=== PATIENT | male | born 1990 | race Caucasian/White ===

== ENCOUNTER 2017-09-17 14:01 | Emergency (ER) | payer MEDICAID, SELFPAY ==
--- NOTE | 2017-09-17 13:32 | RAD_ITS ---
STUDY: X-RAY CHEST REASON FOR EXAM: Male, 27 years old. Chest pain. Shortness of breath. TECHNIQUE: AP upright portable view. COMPARISON: 05/04/2017. FINDINGS: No confluent infiltrates. Subsegmental atelectases in the right lower lobe. There is no demonstrated pleural abnormality. Cardiac size cannot be accurately evaluated. Normal mediastinum and deny. Normal visualized pulmonary arteries. Normal visualized aortic arch and descending thoracic aorta. Normal visualized thoracic spine. Normal visualized ribs, clavicles, and shoulders. There is no demonstrated abnormality of the visualized soft tissue structures of the upper abdomen. RAD/Chest 1 View (Portable) IMPRESSION: 1. Minimal subsegmental atelectasis in the right lung base. 2. No obvious pneumonia or acute cardiopulmonary pathology. Electronically Signed: Brendan Mix MD at 15:17 EDT , Service support ,
[2017-09-17 14:02] VITALS: BP 202/117; PULSE 92; RESP 18; TEMP 36.4; O2SAT 97; BMI 52.0
--- NOTE | 2017-09-17 14:24 | EKG12_ITS ---
Test Reason : CP/SOB Blood Pressure : / mmHG Vent. Rate : 090 BPM Atrial Rate : 090 BPM P-R Int : 186 ms QRS Dur : 086 ms QT Int : 384 ms P-R-T Axes : 052 062 220 degrees QTc Int : 469 ms Normal sinus rhythm ST & T wave abnormality, consider inferolateral ischemia Prolonged QT Abnormal ECG Confirmed by HILTON RAGLAND ([id number]), online editor NICK CALERO ([id number]) on 09/21/2017 1:46:43 PM Referred By: DAISY/ÁNGEL Confirmed By:HILTON RAGLAND
[2017-09-17 14:28] VITALS: O2SAT 97
[2017-09-17 14:33] LABS: Absolute Lymphocyte Count 1.96 X10^3/ul (0.83-4.51); Absolute Neutrophil Count 4.1 X10^3/uL (2.0-7.7); Basophil# 0.01 X10^3/uL; Basophil% 0.2 % (0-1); Eosinophils% 1.5 % (0-5); Hematocrit 44.3 % (40-54); Hemoglobin 14.4 g/dl (13.0-16.5); Lymphocyte # 1.96 X10^3/ul (4.0); Lymphocyte % 30.2 % (19-41); Mean Corp Hgb Conc 32.5 g/gl (32-36); Mean Corpuscular Hgb 28.9 pg (27.0-32.0); Mean Corpuscular Volume 88.8 fL (80-94); Mean Platelet Vol. 10.4 fl (6.2-12.0); Monocyte# 0.29 X10^3/uL; Monocyte% 4.5 % (0-10); Neutrophil # 4.11 X10^3/uL (2.7-7.7); Neutrophil % 63.4 % (47-70); Platelet Count 222 K/mm3 (150-450); RBC Distribution Width CV 13.8 % (11.6-14.6); RBC Distribution Width SD 44.4 fl (35.1-43.9); Red Blood Count 4.99 M/mm3 (4.6-6.2); White Blood Count 6.5 K/mm3 (4.4-11.0)
[2017-09-17 14:37] LABS: POSITIVE COUNT NO; POSITIVE DIFFERENTIAL NO; POSITIVE MORPHOLOGY NO
[2017-09-17 14:46] LABS: Anion Gap 6 (5-15); BUN 9 mg/dL (7-18); BUN/Creat Ratio 9.2 RATIO (10-20); Calcium,Total 8.5 mg/dL (8.5-10.1); Chloride 106 mmol/L (98-107); Creatinine, Serum 0.98 mg/dL (0.70-1.30); EST Glomerular Filtration Rate 98 mL/min (>60); Est Glom Filt Rate - Afr Amer 118 mL/min (>60); Estimated Creatinine Clearance 124.27 ml/min; Glucose 188 mg/dL (74-106); Potassium 3.4 mmol/L (3.5-5.1); Sodium Level 143 mmol/L (136-145)
[2017-09-17 16:08] VITALS: BP 195/120; PULSE 76; RESP 13; O2SAT 94
--- NOTE | 2017-09-17 16:08 | ED.VISSUMM ---
- ER Visit Summary Date of Service: 09/17/17 Chief Complaint: [Chest pain] History of Present Illness: The patient is a 27 M [presents to the emergency department chest discomfort that started yesterday evening. Patient describes a tightness in the left side of his chest off and on. Patient states that his pain is currently resolved. Patient did feel systems shortness of breath associated with it. Patient had some discomfort in his right arm and he noticed some swelling initially in the right hand is now mostly resolved. Patient tells me he had a heart catheterization in 2014 that did not show any blockages. Patient denies recent travel or surgery. Patient states there is a family history of heart disease his father had an [place] in his early 50s. Patient is diabetic and has a history of hypertension. Patient is a smoker.] Physical Examination: [HEENT-PERRLA, EOMI. Cranial nerves II through XII grossly intact. TMs clear. Mucous membranes moist. No adenopathy. Cardiovascular-regular rate and rhythm without murmur or ectopy Lungs-clear to auscultation, chest wall stable without crepitus or subcu emphysema Abdomen-normoactive bowel sounds, soft, nontender, no rebound or rigidity, no peritoneal signs. Extremities-intact ?4, normal range of motion, normal pulses, atraumatic] Test Results: [EKG obtained showed a sinus rhythm with ventricular rate of [address] changes and a prolonged QT. When compared with prior EKG from May 04, 2017 there are no new changes noted. CBC with differential was normal. Chemistries unremarkable. Troponin was 0.03. Chest x-ray showed no evidence of pneumonia had some cardiomegaly and subsequent segmental atelectasis but otherwise nothing acute. Mediastinum appeared normal.] Emergency Department Course and Treatment: [Patient had taken aspirin at home therefore none was given here. Patient remained pain-free in the emergency department.] Treatment Plan: [Given the pain has been ongoing for close to 24 hours now patient has an unchanged EKG and normal troponin I do not feel his chest pain is cardiac. Patient had a CTA of the chest in April 2017 that was negative for PE and really does not have PE risk factors.] Disposition: [Discharged to home in stable condition] Impression: [Chest snbv-[id number]-jopfgdph uncertain] This note was generated with [employer] software. It may contain incorrect words, spelling, and punctuation that were not noted in review of the chart prior to signing ED Disposition - Plan for ED Patient: Chief Complaint: Chest Pain Referrals: [facility],Out of [Primary Care Provider] -
--- NOTE | 2017-09-17 16:12 | ED.DCSUM_ITS ---
- ER Visit Summary Date of Service: 09/17/17 Chief Complaint: [Chest pain] History of Present Illness: The patient is a 27 M [presents to the emergency department chest discomfort that started yesterday evening. Patient describes a tightness in the left side of his chest off and on. Patient states that his pain is currently resolved. Patient did feel systems shortness of breath associated with it. Patient had some discomfort in his right arm and he noticed some swelling initially in the right hand is now mostly resolved. Patient tells me he had a heart catheterization in 2014 that did not show any blockages. Patient denies recent travel or surgery. Patient states there is a family history of heart disease his father had an PR in his early 50s. Patient is diabetic and has a history of hypertension. Patient is a smoker.] Physical Examination: [HEENT-PERRLA, EOMI. Cranial nerves II through XII grossly intact. TMs clear. Mucous membranes moist. No adenopathy. Cardiovascular-regular rate and rhythm without murmur or ectopy Lungs-clear to auscultation, chest wall stable without crepitus or subcu emphysema Abdomen-normoactive bowel sounds, soft, nontender, no rebound or rigidity, no peritoneal signs. Extremities-intact ?4, normal range of motion, normal pulses, atraumatic] Test Results: [EKG obtained showed a sinus rhythm with ventricular rate of [address] changes and a prolonged QT. When compared with prior EKG from May 04, 2017 there are no new changes noted. CBC with differential was normal. Chemistries unremarkable. Troponin was 0.03. Chest x -ray showed no evidence of pneumonia had some cardiomegaly and subsequent segmental atelectasis but otherwise nothing acute. Mediastinum appeared normal. ] Emergency Department Course and Treatment: [Patient had taken aspirin at home therefore none was given here. Patient remained pain-free in the emergency department.] Treatment Plan: [Given the pain has been ongoing for close to 24 hours now patient has an unchanged EKG and normal troponin I do not feel his chest pain is cardiac. Patient had a CTA of the chest in April 2017 that was negative for PE and really does not have PE risk factors.] Disposition: [Discharged to home in stable condition] Impression: [Chest eksz-Onptbrbb-dqaxbvkv uncertain] This note was generated with [employer] software. It may contain incorrect words, spelling, and punctuation that were not noted in review of the chart prior to signing ED Disposition - Plan for ED Patient: Chief Complaint: Chest Pain Referrals: [facility],Out of [Primary Care Provider] -
--- NOTE | 2017-09-17 16:12 | ED.DEP ---
ED Disposition - Plan for ED Patient: Chief Complaint: Chest Pain Instructions: ED Chest Pain Atypical Unkn Cause, ED HTN Established Referrals: [facility],Out of [Primary Care Provider] - 3-5 Days
[2017-09-17 16:18] VITALS: BP 196/115; PULSE 71; RESP 16; O2SAT 98
== END 2017-09-17 16:19 | disposition home or self-care (01) ==
PROVIDERS: Emergency Provider Emergency Medicine
DX: R07.89 Other chest pain (principal); E11.9 Type 2 diabetes mellitus without complications; I10 Essential (primary) hypertension; F17.200 Nicotine dependence, unspecified, uncomplicated; Z79.84 Long term (current) use of oral hypoglycemic drugs; Z79.899 Other long term (current) drug therapy
CPT/HCPCS: 71045; 80048; 84484; 85025; 93005; 99284; A4216

== ENCOUNTER 2017-11-13 15:57 | Emergency (ER) | payer MEDICAID, SELFPAY ==
[2017-11-13 15:59] VITALS: PULSE 103; RESP 16; TEMP 36.8; O2SAT 95; BMI 50.6
[2017-11-13 16:08] VITALS: BP 219/121
--- NOTE | 2017-11-13 16:14 | CT_ITS ---
STUDY: CT ABDOMEN AND PELVIS WITHOUT CONTRAST REASON FOR EXAM: Male, 27 years old. Left lower quadrant pain, nausea/vomiting/diarrhea. History of colitis, Crohn's, GERD RADIATION DOSAGE (If Supplied By Facility): CTDIvol = ( 34.45 ) mGy, DLP = ( 1954.03 ) mGycm TECHNIQUE: Transaxial images were obtained from the dome of the diaphragm to the symphysis pubis without oral contrast, and without intravenous contrast. Sagittal and coronal images were reconstructed. Individualized dose optimization techniques were used for this CT. COMPARISON: None. FINDINGS: Mild elevation of right diaphragm. There is a well-defined 6 mm noncalcified nodule posteromedial periphery of the right lung base on the first image of series 2. The visualized portions of the heart are within normal limits. There is decreased attenuation of the liver consistent with steatosis. There is hepatomegaly, the right lobe measuring over 23 cm in height. The portal vein diameter is 2 cm. Normal gallbladder and extrahepatic biliary system. There is mild splenomegaly. Normal pancreas. Normal bilateral adrenal glands. Normal right kidney. Normal left kidney. No hydronephrosis. Normal visualized stomach. Normal small intestine. Normal colon. There is a 2-3 mm calcification at the stump of the appendix. There are occasional benign-appearing lymph nodes in the mesentery. Normal abdominal aorta. Normal inferior vena cava. There are a few benign-appearing lymph nodes in the periaortic retroperitoneum. Normal urinary bladder. Normal visualized prostate gland. Normal abdominal wall. There are multilevel degenerative changes of the visualized spine, and a slight S-shaped thoracolumbar scoliosis. There is slight left lateral wedging of the T11 and T12 vertebrae, as well as slight right lateral wedging of the L2 and L3 vertebrae. CT/Abdomen/Pelvis without Cont IMPRESSION: 1. The bowel is unremarkable without sign of obstruction or suspicious mural thickening. Focal calcification at the stump of the appendix suggests prior appendectomy. 2. Hepatic steatosis. There is also hepatosplenomegaly. 3. 6 mm noncalcified nodule at the posterior medial periphery of the right lower lobe is unchanged from CTA chest/thorax May 04, 2017, and was also mentioned in report of CT chest/thorax September 07, 2011. No specific radiographic follow-up is needed. 4. Degenerative changes of the spine. There is slight left lateral wedging of the T11-T12 vertebra and slight right lateral wedging of the L2-L3 vertebra, with a resulting slight S-shaped thoracolumbar scoliosis. 5. No hydronephrosis. Electronically Signed: Chino Moreira MD at 17:23 EDT , Service support ,
--- NOTE | 2017-11-13 16:15 | ED.VISSUMM ---
- ER Visit Summary Date of Service: 11/13/17 Chief Complaint: [] Abdominal pain History of Present Illness: The patient is a 27 M [] complaining of left lower quadrant abdominal pain beginning yesterday. Patient reports nausea vomiting and diarrhea. Reports he has been unable to keep his oral blood pressure medication down and he presents today with a blood pressure in the 200s systolic. He reports a history of colitis however he has not been diagnosed with Crohn's or ulcerative colitis. Reports he has no GI doctor and has never had EGD or colonoscopy. Denies hematemesis or blood in stool. Physical Examination: [] Systolic blood pressure 219/112. Remainder of vitals are unremarkable. Very morbidly obese 27-year-old male in no acute distress. Cardiovascular exam is regular rate and rhythm. Lungs were auscultation. Abdomen is obese, soft, tender in the left lower quadrant with mild voluntary guarding. No rebound tenderness. Test Results: [] Labs: CT, BMP, LFTs, lipase, lactic acid all within normal limits. CT abdomen/pelvis without contrast: Negative. Emergency Department Course and Treatment: [] Patient given intravenous fluid bolus, Phenergan, Dilaudid for symptom relief. On serial exam patient had improvement of symptoms. Patient had a negative workup including labs and CT scan I do not feel any further evaluation was warranted. Patient was amenable to discharge and follow-up with PCP. Treatment Plan: [] Follow-up with PCP. Disposition: [] Discharge, stable. Impression: [] Abdominal pain, unknown etiology This note was generated with [employer] dictation software. It may contain incorrect words, spelling, and punctuation that were not noted in review of the chart prior to signing ED Disposition - Plan for ED Patient: Chief Complaint: Abd Pain Referrals: [facility] ,Out of [Primary Care Provider] -
--- NOTE | 2017-11-13 16:20 | ED.RN ---
PT STATED TO NURSING STAFF TO NOTIFY PHYSICIAN THAT HIS PRESSURE RUNS SYSTOLIC 180-190 AND IS NORMAL FOR HIM. PT STATED THAT HIS DOCTOR TOLD HIM THAT IS WHAT IT SHOULD RUN AND WILL BE SLOWLY DECREASING HIM UNTIL THEN.
[2017-11-13] MEDS: 0.9% Normal Saline 1,000 ML 1000 ML IV (16:39)
[2017-11-13] MEDS: proMETHazine 25 MG/ML Syringe 6.25 MG IV (16:39)
[2017-11-13] MEDS: HYDROmorphone 1 MG/ML Syringe IV (16:39)
[2017-11-13 16:55] LABS: ALB/GLOB Ratio 0.8 RATIO (0.9-2.4); AST(SGOT) 21 U/L (15-37); Alanine Aminotransfer ALT/SGPT 49 U/L (16-61); Albumin, Serum 3.3 g/dL (3.2-5.0); Alkaline Phosphatase 51 U/L (45-117); Anion Gap 5 (5-15); BUN 9 mg/dL (7-18); BUN/Creat Ratio 9.3 RATIO (10-20); Calcium,Total 8.4 mg/dL (8.5-10.1); Chloride 104 mmol/L (98-107); Creatinine, Serum 0.96 mg/dL (0.70-1.30); EST Glomerular Filtration Rate 99 mL/min (>60); Est Glom Filt Rate - Afr Amer 120 mL/min (>60); Estimated Creatinine Clearance 126.86 ml/min; Glucose 151 mg/dL (74-106); Lipase 88 U/L (73-393); Potassium 3.4 mmol/L (3.5-5.1); Protein, Total 7.3 g/dL (6.4-8.2); Sodium Level 141 mmol/L (136-145)
[2017-11-13 17:05] LABS: Absolute Lymphocyte Count 2.69 X10^3/ul (0.83-4.51); Absolute Neutrophil Count 5.9 X10^3/uL (2.0-7.7); Basophil# 0.01 X10^3/uL; Basophil% 0.1 % (0-1); Eosinophil# 0.09 X10^3/uL; Hematocrit 46.4 % (40-54); Hemoglobin 15.7 g/dl (13.0-16.5); Lymphocyte # 2.69 X10^3/ul (4.0); Lymphocyte % 29.1 % (19-41); Mean Corp Hgb Conc 33.8 g/gl (32-36); Mean Corpuscular Hgb 28.7 pg (27.0-32.0); Mean Corpuscular Volume 84.8 fL (80-94); Mean Platelet Vol. 10.5 fl (6.2-12.0); Monocyte# 0.52 X10^3/uL; Monocyte% 5.6 % (0-10); Neutrophil # 5.91 X10^3/uL (2.7-7.7); Platelet Count 199 K/mm3 (150-450); RBC Distribution Width CV 13.3 % (11.6-14.6); RBC Distribution Width SD 40.7 fl (35.1-43.9); Red Blood Count 5.47 M/mm3 (4.6-6.2); White Blood Count 9.2 K/mm3 (4.4-11.0)
[2017-11-13 17:08] LABS: POSITIVE COUNT NO; POSITIVE DIFFERENTIAL NO; POSITIVE MORPHOLOGY NO
[2017-11-13 17:37] LABS: Lactic Acid 1.7 mmol/L (0.4-2.0)
--- NOTE | 2017-11-13 18:27 | ED.DEP ---
ED Disposition - Plan for ED Patient: Disposition: Home or Assisted Living Chief Complaint: Abd Pain Instructions: ED Abdominal Pain Unkn Cause Referrals: [facility],Out of [Primary Care Provider] -
--- NOTE | 2017-11-13 18:58 | ED.RN ---
PT DECLINED BLOOD PRESSURE MEDICATION. PT STATED HE WILL TAKE BLOOD PRESSURE MEDICATION AT HOME. PT EDUCATED ON IMPORTANCE OF LOWERING BLOOD PRESSURE, STILL DECLINED MEDS.
[2017-11-13 19:00] VITALS: BP 190/98; PULSE 71; RESP 18; O2SAT 98
== END 2017-11-13 19:00 | disposition home or self-care (01) ==
PROVIDERS: Emergency Provider Emergency Medicine
DX: R10.32 Left lower quadrant pain (principal); I10 Essential (primary) hypertension; E66.01 Morbid (severe) obesity due to excess calories; F32.9 Major depressive disorder, single episode, unspecified; Z72.0 Tobacco use; Z79.899 Other long term (current) drug therapy
CPT/HCPCS: 74176; 80053; 83605; 83690; 85025; 96361; 96374; 96375; 99283; J7030; A4216

== ENCOUNTER 2017-11-18 20:46 | Emergency (ER) | payer OTHER, SELFPAY ==
[2017-11-18 20:47] VITALS: BP 207/143; PULSE 100; RESP 20; TEMP 36.9; O2SAT 95; BMI 50.2
--- NOTE | 2017-11-18 21:05 | ED.DCSUM_ITS ---
- ER Visit Summary Date of Service: 11/18/17 Chief Complaint: Left ankle pain History of Present Illness: The patient is a 27 M twisted his left ankle at work tonight. No other injuries. Physical Examination: Mild tenderness left ankle lateral malleolus. Skin intact. No foot tenderness. Test Results: Left ankle x-ray negative for acute fracture based on my independent interpretation. No foot tenderness. Emergency Department Course and Treatment: placed in aircast stirrup and followup if not better. Treatment Plan: Followup if not improving. Disposition: Home stable condition Impression: Initial encounter left ankle sprain This note was generated with [employer] dictation software. It may contain incorrect words, spelling, and punctuation that were not noted in review of the chart prior to signing ED Disposition - Plan for ED Patient: Chief Complaint: Lower Extremity Injury Instructions: ED Sprain Ankle W X Ray Referrals: [facility] [GROUP OF PHYSICIANS] - 3-5 Days if not improving
--- NOTE | 2017-11-18 21:05 | RAD_ITS ---
STUDY: X-RAY - LEFT ANKLE REASON FOR EXAM: Male, 27 years old. Clipping and injured left ankle TECHNIQUE: 3 view(s) of the ankle. COMPARISON: April 30, 2017 FINDINGS: Normal visualized distal tibia and fibula. Normal medial and lateral malleoli. Normal tibiotalar articulation and ankle mortise. Normal visualized talus and calcaneus. The visualized subtalar, talonavicular, calcaneocuboid and tarsal articulations are normal. The soft tissue structures are unremarkable. RAD/Ankle min 3 Views IMPRESSION: Normal x-ray examination of the ankle. Electronically Signed: Refugio Harrington MD at 21:40 EDT , Service support ,
== END 2017-11-18 22:01 | disposition home or self-care (01) ==
PROVIDERS: Emergency Provider Emergency Medicine
DX: S93.402A Sprain of unspecified ligament of left ankle, initial encounter (principal); I10 Essential (primary) hypertension; F32.9 Major depressive disorder, single episode, unspecified; Z72.0 Tobacco use; Z79.899 Other long term (current) drug therapy; X50.1XXA Overexertion from prolonged static or awkward postures, initial encounter; Y93.89 Activity, other specified; Y92.89 Other specified places as the place of occurrence of the external cause; Y99.0 Civilian activity done for income or pay
CPT/HCPCS: 73610; 99283

== ENCOUNTER 2017-12-28 23:45 | Emergency (ER) | payer MEDICAID, SELFPAY ==
[2017-12-28 23:46] VITALS: BP 217/130; PULSE 110; RESP 20; TEMP 36.4; O2SAT 96; BMI 50.5
--- NOTE | 2017-12-29 00:21 | CT_ITS ---
STUDY: CT ABDOMEN AND PELVIS WITH CONTRAST REASON FOR EXAM: Male, 27 years old. Lower abdominal pain for 2 weeks, radiating to the back. History of appendectomy. RADIATION DOSAGE (If Supplied By Facility): CTDIvol = ( 31.44 ) mGy, DLP = ( 2037.15 ) mGycm TECHNIQUE: Transaxial images were obtained from the dome of the diaphragm to the symphysis pubis without oral contrast. 100ML ml of Isovue 300 contrast was administered. Sagittal and coronal images were reconstructed. Individualized dose optimization techniques were used for this CT. COMPARISON: 11/13/2017. 03/28/2017. FINDINGS: The visualized lung bases are unremarkable. The visualized portions of the heart are within normal limits. There is decreased attenuation of the liver consistent with steatosis. Normal gallbladder and extrahepatic biliary system. There is moderate splenomegaly, similar to previous exam. Normal pancreas. Normal bilateral adrenal glands. Normal right kidney. Normal left kidney. Normal visualized stomach. Normal small intestine. Normal colon. There are surgical clips in the region of the appendix consistent with a prior appendectomy. Normal abdominal aorta. Normal inferior vena cava. Normal retroperitoneum. Normal urinary bladder. Normal abdominal wall. There are multilevel degenerative changes of the visualized spine. CT/Abdomen/Pelvis W IV Cont ONLY IMPRESSION: Fatty infiltration of the liver. Splenomegaly, stable in appearance. Previous appendectomy. No evidence for acute pathology. No evidence for diverticulitis. No demonstrated urinary calculi or hydronephrosis. Electronically Signed: Nixon Cobb MD at 2:49 EDT , Service support ,
--- NOTE | 2017-12-29 00:26 | ED.VISSUMM ---
- ER Visit Summary Date of Service: 12/29/17 Chief Complaint: [Back pain] History of Present Illness: The patient is a 27 M [who presents the emergency department with 2 weeks of back pain. It started like he would wake up in the morning with the pain at the gluteal crest it has slowly progressed and is painful all day especially for the last 4 days it is worse when he walks when he bends forward when he stands. It radiates down both buttocks but worse on the left and he has some paresthesias intermittently in his left toes. He has chronic high blood pressure. He was admitted to [facility] for it in July. He states he has been compliant with all his medications but ran out of his lisinopril on Thursday. He denies any bowel or bladder dysfunction no fevers. No direct injury but 2 days prior to this starting he was moving a dresser with a relative.] Physical Examination: [] Blood pressure 217/130 heart rate 110 respirations 20 pulse ox 96% Obese male in no acute distress WN WD NAD PERRL EOMI MMM NECK supple and nontender, no masses RRR no murmur rub or gallop, no peripheral edema, symmetric radial pulses CTAB no respiratory distress ABDOMEN is soft and nontender, normal bowel sounds, no distension, no rebound or guarding Patient has no midline tenderness to palpation but does have pain with bending forward or lying back. He has a straight leg raise on the left at 45?. Strength at EHL dorsiflexion plantar flexion knee extension and hip flexion are intact bilaterally and symmetric. Reflexes are intact. SKIN is warm and dry no rashes Alert and Oriented x3, CN II-XII in tact, no motor or sensory deficits, gait normal No lymphadenopathy Test Results: [] Emergency Department Course and Treatment: [Patient was given lisinopril for his blood pressure. Previous blood pressures were reviewed and it was quite high. He has been running in the 170s over 110s at home. Because of the patient's blood pressure and back pain with radiculopathy and neurologic symptoms I did order a CT of the abdomen pelvis to rule out dissection. It shows no dissection. Creatinine is 1.65 but does not have a baseline for comparison. Patient is diabetic his sugar was 200. I will start him on a Medrol Dosepak he will be given a take-home dose of [place] and will be given muscle relaxant for home. He was encouraged to follow-up with his doctors in [place]. His blood pressure remained quite high give him 20 of labetalol and improved to 177/110. At this time I think he is safe for discharge home. We talked extensively about controlling and monitoring blood pressure. He has a prescription at the pharmacy to refill his lisinopril. He will take all his home medications this morning.] Treatment Plan: [] Disposition: [Discharge] Impression: [1. Lumbar back pain with left radiculopathy 2. Uncontrolled hypertension] This note was generated with [employer] dictation software. It may contain incorrect words, spelling, and punctuation that were not noted in review of the chart prior to signing ED Disposition - Plan for ED Patient: Chief Complaint: Back Referrals: [facility] Doctor,Out of [Primary Care Provider] -
--- NOTE | 2017-12-29 00:29 | ED.DCSUM_ITS ---
- ER Visit Summary Date of Service: 12/29/17 Chief Complaint: [Back pain] History of Present Illness: The patient is a 27 M [who presents the emergency department with 2 weeks of back pain. It started like he would wake up in the morning with the pain at the gluteal crest it has slowly progressed and is painful all day especially for the last 4 days it is worse when he walks when he bends forward when he stands. It radiates down both buttocks but worse on the left and he has some paresthesias intermittently in his left toes. He has chronic high blood pressure. He was admitted to [facility] for it in July. He states he has been compliant with all his medications but ran out of his lisinopril on Thursday. He denies any bowel or bladder dysfunction no fevers. No direct injury but 2 days prior to this starting he was moving a dresser with a relative.] Physical Examination: [] Blood pressure 217/130 heart rate 110 respirations 20 pulse ox 96% Obese male in no acute distress WN WD NAD PERRL EOMI MMM NECK supple and nontender, no masses RRR no murmur rub or gallop, no peripheral edema, symmetric radial pulses CTAB no respiratory distress ABDOMEN is soft and nontender, normal bowel sounds, no distension, no rebound or guarding Patient has no midline tenderness to palpation but does have pain with bending forward or lying back. He has a straight leg raise on the left at 45?. Strength at EHL dorsiflexion plantar flexion knee extension and hip flexion are intact bilaterally and symmetric. Reflexes are intact. SKIN is warm and dry no rashes Alert and Oriented x3, CN II-XII in tact, no motor or sensory deficits, gait normal No lymphadenopathy Test Results: [] Emergency Department Course and Treatment: [Patient was given lisinopril for his blood pressure. Previous blood pressures were reviewed and it was quite high. He has been running in the 170s over 110s at home. Because of the patient's blood pressure and back pain with radiculopathy and neurologic symptoms I did order a CT of the abdomen pelvis to rule out dissection. It shows no dissection. Creatinine is 1.65 but does not have a baseline for comparison. Patient is diabetic his sugar was 200. I will start him on a Medrol Dosepak he will be given a take-home dose of [place] and will be given muscle relaxant for home. He was encouraged to follow-up with his doctors in [place]. His blood pressure remained quite high give him 20 of labetalol and improved to 177/110. At this time I think he is safe for discharge home. We talked extensively about controlling and monitoring blood pressure. He has a prescription at the pharmacy to refill his lisinopril. He will take all his home medications this morning.] Treatment Plan: [] Disposition: [Discharge] Impression: [1. Lumbar back pain with left radiculopathy 2. Uncontrolled hypertension] This note was generated with [employer] dictation software. It may contain incorrect words, spelling, and punctuation that were not noted in review of the chart prior to signing ED Disposition - Plan for ED Patient: Chief Complaint: Back Referrals: [facility] Doctor,Out of [Primary Care Provider] -
[2017-12-29] MEDS: HYDROmorphone 1 MG/ML Syringe IV (00:42)
[2017-12-29] MEDS: Ondansetron 4 MG/2 ML Vial IV (00:42)
[2017-12-29] MEDS: Lisinopril 40 MG Tablet PO (01:18)
[2017-12-29 01:26] LABS: Anion Gap 9 (5-15); BUN 10 mg/dL (7-18); BUN/Creat Ratio 7.4 RATIO (10-20); Chloride 102 mmol/L (98-107); Creatinine, Serum 1.36 mg/dL (0.70-1.30); EST Glomerular Filtration Rate 67 mL/min (>60); Est Glom Filt Rate - Afr Amer 81 mL/min (>60); Estimated Creatinine Clearance 89.55 ml/min; Glucose 200 mg/dL (74-106); Potassium 3.4 mmol/L (3.5-5.1); Sodium Level 140 mmol/L (136-145)
[2017-12-29] MEDS: HYDROmorphone 0.5 MG/0.5 ML SYRINGE IV (03:14)
[2017-12-29 04:25] VITALS: BP 175/110; RESP 18
[2017-12-29 04:26] VITALS: BP 158/104; PULSE 84; RESP 18; O2SAT 99
--- NOTE | 2017-12-29 04:28 | ED.DEP ---
ED Disposition - Plan for ED Patient: Chief Complaint: Back Instructions: ED Sciatica, Controlling High Blood Pressure Prescriptions: Tizanidine HCl 4 mg PO Q8H PRN PRN #10 tablet PRN Reason: Muscle Spasm MethylPREDNISolone DosePak [Medrol DosePak] 4 mg PO UD #1 box Referrals: [facility], internal Medicine [Other] - 2 Days
--- NOTE | 2017-12-29 04:31 | ED.DEP ---
ED Disposition - Plan for ED Patient: Chief Complaint: Back Instructions: Controlling High Blood Pressure, ED Sciatica Prescriptions: Tizanidine HCl 4 mg PO Q8H PRN PRN #10 tablet PRN Reason: Muscle Spasm MethylPREDNISolone DosePak [Medrol DosePak] 4 mg PO UD #1 box Referrals: [facility], internal Medicine [Other] - 2 Days
[2017-12-29] MEDS: HYDROcodone Bitartrate/Apap 5/325 Tablet PO (04:34)
== END 2017-12-29 04:37 | disposition home or self-care (01) ==
PROVIDERS: Emergency Provider Emergency Medicine
DX: M54.16 Radiculopathy, lumbar region (principal); I10 Essential (primary) hypertension; E66.9 Obesity, unspecified; Z68.43 Body mass index [BMI] 50.0-59.9, adult; Z79.899 Other long term (current) drug therapy; Z72.0 Tobacco use
CPT/HCPCS: 74177; 80048; 96374; 96375; 96376; 99283; J7030; Q9967; A4216; J2405

== ENCOUNTER 2018-01-25 23:26 | Emergency (ER) | payer MEDICAID, SELFPAY ==
[2018-01-25 23:27] VITALS: BP 215/135; PULSE 104; RESP 18; TEMP 36.8; O2SAT 97; BMI 50.8
--- NOTE | 2018-01-26 00:37 | ED.VISSUMM ---
- ER Visit Summary Date of Service: 01/26/18 Chief Complaint: [] Patient stated he is having back pain in the left buttock for last 2 days gradual onset. It radiates down the left leg. Worse with movement. Seen in the emergency department approximately a month ago and had a CT abdomen pelvis that showed nothing acute. The pain went away the next day. He thinks he has sciatica. He has chronic hypertension and has not been taking his meds over the last few days. Because he forgets. His blood pressure runs quite high per patient. History of Present Illness: The patient is a 27 M [] Physical Examination: [] Vital signs reviewed General: Well-nourished well-developed Head: Normocephalic atraumatic Eyes: Pupils equal round and reactive to light extraocular movements intact ENT: TMs clear no hemotympanum no trauma Neck: Nontender full range of motion Cardiovascular: Regular rate rhythm no murmurs normal S1-S2 Respiratory: No distress clear to auscultation bilaterally chest nontender Abdomen: Soft nontender nondistended normal bowel sounds no masses Back: Nontender no CVA tenderness or tenderness left sciatic notch. Positive straight leg raise on the left. Extremities: Nontender active range of motion ?4 extremities no trauma Skin: Normal color no trauma Neuro alert oriented cranial nerves II through XII intact normal strength sensation reflexes Test Results: [] Emergency Department Course and Treatment: [] And a dose of morphine. Will be given a short course of [place] for home. I think he has sciatica. Will get his blood pressure checked and take his blood pressure medicine. Will follow-up as an outpatient. Treatment Plan: [] Disposition: [] Impression: [] Left-sided sciatica Chronic hypertension This note was generated with [employer] dictation software. It may contain incorrect words, spelling, and punctuation that were not noted in review of the chart prior to signing ED Disposition - Plan for ED Patient: Chief Complaint: Back Referrals: [facility] Doctor,Out of [Primary Care Provider] -
--- NOTE | 2018-01-26 00:39 | DCINST.ED_ITS ---
ED Disposition - Plan for ED Patient: Disposition: Home or Assisted Living Chief Complaint: Back Instructions: ED Sciatica Prescriptions: Hydrocodone Bitart/Apap 5-325 [[place] 5MG-325MG] 1 tab PO Q6H PRN PRN 3 Days #10 tab PRN Reason: Pain Referrals: [facility],Out of [Primary Care Provider] -
[2018-01-26 00:42] VITALS: BP 217/124
[2018-01-26] MEDS: Morphine 4 MG/ML Syringe IM (00:44)
[2018-01-26 01:03] VITALS: BP 205/128
== END 2018-01-26 01:04 | disposition home or self-care (01) ==
PROVIDERS: Emergency Provider Emergency Medicine
DX: M54.32 Sciatica, left side (principal); I10 Essential (primary) hypertension; E66.9 Obesity, unspecified; Z91.14 Patient's other noncompliance with medication regimen
CPT/HCPCS: 96372; 99282

== ENCOUNTER 2018-03-07 21:52 | Emergency (ER) | payer MEDICAID, SELFPAY ==
[2018-03-07 21:53] VITALS: BP 216/132; PULSE 110; RESP 15; TEMP 37.2; BMI 49.0
--- NOTE | 2018-03-07 22:50 | ED.VISSUMM ---
- ER Visit Summary Date of Service: 03/07/18 Chief Complaint: Back pain History of Present Illness: The patient is a 27 M increasing left lower back pain 2 days ago after moving furniture. Pain down the back of his leg to his knee. No loss of bowel or bladder control. No saddle anesthesia. Tylenol with no relief. Similar symptoms a couple months ago. Last prescription [place] was 2 months ago. Denies any falls or direct injuries. No history of IV drug abuse. History of hypertension, has not taken his medications for a week, he is on lisinopril with hydrochlorothiazide along with Coreg. States he forgets to take them. Saw the urgent care week ago for upper respiratory symptoms which is resolved. Symptoms worsen with bending or prolonged sitting. Improved with standing with weight off the left leg. Physical Examination: General: Alert and oriented ?3, no acute distress HEENT: Normocephalic, atraumatic. Moist mucosa membranes Neck: supple, nontender. Cardiovascular: Regular rate 108 and rhythm, no murmurs Respiratory: Normal breath sounds, symmetric, no distress Abdomen: Soft, nontender, nondistended Back: No midline tenderness, reproducible left lower lumbar tenderness. Straight leg test was negative. 1+ patellar reflex bilaterally. Extremities: Nontender, no edema, pulses intact ?4 Neuro: no focal neurological deficits. Test Results: [] Emergency Department Course and Treatment: Patient presented with sciatica symptoms. Treated with morphine and Valium in the ED. OARRS report shows no overlap, last prescription was his last visit 10 tabs of [place]. He has elevated blood pressure in the ED, asymptomatic, has been noncompliant over the past week. Discussed the patient needs to take his medications as prescribed. Patient nontoxic. Standing bedside able to ambulate. Patient discharged outpatient follow-up. All questions were answered. NSAIDs held due to elevated blood pressure. Treatment Plan: [] Disposition: Discharge Impression: 1. Sciatica left side 2. Elevated blood pressure 3. Medication noncompliance This note was generated with [employer] dictation software. It may contain incorrect words, spelling, and punctuation that were not noted in review of the chart prior to signing ED Disposition - Plan for ED Patient: Disposition: Home or Assisted Living Chief Complaint: Back Diagnosis: Sciatica, Elevated blood pressure reading Instructions: ED Sciatica Prescriptions: Hydrocodone Bitart/Apap 5-325 [[place] 5MG-325MG] 1 tablet PO Q6H PRN PRN 3 Days #10 tablet PRN Reason: Pain Diazepam [Valium] 5 mg PO Q8 PRN #10 tablet PRN Reason: Muscle Spasm Referrals: [facility] Doctor,Out of [Primary Care Provider] - 3-5 Days Additional Instructions: Need to take your blood pressure medications. Check your blood pressures, follow-up with your doctor.
--- NOTE | 2018-03-07 22:54 | ED.DCSUM_ITS ---
- ER Visit Summary Date of Service: 03/07/18 Chief Complaint: Back pain History of Present Illness: The patient is a 27 M increasing left lower back pain 2 days ago after moving furniture. Pain down the back of his leg to his knee. No loss of bowel or bladder control. No saddle anesthesia. Tylenol with no relief. Similar symptoms a couple months ago. Last prescription [place] was 2 months ago. Denies any falls or direct injuries. No history of IV drug abuse. History of hypertension, has not taken his medications for a week, he is on lisinopril with hydrochlorothiazide along with Coreg. States he forgets to take them. Saw the urgent care week ago for upper respiratory symptoms which is resolved. Symptoms worsen with bending or prolonged sitting. Improved with standing with weight off the left leg. Physical Examination: General: Alert and oriented ?3, no acute distress HEENT: Normocephalic, atraumatic. Moist mucosa membranes Neck: supple, nontender. Cardiovascular: Regular rate 108 and rhythm, no murmurs Respiratory: Normal breath sounds, symmetric, no distress Abdomen: Soft, nontender, nondistended Back: No midline tenderness, reproducible left lower lumbar tenderness. Straight leg test was negative. 1+ patellar reflex bilaterally. Extremities: Nontender, no edema, pulses intact ?4 Neuro: no focal neurological deficits. Test Results: [] Emergency Department Course and Treatment: Patient presented with sciatica symptoms. Treated with morphine and Valium in the ED. OARRS report shows no overlap, last prescription was his last visit 10 tabs of [place]. He has elevated blood pressure in the ED, asymptomatic, has been noncompliant over the past week. Discussed the patient needs to take his medications as prescribed. Patient nontoxic. Standing bedside able to ambulate. Patient discharged outpatient follow-up. All questions were answered. NSAIDs held due to elevated blood pressure. Treatment Plan: [] Disposition: Discharge Impression: 1. Sciatica left side 2. Elevated blood pressure 3. Medication noncompliance This note was generated with [employer] dictation software. It may contain incorrect words, spelling, and punctuation that were not noted in review of the chart prior to signing ED Disposition - Plan for ED Patient: Disposition: Home or Assisted Living Chief Complaint: Back Diagnosis: Sciatica, Elevated blood pressure reading Instructions: ED Sciatica Prescriptions: Hydrocodone Bitart/Apap 5-325 [[place] 5MG-325MG] 1 tablet PO Q6H PRN PRN 3 Days # 10 tablet PRN Reason: Pain Diazepam [Valium] 5 mg PO Q8 PRN #10 tablet PRN Reason: Muscle Spasm Referrals: [facility],Out of [Primary Care Provider] - 3-5 Days Additional Instructions: Need to take your blood pressure medications. Check your blood pressures, follow-up with your doctor.
[2018-03-07] MEDS: Morphine 4 MG/ML Syringe SC (23:14)
== END 2018-03-07 23:30 | disposition home or self-care (01) ==
PROVIDERS: Emergency Provider Emergency Medicine
DX: M54.42 Lumbago with sciatica, left side (principal); I10 Essential (primary) hypertension; Z91.14 Patient's other noncompliance with medication regimen; G47.33 Obstructive sleep apnea (adult) (pediatric); F90.9 Attention-deficit hyperactivity disorder, unspecified type; Z72.0 Tobacco use; Z79.899 Other long term (current) drug therapy
CPT/HCPCS: 96372; 99282

== ENCOUNTER 2018-03-22 17:54 | Emergency (ER) | payer MEDICAID, SELFPAY ==
[2018-03-22 17:55] VITALS: PULSE 109; RESP 18; TEMP 37; O2SAT 99; BMI 54.2
[2018-03-22 17:56] VITALS: BP 237/149
--- NOTE | 2018-03-22 18:31 | ED.VISSUMM ---
- ER Visit Summary Date of Service: 03/22/18 Chief Complaint: Broken tooth History of Present Illness: The patient is a 27 M with a broken tooth. The patient was eating a sandwich yesterday when he felt something hard in his mouth. He noticed that he had broken 1 of his right upper teeth. He has noted some swelling to the area. Worse with moving and breathing. Cannot chew with that side of his mouth. Physical Examination: Blood pressure 237/149. Heart rate 109. Otherwise vitals unremarkable. Head and neck atraumatic. HEENT exam remarkable for focal decay involving tooth #10. No abscess or swelling noted. No trismus or tongue elevation. No lymphadenopathy. Heart regular rate and rhythm on my exam. Respirations clear bilaterally. Test Results: None indicated Emergency Department Course and Treatment: Patient will be treated with clindamycin and naproxen. He also received an ice pack. He will follow-up with dental. His blood pressure is very high. He has a history of hypertension. He has no current symptoms. He was advised to take his medication and follow-up with his doctor. He should return right away for any new or worsening symptoms. Treatment Plan: As above Disposition: Discharged Impression: 1. Dental pain 2. Hypertension This note was generated with [employer] dictation software. It may contain incorrect words, spelling, and punctuation that were not noted in review of the chart prior to signing ED Disposition - Plan for ED Patient: Chief Complaint: Dental Referrals: [facility] Doctor,Out of [Primary Care Provider] -
--- NOTE | 2018-03-22 18:34 | ED.DEP ---
ED Disposition - Plan for ED Patient: Chief Complaint: Dental Instructions: ED Tooth Pain Prescriptions: Naproxen [Naprosyn] 500 mg PO BID #14 tab Clindamycin HCl [Cleocin] 300 mg PO Q6H #28 cap Additional Instructions: follow up with your dentist and your primary care doctor for blood pressure checks and treatment
[2018-03-22] MEDS: Clindamycin HCl 150 MG Capsule 300 MG PO (18:38)
[2018-03-22] MEDS: Naproxen 500 MG Tablet PO (18:38)
[2018-03-22 18:40] VITALS: BP 198/124; RESP 16
--- NOTE | 2018-03-22 18:40 | ED.RN ---
REVIEWED D/C INSTRUCTIONS, FOLLOW UP CARE, PRESCRIPTIONS, AND S/S THAT WOULD WARRANT A RETURN TO THE ED WITH PT. PT VERBALIZED AN UNDERSTANDING AND DENIES FURTHER QUESTIONS FOR THIS RN. PT SKIN P/W/D, RESP EVEN AND UNLABORED, PT A&O X 3, NO DISTRESS NOTED.
== END 2018-03-22 18:52 | disposition home or self-care (01) ==
PROVIDERS: Emergency Provider Emergency Medicine
DX: K08.89 Other specified disorders of teeth and supporting structures (principal); I10 Essential (primary) hypertension; K02.9 Dental caries, unspecified; F17.200 Nicotine dependence, unspecified, uncomplicated; Z79.899 Other long term (current) drug therapy
CPT/HCPCS: 99283

== ENCOUNTER 2018-05-03 11:40 | Emergency (ER) | payer MEDICAID, SELFPAY ==
[2018-05-03 11:41] VITALS: BP 216/132; PULSE 88; RESP 28; TEMP 36.4; O2SAT 95; BMI 51.5
--- NOTE | 2018-05-03 11:49 | CT_ITS ---
STUDY: CT ABDOMEN AND PELVIS WITHOUT CONTRAST REASON FOR EXAM: Male, 27 years old. Periumbilical pain. Vomiting. RADIATION DOSAGE (If Supplied By Facility): CTDIvol = ( 24.17 ) mGy, DLP = ( 1310.39 ) mGycm TECHNIQUE: Transaxial images were obtained from the dome of the diaphragm to the symphysis pubis without oral contrast, and without intravenous contrast. Sagittal and coronal images were reconstructed. Individualized dose optimization techniques were used for this CT. COMPARISON: Comparison is made with prior study dated December 29, 2017. FINDINGS: Minimal increased linear markings in the medial aspect of the right middle lobe and lingular segment of the left upper lobe suggestive of mild atelectasis. This is unchanged. The visualized portions of the heart are within normal limits. Normal liver. Normal gallbladder and extrahepatic biliary system. Normal spleen. Normal pancreas. Normal bilateral adrenal glands. Normal right kidney. Normal left kidney. Normal visualized stomach. Normal small intestine. Normal colon. There are surgical clips in the region of the appendix consistent with a prior appendectomy. Small rounded soft tissue densities are seen within the mesentery in the right lower quadrant is suggestive of a mesenteric adenitis. Normal abdominal aorta. Normal inferior vena cava. There is borderline retroperitoneal lymphadenopathy with enlarged nodes no greater than 10mm in the short axis diameter. Normal urinary bladder. Normal abdominal wall. There are mild degenerative changes of the visualized lumbar spine. CT/Abdomen/Pelvis without Cont IMPRESSION: Status post appendectomy. Findings suggestive of mesenteric adenitis. Electronically Signed: Berry Cruz MD at 12:48 EDT Tel [phone], Service support ,
[2018-05-03 12:10] LABS: Absolute Lymphocyte Count 1.62 X10^3/ul (0.83-4.51); Absolute Neutrophil Count 4.7 X10^3/uL (2.0-7.7); Basophil# 0.01 X10^3/uL; Basophil% 0.1 % (0-1); Eosinophil# 0.03 X10^3/uL; Eosinophils% 0.4 % (0-5); Hematocrit 47.4 % (40-54); Hemoglobin 15.6 g/dl (13.0-16.5); Lymphocyte # 1.62 X10^3/ul (4.0); Lymphocyte % 24.1 % (19-41); Mean Corp Hgb Conc 32.9 g/gl (32-36); Mean Corpuscular Volume 88.1 fL (80-94); Mean Platelet Vol. 10.4 fl (6.2-12.0); Monocyte% 4.5 % (0-10); Neutrophil # 4.73 X10^3/uL (2.7-7.7); Neutrophil % 70.6 % (47-70); Platelet Count 225 K/mm3 (150-450); RBC Distribution Width CV 13.3 % (11.6-14.6); Red Blood Count 5.38 M/mm3 (4.6-6.2); White Blood Count 6.7 K/mm3 (4.4-11.0)
[2018-05-03 12:13] LABS: POSITIVE COUNT NO; POSITIVE DIFFERENTIAL NO; POSITIVE MORPHOLOGY NO
[2018-05-03] MEDS: 0.9% Normal Saline 1,000 ML 1000 ML IV (12:15)
[2018-05-03] MEDS: Ondansetron 4 MG/2 ML Vial IV (12:16)
[2018-05-03 12:28] LABS: AST(SGOT) 29 U/L (15-37); Alanine Aminotransfer ALT/SGPT 39 U/L (16-61); Albumin, Serum 3.4 g/dL (3.2-5.0); Alkaline Phosphatase 41 U/L (45-117); Anion Gap 2 (5-15); BUN 14 mg/dL (7-18); BUN/Creat Ratio 10.8 RATIO (10-20); Bilirubin, Direct 0.12 mg/dL (0.00-0.30); Calcium,Total 8.8 mg/dL (8.5-10.1); Chloride 99 mmol/L (98-107); EST Glomerular Filtration Rate 70 mL/min (>60); Est Glom Filt Rate - Afr Amer 85 mL/min (>60); Estimated Creatinine Clearance 93.68 ml/min; Glucose 114 mg/dL (74-106); Lipase 83 U/L (73-393); Potassium 3.4 mmol/L (3.5-5.1); Protein, Total 7.4 g/dL (6.4-8.2); Sodium Level 140 mmol/L (136-145)
--- NOTE | 2018-05-03 13:08 | CT_ITS ---
STUDY: CT BRAIN WITHOUT CONTRAST REASON FOR EXAM: Male, 27 years old. Headaches. RADIATION DOSAGE (If Supplied By Facility): CTDIvol = ( 44.99 ) mGy, DLP = ( 796.11 ) mGycm TECHNIQUE: Transaxial CT imaging of the brain was performed without administration of intravenous contrast material. Individualized dose optimization techniques were used for this CT. COMPARISON: Comparison is made with prior study dated November 25, 2016. FINDINGS: Normal soft tissue structures. Normal calvarium. Normal size ventricles and extra-axial spaces for the patient's age. Normal white matter tracts of the cerebral hemispheres. Since prior study, there is a 1.2 cm hypodensity in the posterior limb of the right internal capsule. Normal brainstem. Normal cerebellum. There is no intracranial hemorrhage. There are no findings of an acute ischemic infarction. Normal visualized paranasal sinuses. CT/Brain/Head without Contrast IMPRESSION: New hypodensity in the posterior limb of the right internal capsule. Electronically Signed: Berry Cruz MD at 13:51 EDT Tel [phone], Service support ,
[2018-05-03] MEDS: Morphine 4 MG/ML Syringe IV (13:25)
[2018-05-03] MEDS: hydroCHLOROthiazide 12.5mg 12.5 MG PO (13:26)
[2018-05-03] MEDS: Lisinopril 20 MG Tablet PO (13:26)
[2018-05-03 13:32] VITALS: BP 181/118; PULSE 88; RESP 20; O2SAT 92
--- NOTE | 2018-05-03 15:25 | ED.DCSUM_ITS ---
- ER Visit Summary Date of Service: 05/03/18 Chief Complaint: Abdominal pain, nausea, vomiting. History of Present Illness: The patient is a 27 M presenting with 2 days of nausea, vomiting, and abdominal cramps. Bowel movements have been normal. No diarrhea. He was feeling somewhat better yesterday but then after going to work he felt more nauseated and started vomiting again. He denies previous similar symptoms. Denies recent sick contacts or recent travel. He also has a history of hypertension and states that his blood pressure has been somewhat more elevated for the past several months. He has been having intermittent headaches. His tells me that he is only occasionally compliant with his medication. He is not out of it but just only takes it every now and again when he thinks of it. He has not been confused nor has he had chest pain. Physical Examination: His blood pressure is quite elevated here at 216/132. Other vitals are within normal limits. Mucous members are dry. Neck is supple. Heart tones are regular and without murmur. Lungs are clear bilaterally. Abdomen is soft and nontender. He has a normal neurologic exam and mental status exam. Test Results: CBC and chemistries are basically normal. He has no chest pain or shortness of breath. A CT abdomen/pelvis was performed and reveals evidence of mesenteric adenitis but no other acute or life-threatening process. Because his blood pressure was quite elevated and he did not take his medication, I did perform a CT brain. It was negative for acute bleed or swelling. There was however a subtle hypodensity in the posterior limb of the right internal capsule approximately 1.2 cm in size. He was given his home blood pressure medication here and his repeat pressure has improved but is still certainly not normal. He has not been taking his medication at least for several weeks according to his . I talked at length with him regarding the importance of compliance with his medication for his long-term health and stroke risk reduction. He promises me that he will start taking it again and assures me that he has plenty of it at home. Emergency Department Course and Treatment: His of his abdominal pain, CT scan is negative for acute or life-threatening process. There is evidence of mesenteric adenitis for which she will take anti-inflammatories and follow-up closely with his primary care physician. I discussed the CT brain findings with the on-call neurologist, Dr. Pranav Dugan who recommended follow-up in his office this week. He also recommend that I start him on a daily aspirin for stroke risk reduction and stressed the importance of compliance with his blood pressure medication. He may need an additional agent added if it does not improve on his usual dose. He will return if he has any recurrence of symptoms but at this time he feels much better and is comfortable with discharge home. Treatment Plan: Take blood pressure medication as prescribed, daily aspirin Disposition: Stable home Impression: Initial encounter mesenteric adenitis, initial encounter abdominal pain, initial encounter poorly controlled hypertension with medication noncompliance, possible subacute stroke on CT scan to be further evaluated on outpatient MRI This note was generated with [employer] dictation software. It may contain incorrect words, spelling, and punctuation that were not noted in review of the chart prior to signing ED Disposition - Plan for ED Patient: Chief Complaint: Nausea/Vomiting Instructions: ED Nausea Vomiting, ED Adenitis Mesenteric, Taking Your Blood Pressure, Your High Blood Pressure Risk Factors, ED Stroke Completed Prescriptions: Aspirin [Aspirin, Baby] 81 mg PO DAILY@0800 30 Days #30 tab.chew Referrals: Pranav Dugan MD [STAFF PHYSICIAN] - (raj)
[2018-05-03 15:34] VITALS: BP 178/103; PULSE 80; RESP 20; O2SAT 93
== END 2018-05-03 15:38 | disposition home or self-care (01) ==
PROVIDERS: Emergency Provider Emergency Medicine
DX: I88.0 Nonspecific mesenteric lymphadenitis (principal); I10 Essential (primary) hypertension; R10.9 Unspecified abdominal pain; Z91.14 Patient's other noncompliance with medication regimen; Z72.0 Tobacco use; Z79.899 Other long term (current) drug therapy
CPT/HCPCS: 70450; 74176; 80048; 80076; 83690; 85025; 96361; 96374; 96375; 99284; J7030; A4216; J2405

== ENCOUNTER 2018-05-25 17:11 | Emergency (ER) | payer MEDICAID, SELFPAY ==
[2018-05-25 17:13] VITALS: BP 214/132; PULSE 88; RESP 18; TEMP 36.6; O2SAT 98; BMI 47.2
--- NOTE | 2018-05-25 17:46 | CT_ITS ---
STUDY: CT BRAIN WITHOUT CONTRAST REASON FOR EXAM: Male, 27 years old. Headache. Hypertension. Previous abnormal CT scan. RADIATION DOSAGE (If Supplied By Facility): CTDIvol = ( 44.99 ) mGy, DLP = ( 829.85 ) mGycm TECHNIQUE: Transaxial CT imaging of the brain was performed without administration of intravenous contrast material. Individualized dose optimization techniques were used for this CT. COMPARISON: 05/03/2018. FINDINGS: Normal soft tissue structures. Normal calvarium. Again seen focal lacunar infarct in the right internal capsule and basal ganglia. This is unusual for patient's age and may be related to hypertension. No other changes. Normal size ventricles and extra-axial spaces for the patient's age. Normal white matter tracts of the cerebral hemispheres. Normal basal ganglia and thalami. Normal brainstem. Normal cerebellum. There is no intracranial hemorrhage. There are no findings of an acute ischemic infarction. Normal visualized paranasal sinuses. CT/Brain/Head without Contrast IMPRESSION: No change. Stable lacunar infarct of the right internal capsule. Electronically Signed: Derrick Michel MD at 18:55 EST , Service support ,
[2018-05-25] MEDS: 0.9% Normal Saline 1,000 ML 150 ML IV (18:25)
[2018-05-25] MEDS: MethylPREDNISolone 125 MG/2 ML Vial IV (18:25)
[2018-05-25] MEDS: Ketorolac 30 MG/ML Syringe IV (18:25)
[2018-05-25] MEDS: proMETHazine 25 MG/ML Syringe 12.5 MG IV (18:25)
[2018-05-25] MEDS: Morphine 4 MG/ML Syringe IV (18:25)
[2018-05-25 18:28] LABS: Absolute Lymphocyte Count 2.29 X10^3/ul (0.83-4.51); Basophil# 0.03 X10^3/uL; Basophil% 0.4 % (0-1); Eosinophil# 0.18 X10^3/uL; Eosinophils% 2.3 % (0-5); Hematocrit 48.4 % (40-54); Hemoglobin 16.3 g/dl (13.0-16.5); Lymphocyte # 2.29 X10^3/ul (4.0); Lymphocyte % 28.6 % (19-41); Mean Corp Hgb Conc 33.7 g/gl (32-36); Mean Corpuscular Hgb 29.2 pg (27.0-32.0); Mean Corpuscular Volume 86.6 fL (80-94); Mean Platelet Vol. 10.6 fl (6.2-12.0); Monocyte# 0.45 X10^3/uL; Monocyte% 5.6 % (0-10); Neutrophil # 5.04 X10^3/uL (2.7-7.7); Platelet Count 240 K/mm3 (150-450); RBC Distribution Width CV 13.4 % (11.6-14.6); RBC Distribution Width SD 41.9 fl (35.1-43.9); Red Blood Count 5.59 M/mm3 (4.6-6.2)
[2018-05-25 18:30] VITALS: BP 157/95; PULSE 73
[2018-05-25 18:30] LABS: POSITIVE COUNT NO; POSITIVE DIFFERENTIAL NO; POSITIVE MORPHOLOGY NO
[2018-05-25 18:52] LABS: Anion Gap 4 (5-15); BUN 14 mg/dL (7-18); BUN/Creat Ratio 15.9 RATIO (10-20); Calcium,Total 8.9 mg/dL (8.5-10.1); Chloride 107 mmol/L (98-107); Creatinine, Serum 0.88 mg/dL (0.70-1.30); EST Glomerular Filtration Rate 109 mL/min (>60); Est Glom Filt Rate - Afr Amer 132 mL/min (>60); Glucose 84 mg/dL (74-106); Potassium 3.5 mmol/L (3.5-5.1); Sodium Level 142 mmol/L (136-145)
[2018-05-25 19:00] VITALS: BP 178/110
[2018-05-25 19:33] VITALS: BP 182/108; PULSE 72; O2SAT 94
[2018-05-25 20:27] VITALS: BP 145/59; PULSE 64; RESP 17
--- NOTE | 2018-05-25 20:47 | ED.VISSUMM ---
- ER Visit Summary Date of Service: 05/25/18 Chief Complaint: Headache, back pain History of Present Illness: The patient is a 27 M who developed left low back pain yesterday with radiation down across the buttock into the leg. He states he moved furniture 1 week ago but had not had any pain until yesterday. Pain is worse with movement. He has no problems with bowel or bladder control. He also complains of a generalized headache. He had an abnormal finding on his head CT on June 14. Physical Examination: Blood pressure is 214/132, temperature 97.9, heart rate 88, respiratory rate 18, pulse ox 98% on room air. Patient standing at bedside. He is in no acute distress. Head neck examination is unremarkable. Heart is regular rate and rhythm. Lung sounds are clear. Abdomen is soft and nontender. Back examination reveals reproducible tenderness in the left low lumbar paraspinals and over the sciatic notch. No overlying skin changes noted. Neuro exam reveals good strength and sensation throughout. Test Results: With the patient's current headache, recent abnormal head CT, and significantly elevated blood pressure a repeat head CT was performed. There is no significant change noted. There is stable lacunar infarct noted to the right internal capsule. CBC and chemistry studies are unremarkable. Emergency Department Course and Treatment: Patient was given morphine, Phenergan, Solu-Medrol, and Toradol. Labetalol was initially ordered for blood pressure control but blood pressure had dropped prior to this being given in the med was held. On repeat examination blood pressure is 145/59 with a heart rate of 64. Patient is sleeping comfortably and easily awakens. He is discharged with a prescription for prednisone, Flexeril, and Naprosyn. Treatment Plan: [] Disposition: Discharge Impression: 1. Sciatica 2. Cephalgia, improved 3. Hypertension, improved This note was generated with [employer] dictation software. It may contain incorrect words, spelling, and punctuation that were not noted in review of the chart prior to signing ED Disposition - Plan for ED Patient: Disposition: Home or Assisted Living Chief Complaint: Back Instructions: ED Sciatica Prescriptions: Naproxen [Naprosyn] 500 mg PO BID PRN PRN #20 tablet PRN Reason: Pain Prednisone 10 mg PO DAILY #63 tablet Cyclobenzaprine [Flexeril] 10 mg PO TID PRN #20 tablet PRN Reason: Muscle Spasm Referrals: Gareth Harrington MD [STAFF PHYSICIAN] - As Needed
== END 2018-05-25 20:55 | disposition home or self-care (01) ==
PROVIDERS: Emergency Provider Emergency Medicine
DX: R51 Headache (principal); M54.42 Lumbago with sciatica, left side; I10 Essential (primary) hypertension; G47.33 Obstructive sleep apnea (adult) (pediatric); Z72.0 Tobacco use
CPT/HCPCS: 70450; 80048; 85025; 96361; 96374; 96375; 99283; J7030; A4216

== ENCOUNTER 2018-06-15 15:52 | Emergency (ER) | payer MEDICAID, SELFPAY ==
[2018-06-15 15:53] VITALS: BP 202/123; BP 211/105; PULSE 91; PULSE 93; RESP 17; RESP 18; TEMP 36.9; O2SAT 94; O2SAT 96; BMI 46.9
--- NOTE | 2018-06-15 16:24 | ED.DCSUM_ITS ---
- ER Visit Summary Date of Service: 06/15/18 Chief Complaint: Back pain History of Present Illness: The patient is a [address] Ye. He reports that he has had low back pain for approximately 3 weeks. States that he was seen in the emergency department was placed on a prednisone taper and was doing better. He completed this 1 week ago. Reports that his pain is been much worse over the past 4 days. Says sharp, burning pain left low back with radiation down the back of his left leg to the level of his calf. States it is 10 at worst 410 currently. Is worsened by movement, walking, or laying flat. Is relieved by remaining still and Aleve. He denies any numbness or weakness in his legs. No problems with his bowels or his bladder. No groin numbness. He denies any recent trauma. No fall, MVA, or change in activity. Physical Examination: Vitals: Stable. Afebrile. General: A&O x 3. NAD. Cardiovascular exam: Regular rate and rhythm, no murmur, rub or gallop. Respiratory exam: Clear to auscultation bilaterally. No wheezes or stridor. Abdominal exam: Soft, nontender, nondistended, normal bowel sounds. No peritoneal signs. Back: Diffuse moderate tenderness to palpation over the lumbar spine and the paraspinous musculature in the lumbar region. No point tenderness. Negative straight leg bilaterally. 5/5 DF, PF, EHL bilaterally. Normal sensation to light touch throughout. Extremity: No clubbing, cyanosis, or edema. Emergency Department Course and Treatment: Patient was treated with naproxen and Norflex p.o. Treatment Plan: Had a prolonged discussion the patient at this time with this being 3 weeks worth of pain that he should follow-up with his primary care physician and get a referral for physical therapy. He will be placed on naproxen and Norflex. Instructed to stretch gently. The signs and symptoms of cauda equina were discussed and he is instructed to return for these. Disposition: To home in improved and stable condition. Impression: 1. Low back pain. This note was generated with [employer] dictation software. It may contain incorrect words, spelling, and punctuation that were not noted in review of the chart prior to signing ED Disposition - Plan for ED Patient: Disposition: Home or Assisted Living Chief Complaint: Back Instructions: ED Sciatica Prescriptions: Naproxen [Naprosyn] 500 mg PO BID #20 tablet Orphenadrine [Norflex ER] 100 mg PO BID #20 tablet Referrals: Doctor,Your [STAFF PHYSICIAN] - As soon as possible Additional Instructions: speak with your Doctor about referral for physical therapy and changing your blood pressure medications.
[2018-06-15 16:44] VITALS: BP 178/69; PULSE 62; RESP 15; O2SAT 97
[2018-06-15] MEDS: Naproxen 500 MG Tablet PO (16:46)
[2018-06-15] MEDS: Orphenadrine 100 MG Tablet PO (16:46)
--- OUTSIDE RECORDS SUMMARY | 2018-08-01 23:37 | XMS RPT_ITS ---
:1990 Author Organization OHIP Support Name Relationship Address Phone ANETTE GILLESPIE Unavailable [address] + [place] [address] WOOBR Unavailable [address] + [address] [place] [address] ANETTE GILLESPIE Unavailable [address] + [place] [address] WOOBR Unavailable [address] + [address] [place] [address] ANETTE GILLESPIE Unavailable [address] + [place] [address] WOOBR Unavailable [address] + [address] [place] [address] ANETTE GILLESPIE Unavailable [address] + [place] [address] WOOBR Unavailable [address] + [address] [place] [address] ANETTE GILLESPIE Unavailable [address] + [place] [address] SCOIN Unavailable [address] + [address] [place] [address] ANETTE GILLESPIE Unavailable [address] + [place] [address] SCOIN Unavailable [address] + [address] [place] [address] ANETTE GILLESPIE Unavailable [address] + [place] [address] SCOIN Unavailable [address] + [address] [place] [address] ANETTE GILLESPIE Unavailable [address] + [place] [address] SCOIN Unavailable [address] + [address] [place] [address] ANETTE GILLESPIE Unavailable [address] + [place] [address] SCOIN Unavailable [address] + [address] [place] [address] DOYLE GILLESPIERA Unavailable [address] + [place] [address] SCOIN Unavailable [address] + [address] [place] [address] DOYLE GILLESPIERA Unavailable [address] [place] [address] FADUMO WARNER Unavailable Unavailable + NONE Unavailable Unavailable Unavailable ANETTE GILLESPIE Unavailable [address] + [place] [address] SCOIN Unavailable [address] + [address] [place] [address] [employer] Unavailable . + [place] [address] ANETTE GILLESPIE Unavailable [address] + [place] [address] [employer] Unavailable . + [place] [address] ANETTE GILLESPIE Unavailable [address] + [place] [address] [employer] Unavailable . + [place] [address] ANETTE GILLESPIE Unavailable [address] + [place] [address] Anette Gillespie Unavailable Unavailable + ANETTE GILLESPIE Unavailable [address] + [place] [phone] [employer] Unavailable . + [place] [address] ANETTE GILLESPIE Unavailable [address] + [place] [address] Care Team Providers Name Role Phone Primay Care Physicia, No Primary Care Unavailable Klaus Rodriguez Attending Unavailable Susan Humphreys Attending Unavailable DOCTOR, OUT OF TOWN Referring Unavailable MARCELL PUENTES Primary Care Unavailable MARCELL UPENTES Primary Care Unavailable Astrid Gong Attending Unavailable Primay Care Physicia, No Primary Care Unavailable Vijay Graves Attending Unavailable MARCELL PUENTES Primary Care Unavailable Jeff Solorzano Attending Unavailable MARCELL PUENTES Primary Care Unavailable Ryder King Attending Unavailable MARCELL PUENTES Primary Care Unavailable Galileo Hearn Attending Unavailable Primay Care Physicia, No Primary Care Unavailable Ivone Monique Attending Unavailable Daniel Rodriguez Attending Unavailable Primay Care Physicia, No Primary Care Unavailable MARCELL PUENTES Primary Care Unavailable Zoie Tiwari Attending Unavailable Primay Care Physicia, No Primary Care Unavailable Ivone Monique Attending Unavailable Primay Care Physicia, No Primary Care Unavailable Hansel Muñoz Attending Unavailable MARCELL PUENTES Primary Care Unavailable Daniel Rodriguez Attending Unavailable Malick Celestin Attending Unavailable DOCTOR, OUT OF TOWN Referring Unavailable MARCELL PUENTES Primary Care Unavailable MARCELL PUENTES Primary Care Unavailable Ungfaith Remus Attending Unavailable No Doctor Assigned, Nodr Primary Care Unavailable Ivanauskas, Saulius Admitting Unavailable Ivanauskas, Saulius Attending Unavailable No Doctor Assigned, Nodr Primary Care Unavailable Asbridge, Maribeth Admitting Unavailable Asbridge, Maribeth Attending Unavailable No Doctor Assigned, Nodr Primary Care Unavailable Asbridge, Maribeth Admitting Unavailable Asbridge, Amribeth Attending Unavailable No Doctor Assigned, Nodr Primary Care Unavailable Sokari, Telemate Admitting Unavailable Sokari, Telemate Attending Unavailable No Doctor Assigned, Nodr Primary Care Unavailable Hansel Hollis A Admitting Unavailable TelmaHansel stallworth A Attending Unavailable No Doctor Assigned, Nodr Primary Care Unavailable Khanh Guerra W Admitting Unavailable Khanh Guerra W Attending Unavailable Daniel Salazar Attending Unavailable BoberMildred Referring Unavailable Bober Mildred Primary Care Unavailable Dr. Jeff Ahn Admitting Unavailable Dr. Jeff Ahn Attending Unavailable HARINI HOLLINGSWORTH Attending Unavailable LEOBARDO, PHYSICIAN Primary Care Unavailable SIMON LUIS MD Attending Unavailable GALILEA ROSADO, DR. TANI Ayon Primary Care Unavailable PROBLEMS PROBLEMS DATE TYPE CONDITION / CODE ATTENDING STATUS SOURCE 07/09/2018 Unknown R07.9 - Chest Muñoz Hansel Active [facility] unspecified [facility] / R07.9(ICD-10) Hospital Repository 07/09/2018 Unknown M54.5 - Low back Jennifer, Klaus Active [facility] / Community M54.5(ICD-10) Hospital Repository 03/07/2018 Unknown M54.30 - Le, Ryder Active [facility] Sci[facility]a, Community unspecified side Hospital / M54.30(ICD-10) Repository 01/26/2018 Unknown M54.32 - Shundry, Active [place] Sciatica, left [facility] side / Hospital M54.32(ICD-10) Repository PROCEDURES PROCEDURES No Procedure Records FoundRESULTS RESULTS EMERGENCY DEPARTMENT Observed: 07/13/2018 Status: F Source: [place] SUMMARY 1:46 PM [facility] REPOSITORY [facility] Medical Records Department [address] [place] [address] Emergency Department Summary 07/13/18 1344 MR#: [id number] Acct: [id number] Name: ABHI GILLESPIE Rep #: [id number] : 1990 28 From: Vijay Graves MD PCP: Care Physician, No Primary Status: PRE ER - ER Visit Summary Date of Service: 07/13/18 Chief Complaint: Anxiety History of Present Illness: The patient is a 28 M who presents with anxiety after taking a new medication 2 hours ago, Vivitrol. He felt like his nerves were shot. He is slowly improving. No chest pain or shortness of breath. He has no other systemic complaints. Physical Examination: Patient appears somewhat anxious, he is obese he has clear lungs and a regular rate and a normal exam otherwise. Emergency Department Course and Treatment: IM Ativan was given. Patient will be discharged in stable condition he will call his doctor for Suboxone Disposition: Discharge stable condition Impression: Panic attack Medication side effect This note was generated with iMotor.comation software. It may contain incorrect words, spelling, and punctuation that were not noted in review of the chart prior to signing ED Disposition - Plan for ED Patient: Disposition: Home or Assisted Living Chief Complaint: Anxiety Instructions: ED Panic Attack Referrals: Care Physician,No Primary [Primary Care Provider] - 3-5 Days What to do if you have Problems For any increased pain, shortness of breath, bleeding, nausea or vomiting, chest pain, or any unexpected problems, contact your Primary Care Provider. Call [facility] ([phone]) or report to the closest Emergency Room. Call 911 if necessary. 07/13/18 1346 <Electronically signed by Vijay Graves MD> Date Vijay Graves MD Cosigner Signature (If Indicated): Date CC: No Primary Care Physician 12 LEAD ELECTROCARDIOGRAM Observed: 07/09/2018 Status: F Source: [place] 2:28 PM [facility] REPOSITORY [facility] Cardiovascular Services [address] [place] [address] 12 Lead EKG 07/07/18 1708 MR#: [id number] Acct: [id number] Name: ABHI GILLESPIE Rep #: [id number] : 1990 28 From: Vijay Manriquez MD Attending Dr: Status: DEP ER Ordering Dr: Ivone Monique MD Date: 07/07/18 Location: ED Sex: M C Admitted: Test Reason : CP Blood Pressure : / mmHG Vent. Rate : 071 BPM Atrial Rate : 071 BPM P-R Int : 198 ms QRS Dur : 096 ms QT Int : 426 ms P-R-T Axes : 059 074 252 degrees QTc Int : 462 ms Normal sinus rhythm ST AND T wave abnormality, consider inferolateral ischemia Prolonged QT Abnormal ECG Confirmed by KECIA ARCHULETA, VIJAY ([id number]), state editor NICK CALERO ([id number]) on 07/09/2018 2:28:08 PM Referred By: JANESSA Confirmed By:VIJAY MANRIQUEZ MD 07/09/18 1428 Date Vijay Manriquez MD CC: No Primary Care Physician; Ivone Monique MD Signed EMERGENCY DEPARTMENT Observed: 07/08/2018 Status: F Source: [place] SUMMARY 2:11 AM [facility] REPOSITORY [facility] Medical Records Department [address] [place] [address] Emergency Department Summary 07/07/18 2109 MR#: [id number] Acct: [id number] Name: ABHI GILLESPIE Rep #: [id number] : 1990 28 From: Ivone Monique MD PCP: Care Physician, No Primary Status: DEP ER - ER Visit Summary Date of Service: 07/07/18 Chief Complaint: Chest pain, dizzy, nausea History of Present Illness: The patient is a 28 M with chest pain, abdominal pain, nausea, vomiting, dizziness since 5 AM this morning. Patient has had recurrent similar episodes in the past with unremarkable workups. Patient's last heart cath was in 2016. Past history significant with diabetes, hypertension, colitis, ADHD, sleep apnea. Physical Examination: Vital signs on arrival include a blood pressure of 200/118. Other vitals are normal. Head neck examination is unremarkable. Heart is regular rate and rhythm. Lung sounds are clear. Abdomen is soft with tenderness in the epigastrium. No guarding or rebound. Active bowel sounds are noted. Test Results: EKG is sinus at 71 with lateral and inferior T inversions. This is unchanged when compared to prior EKG. Portable chest x-ray is unremarkable. CBC is normal. Chemistry studies significant for potassium 3.3 and a glucose of 140. LFTs and lipase are normal. Troponin is 0.021. Emergency Department Course and Treatment: Patient was given morphine and Zofran. Labetalol was ordered but held because his pressure had come down to 155/89. Upon completion of labs he was given potassium replacement orally. On repeat exam patient is sleeping comfortably. His oxygen saturations do drop when he is sleeping. He states that he does not currently have a CPAP machine. He will be referred to pulmonology for sleep study. Treatment Plan: [] Disposition: Discharge Impression: 1. Chronic chest pain 2. Hypertension 3. Hypokalemia 4. Obstructive sleep apnea This note was generated with Nearlyweds dictation software. It may contain incorrect words, spelling, and punctuation that were not noted in review of the chart prior to signing ED Disposition - Plan for ED Patient: Disposition: Home or Assisted Living Chief Complaint: Chest Pain Instructions: ED Chest Pain Atypical Unkn Cause, ED Potassium Deficiency, ED Apnea Sleep Obstructive Prescriptions: Potassium Chloride [K-Dur] 20 meq PO BID #10 tablet Referrals: Mehdi Curran DO [STAFF PHYSICIAN] - As soon as possible Long Crawford DO [STAFF PHYSICIAN] - As soon as possible What to do if you have Problems For any increased pain, shortness of breath, bleeding, nausea or vomiting, chest pain, or any unexpected problems, contact your Primary Care Provider. Call [facility] ([phone]) or report to the closest Emergency Room. Call 911 if necessary. 07/08/18 0211 <Electronically signed by Ivone Monique MD> Date Ivone Monique MD Cosigner Signature (If Indicated): Date CC: No Primary Care Physician DISCHARGE INSTRUCTION Observed: 07/07/2018 Status: F Source: [place] 9:12 PM [facility] REPOSITORY [facility] Medical Records Department [address] [place] [address] Discharge Instruction 07/07/182108 MR#: [id number] Acct: [id number] Name: ABHI GILLESPIE Rep #: [id number] : 1990 28 From: Ivone Monique MD PCP: Care Physician, No Primary Status: REG ER ED Disposition - Plan for ED Patient: Disposition: Home or Assisted Living Chief Complaint: Chest Pain Instructions: ED Chest Pain Atypical Unkn Cause, ED Potassium Deficiency, ED Apnea Sleep Obstructive Prescriptions: Potassium Chloride [K-Dur] 20 meq PO BID #10 tablet Referrals: Long Crawford DO [STAFF PHYSICIAN] - As soon as possible Mehdi Curran DO [STAFF PHYSICIAN] - As soon as possible What to do if you have Problems For any increased pain, shortness of breath, bleeding, nausea or vomiting, chest pain, or any unexpected problems, contact your Primary Care Provider. Call [facility] ([phone]) or report to the closest Emergency Room. Call 911 if necessary. 07/07/182111 <Electronically signed by Ivone Monique MD> Date Ivone Monique MD Cosigner Signature (If Indicated): Date CC: No Primary Care Physician BASIC METABOLIC Collected: 07/07/2018 Status: F Source: [place] PROFILE (BMP) 5:40 PM [facility] REPOSITORY TYPE CODE TESTS RESULT OUT OF RANGE REFERENCE UNITS LAB L501.0100 74-106 mg/dL High GLU 140 Result Comment: Fasting Glucose result greater than or equal to 126 mg/dL suggests DIABETES MELLITUS per A.D.A. criteria. Please note revised GLUCOSE reference range effective 2017. LAB L501.1000 7-18 mg/dL Normal BUN 7 LAB L501.1100 0.70-1.30 mg/dL Normal CREAT,SERUM 1.03 Result Comment: The validity of the calculated GFR AND GFRAA in patients over 70 years has not been determined. Clinical correlation is essential. LAB L501.1110 >60 mL/min Normal EST GFR 91 Result Comment: Non- GFR Calc LAB L501.1115 >60 mL/min Normal EST GFR - AA 111 Result Comment: GFR Calc LAB L501.1255 ml/min Normal Estimated CRCL 117.20 LAB L501.1300 10-20 RATIO Low BUN/CRE 6.8 LAB L501.2200 8.5-10 mg/dL .1 CA Normal 9.0 LAB L501.5300 136-14 mmol/L 5 NA Normal 141 LAB L501.5600 3.5-5. mmol/L Low 1 K 3.3 Result Comment: Slight Hemolysis, Result may be falsely increased. LAB L501.5900 98-107 mmol/L Normal CL 103 LAB L501.6100 21.0-32.0 mmol/L High CO2 33.0 LAB L501.6200 5-15 Normal 5 GAP Performed By: #### L500.2500, L501.4010 #### [facility] [address] [place], [address] TROPONIN-I Collected: 07/07/2018 Status: F Source: [place] 5:40 PM [facility] REPOSITORY TYPE CODE TESTS RESULT OUT OF RANGE REFERENCE UNITS LAB L501.4010 <0.045 ng/mL Normal 0.021 TROPONIN-I Result Comment: TROPONIN-I EXPECTED VALUES <0.045 Negative 0.045 - 0.590 Consistent with Cardiac Damage > OR = 0.600 Critical Value Not every elevated troponin is indicative of CA. These values should be used with clinical judgement in examining the patient's clinical picture for diagnosis. To establish a diagnosis of CA versus myocardial injury, there must be a demonstrated rise and/or fall in the troponin values, in addition to ischemic symptoms, EKG changes, new regional wall motion abnormality, and/or angiographical evidence. PLEASE NOTE: REFERENCE RANGES EDITED 17 Performed By: #### L500.2500, L501.4010 #### [facility] [address] [place], [address] CBC W/DIFF, AUTOMATED Collected: 07/07/2018 Status: F Source: [place] 5:40 PM [facility] REPOSITORY TYPE CODE TESTS RESULT OUT OF RANGE REFERENCE UNITS LAB L100.1000 4.4-11.0 K/mm3 Normal WBC 7.5 LAB L100.1200 4.6-6.2 M/mm3 Normal RBC 5.53 LAB L100.1300 13.0-16.5 g/dl Normal HGB 15.9 LAB L100.1400 40-54 % Normal HCT 46.9 LAB L100.1500 80-94 fL Normal MCV 84.8 LAB L100.1600 27.0-32.0 pg Normal MCH 28.8 LAB L100.1700 32-36 g/gl Normal MCHC 33.9 LAB L100.1810 11.6-14.6 % Normal RDW CV 13.1 LAB L100.1820 35.1-43.9 fl Normal RDW SD 40.3 LAB L100.1900 150-450 K/mm3 Normal PLT 232 LAB L100.2000 6.2-12.0 fl Normal MPV 10.7 LAB L100.2100 47-70 % High NEUT% 73.9 LAB L100.2200 19-41 % Normal LY% 19.7 LAB L100.2300 0-10 % Normal MONO% 5.2 LAB L100.2400 0-5 % Normal EO% 0.8 LAB L100.2500 0-1 % Normal BASO% 0.3 LAB L100.2550 0.0-0.9 % Normal IM GRAN % 0.100 Result Comment: IG% - Immature Granulocytes (promyelocytes, myelocytes and metamyelocytes) > 1% indicates that a LEFT SHIFT is Present. LAB L100.2620 2.0-7.7 X10 3/uL Normal Absolute Neut 5.6 LAB L100.2720 0.83-4.51 X10 3/ul Normal Absolute Lymph 1.48 Performed By: #### L100.0100 #### [facility] [address] [place], [address] LIVER PROFILE Collected: 07/07/2018 Status: F Source: [place] 5:40 PM [facility] REPOSITORY TYPE CODE TESTS RESULT OUT OF RANGE REFERENCE UNITS LAB L501.1500 6.4-8.2 g/dL Normal T PROT 7.4 LAB L501.1800 3.2-5.0 g/dL Normal ALB 3.5 LAB L501.1950 2.2-4.2 g/dL Normal GLOB 3.9 LAB L501.4100 15-37 U/L Normal AST 29 Result Comment: Slight Hemolysis, Result may be falsely increased. LAB L501.4305 45-117 U/L Low ALK P 44 LAB L501.4405 16-61 U/L Normal ALT 37 LAB L501.4600 0.20-1.00 mg/dL Normal T BILI 0.40 LAB L501.4700 0.00-0.30 mg/dL Normal D BILI 0.14 Performed By: #### L500.3400, L501.2450 #### [facility] [address] [place], [address] LIPASE Collected: 07/07/2018 Status: F Source: [place] 5:40 PM [facility] REPOSITORY TYPE CODE TESTS RESULT OUT OF RANGE REFERENCE UNITS LAB L501.2450 73-393 U/L Normal LIPASE 76 Performed By: #### L500.3400, L501.2450 #### [facility] [address] [place], [address] CHEST 1 VIEW Observed: 07/07/2018 Status: F Source: [place] (PORTABLE) 5:04 PM [facility] REPOSITORY [facility] Imaging Services [address] [place] [address] Chest 1 View (Portable) MR#: [id number] Acct: [id number] Name: ABHI GILLESPIE Rep #: [id number] : 1990 M 28 From: Timmy Goodson MD PCP: Care Physician, No Primary Status: PRE ER Study: Chest 1 View (Portable) Date of Exam: 07/07/18 Exam# [id number] Ordering Dr: Provider,Bran Mccartney STUDY: X-RAY CHEST REASON FOR EXAM: Male, 28 years old. Chest pain TECHNIQUE: Single AP portable view of the chest. COMPARISON: 06/30/2018 FINDINGS: The lungs are clear and expanded. There is no demonstrated pleural abnormality. Normal size heart. Normal mediastinum and deny. Normal visualized pulmonary arteries. Normal visualized aortic arch and descending thoracic aorta. Normal visualized thoracic spine. Normal visualized ribs, clavicles, and shoulders. There is no demonstrated abnormality of the visualized soft tissue structures of the upper abdomen. RAD/Chest 1 View (Portable) IMPRESSION: Normal x-ray examination of the chest. Electronically Signed: Chino Goodson MD at 17:44 EST , Service support , CC: No Primary Care Physician; ED PHYSICIAN PROVIDER Data Power Consultant: Signed 12 LEAD ELECTROCARDIOGRAM Observed: 07/05/2018 Status: F Source: [place] 1:05 PM [facility] Cardiovascular Services [address] [place] [address] 12 Lead EKG 06/30/18 1538 MR#: [id number] Acct: [id number] Name: ABHI GILLESPIE Rep #: [id number] : 1990 27 From: Vijay Manriquez MD Attending Dr: Status: DEP ER Ordering Dr: Hansel Muñoz MD Date: 06/30/18 Location: ED Sex: M C Admitted: Test Reason : CP Blood Pressure : / mmHG Vent. Rate : 093 BPM Atrial Rate : 093 BPM P-R Int : 156 ms QRS Dur : 084 ms QT Int : 392 ms P-R-T Axes : 048 063 187 degrees QTc Int : 487 ms Normal sinus rhythm Right atrial enlargement Poor R wave progression ST AND T wave abnormality, consider inferolateral ischemia Abnormal ECG Confirmed by KECIA ARCHULETA, VIJAY ([id number]), state editor NICK CALERO ([id number]) on 07/05/2018 1:05:19 PM Referred By: JW Confirmed By:VIJAY MANRIQUEZ MD 07/05/18 1305 Date Vijay Manriquez MD CC: No Primary Care Physician; Hansel Muñoz MD Signed DISCHARGE INSTRUCTION Observed: 06/30/2018 Status: F Source: [place] 11:25 PM [facility] Medical Records Department [address] [place] [address] Discharge Instruction 06/30/182027 MR#: [id number] Acct: [id number] Name: ABHI GILLESPIE Rep #: [id number] : 1990 27 From: Hansel Muñoz MD PCP: Care Physician, No Primary Status: DEP ER ED Disposition - Plan for ED Patient: Disposition: Home or Assisted Living Chief Complaint: Chest Pain Instructions: ED Chest Pain Atypical Unkn Cause Referrals: Care Physician,No Primary [Primary Care Provider] - 3-5 Days if not improving Additional Instructions: Follow-up with your primary care doctor. Continue your blood pressure medications. Off work today. What to do if you have Problems For any increased pain, shortness of breath, bleeding, nausea or vomiting, chest pain, or any unexpected problems, contact your Primary Care Provider. Call [facility] ([phone]) or report to the closest Emergency Room. Call 911 if necessary. 06/30/182324 <Electronically signed by Hansel Muñoz MD> Date Hansel Muñoz MD Cosigner Signature (If Indicated): Date CC: No Primary Care Physician EMERGENCY DEPARTMENT Observed: 06/30/2018 Status: F Source: [place] SUMMARY 11:25 PM [facility] REPOSITORY [facility] Medical Records Department [address] [place] [address] Emergency Department Summary 06/30/182024 MR#: [id number] Acct: [id number] Name: ABHI GILLESPIE Rep #: [id number] : 1990 27 From: Hansel Muñoz MD PCP: Gera Physician, No Primary Status: DEP ER - ER Visit Summary Date of Service: 06/30/18 Chief Complaint: Chest pain History of Present Illness: The patient is a 27 M history of noncemented diabetes, hypertension and depression. Patient reportedly had a negative nuclear stress test done here at [facility] 2 years ago and a negative cardiac cath done at [facility] in 2016. Patient states that yesterday around 930 morning he started having lower sternal epigastric chest pain. Mild shortness of breath and lightheadedness. Also has a headache. Had nausea and vomiting yesterday x2 that has since resolved. No hematemesis. No melena. No fever. Currently is abdomen he denies having any pain. He is never had a DVT or PE. No recent travel, surgery or recent immobilization. No hemoptysis. No calf pain. No calf swelling. Physical Examination: Vital signs initial blood pressure 08/26/1929. Pulse exam percent room air no signs of hypoxia. HEENT exam unremarkable. Neck nontender no JVD no lymphadenopathy. Lungs clear to auscultation bilaterally. Heart regular rate and rhythm no murmur rate about 8 abdomen soft. Nondistended normal bowel sounds no peritoneal signs. He is obese. Extremities moves all 4. Calves nontender without edema or cords. Neurologically is awake alert with no focal motor deficits. Test Results: CBC normal. White count 7. Hemoglobin 16. Electrolytes unremarkable normal creatinine and gap. Liver enzymes normal. Lipase normal. Troponin normal. Chest x-ray normal cardiac silhouette mediastinum 1 view portable read by myself and the radiologist. EKG sinus rhythm rate of 93 he does have inverted T waves in V5 and V6 this is similar to her prior EKG from September of this year. Emergency Department Course and Treatment: Repeat exam patient is doing well at 2023. He is feeling better. He was given Tylenol for his headache. I will be given 1 Whiteclay for his pain. Treatment Plan: Discharge home follow-up with his primary care physician. Continue his current medications. They will recheck his blood pressure prior to discharge. Disposition: Discharge Impression: Acute chest pain uncertain etiology Acute on chronic hypertension History of diabetes. This note was generated with Nearly[employer] dictation software. It may contain incorrect words, spelling, and punctuation that were not noted in review of the chart prior to signing ED Disposition - Plan for ED Patient: Chief Complaint: Chest Pain Referrals: Care Physician,No Primary [Primary Care Provider] - What to do if you have Problems For any increased pain, shortness of breath, bleeding, nausea or vomiting, chest pain, or any unexpected problems, contact your Primary Care Provider. Call [facility] ([phone]) or report to the closest Emergency Room. Call 911 if necessary. 06/30/18 5573 <Electronically signed by Hansel Muñoz MD> Date Hansel Morfin Signature (If Indicated): Date CC: No Primary Care Physician LIVER PROFILE Collected: 06/30/2018 Status: F Source: [place] 3:45 PM [facility] REPOSITORY TYPE CODE TESTS RESULT OUT OF RANGE REFERENCE UNITS LAB L501.1500 6.4-8.2 g/dL Normal T PROT 7.5 LAB L501.1800 3.2-5.0 g/dL Normal ALB 3.6 LAB L501.1950 2.2-4.2 g/dL Normal GLOB 3.9 LAB L501.4100 15-37 U/L Normal AST 20 LAB L501.4305 45-117 U/L Low ALK P 43 LAB L501.4405 16-61 U/L Normal ALT 36 LAB L501.4600 0.20-1.00 mg/dL Normal T BILI 0.50 LAB L501.4700 0.00-0.30 mg/dL Normal D BILI 0.13 Performed By: #### L500.3400 #### [facility] [address] [place], [address] CBC W/DIFF, AUTOMATED Collected: 06/30/2018 Status: F Source: [place] 3:45 PM [facility] REPOSITORY TYPE CODE TESTS RESULT OUT OF RANGE REFERENCE UNITS LAB L100.1000 4.4-11.0 K/mm3 Normal WBC 7.8 LAB L100.1200 4.6-6.2 M/mm3 Normal RBC 5.86 LAB L100.1300 13.0-16.5 g/dl High HGB 16.6 LAB L100.1400 40-54 % Normal HCT 49.0 LAB L100.1500 80-94 fL Normal MCV 83.6 LAB L100.1600 27.0-32.0 pg Normal MCH 28.3 LAB L100.1700 32-36 g/gl Normal MCHC 33.9 LAB L100.1810 11.6-14.6 % Normal RDW CV 13.0 LAB L100.1820 35.1-43.9 fl Normal RDW SD 38.6 LAB L100.1900 150-450 K/mm3 Normal PLT 225 LAB L100.2000 6.2-12.0 fl Normal MPV 10.5 LAB L100.2100 47-70 % High NEUT% 74.8 LAB L100.2200 19-41 % Normal LY% 19.7 LAB L100.2300 0-10 % Normal MONO% 4.3 LAB L100.2400 0-5 % Normal EO% 1.0 LAB L100.2500 0-1 % Normal BASO% 0.1 LAB L100.2550 0.0-0.9 % Normal IM GRAN % 0.100 Result Comment: IG% - Immature Granulocytes (promyelocytes, myelocytes and metamyelocytes) > 1% indicates that a LEFT SHIFT is Present. LAB L100.2620 2.0-7.7 X10 3/uL Normal Absolute Neut 5.8 LAB L100.2720 0.83-4.51 X10 3/ul Normal Absolute Lymph 1.53 Performed By: #### L100.0100 #### [facility] [address] [place], [place], [address] BASIC METABOLIC Collected: 06/30/2018 Status: F Source: [place] PROFILE (BMP) 3:45 PM [facility] REPOSITORY TYPE CODE TESTS RESULT OUT OF RANGE REFERENCE UNITS LAB L501.0100 74-106 mg/dL High GLU 115 Result Comment: Fasting Glucose result from 100 to 125 mg/dL suggests IMPAIRED HOMEOSTASIS per A.D.A. criteria. Please note revised GLUCOSE reference range effective 2017. LAB L501.1000 7-18 mg/dL Normal BUN 7 LAB L501.1100 0.70-1.30 mg/dL Normal CREAT,SERUM 0.82 Result Comment: The validity of the calculated GFR AND GFRAA in patients over 70 years has not been determined. Clinical correlation is essential. LAB L501.1110 >60 mL/min Normal EST GFR 118 Result Comment: Non- GFR Calc LAB L501.1115 >60 mL/min Normal EST GFR - AA 143 Result Comment: GFR Calc LAB L501.1255 ml/min Normal Estimated CRCL 148.52 LAB L501.1300 10-20 RATIO Low BUN/CRE 8.5 LAB L501.2200 8.5-10 mg/dL .1 CA Normal 8.7 LAB L501.5300 136-14 mmol/L 5 NA Normal 141 LAB L501.5600 3.5-5. mmol/L Low 1 K 3.4 LAB L501.5900 98-107 mmol/L CL Normal 106 LAB L501.6100 21.0-3 mmol/L 2.0 CO2 Normal 28.0 LAB L501.6200 5-15 GAP Normal 7 Performed By: #### L500.2500, L501.2450, L501.4010 #### [facility] [address] [facility] [place], [place], [address] LIPASE Collected: 06/30/2018 Status: F Source: [place] 3:45 PM [facility] REPOSITORY TYPE CODE TESTS RESULT OUT OF RANGE REFERENCE UNITS LAB L501.2450 73-393 U/L Normal LIPASE 88 Performed By: #### L500.2500, L501.2450, L501.4010 #### [facility] [address] [place], [place], [address] TROPONIN-I Collected: 06/30/2018 Status: F Source: [place] 3:45 PM [facility] REPOSITORY TYPE CODE TESTS RESULT OUT OF RANGE REFERENCE UNITS LAB L501.4010 <0.045 ng/mL Normal 0.015 TROPONIN-I Result Comment: TROPONIN-I EXPECTED VALUES <0.045 Negative 0.045 - 0.590 Consistent with Cardiac Damage > OR = 0.600 Critical Value Not every elevated troponin is indicative of CA. These values should be used with clinical judgement in examining the patient's clinical picture for diagnosis. To establish a diagnosis of CA versus myocardial injury, there must be a demonstrated rise and/or fall in the troponin values, in addition to ischemic symptoms, EKG changes, new regional wall motion abnormality, and/or angiographical evidence. PLEASE NOTE: REFERENCE RANGES EDITED 17 Performed By: #### L500.2500, L501.2450, L501.4010 #### [facility] [address] [place], [address] CHEST 1 VIEW Observed: 06/30/2018 Status: F Source: [place] (PORTABLE) 3:40 PM [facility] REPOSITORY [facility] [place] [address] Chest 1 View (Portable) MR#: [id number] Acct: [id number] Name: EDSONABHI CEJA Rep #: [id number] : 1990 M 27 From: Kari Canales MD PCP: Care Physician, No Primary Status: REG ER Study: Chest 1 View (Portable) Date of Exam: 06/30/18 Exam# [id number] Ordering Dr: Hansel Muñoz MD STUDY: X-RAY CHEST REASON FOR EXAM: Male, 27 years old. TECHNIQUE: 2 Views COMPARISON: September 17, 2017 FINDINGS: The lungs are clear and expanded. There is no demonstrated pleural abnormality. Normal size heart. Normal mediastinum and deny. Normal visualized pulmonary arteries. Normal visualized aortic arch and descending thoracic aorta. Normal visualized thoracic spine. Normal visualized ribs, clavicles, and shoulders. There is no demonstrated abnormality of the visualized soft tissue structures of the upper abdomen. RAD/Chest 1 View (Portable) IMPRESSION: Normal x-ray examination of the chest unchanged since September 17, 2017. Electronically Signed: Kari Canales, at 16:08 EST Tel , Service support , CC: No Primary Care Physician; Hansel Muñoz MD Data Power Consultant: Signed PROGRESS Observed: 06/22/2018 Status: COMPLETED Source: [place] 6:25 PM [facility] REPOSITORY HNO ID: [id number] Author: Lexie Baker Service: (none) Author Type: Nurse Practitioner Type: Progress Notes Filed: 06/22/2018 8:10 PM Note Text: Subjective HPI Abhi Gillespie is a 27 year old male who presents today for CC of nausea. This started 3 days. Has tried otc medication. Symptoms are worsened by nothing. Risk factors sick exposures at home with GI complaints. Right index finger pain for months. No injury Intermittent headaches for months, no hx of evaluation/treatment for h/a or migraines. coincided with decrease ni smoking. .Patient presents with: Headache: nausea x 3 days No past medical history on file. PAST SURGICAL HISTORY Procedure Laterality Date - APPENDECTOMY 2003 - HEART CATHETERIZATION 2014 ALLERGIES Bupropion; Diphenhydramine; Penicillins; Sulfa (Sulfonamide Antibiotics) MEDICATIONS carvedilol (COREG) 25 mg tablet Take 2 tablets by mouth twice daily. FLUoxetine HCl (PROZAC) 40 mg capsule Take 1 capsule by mouth once daily. fluticasone (FLONASE) 50 mcg/actuation nasal spray Use 2 Sprays in each nostril once daily. Rinse mouth after use. lisinopril-hydrochlorothiazide (PRINZIDE,ZESTORETIC) 20-12.5 mg per tablet DAILY dicyclomine (BENTYL) 20 mg tablet Take 1 tablet by mouth every 6 hours. ondansetron (ZOFRAN) 4 mg tablet Take 1 tablet by mouth every 8 hours as needed. FAMILY HISTORY Problem Relation Age of Onset - Diabetes Mother - Hypertension Mother - Diabetes Father - Hypertension Father - Heart Maternal Grandmother - Heart Maternal Grandfather - Heart Paternal Grandmother - Heart Paternal Grandfather - Diabetes Brother - Hypertension Brother - Diabetes Brother - Hypertension Brother Social History Substance Use Topics - Smoking status: Current Every Day Smoker Packs/day: 1.00 - Smokeless tobacco: Never Used Comment: 1 pack per day - Alcohol use No Review of Systems Constitutional: Negative for chills, fever and weight loss. HENT: Positive for congestion. Negative for ear pain, nosebleeds and sore throat. Respiratory: Negative for cough, shortness of breath and wheezing. Cardiovascular: Negative for chest pain and palpitations. Gastrointestinal: Positive for nausea. Negative for abdominal pain, constipation, diarrhea, heartburn and vomiting. Genitourinary: Negative for dysuria, frequency and urgency. Musculoskeletal: Negative for neck pain. Neurological: Positive for headaches. Negative for dizziness, tingling and focal weakness. Objective Blood pressure 122/74, pulse 74, temperature 36.3 ?C (97.4 ?F), temperature source Tympanic, resp. rate 16, weight (!) 153.8 kg (339 lb). Physical Exam Constitutional: He is oriented to person, place, and time and well-developed, well-nourished, and in no distress. Non-toxic appearance. He does not have a sickly appearance. No distress. HENT: Head: Normocephalic and atraumatic. Right Ear: Hearing, tympanic membrane, external ear and ear canal normal. Left Ear: Hearing, tympanic membrane, external ear and ear canal normal. Nose: Nose normal. Mouth/Throat: Uvula is midline, oropharynx is clear and moist and mucous membranes are normal. Eyes: Pupils are equal, round, and reactive to light. Conjunctivae and lids are normal. Right eye exhibits no discharge. Left eye exhibits no discharge. No scleral icterus. Neck: Trachea normal and normal range of motion. Neck supple. Cardiovascular: Normal rate, regular rhythm and normal heart sounds. Pulmonary/Chest: Effort normal and breath sounds normal. Abdominal: Soft. Normal appearance and bowel sounds are normal. There is no hepatosplenomegaly, splenomegaly or hepatomegaly. There is no tenderness. Musculoskeletal: Hands: Lymphadenopathy: He has no cervical adenopathy. Neurological: He is alert and oriented to person, place, and time. Gait normal. Skin: No rash noted. He is not diaphoretic. ASSESSMENT/PLAN: 1. Nausea - ICD9: 787.02, ICD10: R11.0 (primary diagnosis) Suspect viral illness that is passing through the house currently Discussed dietary modification - ONDANSETRON 4 MG DISINTEGRATING TABLET 2. Pain of finger of right hand - ICD9: 729.5, ICD10: M79.644 Discussed trial of ibuprofen Given stretches/exercisese F/u with pcp if s/s persist 3. Frequent headaches - ICD9: 784.0, ICD10: R51 Discussed ibuprofen and lifestyle modification Will schedule f/u with pcp Prescription instructions reviewed with patient as applicable. Patient advised if symptoms do not improve or if symptoms worsen sooner, to contact the office for further evaluation by their primary care physician. Potential red flag symptoms discussed with the patient. Reviewed appropriate action plan to take if red flag symptoms occur. Patient agreeable to treatment plan. Lexie Baker APRN.PUBLIC POLICY MEDIATOR CNOV Observed: 06/22/2018 Status: COMPLETED Source: [place] 6:00 PM [facility] REPOSITORY Office Visit (WSTR) ABHI GILLESPIE ([id number]) 1990 M Date Time Provider Department 06/22/18 6:00 PM LEXIE BAKER (STEVE) [facility] During your visit today, we recorded the following information about you: Temperature Pulse Respiration Blood pressure 97.4 degrees 74/minute 16/minute 122/74 Weight 153.8 kg Lexie Baker APRN.CNP 06/22/2018 8:10 PM Signed Subjective HPI Abhi Gillespie is a 27 year old male who presents today for CC of nausea. This started 3 days. Has tried otc medication. Symptoms are worsened by nothing. Risk factors sick exposures at home with GI complaints. Right index finger pain for months. No injury Intermittent headaches for months, no hx of evaluation/treatment for h/a or migraines. coincided with decrease ni smoking. .Patient presents with: Headache: nausea x 3 days No past medical history on file. PAST SURGICAL HISTORY Procedure Laterality Date - APPENDECTOMY 2003 - HEART CATHETERIZATION 2014 ALLERGIES Bupropion; Diphenhydramine; Penicillins; Sulfa (Sulfonamide Antibiotics) MEDICATIONS carvedilol (COREG) 25 mg tablet Take 2 tablets by mouth twice daily. FLUoxetine HCl (PROZAC) 40 mg capsule Take 1 capsule by mouth once daily. fluticasone (FLONASE) 50 mcg/actuation nasal spray Use 2 Sprays in each nostril once daily. Rinse mouth after use. lisinopril-hydrochlorothiazide (PRINZIDE,ZESTORETIC) 20-12.5 mg per tablet DAILY dicyclomine (BENTYL) 20 mg tablet Take 1 tablet by mouth every 6 hours. ondansetron (ZOFRAN) 4 mg tablet Take 1 tablet by mouth every 8 hours as needed. FAMILY HISTORY Problem Relation Age of Onset - Diabetes Mother - Hypertension Mother - Diabetes Father - Hypertension Father - Heart Maternal Grandmother - Heart Maternal Grandfather - Heart Paternal Grandmother - Heart Paternal Grandfather - Diabetes Brother - Hypertension Brother - Diabetes Brother - Hypertension Brother Social History Substance Use Topics - Smoking status: Current Every Day Smoker Packs/day: 1.00 - Smokeless tobacco: Never Used Comment: 1 pack per day - Alcohol use No Review of Systems Constitutional: Negative for chills, fever and weight loss. HENT: Positive for congestion. Negative for ear pain, nosebleeds and sore throat. Respiratory: Negative for cough, shortness of breath and wheezing. Cardiovascular: Negative for chest pain and palpitations. Gastrointestinal: Positive for nausea. Negative for abdominal pain, constipation, diarrhea, heartburn and vomiting. Genitourinary: Negative for dysuria, frequency and urgency. Musculoskeletal: Negative for neck pain. Neurological: Positive for headaches. Negative for dizziness, tingling and focal weakness. Objective Blood pressure 122/74, pulse 74, temperature 36.3 ?C (97.4 ?F), temperature source Tympanic, resp. rate 16, weight (!) 153.8 kg (339 lb). Physical Exam Constitutional: He is oriented to person, place, and time and well-developed, well-nourished, and in no distress. Non-toxic appearance. He does not have a sickly appearance. No distress. HENT: Head: Normocephalic and atraumatic. Right Ear: Hearing, tympanic membrane, external ear and ear canal normal. Left Ear: Hearing, tympanic membrane, external ear and ear canal normal. Nose: Nose normal. Mouth/Throat: Uvula is midline, oropharynx is clear and moist and mucous membranes are normal. Eyes: Pupils are equal, round, and reactive to light. Conjunctivae and lids are normal. Right eye exhibits no discharge. Left eye exhibits no discharge. No scleral icterus. Neck: Trachea normal and normal range of motion. Neck supple. Cardiovascular: Normal rate, regular rhythm and normal heart sounds. Pulmonary/Chest: Effort normal and breath sounds normal. Abdominal: Soft. Normal appearance and bowel sounds are normal. There is no hepatosplenomegaly, splenomegaly or hepatomegaly. There is no tenderness. Musculoskeletal: Hands: Lymphadenopathy: He has no cervical adenopathy. Neurological: He is alert and oriented to person, place, and time. Gait normal. Skin: No rash noted. He is not diaphoretic. ASSESSMENT/PLAN: 1. Nausea - ICD9: 787.02, ICD10: R11.0 (primary diagnosis) Suspect viral illness that is passing through the house currently Discussed dietary modification - ONDANSETRON 4 MG DISINTEGRATING TABLET 2. Pain of finger of right hand - ICD9: 729.5, ICD10: M79.644 Discussed trial of ibuprofen Given stretches/exercisese F/u with pcp if s/s persist 3. Frequent headaches - ICD9: 784.0, ICD10: R51 Discussed ibuprofen and lifestyle modification Will schedule f/u with pcp Prescription instructions reviewed with patient as applicable. Patient advised if symptoms do not improve or if symptoms worsen sooner, to contact the office for further evaluation by their primary care physician. Potential red flag symptoms discussed with the patient. Reviewed appropriate action plan to take if red flag symptoms occur. Patient agreeable to treatment plan. JEANNE Benjamin APRN.CNP 06/22/2018 6:38 PM Signed ASSESSMENT/PLAN: 1. Nausea - ICD9: 787.02, ICD10: R11.0 (primary diagnosis) Push fluids Will provide zofran Follow up with primary care if s/s persist Go to ER if severe pain - ONDANSETRON 4 MG DISINTEGRATING TABLET 2. Pain of finger of right hand - ICD9: 729.5, ICD10: M79.644 Exercises provided Ibuprofen for pain Follow up if no improvement 3. Frequent headaches - ICD9: 784.0, ICD10: R51 Discussed lifestyle changes/ibuprofen use Will schedule with primary care Referring Provider: SELF [200] Allergies As of Date: 06/22/2018 Noted Allergy Reaction BUPROPION 05/02/2017 14 - Other: See Comments Comments: Seizure DIPHENHYDRAMINE 12/28/2017 14 - Other: See Comments PENICILLINS 06/22/2015 16 - Unknown SULFA (SULFONAMIDE ANTIBIOTICS) 06/22/2015 16 - Unknown Date Reviewed: 06/22/2018 Reviewed by: Lexie Baker - Fully Assessed Reason for Visit: Headache [52] Cmt: nausea x 3 days Primary Visit Diagnosis:Nausea [R11.0] Other Visit Diagnoses:Pain of finger of right hand [M79.644] Frequent headaches [R51] Order(s):ondansetron orally disintegrating (ZOFRAN ODT) 4 mg disintegrating tabletTake 1 tablet by mouth every 6 hours as needed for Nausea/Vomiting.Disp: 10 tabletRfl: 0 Prescriptions as of 06/22/2018 Sig: CARVEDILOL 25 MG TABLET Take 2 tablets by mouth twice* FLUOXETINE 40 MG CAPSULE Take 1 capsule by mouth once * FLUTICASONE 50 MCG/ACTUATION * Use 2 Sprays in each nostril * LISINOPRIL 20 MG-HYDROCHLOROT* DAILY DICYCLOMINE 20 MG TABLET Take 1 tablet by mouth every * Patient not taking: Reported on 11/11/2017 ONDANSETRON 4 MG DISINTEGRATI* Take 1 tablet by mouth every * Problem List As Of Date 06/22/2018 Noted Resolved Essential hypertension [I10] INVALID FOR* ST elevation myocardial infarction involving le*INVALID FOR* Morbid obesity due to excess calories (HCC) [E6*INVALID FOR* Tobacco dependency [F17.200] INVALID FOR* KAREN (obstructive sleep apnea) AHI 127 [G47.33] INVALID FOR* Other instructions from your clinician: ASSESSMENT/PLAN: 1. Nausea - ICD9: 787.02, ICD10: R11.0 (primary diagnosis) Push fluids Will provide zofran Follow up with primary care if s/s persist Go to ER if severe pain - ONDANSETRON 4 MG DISINTEGRATING TABLET 2. Pain of finger of right hand - ICD9: 729.5, ICD10: M79.644 Exercises provided Ibuprofen for pain Follow up if no improvement 3. Frequent headaches - ICD9: 784.0, ICD10: R51 Discussed lifestyle changes/ibuprofen use Will schedule with primary care Prescriptions ordered this encounter Disp Refills Start End ONDANSETRON 4 MG DISINTEGRATING TABL* 10 t* 0 06/22/2018 Route: ORAL Sig: Take 1 tablet by mouth every 6 hours as needed for Nausea/Vomiting. Medications Discontinued During This Encounter ondansetron (ZOFRAN) 4 mg tablet 30 t* 1 04/09/2017 06/22/2018 Route: ORAL Sig: Take 1 tablet by mouth every 8 hours as needed. Patient not taking: Reported on 12/02/2017 Disc: Reason for discontinue is not on file. Letter Text [facility] Lexie Baker, STEVE [address] [place], [place] [address] 06/22/2018 Abhi Gillespie CCF# [id number] [address] [facility] [address] TO WHOM IT MAY CONCERN: This is to confirm that Abhi Gillespie had an appointment and was seen at the [facility] in the Department of Urgent Care by Lexie Baker CNP on 06/22/2018. Sincerely yours, Lexie Baker CNP Encounter Status:Closed by LEXIE BAKER CNP on 06/22/18 EMERGENCY DEPARTMENT Observed: 06/17/2018 Status: F Source: [place] SUMMARY 1:05 AM [facility] REPOSITORY [facility] Medical Records Department [address] [facility] [address] Emergency Department Summary 06/15/18 1621 MR#: [id number] Acct: [id number] Name: ABHI GILLESPIE Rep #: [id number] : 1990 27 From: Klaus Rodriguez MD PCP: Care Physician, No Primary Status: DEP ER - ER Visit Summary Date of Service: 06/15/18 Chief Complaint: Back pain History of Present Illness: The patient is a [address] Ye. He reports that he has had low back pain for approximately 3 weeks. States that he was seen in the emergency department was placed on a prednisone taper and was doing better. He completed this 1 week ago. Reports that his pain is been much worse over the past 4 days. Says sharp, burning pain left low back with radiation down the back of his left leg to the level of his calf. States it is 10 at worst 410 currently. Is worsened by movement, walking, or laying flat. Is relieved by remaining still and Aleve. He denies any numbness or weakness in his legs. No problems with his bowels or his bladder. No groin numbness. He denies any recent trauma. No fall, MVA, or change in activity. Physical Examination: Vitals: Stable. Afebrile. General: A AND O x 3. NAD. Cardiovascular exam: Regular rate and rhythm, no murmur, rub or gallop. Respiratory exam: Clear to auscultation bilaterally. No wheezes or stridor. Abdominal exam: Soft, nontender, nondistended, normal bowel sounds. No peritoneal signs. Back: Diffuse moderate tenderness to palpation over the lumbar spine and the paraspinous musculature in the lumbar region. No point tenderness. Negative straight leg bilaterally. 5/5 DF, PF, EHL bilaterally. Normal sensation to light touch throughout. Extremity: No clubbing, cyanosis, or edema. Emergency Department Course and Treatment: Patient was treated with naproxen and Norflex p.o. Treatment Plan: Had a prolonged discussion the patient at this time with this being 3 weeks worth of pain that he should follow-up with his primary care physician and get a referral for physical therapy. He will be placed on naproxen and Norflex. Instructed to stretch gently. The signs and symptoms of cauda equina were discussed and he is instructed to return for these. Disposition: To home in improved and stable condition. Impression: 1. Low back pain. This note was generated with [employer] dictation software. It may contain incorrect words, spelling, and punctuation that were not noted in review of the chart prior to signing ED Disposition - Plan for ED Patient: Disposition: Home or Assisted Living Chief Complaint: Back Instructions: ED Sciatica Prescriptions: Naproxen [Naprosyn] 500 mg PO BID #20 tablet Orphenadrine [Norflex ER] 100 mg PO BID #20 tablet Referrals: Doctor,Your [STAFF PHYSICIAN] - As soon as possible Additional Instructions: speak with your Doctor about referral for physical therapy and changing your blood pressure medications. What to do if you have Problems For any increased pain, shortness of breath, bleeding, nausea or vomiting, chest pain, or any unexpected problems, contact your Primary Care Provider. Call [facility] ([phone]) or report to the closest Emergency Room. Call 911 if necessary. 06/17/18 0105 <Electronically signed by Klaus Rodriguez MD> Date Klaus Rodriguez MD Cosigner Signature (If Indicated): Date CC: No Primary Care Physician EMERGENCY DEPARTMENT Observed: 05/26/2018 Status: F Source: [place] SUMMARY 1:43 AM [facility] REPOSITORY [facility] Medical Records Department [address] [place] [address] Emergency Department Summary 05/25/182046 MR#: [id number] Acct: [id number] Name: ABHI GILLESPIE Rep #: [id number] : 1990 From: Ivone Monique MD PCP: Care Physician, No Primary Status: DEP ER - ER Visit Summary Date of Service: 05/25/18 Chief Complaint: Headache, back pain History of Present Illness: The patient is a 27 M who developed left low back pain yesterday with radiation down across the buttock into the leg. He states he moved furniture 1 week ago but had not had any pain until yesterday. Pain is worse with movement. He has no problems with bowel or bladder control. He also complains of a generalized headache. He had an abnormal finding on his head CT on June 14. Physical Examination: Blood pressure is 214/132, temperature 97.9, heart rate 88, respiratory rate 18, pulse ox 98% on room air. Patient standing at bedside. He is in no acute distress. Head neck examination is unremarkable. Heart is regular rate and rhythm. Lung sounds are clear. Abdomen is soft and nontender. Back examination reveals reproducible tenderness in the left low lumbar paraspinals and over the sciatic notch. No overlying skin changes noted. Neuro exam reveals good strength and sensation throughout. Test Results: With the patient's current headache, recent abnormal head CT, and significantly elevated blood pressure a repeat head CT was performed. There is no significant change noted. There is stable lacunar infarct noted to the right internal capsule. CBC and chemistry studies are unremarkable. Emergency Department Course and Treatment: Patient was given morphine, Phenergan, Solu-Medrol, and Toradol. Labetalol was initially ordered for blood pressure control but blood pressure had dropped prior to this being given in the med was held. On repeat examination blood pressure is 145/59 with a heart rate of 64. Patient is sleeping comfortably and easily awakens. He is discharged with a prescription for prednisone, Flexeril, and Naprosyn. Treatment Plan: [] Disposition: Discharge Impression: 1. Sciatica 2. Cephalgia, improved 3. Hypertension, improved This note was generated with Nearlyw[employer] dictation software. It may contain incorrect words, spelling, and punctuation that were not noted in review of the chart prior to signing ED Disposition - Plan for ED Patient: Disposition: Home or Assisted Living Chief Complaint: Back Instructions: ED Sciatica Prescriptions: Naproxen [Naprosyn] 500 mg PO BID PRN PRN #20 tablet PRN Reason: Pain Prednisone 10 mg PO DAILY #63 tablet Cyclobenzaprine [Flexeril] 10 mg PO TID PRN #20 tablet PRN Reason: Muscle Spasm Referrals: Gareth Harrington MD [STAFF PHYSICIAN] - As Needed What to do if you have Problems For any increased pain, shortness of breath, bleeding, nausea or vomiting, chest pain, or any unexpected problems, contact your Primary Care Provider. Call [facility] ([phone]) or report to the closest Emergency Room. Call 911 if necessary. 05/26/18 0143 <Electronically signed by Ivone Monique MD> Date Ivone Monique MD Cosigner Signature (If Indicated): Date CC: No Primary Care Physician DISCHARGE INSTRUCTION Observed: 05/25/2018 Status: F Source: NATE 8:49 PM [facility] REPOSITORY [facility] Medical Records Department [address] [place] [address] Discharge Instruction 05/25/182046 MR#: [id number] Acct: [id number] Name: ABHI GILLESPIE Rep #: [id number] : 1990 27 From: Ivone Monique MD PCP: Care Physician, No Primary Status: REG ER ED Disposition - Plan for ED Patient: Disposition: Home or Assisted Living Chief Complaint: Back Instructions: ED Sciatica Prescriptions: Naproxen [Naprosyn] 500 mg PO BID PRN PRN #20 tablet PRN Reason: Pain Prednisone 10 mg PO DAILY #63 tablet Cyclobenzaprine [Flexeril] 10 mg PO TID PRN #20 tablet PRN Reason: Muscle Spasm Referrals: Gareth Harrington MD [STAFF PHYSICIAN] - As Needed What to do if you have Problems For any increased pain, shortness of breath, bleeding, nausea or vomiting, chest pain, or any unexpected problems, contact your Primary Care Provider. Call [facility] ([phone]) or report to the closest Emergency Room. Call 911 if necessary. 05/25/182048 <Electronically signed by Ivone Monique MD> Date Ivone Monique MD Cosigner Signature (If Indicated): Date CC: No Primary Care Physician CBC W/DIFF, AUTOMATED Collected: 05/25/2018 Status: F Source: [place] 6:20 PM [facility] REPOSITORY TYPE CODE TESTS RESULT OUT OF RANGE REFERENCE UNITS LAB L100.1000 4.4-11.0 K/mm3 Normal WBC 8.0 LAB L100.1200 4.6-6.2 M/mm3 Normal RBC 5.59 LAB L100.1300 13.0-16.5 g/dl Normal HGB 16.3 LAB L100.1400 40-54 % Normal HCT 48.4 LAB L100.1500 80-94 fL Normal MCV 86.6 LAB L100.1600 27.0-32.0 pg Normal MCH 29.2 LAB L100.1700 32-36 g/gl Normal MCHC 33.7 LAB L100.1810 11.6-14.6 % Normal RDW CV 13.4 LAB L100.1820 35.1-43.9 fl Normal RDW SD 41.9 LAB L100.1900 150-450 K/mm3 Normal PLT 240 LAB L100.2000 6.2-12.0 fl Normal MPV 10.6 LAB L100.2100 47-70 % Normal NEUT% 63.0 LAB L100.2200 19-41 % Normal LY% 28.6 LAB L100.2300 0-10 % Normal MONO% 5.6 LAB L100.2400 0-5 % Normal EO% 2.3 LAB L100.2500 0-1 % Normal BASO% 0.4 LAB L100.2550 0.0-0.9 % Normal IM GRAN % 0.100 Result Comment: IG% - Immature Granulocytes (promyelocytes, myelocytes and metamyelocytes) > 1% indicates that a LEFT SHIFT is Present. LAB L100.2620 2.0-7.7 X10 3/uL Normal Absolute Neut 5.0 LAB L100.2720 0.83-4.51 X10 3/ul Normal Absolute Lymph 2.29 Performed By: #### L100.0100 #### [facility] [address] [place], [address] BASIC METABOLIC Collected: 05/25/2018 Status: F Source: [place] PROFILE ([facility]) 6:20 PM [facility] REPOSITORY TYPE CODE TESTS RESULT OUT OF RANGE REFERENCE UNITS LAB L501.0100 74-106 mg/dL Normal GLU 84 Result Comment: Please note revised GLUCOSE reference range effective 2017. LAB L501.1000 7-18 mg/dL Normal BUN 14 LAB L501.1100 0.70-1.30 mg/dL Normal CREAT,SERUM 0.88 Result Comment: The validity of the calculated GFR AND GFRAA in patients over 70 years has not been determined. Clinical correlation is essential. LAB L501.1110 >60 mL/min Normal EST GFR 109 Result Comment: Non- GFR Calc LAB L501.1115 >60 mL/min Normal EST GFR - AA 132 Result Comment: GFR Calc LAB L501.1255 ml/min Normal Estimated CRCL 138.40 LAB L501.1300 10-20 RATIO BUN/CRE Normal 15.9 LAB L501.2200 8.5-10 mg/dL .1 CA Normal 8.9 LAB L501.5300 136-14 mmol/L 5 NA Normal 142 LAB L501.5600 3.5-5. mmol/L 1 K Normal 3.5 LAB L501.5900 98-107 mmol/L CL Normal 107 LAB L501.6100 21.0-3 mmol/L 2.0 CO2 Normal 31.0 LAB L501.6200 5-15 Low GAP 4 Performed By: #### L500.2500 #### [facility] [address] [place], [address] BRAIN/HEAD WITHOUT Observed: 05/25/2018 Status: F Source: [place] CONTRAST 5:48 PM [facility] REPOSITORY [facility] Imaging Services [address] [place] [address] Brain/Head without Contrast MR#: [id number] Acct: [id number] Name: ABHI GILLESPIE Rep #: [id number] : 1990 M 27 From: Derrick Michel MD PCP: Care Physician, No Primary Status: REG ER Study: Brain/Head without Contrast Date of Exam: 05/25/18 Exam# [id number] Ordering Dr: Ivone Monique MD STUDY: CT BRAIN WITHOUT CONTRAST REASON FOR EXAM: Male, 27 years old. Headache. Hypertension. Previous abnormal CT scan. RADIATION DOSAGE (If Supplied By Facility): CTDIvol = ( 44.99 ) mGy, DLP = ( 829.85 ) mGycm TECHNIQUE: Transaxial CT imaging of the brain was performed without administration of intravenous contrast material. Individualized dose optimization techniques were used for this CT. COMPARISON: 05/03/2018. FINDINGS: Normal soft tissue structures. Normal calvarium. Again seen focal lacunar infarct in the right internal capsule and basal ganglia. This is unusual for patient's age and may be related to hypertension. No other changes. Normal size ventricles and extra-axial spaces for the patient's age. Normal white matter tracts of the cerebral hemispheres. Normal basal ganglia and thalami. Normal brainstem. Normal cerebellum. There is no intracranial hemorrhage. There are no findings of an acute ischemic infarction. Normal visualized paranasal sinuses. CT/Brain/Head without Contrast IMPRESSION: No change. Stable lacunar infarct of the right internal capsule. Electronically Signed: Derrick Michel MD at 18:55 EST , Service support , CC: No Primary Care Physician; Ivone Monique MD Data Power Consultant: Signed EMERGENCY DEPARTMENT Observed: 05/03/2018 Status: F Source: [place] SUMMARY 3:26 PM [facility] REPOSITORY [facility] Medical Records Department [address] [place] [address] Emergency Department Summary 05/03/18 1520 MR#: [id number] Acct: [id number] Name: ABHI GILLESPIE Rep #: [id number] : 1990 27 From: Alfredito Rodriguez MD PCP: Care Physician, No Primary Status: REG ER - ER Visit Summary Date of Service: 05/03/18 Chief Complaint: Abdominal pain, nausea, vomiting. History of Present Illness: The patient is a 27 M presenting with 2 days of nausea, vomiting, and abdominal cramps. Bowel movements have been normal. No diarrhea. He was feeling somewhat better yesterday but then after going to work he felt more nauseated and started vomiting again. He denies previous similar symptoms. Denies recent sick contacts or recent travel. He also has a history of hypertension and states that his blood pressure has been somewhat more elevated for the past several months. He has been having intermittent headaches. His tells me that he is only occasionally compliant with his medication. He is not out of it but just only takes it every now and again when he thinks of it. He has not been confused nor has he had chest pain. Physical Examination: His blood pressure is quite elevated here at 216/132. Other vitals are within normal limits. Mucous members are dry. Neck is supple. Heart tones are regular and without murmur. Lungs are clear bilaterally. Abdomen is soft and nontender. He has a normal neurologic exam and mental status exam. Test Results: CBC and chemistries are basically normal. He has no chest pain or shortness of breath. A CT abdomen/pelvis was performed and reveals evidence of mesenteric adenitis but no other acute or life-threatening process. Because his blood pressure was quite elevated and he did not take his medication, I did perform a CT brain. It was negative for acute bleed or swelling. There was however a subtle hypodensity in the posterior limb of the right internal capsule approximately 1.2 cm in size. He was given his home blood pressure medication here and his repeat pressure has improved but is still certainly not normal. He has not been taking his medication at least for several weeks according to his . I talked at length with him regarding the importance of compliance with his medication for his long-term health and stroke risk reduction. He promises me that he will start taking it again and assures me that he has plenty of it at home. Emergency Department Course and Treatment: His of his abdominal pain, CT scan is negative for acute or life-threatening process. There is evidence of mesenteric adenitis for which she will take anti-inflammatories and follow-up closely with his primary care physician. I discussed the CT brain findings with the on-call neurologist, Dr. Pranav Dugan who recommended follow-up in his office this week. He also recommend that I start him on a daily aspirin for stroke risk reduction and stressed the importance of compliance with his blood pressure medication. He may need an additional agent added if it does not improve on his usual dose. He will return if he has any recurrence of symptoms but at this time he feels much better and is comfortable with discharge home. Treatment Plan: Take blood pressure medication as prescribed, daily aspirin Disposition: Stable home Impression: Initial encounter mesenteric adenitis, initial encounter abdominal pain, initial encounter poorly controlled hypertension with medication noncompliance, possible subacute stroke on CT scan to be further evaluated on outpatient MRI This note was generated with Nearly[employer] dictation software. It may contain incorrect words, spelling, and punctuation that were not noted in review of the chart prior to signing ED Disposition - Plan for ED Patient: Chief Complaint: Nausea/Vomiting Instructions: ED Nausea Vomiting, ED Adenitis Mesenteric, Taking Your Blood Pressure, Your High Blood Pressure Risk Factors, ED Stroke Completed Prescriptions: Aspirin [Aspirin, Baby] 81 mg PO DAILY@0800 30 Days #30 tab.chew Referrals: Pranav Dugan MD [STAFF PHYSICIAN] - (raj) What to do if you have Problems For any increased pain, shortness of breath, bleeding, nausea or vomiting, chest pain, or any unexpected problems, contact your Primary Care Provider. Call [facility] ([phone]) or report to the closest Emergency Room. Call 911 if necessary. 05/03/18 1526 <Electronically signed by Alfredito Rodriguez MD> Date Alfredito Rodriguez MD Cosigner Signature (If Indicated): Date CC: No Primary Care Physician BRAIN/HEAD WITHOUT Observed: 05/03/2018 Status: F Source: [place] CONTRAST 1:09 PM [facility] REPOSITORY [facility] Imaging Services [address] [place] [address] Brain/Head without Contrast MR#: [id number] Acct: [id number] Name: ABHI GILLESPIE Rep #: [id number] : 1990 M 27 From: Berry Cruz MD PCP: Care Physician, No Primary Status: REG ER Study: Brain/Head without Contrast Date of Exam: 05/03/18 Exam# [id number] Ordering Dr: Alfredito Rodriguez MD STUDY: CT BRAIN WITHOUT CONTRAST REASON FOR EXAM: Male, 27 years old. Headaches. RADIATION DOSAGE (If Supplied By Facility): CTDIvol = ( 44.99 ) mGy, DLP = ( 796.11 ) mGycm TECHNIQUE: Transaxial CT imaging of the brain was performed without administration of intravenous contrast material. Individualized dose optimization techniques were used for this CT. COMPARISON: Comparison is made with prior study dated November 25, 2016. FINDINGS: Normal soft tissue structures. Normal calvarium. Normal size ventricles and extra-axial spaces for the patient's age. Normal white matter tracts of the cerebral hemispheres. Since prior study, there is a 1.2 cm hypodensity in the posterior limb of the right internal capsule. Normal brainstem. Normal cerebellum. There is no intracranial hemorrhage. There are no findings of an acute ischemic infarction. Normal visualized paranasal sinuses. CT/Brain/Head without Contrast IMPRESSION: New hypodensity in the posterior limb of the right internal capsule. Electronically Signed: Berry Cruz MD at 13:51 EDT Tel [phone], Service support , CC: No Primary Care Physician; Daniel Rodriguez MD Data Power Consultant: Signed CBC W/DIFF, AUTOMATED Collected: 05/03/2018 Status: F Source: [place] 11:58 AM [facility] REPOSITORY TYPE CODE TESTS RESULT OUT OF RANGE REFERENCE UNITS LAB L100.1000 4.4-11.0 K/mm3 Normal WBC 6.7 LAB L100.1200 4.6-6.2 M/mm3 Normal RBC 5.38 LAB L100.1300 13.0-16.5 g/dl Normal HGB 15.6 LAB L100.1400 40-54 % Normal HCT 47.4 LAB L100.1500 80-94 fL Normal MCV 88.1 LAB L100.1600 27.0-32.0 pg Normal MCH 29.0 LAB L100.1700 32-36 g/gl Normal MCHC 32.9 LAB L100.1810 11.6-14.6 % Normal RDW CV 13.3 LAB L100.1820 35.1-43.9 fl Normal RDW SD 42.0 LAB L100.1900 150-450 K/mm3 Normal PLT 225 LAB L100.2000 6.2-12.0 fl Normal MPV 10.4 LAB L100.2100 47-70 % High NEUT% 70.6 LAB L100.2200 19-41 % Normal LY% 24.1 LAB L100.2300 0-10 % Normal MONO% 4.5 LAB L100.2400 0-5 % Normal EO% 0.4 LAB L100.2500 0-1 % Normal BASO% 0.1 LAB L100.2550 0.0-0.9 % Normal IM GRAN % 0.300 Result Comment: IG% - Immature Granulocytes (promyelocytes, myelocytes and metamyelocytes) > 1% indicates that a LEFT SHIFT is Present. LAB L100.2620 2.0-7.7 X10 3/uL Normal Absolute Neut 4.7 LAB L100.2720 0.83-4.51 X10 3/ul Normal Absolute Lymph 1.62 Performed By: #### L100.0100 #### [facility] [address] [place], [place], [id number] BASIC METABOLIC Collected: 05/03/2018 Status: F Source: [place] PROFILE ([facility]) 11:58 AM [facility] REPOSITORY TYPE CODE TESTS RESULT OUT OF RANGE REFERENCE UNITS LAB L501.0100 74-106 mg/dL High GLU 114 Result Comment: Fasting Glucose result from 100 to 125 mg/dL suggests IMPAIRED HOMEOSTASIS per A.D.A. criteria. Please note revised GLUCOSE reference range effective 2017. LAB L501.1000 7-18 mg/dL Normal BUN 14 LAB L501.1100 0.70-1.30 mg/dL Normal CREAT,SERUM 1.30 Result Comment: The validity of the calculated GFR AND GFRAA in patients over 70 years has not been determined. Clinical correlation is essential. LAB L501.1110 >60 mL/min Normal EST GFR 70 Result Comment: Non- GFR Calc LAB L501.1115 >60 mL/min Normal EST GFR - AA 85 Result Comment: GFR Calc LAB L501.1255 ml/min Normal Estimated CRCL 93.68 LAB L501.1300 10-20 RATIO Normal BUN/CRE 10.8 LAB L501.2200 8.5-10 mg/dL Normal .1 CA 8.8 LAB L501.5300 136-14 mmol/L Normal 5 NA 140 LAB L501.5600 3.5-5. mmol/L Low 1 K 3.4 LAB L501.5900 98-107 mmol/L Normal CL 99 LAB L501.6100 21.0-3 mmol/L High 2.0 CO2 39.0 LAB L501.6200 5-15 Low GAP 2 Performed By: #### L500.2500, L500.3400, L501.2450 #### [facility] [address] [place], [place], [id number] LIVER PROFILE Collected: 05/03/2018 Status: F Source: [place] 11:58 AM [facility] REPOSITORY TYPE CODE TESTS RESULT OUT OF RANGE REFERENCE UNITS LAB L501.1500 6.4-8.2 g/dL Normal T PROT 7.4 LAB L501.1800 3.2-5.0 g/dL Normal ALB 3.4 LAB L501.1950 2.2-4.2 g/dL Normal GLOB 4.0 LAB L501.4100 15-37 U/L Normal AST 29 LAB L501.4305 45-117 U/L Low ALK P 41 LAB L501.4405 16-61 U/L Normal ALT 39 LAB L501.4600 0.20-1.00 mg/dL Normal T BILI 0.40 LAB L501.4700 0.00-0.30 mg/dL Normal D BILI 0.12 Performed By: #### L500.2500, L500.3400, L501.2450 #### [facility] [address] [place], [place], [id number] LIPASE Collected: 05/03/2018 Status: F Source: [place] 11:58 AM [facility] REPOSITORY TYPE CODE TESTS RESULT OUT OF RANGE REFERENCE UNITS LAB L501.2450 73-393 U/L Normal LIPASE 83 Performed By: #### L500.2500, L500.3400, L501.2450 #### [facility] [address] [place], [address] ABDOMEN/PELVIS WITHOUT Observed: 05/03/2018 Status: F Source: [place] CONT 11:50 AM [facility] REPOSITORY [facility] Imaging Services [address] [place] [address] Abdomen/Pelvis without Cont MR#: [id number] Acct: [id number] Name: ABHI GILLESPIE Rep #: [id number] : 1990 M 27 From: Berry Cruz MD PCP: Care Physician, No Primary Status: REG ER Study: Abdomen/Pelvis without Cont Date of Exam: 05/03/18 Exam# [id number] Ordering Dr: Alfredito Rodriguez MD STUDY: CT ABDOMEN AND PELVIS WITHOUT CONTRAST REASON FOR EXAM: Male, 27 years old. Periumbilical pain. Vomiting. RADIATION DOSAGE (If Supplied By Facility): CTDIvol = ( 24.17 ) mGy, DLP = ( 1310.39 ) mGycm TECHNIQUE: Transaxial images were obtained from the dome of the diaphragm to the symphysis pubis without oral contrast, and without intravenous contrast. Sagittal and coronal images were reconstructed. Individualized dose optimization techniques were used for this CT. COMPARISON: Comparison is made with prior study dated December 29, 2017. FINDINGS: Minimal increased linear markings in the medial aspect of the right middle lobe and lingular segment of the left upper lobe suggestive of mild atelectasis. This is unchanged. The visualized portions of the heart are within normal limits. Normal liver. Normal gallbladder and extrahepatic biliary system. Normal spleen. Normal pancreas. Normal bilateral adrenal glands. Normal right kidney. Normal left kidney. Normal visualized stomach. Normal small intestine. Normal colon. There are surgical clips in the region of the appendix consistent with a prior appendectomy. Small rounded soft tissue densities are seen within the mesentery in the right lower quadrant is suggestive of a mesenteric adenitis. Normal abdominal aorta. Normal inferior vena cava. There is borderline retroperitoneal lymphadenopathy with enlarged nodes no greater than 10mm in the short axis diameter. Normal urinary bladder. Normal abdominal wall. There are mild degenerative changes of the visualized lumbar spine. CT/Abdomen/Pelvis without Cont IMPRESSION: Status post appendectomy. Findings suggestive of mesenteric adenitis. Electronically Signed: Berry Cruz MD at 12:48 EDT Tel [phone], Service support , CC: No Primary Care Physician; Daniel Rodriguez MD Data Power Consultant: Signed EMERGENCY DEPARTMENT Observed: 03/23/2018 Status: F Source: [place] SUMMARY 12:11 AM [facility] REPOSITORY [facility] Medical Records Department [address] [place] [address] Emergency Department Summary 03/22/18 1831 MR#: [id number] Acct: [id number] Name: ABHI GILLESPIE Rep #: [id number] : 1990 27 From: Galileo Hearn MD PCP: OUT OF [facility] DOCTOR Status: DEP ER - ER Visit Summary Date of Service: 03/22/18 Chief Complaint: Broken tooth History of Present Illness: The patient is a 27 M with a broken tooth. The patient was eating a sandwich yesterday when he felt something hard in his mouth. He noticed that he had broken 1 of his right upper teeth. He has noted some swelling to the area. Worse with moving and breathing. Cannot chew with that side of his mouth. Physical Examination: Blood pressure 237/149. Heart rate 109. Otherwise vitals unremarkable. Head and neck atraumatic. HEENT exam remarkable for focal decay involving tooth #10. No abscess or swelling noted. No trismus or tongue elevation. No lymphadenopathy. Heart regular rate and rhythm on my exam. Respirations clear bilaterally. Test Results: None indicated Emergency Department Course and Treatment: Patient will be treated with clindamycin and naproxen. He also received an ice pack. He will follow-up with dental. His blood pressure is very high. He has a history of hypertension. He has no current symptoms. He was advised to take his medication and follow-up with his doctor. He should return right away for any new or worsening symptoms. Treatment Plan: As above Disposition: Discharged Impression: 1. Dental pain 2. Hypertension This note was generated with [employer] dictation software. It may contain incorrect words, spelling, and punctuation that were not noted in review of the chart prior to signing ED Disposition - Plan for ED Patient: Chief Complaint: Dental Referrals: [facility] Doctor,Out of [Primary Care Provider] - What to do if you have Problems For any increased pain, shortness of breath, bleeding, nausea or vomiting, chest pain, or any unexpected problems, contact your Primary Care Provider. Call [facility] ([phone]) or report to the closest Emergency Room. Call 911 if necessary. 03/23/18 0011 <Electronically signed by Galileo Hearn MD> Date Galileo Hearn MD Cosigner Signature (If Indicated): Date CC: OUT OF TOWN DOCTOR DISCHARGE INSTRUCTION Observed: 03/23/2018 Status: F Source: [place] 12:11 AM [facility] REPOSITORY [facility] Medical Records Department [address] [place] [address] Discharge Instruction 03/22/18 1834 MR#: [id number] Acct: [id number] Name: ABHI GILLESPIE Rep #: [id number] : 1990 27 From: Galileo Hearn MD PCP: OUT OF TOWN DOCTOR Status: DEP ER ED Disposition - Plan for ED Patient: Chief Complaint: Dental Instructions: ED Tooth Pain Prescriptions: Naproxen [Naprosyn] 500 mg PO BID #14 tab Clindamycin HCl [Cleocin] 300 mg PO Q6H #28 cap Additional Instructions: follow up with your dentist and your primary care doctor for blood pressure checks and treatment What to do if you have Problems For any increased pain, shortness of breath, bleeding, nausea or vomiting, chest pain, or any unexpected problems, contact your Primary Care Provider. Call [facility] ([phone]) or report to the closest Emergency Room. Call 911 if necessary. 03/23/18 0011 <Electronically signed by Galileo Hearn MD> Date Galileo Morfin Signature (If Indicated): Date CC: OUT OF TOWN DOCTOR PROGRESS Observed: 03/17/2018 Status: COMPLETED Source: [facility] 5:09 PM [facility] REPOSIT[facility] O ID: [id number] Author: Refugio J Garcia Service: (none) Author Type: Physician Type: Progress Notes Filed: 03/17/2018 5:57 PM Note Text: Patient presents with: Mass: R arm HPI: Skin Lesion: Location: mid right dorsal forearm Duration: Noticed in the shower today, worried it might be a blood clot. No known injury, but he was wrestling with his son yesterday and does repetitive motions at work. Pruritis/Pain: Sore to touch Change: NO Drainage/blister/pustule/ulceration: No bruising. He is otherwise feeling well. Treatment: Ice MEDICATIONS: lisinopril-hydrochlorothiazide (PRINZIDE,ZESTORETIC) 20-12.5 mg per tablet DAILY fluticasone (FLONASE) 50 mcg/actuation nasal spray Use 2 Sprays in each nostril once daily. Rinse mouth after use. FLUoxetine HCl (PROZAC) 40 mg capsule Take 1 capsule by mouth once daily. carvedilol (COREG) 25 mg tablet Take 2 tablets by mouth twice daily. dicyclomine (BENTYL) 20 mg tablet Take 1 tablet by mouth every 6 hours. ondansetron (ZOFRAN) 4 mg tablet Take 1 tablet by mouth every 8 hours as needed. ALLERGIES: ALLERGIES Allergen Reactions - Bupropion Other: See Comments Seizure - Diphenhydramine Other: See Comments - Penicillins Unknown - Sulfa (Sulfonamide * Unknown VITALS: BP (!) 260/110 Pulse 80 Temp 37.6 ?C (99.6 ?F) (Left Tympanic) Resp 20 Wt (!) 166 kg (366 lb) BMI 49.64 kg/m? Last 4 Encounter BP Readings: Date: BP: 03/17/2018 260/110 12/02/2017 172/112 11/11/2017 210/126 09/03/2017 162/98 PE: Pleasant, in no acute distress. Arm: Right. No subcutaneous mass, erythema, or swelling. The tender mass is an extensor muscle at the proximal 1/3 of the forearm. ASSESSMENT/PLAN: 1. Arm pain, right - ICD9: 729.5, ICD10: M79.601 Extensor tendonitis, contusion, or strain. Treat with ice. No NSAID because of CAD history. F/u with ortho if not improving. F/u in the ER with swelling, erythema, or increasing size. He should check with his insurance to see if he needs a referral for skin tag removal around his eyes. He has not taken his BP medicine in 4 days. He is looking for a new PCP but does not want to establish with [facility]. Refugio Garcia MD CNOV Observed: 03/17/2018 Status: COMPLETED Source: [place] 5:00 PM [facility] REPOSITORY Office Visit (WSTR) ABHI GILLESPIE ([id number]) 1990 M Date Time Provider Department 03/17/18 5:00 PM REFUGIO GARCIA [facility] During your visit today, we recorded the following information about you: Temperature Pulse Respiration Blood pressure 99.6 degrees 80/minute 20/minute 260/110 Weight 166 kg Refugio Garcia MD 03/17/2018 5:57 PM Addendum Patient presents with: Mass: R arm HPI: Skin Lesion: Location: mid right dorsal forearm Duration: Noticed in the shower today, worried it might be a blood clot. No known injury, but he was wrestling with his son yesterday and does repetitive motions at work. Pruritis/Pain: Sore to touch Change: NO Drainage/blister/pustule/ulceration: No bruising. He is otherwise feeling well. Treatment: Ice MEDICATIONS: lisinopril-hydrochlorothiazide (PRINZIDE,ZESTORETIC) 20-12.5 mg per tablet DAILY fluticasone (FLONASE) 50 mcg/actuation nasal spray Use 2 Sprays in each nostril once daily. Rinse mouth after use. FLUoxetine HCl (PROZAC) 40 mg capsule Take 1 capsule by mouth once daily. carvedilol (COREG) 25 mg tablet Take 2 tablets by mouth twice daily. dicyclomine (BENTYL) 20 mg tablet Take 1 tablet by mouth every 6 hours. ondansetron (ZOFRAN) 4 mg tablet Take 1 tablet by mouth every 8 hours as needed. ALLERGIES: ALLERGIES Allergen Reactions - Bupropion Other: See Comments Seizure - Diphenhydramine Other: See Comments - Penicillins Unknown - Sulfa (Sulfonamide * Unknown VITALS: BP (!) 260/110 Pulse 80 Temp 37.6 ?C (99.6 ?F) (Left Tympanic) Resp 20 Wt (!) 166 kg (366 lb) BMI 49.64 kg/m? Last 4 Encounter BP Readings: Date: BP: 03/17/2018 260/110 12/02/2017 172/112 11/11/2017 210/126 09/03/2017 162/98 PE: Pleasant, in no acute distress. Arm: Right. No subcutaneous mass, erythema, or swelling. The tender mass is an extensor muscle at the proximal 1/3 of the forearm. ASSESSMENT/PLAN: 1. Arm pain, right - ICD9: 729.5, ICD10: M79.601 Extensor tendonitis, contusion, or strain. Treat with ice. No NSAID because of CAD history. F/u with ortho if not improving. F/u in the ER with swelling, erythema, or increasing size. He should check with his insurance to see if he needs a referral for skin tag removal around his eyes. He has not taken his BP medicine in 4 days. He is looking for a new PCP but does not want to establish with [facility]. Refugio Garcia MD Referring Provider: SELF [200] Allergies As of Date: 03/17/2018 Noted Allergy Reaction BUPROPION 05/02/2017 14 - Other: See Comments Comments: Seizure DIPHENHYDRAMINE 12/28/2017 14 - Other: See Comments PENICILLINS 06/22/2015 16 - Unknown SULFA (SULFONAMIDE ANTIBIOTICS) 06/22/2015 16 - Unknown Date Reviewed: 03/17/2018 Reviewed by: Celia Frankel Ma - Fully Assessed Reason for Visit: Mass [64] Cmt: R arm Primary Visit Diagnosis:Arm pain, right [M79.601] Prescriptions as of 03/17/2018 Sig: LISINOPRIL 20 MG-HYDROCHLOROT* DAILY FLUTICASONE 50 MCG/ACTUATION * Use 2 Sprays in each nostril * FLUOXETINE 40 MG CAPSULE Take 1 capsule by mouth once * CARVEDILOL 25 MG TABLET Take 2 tablets by mouth twice* DICYCLOMINE 20 MG TABLET Take 1 tablet by mouth every * Patient not taking: Reported on 11/11/2017 ONDANSETRON HCL 4 MG TABLET Take 1 tablet by mouth every * Patient not taking: Reported on 12/02/2017 Problem List As Of Date 03/17/2018 Noted Resolved Essential hypertension [I10] INVALID FOR* ST elevation myocardial infarction involving le*INVALID FOR* Morbid obesity due to excess calories (HCC) [E6*INVALID FOR* Tobacco dependency [F17.200] INVALID FOR* KAREN (obstructive sleep apnea) AHI 127 [G47.33] INVALID FOR* Medications Discontinued During This Encounter lisinopril (ZESTRIL, PRINIVIL) 40 mg* 90 t* 3 12/11/2016 03/17/2018 Route: ORAL Sig: Take 1 tablet by mouth once daily. Disc: Course of therapy completed Encounter Status:Closed by REFUGIO GARCIA MD on 03/17/18 U DRUG SCREEN Collected: 03/15/2018 Status: F Source: [place] 11:29 AM [facility] REPOSITORY TYPE CODE TESTS RESULT OUT OF RANGE REFERENCE UNITS LAB 49679538(LO ng/mL INC) Normal U Negative Amph Scr Result Comment: Results for medical use only. Confirmation of positive results will be done when requested. Specimens are kept for one week. LAB 71094802(LOINC) ng/mL U Normal Gisele Scr Negative LAB 22078443(LOINC) ng/mL U Normal Benzodia Scr Negative LAB 07225133(LOINC) ng/mL U Normal Cannab Scr Negative LAB 68263204(LOINC) ng/mL U Normal Cocaine Scr Negative LAB 88169316(LOINC) ng/mL U Normal Opiate Scr Negative LAB 24862880(LOINC) ng/mL U Normal PCP Scr Negative Performed By: #### [id number] #### ROGELIO [facility] [place] [address] CBC W/ AUTO DIFF Collected: 03/15/2018 Status: F Source: [place] 10:56 AM [facility] REPOSITORY TYPE CODE TESTS RESULT OUT OF RANGE REFERENCE UNITS LAB 39120090(L 3.6-11.0 E3/mcL OINC) Normal WBC 7.2 LAB 80465293(L 3.90-6.10 E6/mcL OINC) Normal RBC 5.38 LAB 72445849(L 13.5-18.0 G/DL OINC) Normal Hgb 16.1 LAB 78426584(L 42.0-52.0 % OINC) Normal Hct 47.0 LAB 46664660(L 11.5-14.5 % OINC) Normal RDW 13.9 LAB 23334113(L 27.0-31.0 pg OINC) Normal MCH 29.9 LAB 50097848(L 33.0-37.0 G/DL OINC) Normal MCHC 34.2 LAB 03409135(L 78.0-100.0 fL OINC) Normal MCV 87.4 LAB 40306786(L 7.4-11.0 fL OINC) Normal MPV 8.6 LAB 00159158(L 130-400 E3/mcL OINC) Normal Platelet 225 Performed By: #### [id number] #### ROGELIO [facility] [address] [place] [address] AUTO DIFF Collected: 03/15/2018 Status: F Source: [place] 10:56 AM [facility] REPOSITORY Order Comment: Order Added by Discern Expert. TYPE CODE TESTS RESULT OUT OF RANGE REFERENCE UNITS LAB 58226745(L 37.0-75.0 % OINC) Normal Neutro Auto 68.8 LAB 97730659(L 20.0-55.0 % OINC) Normal Lymph Auto 23.6 LAB 49818305(L 0.0-10.0 % OINC) Normal Loíza Auto 5.5 LAB 27894604(L 0.0-11.0 % OINC) Normal Eos Auto 1.5 LAB 47826655(L 0.0-2.0 % OINC) Normal Basophil Auto 0.6 LAB 67932110(L 1.4-6.5 E3/mcL OINC) Normal Neutro 5.0 Absolute LAB 05817351(L 1.2-3.4 E3/mcL OINC) Normal Lymph Absolute 1.7 LAB 81092754(L 0.0-0.7 E3/mcL OINC) Normal Loíza Absolute 0.4 LAB 88914956(L 0.0-0.7 E3/mcL OINC) Normal Eos Absolute 0.1 LAB 52009428(L 0.0-0.2 E3/mcL OINC) Normal Basophil 0.0 Absolute Performed By: #### [id number] #### ROGELIO [facility] [address] [place] [address] BMP Collected: 03/15/2018 Status: F Source: [place] 10:56 AM [facility] REPOSITORY TYPE CODE TESTS RESULT OUT OF RANGE REFERENCE UNITS LAB 87734848(L 70-99 mg/dL OINC) High Glucose Lvl 233 LAB 29645847(L 7-18 mg/dL OINC) BUN Normal 10 LAB 7998591(LO 0.6-1.3 mg/dL INC) Normal Creatinine 0.9 LAB 33285149(L 5.4-30.0 ratio OINC) Normal BUN/Creat Ratio 11.1 LAB 44351865(L 8.4-10.2 mg/dL OINC) Calcium Normal Lvl 9.2 LAB 43400478(L 136-145 mEq/L OINC) Sodium Normal Lvl 139 LAB 30639410(L 3.5-5.1 mEq/L OINC) Low Potassium Lvl 3.4 LAB 25314208(L 98-107 mEq/L OINC) Chloride Normal 99 LAB 08838426(L 24.0-30.0 mEq/L OINC) CO2 Normal 29.0 Performed By: #### [id number] #### ROGELIO [facility] [place] [address] EGFR Collected: 03/15/2018 Status: F Source: [place] 10:56 AM [facility] REPOSITORY Order Comment: Order added by Discern Expert. TYPE CODE TESTS RESULT OUT OF RANGE REFERENCE UNITS LAB 85245204(LO mL/min/1.73 INC) m2 Normal eGFR >60 LAB 73565202(LO mL/min/1.73 INC) m2 Normal eGFR AA >60 Performed By: #### [id number] #### ROGELIO [facility] [address] [place] [id number] UA COMPLETE Collected: 03/15/2018 Status: F Source: [place] 10:47 AM [facility] REPOSITORY TYPE CODE TESTS RESULT OUT OF RANGE REFERENCE UNITS LAB 72023659( Yellow LOINC) Normal UA Color Yellow LAB 45098416( Clear LOINC) Normal UA Clarity Clear LAB 99063290( Negative LOINC) UA Glucose Abnormal 2+ LAB 65174989( Negative LOINC) Normal UA Bili Negative LAB 50741874( Negative LOINC) Normal UA Ketones Negative LAB 15019574( 1.003-1.030 LOINC) Normal UA Spec Grav 1.014 LAB 86119364( 4.6-8.0 LOINC) Normal UA pH 7.0 LAB 94390802( Negative LOINC) UA Protein Abnormal 3+ LAB 37054292( mg/dL LOINC) Normal UA Urobilinogen Negative LAB 91723739( Negative LOINC) Normal UA Nitrite Negative LAB 76567956( Negative LOINC) Normal UA Blood Negative LAB 11171788( Negative LOINC) Normal UA Leuk Est Negative LAB 93007945( 0-3 /HPF LOINC) Normal UA RBC 0-3 LAB 11903084( 0-5 /HPF LOINC) Normal UA WBC 0-5 LAB 07641493( None /HPF LOINC) UA Bacteria Abnormal Trace LAB 97632694( Trace /LPF LOINC) UA Mucous Abnormal Trace Performed By: #### [id number] #### R[place]ELIO [place] [address] CT ABDOMEN/PELVIS W/ Observed: 03/10/2018 Status: F Source: [place] CONTRAST 10:50 AM [facility] REPOSITORY Exam Date/Time: 03/10/2018 11:01 EDT Reason for Exam: Pain Report STUDY: CT Abdomen/Pelvis w/ Contrast; 03/10/2018 11:01 am INDICATION: Pain. COMPARISON: None. ACCESSION NUMBER(S): [id number] ORDERING CLINICIAN: Hansel Hollis TECHNIQUE: CT of the abdomen was performed. Contiguous axial images were obtained at 3 mm slice thickness through the abdomen. Coronal and sagittal reconstructions at 3 mm slice thickness were performed. 150 mL ml of contrast material Omnipaque 350 were administered intravenously without immediate complication. No oral contrast FINDINGS: LOWER CHEST: The visualized lung base is unremarkable. The heart is normal in size without evidence of pericardial effusion. No pleural effusion is evident. ABDOMEN: LIVER, GALLBLADDER, PANCREAS and BILE DUCTS: The liver is normal in size and attenuation. No intrahepatic biliary dilatation is seen. No hepatic mass lesion is present. The gallbladder is not distended. No pericholecystic edema is seen. The resolution of the gallbladder images is poor, because motion related artifacts and the body habitus. No dilatation of common bile duct is present. The pancreas is normal in size and attenuation. No pancreatic calcification is present. SPLEEN: Within normal limits. ADRENAL GLANDS: Bilateral adrenal glands appear normal. KIDNEYS URETERS AND URINARY BLADDER The kidneys are normal in size, shape and nephrograms. No calculus is seen in the ureters or the kidneys. The bladder is slightly contracted. The perivesical fat planes are intact. Exam Date/Time: 03/10/2018 11:01 EDT Report BOWEL: The small bowel loops are normal in size. The appendix is absent. The colon is not distended. No abnormal thickening of the wall of the colon is seen. No stranding of the fat is seen around the colon. There are no diverticula present in the sigmoid colon. VESSELS: The aorta and IVC are within normal limits. PERITONEUM/RETROPERITONEUM/LYMPH NODES: No free fluid is seen in the abdomen. There is no para-aortic, mesenteric or pelvic lymphadenopathy. ABDOMINAL WALL: Within normal limits. BONES: No suspicious osseous lesions are present. Mild degenerative changes are present, in the sacroiliac joints. IMPRESSION: 1. No acute disease. Gallbladder not adequately evaluated. 2. FINAL REPORT Dictated: 03/10/2018 11:37 am Gianfranco Estevez MD Signed (Electronic Signature): 03/10/2018 11:37 am Signed by: Gianfranco Estevez MD Technologist: MICHELLE ARELLANO COMPLETE Collected: 03/10/2018 Status: F Source: [place] 10:36 AM [facility] REPOSITORY TYPE CODE TESTS RESULT OUT OF RANGE REFERENCE UNITS LAB 40172414( Yellow LOINC) Normal UA Color Yellow LAB 30289212( Clear LOINC) Normal UA Clarity Clear LAB 12889471( Negative LOINC) Normal UA Glucose Negative LAB 63595933( Negative LOINC) Normal UA Bili Negative LAB 69933709( Negative LOINC) Normal UA Ketones Negative LAB 47926753( 1.003-1.030 LOINC) Normal UA Spec Grav 1.017 LAB 66757626( 4.6-8.0 LOINC) Normal UA pH 7.0 LAB 43436824( Negative LOINC) UA Protein Abnormal 3+ LAB 13816928( mg/dL LOINC) Normal UA Urobilinogen Negative LAB 47560704( Negative LOINC) Normal UA Nitrite Negative LAB 49979012( Negative LOINC) Normal UA Blood Negative LAB 21016662( Negative LOINC) Normal UA Leuk Est Negative LAB 63844517( 0-3 /HPF LOINC) Normal UA RBC 0-3 LAB 54198892( 0-5 /HPF LOINC) Normal UA WBC 0-5 LAB 06267437( None /HPF LOINC) UA Bacteria Abnormal Trace Performed By: #### [id number] #### ROGELIO [facility] [address] [place] [id number] CBC W/ AUTO DIFF Collected: 03/10/2018 Status: F Source: [place] 9:48 AM [facility] REPOSITORY TYPE CODE TESTS RESULT OUT OF RANGE REFERENCE UNITS LAB 95610264(L 3.6-11.0 E3/mcL OINC) Normal WBC 10.1 LAB 20248565(L 3.90-6.10 E6/mcL OINC) Normal RBC 5.74 LAB 30323307(L 13.5-18.0 G/DL OINC) Normal Hgb 16.8 LAB 78969386(L 42.0-52.0 % OINC) Normal Hct 49.4 LAB 17768612(L 11.5-14.5 % OINC) Normal RDW 14.2 LAB 07736572(L 27.0-31.0 pg OINC) Normal MCH 29.2 LAB 28965936(L 33.0-37.0 G/DL OINC) Normal MCHC 33.9 LAB 44038063(L 78.0-100.0 fL OINC) Normal MCV 86.1 LAB 44147993(L 7.4-11.0 fL OINC) Normal MPV 9.1 LAB 65858098(L 130-400 E3/mcL OINC) Normal Platelet 243 Performed By: #### [id number] #### ROGELIO [facility] [address] [place] [id number] AUTO DIFF Collected: 03/10/2018 Status: F Source: [place] 9:48 AM [facility] REPOSITORY Order Comment: Order Added by Discern Expert. TYPE CODE TESTS RESULT OUT OF RANGE REFERENCE UNITS LAB 12708117(L 37.0-75.0 % OINC) Normal Neutro Auto 73.2 LAB 37539981(L 20.0-55.0 % OINC) Low Lymph Auto 19.5 LAB 97792585(L 0.0-10.0 % OINC) Normal Loíza Auto 6.1 LAB 19473311(L 0.0-11.0 % OINC) Normal Eos Auto 0.9 LAB 94837295(L 0.0-2.0 % OINC) Normal Basophil Auto 0.3 LAB 79058802(L 1.4-6.5 E3/mcL OINC) High Neutro 7.4 Absolute LAB 01875395(L 1.2-3.4 E3/mcL OINC) Normal Lymph Absolute 2.0 LAB 00661154(L 0.0-0.7 E3/mcL OINC) Normal Loíza Absolute 0.6 LAB 80977913(L 0.0-0.7 E3/mcL OINC) Normal Eos Absolute 0.1 LAB 39152783(L 0.0-0.2 E3/mcL OINC) Normal Basophil 0.0 Absolute Performed By: #### [id number] #### ROGELIO [facility] [place] [address] BMP Collected: 03/10/2018 Status: F Source: [place] 9:48 AM [facility] REPOSITORY TYPE CODE TESTS RESULT OUT OF RANGE REFERENCE UNITS LAB 94242389(L 70-99 mg/dL OINC) High Glucose Lvl 132 LAB 21991806(L 8.4-10.2 mg/dL OINC) Calcium Normal Lvl 9.2 LAB 12920983(L 136-145 mEq/L OINC) Sodium Normal Lvl 141 LAB 67196914(L 3.5-5.1 mEq/L OINC) Low Potassium Lvl 3.3 LAB 50313492(L 98-107 mEq/L OINC) Chloride Normal 101 LAB 81985786(L 24.0-30.0 mEq/L OINC) CO2 Normal 28.9 LAB 71260871(L 7-18 mg/dL OINC) BUN Normal 17 LAB 0847418(LO 0.6-1.3 mg/dL INC) Normal Creatinine 1.0 LAB 46060483(L 5.4-30.0 ratio OINC) Normal BUN/Creat Ratio 17.0 Performed By: #### [id number] #### ROGELIO [facility] [address] [place] [address] EGFR Collected: 03/10/2018 Status: F Source: [place] 9:48 AM [facility] REPOSITORY Order Comment: Order added by Discern Expert. TYPE CODE TESTS RESULT OUT OF RANGE REFERENCE UNITS LAB 44721256(LO mL/min/1.73 INC) m2 Normal eGFR >60 LAB 71613668(LO mL/min/1.73 INC) m2 Normal eGFR AA >60 Performed By: #### [id number] #### ROGELIO [facility] [address] [place] [id number] HEP FUNC PANEL Collected: 03/10/2018 Status: F Source: [place] 9:48 AM [facility] REPOSITORY TYPE CODE TESTS RESULT OUT OF RANGE REFERENCE UNITS LAB 51710421(L 10-40 Int._Unit/L OINC) Normal ALT 32 LAB 35978263(L 10-42 Int._Unit/L OINC) Normal AST 23 LAB 07869408(L 3.2-5.0 G/DL OINC) Normal Albumin Lvl 4.0 LAB 03814656(L 2.0-4.0 G/DL OINC) Normal Globulin 3.7 LAB 24425505(L 1.1-1.9 ratio OINC) Normal A/G Ratio 1.1 LAB 13595172(L 42-121 Int._Unit/L OINC) Low Alk Phos 34 LAB 85844903(L .00-.20 mg/dL OINC) Normal Bili Direct <.10 LAB 26656252(L OINC) Normal Bili Indirect >0.6 Result Comment: No established ranges available for the Indirect Biliruben. LAB 05514614(LOINC) 0.2-1.0 mg/dL Normal Bili Total 0.7 LAB 36064970(LOINC) 6.4-8.3 G/DL Normal Total Protein 7.7 Performed By: #### [id number] #### ROGELIO [facility] [address] [place] [id number] LIPASE LEVEL Collected: 03/10/2018 Status: F Source: [place] 9:48 AM [facility] REPOSITORY TYPE CODE TESTS RESULT OUT OF RANGE REFERENCE UNITS LAB 83015385(LO 8-57 U/L INC) Normal Lipase Lvl 22 Performed By: #### [id number] #### ROGELIO [facility] [address] [place] [address] EMERGENCY DEPARTMENT Observed: 03/07/2018 Status: F Source: [place] SUMMARY 11:20 PM [facility] REPOSITORY [facility] Medical Records Department [address] [place] [address] Emergency Department Summary 03/07/18 2250 MR#: [id number] Acct: [id number] Name: ABHI GILLESPIE Rep #: [id number] : 1990 27 From: Ryder Little PCP: OUT OF TOWN DOCTOR Status: REG ER ADDENDUM by Ryder King on 03/07/18 at 2320 Apparently a prior discharge and prior to administrating of volume, RN states patient reported that spouse told him that he had severe reaction to volume in the past. This was not given, prescription was shredded by nursing. Date Ryder King DO cc: OUT OF TOWN DOCTOR * Signed - ER Visit Summary Date of Service: 03/07/18 Chief Complaint: Back pain History of Present Illness: The patient is a 27 M increasing left lower back pain 2 days ago after moving furniture. Pain down the back of his leg to his knee. No loss of bowel or bladder control. No saddle anesthesia. Tylenol with no relief. Similar symptoms a couple months ago. Last prescription Whiteclay was 2 months ago. Denies any falls or direct injuries. No history of IV drug abuse. History of hypertension, has not taken his medications for a week, he is on lisinopril with hydrochlorothiazide along with Coreg. States he forgets to take them. Saw the urgent care week ago for upper respiratory symptoms which is resolved. Symptoms worsen with bending or prolonged sitting. Improved with standing with weight off the left leg. Physical Examination: General: Alert and oriented 3, no acute distress HEENT: Normocephalic, atraumatic. Moist mucosa membranes Neck: supple, nontender. Cardiovascular: Regular rate 108 and rhythm, no murmurs Respiratory: Normal breath sounds, symmetric, no distress Abdomen: Soft, nontender, nondistended Back: No midline tenderness, reproducible left lower lumbar tenderness. Straight leg test was negative. 1+ patellar reflex bilaterally. Extremities: Nontender, no edema, pulses intact 4 Neuro: no focal neurological deficits. Test Results: [] Emergency Department Course and Treatment: Patient presented with sciatica symptoms. Treated with morphine and Valium in the ED. OARRS report shows no overlap, last prescription was his last visit 10 tabs of Whiteclay. He has elevated blood pressure in the ED, asymptomatic, has been noncompliant over the past week. Discussed the patient needs to take his medications as prescribed. Patient nontoxic. Standing bedside able to ambulate. Patient discharged outpatient follow-up. All questions were answered. NSAIDs held due to elevated blood pressure. Treatment Plan: [] Disposition: Discharge Impression: 1. Sciatica left side 2. Elevated blood pressure 3. Medication noncompliance This note was generated with [email or web address] software. It may contain incorrect words, spelling, and punctuation that were not noted in review of the chart prior to signing ED Disposition - Plan for ED Patient: Disposition: Home or Assisted Living Chief Complaint: Back Diagnosis: Sciatica, Elevated blood pressure reading Instructions: ED Sciatica Prescriptions: Hydrocodone Bitart/Apap 5-325 [Whiteclay 5MG-325MG] 1 tablet PO Q6H PRN PRN 3 Days #10 tablet PRN Reason: Pain Diazepam [Valium] 5 mg PO Q8 PRN #10 tablet PRN Reason: Muscle Spasm Referrals: [facility] Doctor,Out of [Primary Care Provider] - 3-5 Days Additional Instructions: Need to take your blood pressure medications. Check your blood pressures, follow-up with your doctor. What to do if you have Problems For any increased pain, shortness of breath, bleeding, nausea or vomiting, chest pain, or any unexpected problems, contact your Primary Care Provider. Call [facility] ([phone]) or report to the closest Emergency Room. Call 911 if necessary. 03/07/18 2933 <Electronically signed by Ryder Little> Date Ryder Little Cosigner Signature (If Indicated): Date CC: OUT OF TOWN DOCTOR CT ABDOMEN/PELVIS W/ Observed: 02/03/2018 Status: F Source: [place] CONTRAST 2:10 AM [facility] REPOSITORY Exam Date/Time: 02/03/2018 02:26 EDT Reason for Exam: Pain Report STUDY: CT Abdomen/Pelvis w/ Contrast; 02/03/2018 2:26 am INDICATION: Pain. COMPARISON: None. ACCESSION NUMBER(S): [id number] ORDERING CLINICIAN: Alexei Reynoso TECHNIQUE: Axial CT images of the abdomen and pelvis with coronal and sagittal reconstructed images obtained after intravenous administration of 100 mL of Omnipaque 350 FINDINGS: LOWER CHEST: A 6 mm nodule is noted in the right lung base medially, stable from chest CT of 05/01/2017. Atelectasis and/or scarring in the lingula and right middle lobe. ABDOMEN: LIVER: Normal morphology. Liver is hypodense relative to the spleen which can be seen in setting of steatosis. BILE DUCTS: Normal caliber. GALLBLADDER: No calcified gallstones. No wall thickening. PANCREAS: Within normal limits. SPLEEN: Within normal limits. ADRENALS: Within normal limits. KIDNEYS and URETERS: Symmetric renal enhancement. No hydronephrosis or perinephric fluid collection. VESSELS: No aortic aneurysm. RETROPERITONEUM: No pathologically enlarged retroperitoneal lymph nodes. PELVIS: REPRODUCTIVE ORGANS: Prostate gland is not enlarged BLADDER: Within normal limits. BOWEL: No dilated bowel. Status post appendectomy. Colon is under distended with apparent wall thickening. No pneumatosis or portal venous gas. PERITONEUM: No ascites or free air, no fluid collection. Exam Date/Time: 02/03/2018 02:26 EDT Report ABDOMINAL WALL: Within normal limits. BONES: Mild degenerative changes of the spine. IMPRESSION: No acute abdominal or pelvic process. 6 mm nodule in the right lung base is stable from chest CT of 05/01/2017. Correlate patient's risk factors and follow-up Fleischner guidelines. 2017 Fleischner Society Guidelines for Incidental Nodules SOLID NODULES: SINGLE NODULE: Low risk: <6 mm No routine followup 6-[address] at 6-12 months, then consider CT at 18-24 months >[address] at 3 months, PET/CT, or tissue sampling Nodules <6 mm do not require routine followup, but certain patients at high risk with suspicious nodule morphology, upper lobe location, or both may warrant 12-month followup. High risk: <[address] at 12 months 6-[address] at 6-12 months, then CT at 18-24 months >[address] at 3 months, PET/CT, or tissue sampling Additional findings as described. FINAL REPORT Dictated: 02/03/2018 3:28 am Tej Dennis MD Signed (Electronic Signature): 02/03/2018 3:28 am Signed by: Tej Dennis MD Technologist: HECTOR CBC W/ AUTO DIFF Collected: 02/03/2018 Status: F Source: [place] 1:46 AM [facility] REPOSITORY TYPE CODE TESTS RESULT OUT OF RANGE REFERENCE UNITS LAB 14460843(L 3.6-11.0 E3/mcL OINC) Normal WBC 9.8 LAB 26516147(L 3.90-6.10 E6/mcL OINC) Normal RBC 5.28 LAB 37624816(L 13.5-18.0 G/DL OINC) Normal Hgb 15.5 LAB 72196655(L 42.0-52.0 % OINC) Normal Hct 44.5 LAB 39713021(L 11.5-14.5 % OINC) Normal RDW 14.5 LAB 23002763(L 27.0-31.0 pg OINC) Normal MCH 29.4 LAB 71285314(L 33.0-37.0 G/DL OINC) Normal MCHC 34.9 LAB 26300066(L 78.0-100.0 fL OINC) Normal MCV 84.3 LAB 94708544(L 7.4-11.0 fL OINC) Normal MPV 8.9 LAB 42149331(L 130-400 E3/mcL OINC) Normal Platelet 222 Performed By: #### [id number] #### ROGELIO RemHemo [address] [place] [address] AUTO DIFF Collected: 02/03/2018 Status: F Source: ANGLICAN 1:46 AM [facility] REPOSITORY Order Comment: Order Added by Discern Expert. TYPE CODE TESTS RESULT OUT OF RANGE REFERENCE UNITS LAB [id number](L 37.0-75.0 % OINC) Normal Neutro Auto 59.5 LAB 88407533(L 20.0-55.0 % OINC) Normal Lymph Auto 32.6 LAB 50868894(L 0.0-10.0 % OINC) Normal Loíza Auto 6.0 LAB 73388079(L 0.0-11.0 % OINC) Normal Eos Auto 1.4 LAB 99643986(L 0.0-2.0 % OINC) Normal Basophil Auto 0.5 LAB 18797291(L 1.4-6.5 E3/mcL OINC) Normal Neutro 5.8 Absolute LAB 05189573(L 1.2-3.4 E3/mcL OINC) Normal Lymph Absolute 3.2 LAB 65990497(L 0.0-0.7 E3/mcL OINC) Normal Loíza Absolute 0.6 LAB 92547201(L 0.0-0.7 E3/mcL OINC) Normal Eos Absolute 0.1 LAB 88195825(L 0.0-0.2 E3/mcL OINC) Normal Basophil 0.0 Absolute Performed By: #### [id number] #### [facility] [address] [place] [address] Collected: 02/03/2018 Status: F Source: ANGLICAN 1:46 AM [facility] REPOSITORY TYPE CODE TESTS RESULT OUT OF RANGE REFERENCE UNITS LAB 00040154(L 70-99 mg/dL OINC) High Glucose Lvl 130 LAB 29096296(L 7-18 mg/dL OINC) BUN Normal 11 LAB 9424760(LO 0.6-1.3 mg/dL INC) Normal Creatinine 0.9 LAB 29270638(L 5.4-30.0 ratio OINC) Normal BUN/Creat Ratio 12.2 LAB 27632786(L 8.4-10.2 mg/dL OINC) Calcium Normal Lvl 9.4 LAB 63385614(L 136-145 mEq/L OINC) Sodium Normal Lvl 141 LAB 75949550(L 3.5-5.1 mEq/L OINC) Low Potassium Lvl 3.0 LAB 52525800(L 98-107 mEq/L OINC) Chloride Normal 100 LAB 08772014(L 24.0-30.0 mEq/L OINC) CO2 Normal 29.3 Performed By: #### [id number] #### ROGELIO [facility] [address] [place] [address] EGFR Collected: 02/03/2018 Status: F Source: ANGLICAN 1:46 AM [facility] REPOSITORY Order Comment: Order added by Discern Expert. TYPE CODE TESTS RESULT OUT OF RANGE REFERENCE UNITS LAB 08770529(LO mL/min/1.73 INC) m2 Normal eGFR >60 LAB 93809441(LO mL/min/1.73 INC) m2 Normal eGFR AA >60 Performed By: #### [id number] #### ROGELIO Rem[facility] [place] [id number] HEP FUNC PANEL Collected: 02/03/2018 Status: F Source: ANGLICAN 1:46 AM [facility] REPOSITORY TYPE CODE TESTS RESULT OUT OF RANGE REFERENCE UNITS LAB 74604244(L 10-40 Int._Unit/L OINC) High ALT 44 LAB 81371727(L 10-42 Int._Unit/L OINC) Normal AST 29 LAB 63795148(L 3.2-5.0 G/DL OINC) Normal Albumin Lvl 3.8 LAB 27858685(L 2.0-4.0 G/DL OINC) Normal Globulin 3.2 LAB 97269166(L 1.1-1.9 ratio OINC) Normal A/G Ratio 1.2 LAB 13841897(L 42-121 Int._Unit/L OINC) Low Alk Phos 36 LAB 27885030(L .00-.20 mg/dL OINC) Normal Bili Direct .13 LAB 88714703(L OINC) Normal Bili Indirect 0.5 Result Comment: No established ranges available for the Indirect Biliruben. LAB 11166185(LOINC) 0.2-1.0 mg/dL Normal Bili Total 0.6 LAB 67490574(LOINC) 6.4-8.3 G/DL Normal Total Protein 7.0 Performed By: #### [id number] #### ROGELIO [facility] [place] [id number] LIPASE LEVEL Collected: 02/03/2018 Status: F Source: ANGLICAN 1:46 AM [facility] REPOSITORY TYPE CODE TESTS RESULT OUT OF RANGE REFERENCE UNITS LAB 61030364(LO 8-57 U/L INC) Normal Lipase Lvl 23 Performed By: #### [id number] #### ROGELIO [facility] [address] [place] [id number] EMERGENCY DEPARTMENT Observed: 01/26/2018 Status: F Source: NATE SUMMARY 4:20 AM [facility] REPOSITORY [facility] Medical Records Department [address] [place] [address] Emergency Department Summary 01/26/18 0037 MR#: [id number] Acct: [id number] Name: ABHI GILLESPIE Rep #: [id number] : 1990 27 From: Jeff Solorzano MD PCP: OUT OF TOWN DOCTOR Status: DEP ER - ER Visit Summary Date of Service: 01/26/18 Chief Complaint: [] Patient stated he is having back pain in the left buttock for last 2 days gradual onset. It radiates down the left leg. Worse with movement. Seen in the emergency department approximately a month ago and had a CT abdomen pelvis that showed nothing acute. The pain went away the next day. He thinks he has sciatica. He has chronic hypertension and has not been taking his meds over the last few days. Because he forgets. His blood pressure runs quite high per patient. History of Present Illness: The patient is a 27 M [] Physical Examination: [] Vital signs reviewed General: Well-nourished well-developed Head: Normocephalic atraumatic Eyes: Pupils equal round and reactive to light extraocular movements intact ENT: TMs clear no hemotympanum no trauma Neck: Nontender full range of motion Cardiovascular: Regular rate rhythm no murmurs normal S1-S2 Respiratory: No distress clear to auscultation bilaterally chest nontender Abdomen: Soft nontender nondistended normal bowel sounds no masses Back: Nontender no CVA tenderness or tenderness left sciatic notch. Positive straight leg raise on the left. Extremities: Nontender active range of motion 4 extremities no trauma Skin: Normal color no trauma Neuro alert oriented cranial nerves II through XII intact normal strength sensation reflexes Test Results: [] Emergency Department Course and Treatment: [] And a dose of morphine. Will be given a short course of Whiteclay for home. I think he has sciatica. Will get his blood pressure checked and take his blood pressure medicine. Will follow-up as an outpatient. Treatment Plan: [] Disposition: [] Impression: [] Left-sided sciatica Chronic hypertension This note was generated with Nearlyweds dictation software. It may contain incorrect words, spelling, and punctuation that were not noted in review of the chart prior to signing ED Disposition - Plan for ED Patient: Chief Complaint: Back Referrals: [facility] Doctor,Out of [Primary Care Provider] - What to do if you have Problems For any increased pain, shortness of breath, bleeding, nausea or vomiting, chest pain, or any unexpected problems, contact your Primary Care Provider. Call [facility] ([phone]) or report to the closest Emergency Room. Call 911 if necessary. 01/26/18 0420 <Electronically signed by Jeff Solorzano MD> Date Jeff Solorzano MD Cosigner Signature (If Indicated): Date CC: OUT OF TOWN DOCTOR DISCHARGE INSTRUCTION Observed: 01/26/2018 Status: F Source: NATE 4:20 AM [facility] REPOSITORY [facility] Medical Records Department [address] [place] [address] [place] [address] Discharge Instruction 01/26/18 0038 MR#: [id number] Acct: [id number] Name: ABHI GILLESPIE Rep #: [id number] : 1990 27 From: Jeff Solorzano MD PCP: OUT OF [facility] DOCTOR Status: DEP ER ED Disposition - Plan for ED Patient: Disposition: Home or Assisted Living Chief Complaint: Back Instructions: ED Sciatica Prescriptions: Hydrocodone Bitart/Apap 5-325 [Whiteclay 5MG-325MG] 1 tab PO Q6H PRN PRN 3 Days #10 tab PRN Reason: Pain Referrals: [facility] Doctor,Out of [Primary Care Provider] - What to do if you have Problems For any increased pain, shortness of breath, bleeding, nausea or vomiting, chest pain, or any unexpected problems, contact your Primary Care Provider. Call [facility] ([phone]) or report to the closest Emergency Room. Call 911 if necessary. 01/26/18419 <Electronically signed by Jeff Solorzano MD> Date Jeff Solorzano MD Cosigner Signature (If Indicated): Date CC: OUT OF TOWN DOCTOR DISCHARGE INSTRUCTION Observed: 12/29/2017 Status: F Source: NATE 4:31 AM [facility] REPOSITORY [facility] Medical Records Department [address] [place] [address] Discharge Instruction 12/29/17427 MR#: [id number] Acct: [id number] Name: ABHI GILLESPIE Rep #: [id number] : 1990 27 From: Zoie Tiwari PCP: OUT OF TOWN DOCTOR Status: REG ER ED Disposition - Plan for ED Patient: Chief Complaint: Back Instructions: ED Sciatica, Controlling High Blood Pressure Prescriptions: Tizanidine HCl 4 mg PO Q8H PRN PRN #10 tablet PRN Reason: Muscle Spasm MethylPREDNISolone DosePak [Medrol DosePak] 4 mg PO UD #1 box Referrals: [facility], internal Medicine [Other] - 2 Days What to do if you have Problems For any increased pain, shortness of breath, bleeding, nausea or vomiting, chest pain, or any unexpected problems, contact your Primary Care Provider. Call [facility] ([phone]) or report to the closest Emergency Room. Call 911 if necessary. 12/29/17430 <Electronically signed by Zoie Tiwari > Date Zoie Tiwari Cosigner Signature (If Indicated): Date CC: OUT OF TOWN DOCTOR DISCHARGE INSTRUCTION Observed: 12/29/2017 Status: F Source: NATE 4:31 AM [facility] REPOSITORY [facility] Medical Records Department [address] [place] [address] Discharge Instruction 12/29/17430 MR#: [id number] Acct: [id number] Name: ABHI GILLESPIE Rep #: [id number] : 1990 27 From: Zoie Tiwari PCP: OUT OF TOWN DOCTOR Status: REG ER ED Disposition - Plan for ED Patient: Chief Complaint: Back Instructions: Controlling High Blood Pressure, ED Sciatica Prescriptions: Tizanidine HCl 4 mg PO Q8H PRN PRN #10 tablet PRN Reason: Muscle Spasm MethylPREDNISolone DosePak [Medrol DosePak] 4 mg PO UD #1 box Referrals: [facility], internal Medicine [Other] - 2 Days What to do if you have Problems For any increased pain, shortness of breath, bleeding, nausea or vomiting, chest pain, or any unexpected problems, contact your Primary Care Provider. Call [facility] ([phone]) or report to the closest Emergency Room. Call 911 if necessary. 12/29/17430 <Electronically signed by Zoie Tiwari > Date Zoie Tiwari Cosigner Signature (If Indicated): Date CC: OUT OF TOWN DOCTOR EMERGENCY DEPARTMENT Observed: 12/29/2017 Status: F Source: NATE SUMMARY 4:28 AM [facility] REPOSITORY [facility] Medical Records Department [address] [place] [address] Emergency Department Summary 12/29/176 MR#: [id number] Acct: [id number] Name: ABHI GILLESPIE Rep #: [id number] : 1990 27 From: Zoie Tiwari PCP: OUT OF TOWN DOCTOR Status: REG ER - ER Visit Summary Date of Service: 12/29/17 Chief Complaint: [Back pain] History of Present Illness: The patient is a 27 M [who presents the emergency department with 2 weeks of back pain. It started like he would wake up in the morning with the pain at the gluteal crest it has slowly progressed and is painful all day especially for the last 4 days it is worse when he walks when he bends forward when he stands. It radiates down both buttocks but worse on the left and he has some paresthesias intermittently in his left toes. He has chronic high blood pressure. He was admitted to [facility] for it in July. He states he has been compliant with all his medications but ran out of his lisinopril on Thursday. He denies any bowel or bladder dysfunction no fevers. No direct injury but 2 days prior to this starting he was moving a dresser with a relative.] Physical Examination: [] Blood pressure 217/130 heart rate 110 respirations 20 pulse ox 96% Obese male in no acute distress WN WD NAD PERRL EOMI MMM NECK supple and nontender, no masses RRR no murmur rub or gallop, no peripheral edema, symmetric radial pulses CTAB no respiratory distress ABDOMEN is soft and nontender, normal bowel sounds, no distension, no rebound or guarding Patient has no midline tenderness to palpation but does have pain with bending forward or lying back. He has a straight leg raise on the left at 45 . Strength at EHL dorsiflexion plantar flexion knee extension and hip flexion are intact bilaterally and symmetric. Reflexes are intact. SKIN is warm and dry no rashes Alert and Oriented x3, CN II-XII in tact, no motor or sensory deficits, gait normal No lymphadenopathy Test Results: [] Emergency Department Course and Treatment: [Patient was given lisinopril for his blood pressure. Previous blood pressures were reviewed and it was quite high. He has been running in the 170s over 110s at home. Because of the patient's blood pressure and back pain with radiculopathy and neurologic symptoms I did order a CT of the abdomen pelvis to rule out dissection. It shows no dissection. Creatinine is 1.65 but does not have a baseline for comparison. Patient is diabetic his sugar was 200. I will start him on a Medrol Dosepak he will be given a take-home dose of Whiteclay and will be given muscle relaxant for home. He was encouraged to follow-up with his doctors in [place]. His blood pressure remained quite high give him 20 of labetalol and improved to 177/110. At this time I think he is safe for discharge home. We talked extensively about controlling and monitoring blood pressure. He has a prescription at the pharmacy to refill his lisinopril. He will take all his home medications this morning.] Treatment Plan: [] Disposition: [Discharge] Impression: [1. Lumbar back pain with left radiculopathy 2. Uncontrolled hypertension] This note was generated with Nearlyweds dictation software. It may contain incorrect words, spelling, and punctuation that were not noted in review of the chart prior to signing ED Disposition - Plan for ED Patient: Chief Complaint: Back Referrals: [facility] Doctor,Out of [Primary Care Provider] - What to do if you have Problems For any increased pain, shortness of breath, bleeding, nausea or vomiting, chest pain, or any unexpected problems, contact your Primary Care Provider. Call [facility] ([phone]) or report to the closest Emergency Room. Call 911 if necessary. 12/29/17 0428 <Electronically signed by Zoie Tiwari > Date Zoie Tiwari Cosigner Signature (If Indicated): Date CC: OUT OF TOWN DOCTOR BASIC METABOLIC Collected: 12/29/2017 Status: F Source: NATE PROFILE ([facility]) 12:37 AM [facility] REPOSITORY TYPE CODE TESTS RESULT OUT OF RANGE REFERENCE UNITS LAB L501.0100 74-106 mg/dL High GLU 200 Result Comment: Glucose result greater than or equal to 200 mg/dL suggests DIABETES MELLITUS per A.D.A. criteria. Please note revised GLUCOSE reference range effective 2017. LAB L501.1000 7-18 mg/dL Normal BUN 10 LAB L501.1100 0.70-1.30 mg/dL High CREAT,SERUM 1.36 Result Comment: The validity of the calculated GFR AND GFRAA in patients over 70 years has not been determined. Clinical correlation is essential. LAB L501.1110 >60 mL/min Normal EST GFR 67 Result Comment: Non- GFR Calc LAB L501.1115 >60 mL/min Normal EST GFR - AA 81 Result Comment: GFR Calc LAB L501.1255 ml/min Normal Estimated CRCL 89.55 LAB L501.1300 10-20 RATIO Low BUN/CRE 7.4 LAB L501.2200 8.5-10 mg/dL Normal .1 CA 9.0 LAB L501.5300 136-14 mmol/L Normal 5 NA 140 LAB L501.5600 3.5-5. mmol/L Low 1 K 3.4 LAB L501.5900 98-107 mmol/L Normal CL 102 LAB L501.6100 21.0-3 mmol/L Normal 2.0 CO2 29.0 LAB L501.6200 5-15 Normal GAP 9 Performed By: #### L500.2500 #### [facility] Laboratory [address] [facility] [place], [address] ABDOMEN/PELVIS W IV CONT Observed: 12/29/2017 Status: F Source: NATE ONLY 12:23 AM [facility] REPOSITORY [facility] Imaging Services [address] [place] [address] Abdomen/Pelvis W IV Cont ONLY MR#: [id number] Acct: [id number] Name: ABHI GILLESPIE Rep #: [id number] : 1990 M 27 From: Nixon Cobb MD PCP: OUT OF TOWN DOCTOR Status: REG ER Study: Abdomen/Pelvis W IV Cont ONLY Date of Exam: 12/29/17 Exam# [id number] Ordering Dr: Zoie Tiwari STUDY: CT ABDOMEN AND PELVIS WITH CONTRAST REASON FOR EXAM: Male, 27 years old. Lower abdominal pain for 2 weeks, radiating to the back. History of appendectomy. RADIATION DOSAGE (If Supplied By Facility): CTDIvol = ( 31.44 ) mGy, DLP = ( 2037.15 ) mGycm TECHNIQUE: Transaxial images were obtained from the dome of the diaphragm to the symphysis pubis without oral contrast. 100ML ml of Isovue 300 contrast was administered. Sagittal and coronal images were reconstructed. Individualized dose optimization techniques were used for this CT. COMPARISON: 11/13/2017. 03/28/2017. FINDINGS: The visualized lung bases are unremarkable. The visualized portions of the heart are within normal limits. There is decreased attenuation of the liver consistent with steatosis. Normal gallbladder and extrahepatic biliary system. There is moderate splenomegaly, similar to previous exam. Normal pancreas. Normal bilateral adrenal glands. Normal right kidney. Normal left kidney. Normal visualized stomach. Normal small intestine. Normal colon. There are surgical clips in the region of the appendix consistent with a prior appendectomy. Normal abdominal aorta. Normal inferior vena cava. Normal retroperitoneum. Normal urinary bladder. Normal abdominal wall. There are multilevel degenerative changes of the visualized spine. CT/Abdomen/Pelvis W IV Cont ONLY IMPRESSION: Fatty infiltration of the liver. Splenomegaly, stable in appearance. Previous appendectomy. No evidence for acute pathology. No evidence for diverticulitis. No demonstrated urinary calculi or hydronephrosis. Electronically Signed: Nixon Cobb MD at 2:49 EDT , Service support , CC: Zoie Tiwari; OUT OF TOWN DOCTOR Data Power Consultant: Signed GLUCOSE, POC Collected: 12/14/2017 Status: F Source: [facility] 8:45 AM [facility] REPOSITORY TYPE CODE TESTS RESULT OUT OF RANGE REFERENCE UNITS LAB GLUX 70-105 mg/dL High Glucose, 137 POC Performed By: #### GLUX #### Unless otherwise noted, all testing performed by [place] [address] [address] [place] [address] CLIA: [id number] Harvest Manager: Lexie Glez M.D. URINALYSIS, ROUTINE Collected: 12/14/2017 Status: F Source: [facility] 3:15 AM [facility] REPOSITORY TYPE CODE TESTS RESULT OUT OF REFERENCE UNITS RANGE LAB COLOR Normal Color, Urine Yellow LAB CHAUR Normal Character Clear LAB SPGRUR 1.003-1.029 Normal Specific 1.010 [place],Urine LAB PHUR 4.5-8.0 Normal pH,Urine 7.0 LAB GLUCUR NEG;NEGATIVE mg/dL Normal Glucose,Urine Negative LAB KETUR NEG;NEGATIVE mg/dL Normal Ketone,Urine Negative LAB PROTUR < 30 mg/dL High Protein,Urine 100 LAB BLDUR NEG;NEGATIVE Normal Blood,Urine Negative LAB NITUR NEG;NEGATIVE Normal Nitrite,Urine Negative LAB BILIUR NEG;NEGATIVE Normal Bilirubin,Urine Negative LAB UROUR <2 mg/dL Normal Urobilinogen,Ur < 2.0 ine LAB LEUESTUR Negative Normal Leuk.Esterase,U Negative rine LAB RBCUR 0-5 /HPF Normal RBC,Urine < 1 LAB SQEPI 0-40 /HPF Normal Squamous < 1 Epithelial Performed By: #### UA #### Unless otherwise noted, all testing performed by [place] [address] CLIA: [id number] Harvest Manager: Lexie Glez M.D. Observed: 12/14/2017 Status: F Source: [facility] MRSA SCREEN 2:01 AM [facility] REPOSITORY Test Name: MRSA Screen Culture Status: Final MRSA Screen: Negative Performed By: #### MRSASCR #### Unless otherwise noted, all testing performed by [place] [address] CLIA: [id number] Harvest Manager: Lexie Glez M.D. CBC W/ AUTO DIFF Collected: 12/13/2017 Status: F Source: ANGLICAN 9:37 PM [facility] REPOSITORY TYPE CODE TESTS RESULT OUT OF RANGE REFERENCE UNITS LAB 98554679(L 3.6-11.0 E3/mcL OINC) Normal WBC 10.7 LAB 10586342(L 3.90-6.10 E6/mcL OINC) Normal RBC 5.67 LAB 22447908(L 13.5-18.0 G/DL OINC) Normal Hgb 16.4 LAB 87733384(L 42.0-52.0 % OINC) Normal Hct 48.0 LAB 59788350(L 11.5-14.5 % OINC) High RDW 14.9 LAB 53662682(L 27.0-31.0 pg OINC) Normal MCH 28.9 LAB 76310002(L 33.0-37.0 G/DL OINC) Normal MCHC 34.2 LAB 96647922(L 78.0-100.0 fL OINC) Normal MCV 84.5 LAB 79871639(L 7.4-11.0 fL OINC) Normal MPV 8.8 LAB 93394283(L 130-400 E3/mcL OINC) Normal Platelet 224 Performed By: #### [id number] #### ROGELIO RemHempaul [address] [place] [address] AUTO DIFF Collected: 12/13/2017 Status: F Source: ANGLICAN 9:37 PM [facility] REPOSITORY Order Comment: Order Added by Discern Expert. TYPE CODE TESTS RESULT OUT OF RANGE REFERENCE UNITS LAB 92570344(L 37.0-75.0 % OINC) Normal Neutro Auto 67.3 LAB 64928060(L 20.0-55.0 % OINC) Normal Lymph Auto 25.3 LAB 92581691(L 0.0-10.0 % OINC) Normal Loíza Auto 5.9 LAB 02400907(L 0.0-11.0 % OINC) Normal Eos Auto 1.1 LAB 69244322(L 0.0-2.0 % OINC) Normal Basophil Auto 0.4 LAB 79713671(L 1.4-6.5 E3/mcL OINC) High Neutro 7.2 Absolute LAB 07473154(L 1.2-3.4 E3/mcL OINC) Normal Lymph Absolute 2.7 LAB 65239960(L 0.0-0.7 E3/mcL OINC) Normal Loíza Absolute 0.6 LAB 89722540(L 0.0-0.7 E3/mcL OINC) Normal Eos Absolute 0.1 LAB 15419612(L 0.0-0.2 E3/mcL OINC) Normal Basophil 0.0 Absolute Performed By: #### [id number] #### RGOELIO Rem[facility]emo [address] [place] [id number] BMP Collected: 12/13/2017 Status: F Source: ANGLICAN 9:37 PM [facility] REPOSITORY TYPE CODE TESTS RESULT OUT OF RANGE REFERENCE UNITS LAB 20494263(L 70-99 mg/dL OINC) High Glucose Lvl 158 LAB 22792296(L 7-18 mg/dL OINC) BUN Normal 9 LAB 7259884(LO 0.6-1.3 mg/dL INC) Normal Creatinine 0.8 LAB 18907982(L 5.4-30.0 ratio OINC) Normal BUN/Creat Ratio 11.2 LAB 05256935(L 8.4-10.2 mg/dL OINC) Calcium Normal Lvl 8.9 LAB 70955371(L 136-145 mEq/L OINC) Sodium Normal Lvl 139 LAB 72801976(L 3.5-5.1 mEq/L OINC) Low Potassium Lvl 3.2 LAB 14420117(L 98-107 mEq/L OINC) Chloride Normal 101 LAB 39216092(L 24.0-30.0 mEq/L OINC) CO2 Normal 29.7 Performed By: #### [id number] #### ROGELIO [facility] [address] [place] [address] EGFR Collected: 12/13/2017 Status: F Source: ANGLICAN 9:37 [facility] REPOSITORY Order Comment: Order added by Discern Expert. TYPE CODE TESTS RESULT OUT OF RANGE REFERENCE UNITS LAB 31790429(LO mL/min/1.73 INC) m2 Normal eGFR >60 LAB 32607026(LO mL/min/1.73 INC) m2 Normal eGFR AA >60 Performed By: #### [id number] #### ROGELIO [facility] [address] [place] [address] TROPONIN-I Collected: 12/13/2017 Status: F Source: ANGLICAN 9:37 PM [facility] REPOSITORY TYPE CODE TESTS RESULT OUT OF RANGE REFERENCE UNITS LAB 66755833(LO .00-.03 ng/mL INC) Abnormal Alert .06 Troponin-I Result Comment: Critical Result Topponin I: Called to: ARTHUR SHETTY at: 22:22:08 by:THERESE Read back by:ARTHUR SHETTY Performed By: #### [id number] #### ROGELIO [place] [address] [place] [id number] CT HEAD OR BRAIN W/O Observed: 12/12/2017 Status: F Source: ANGLICAN CONTRAST 11:00 PM [facility] REPOSITORY Exam Date/Time: 12/12/2017 23:12 EDT Reason for Exam: htn EMERGENCY;Headache Report STUDY: CT Head or Brain w/o Contrast; 12/12/2017 11:12 pm INDICATION: Headache. COMPARISON: 05/06/2017 ACCESSION NUMBER(S): [id number] ORDERING CLINICIAN: Maribeth Long TECHNIQUE: Contiguous axial images of the head were obtained without intravenous contrast. FINDINGS: BRAIN PARENCHYMA: The magallon white matter differentiation is preserved. No mass effect or midline shift. HEMORRHAGE: No evidence of acute intracranial hemorrhage. VENTRICLES AND EXTRA-AXIAL SPACES:The ventricles are within normal limits in size for brain volume. No evidence of abnormal extraaxial fluid collection. EXTRACRANIAL SOFT TISSUES:Within normal limits. PARANASAL SINUSES/MASTOIDS:The visualized paranasal sinuses and mastoid air cells are clear and well pneumatized. CALVARIUM:No evidence of depressed calvarial fracture. OTHER FINDINGS:None IMPRESSION: No evidence of acute intracranial hemorrhage or mass effect. FINAL REPORT Dictated: 12/12/2017 11:15 pm Zack Hogan MD Signed (Electronic Signature): 12/12/2017 11:15 pm Signed by: Zack Hogan MD Technologist: AM, CBC W/ AUTO DIFF Collected: 12/12/2017 Status: F Source: ANGLICAN 10:31 PM [facility] REPOSITORY TYPE CODE TESTS RESULT OUT OF RANGE REFERENCE UNITS LAB 20326982(L 3.6-11.0 E3/mcL OINC) Normal WBC 9.5 LAB 03507919(L 3.90-6.10 E6/mcL OINC) Normal RBC 5.25 LAB 99898089(L 13.5-18.0 G/DL OINC) Normal Hgb 15.4 LAB 86804417(L 42.0-52.0 % OINC) Normal Hct 44.6 LAB 86988028(L 11.5-14.5 % OINC) High RDW 14.6 LAB 17786793(L 27.0-31.0 pg OINC) Normal MCH 29.4 LAB [id number](L 33.0-37.0 G/DL OINC) Normal MCHC 34.6 LAB [id number](L 78.0-100.0 fL OINC) Normal MCV 85.0 LAB [id number](L 7.4-11.0 fL OINC) Normal MPV 8.8 LAB [id number](L 130-400 E3/mcL OINC) Normal Platelet 212 Performed By: #### [id number] #### ROGELIO RemH[facility] [address] [id number] AUTO DIFF Collected: 12/12/2017 Status: F Source: [place] 10:31 PM [facility] REPOSITORY Order Comment: Order Added by Discern Expert. TYPE CODE TESTS RESULT OUT OF RANGE REFERENCE UNITS LAB [id number](L 37.0-75.0 % OINC) Normal Neutro Auto 65.1 LAB [id number](L 20.0-55.0 % OINC) Normal Lymph Auto 26.7 LAB [id number](L 0.0-10.0 % OINC) Normal Loíza Auto 6.4 LAB 90132103(L 0.0-11.0 % OINC) Normal Eos Auto 1.3 LAB 95034402(L 0.0-2.0 % OINC) Normal Basophil Auto 0.5 LAB [id number](L 1.4-6.5 E3/mcL OINC) Normal Neutro 6.2 Absolute LAB [id number](L 1.2-3.4 E3/mcL OINC) Normal Lymph Absolute 2.5 LAB [id number](L 0.0-0.7 E3/mcL OINC) Normal Loíza Absolute 0.6 LAB [id number](L 0.0-0.7 E3/mcL OINC) Normal Eos Absolute 0.1 LAB [id number](L 0.0-0.2 E3/mcL OINC) Normal Basophil 0.0 Absolute Performed By: #### [id number] #### ROGELIO Rem[employer]emo [address] [place] [address] PT Collected: 12/12/2017 Status: F Source: [place] 10:31 [facility] REPOSITORY TYPE CODE TESTS RESULT OUT OF RANGE REFERENCE UNITS LAB [id number](LO 1.0-1.2 INC) Normal INR 1.0 Result Comment: INR Recommended Therapeuptic Ranges: Prophylaxis/treatment of DVT and PE?2.0-3.0 Prevention of systemic embolism?.2.0-3.0 Mechanical prosthetic values?2.5-3.5 CRITICAL VALUES?.>4.0 LAB [id number](LOINC) 11.6-14.6 second(s) Normal 12.9 PT Performed By: #### [id number] #### ROGELIO Hematology Automated Subsection [address] [place] [address] PTT Collected: 12/12/2017 Status: F Source: [place] 10:31 [facility] TYPE CODE TESTS RESULT OUT OF RANGE REFERENCE UNITS LAB [id number](LO 23.2-36.4 second(s) INC) Normal PTT 26.6 Performed By: #### [id number] #### ROGELIO [facility] [employer] [address] [place] [address] PTT CONTROL RATIO Collected: 12/12/2017 Status: F Source: [place] 10:31 [facility] Order Comment: Order added by Discern Expert. TYPE CODE TESTS RESULT OUT OF RANGE REFERENCE UNITS LAB [id number](LO 0.8-1.2 ratio INC) Normal PTT Ratio 0.9 Performed By: #### [id number] #### ROGELIO [facility] [employer] [address] [place] [address] BMP Collected: 12/12/2017 Status: F Source: [place] 10:31 [facility] REPOSITORY TYPE CODE TESTS RESULT OUT OF RANGE REFERENCE UNITS LAB [id number](L 70-99 mg/dL OINC) High Glucose Lvl 231 LAB [id number](L 8.4-10.2 mg/dL OINC) Calcium Normal Lvl 9.1 LAB 31076954(L 136-145 mEq/L OINC) Sodium Normal Lvl 138 LAB [id number](L 3.5-5.1 mEq/L OINC) Normal Potassium Lvl 3.6 LAB 57233422(L 98-107 mEq/L OINC) Chloride Normal 99 LAB [id number](L 24.0-30.0 mEq/L OINC) High CO2 31.3 LAB [id number](L 7-18 mg/dL OINC) BUN Normal 12 LAB [id number](LO 0.6-1.3 mg/dL INC) Normal Creatinine 0.9 LAB [id number](L 5.4-30.0 ratio OINC) Normal BUN/Creat Ratio 13.3 Performed By: #### [id number] #### ROGELIO [facility] [address] [id number] MAGNESIUM Collected: 12/12/2017 Status: F Source: [place] 10:31 [facility] REPOSITORY TYPE CODE TESTS RESULT OUT OF REFERENCE UNITS RANGE LAB [id number](L 1.7-2.8 mg/dL OINC) Low Magnesium 1.6 Performed By: #### [id number] #### ROGELIO [facility] [address] [id number] EGFR Collected: 12/12/2017 Status: F Source: [place] 10:31 [facility] REPOSITORY Order Comment: Order added by Discern Expert. TYPE CODE TESTS RESULT OUT OF RANGE REFERENCE UNITS LAB [id number](LO mL/min/1.73 INC) m2 Normal eGFR >60 LAB [id number](LO mL/min/1.73 INC) m2 Normal eGFR AA >60 Performed By: #### [id number] #### [facility] [id number] D-DIMER Collected: 12/12/2017 Status: F Source: [place] 10:31 [facility] REPOSITORY TYPE CODE TESTS RESULT OUT OF RANGE REFERENCE UNITS LAB [id number](LO <=0.50 mg/L FEU INC) Normal D-Dimer 0.50 Result Comment: Critical Result DIMER:0.50 Called to TRESA FIRAS at: 22:39:47 by:HENRY CURRAN Read back by:TRESA FRIAS Normal D Dimer level indicates no Deep Vein Thrombosis (DVT) or Pulmonary Embolism (PE). Elevated D Dimer level indicates additional studies and clinical assessments are indicated to conclude diagnosis of Deep Vein Thromobsis (DVT) or Pulmonary Embolism (PE). Performed By: #### [id number] #### ROGELIO Hematology Automated Subsection [address] [place] [address] BNP. Collected: 12/12/2017 Status: F Source: [place] 10:31 PM [facility] REPOSITORY TYPE CODE TESTS RESULT OUT OF RANGE REFERENCE UNITS LAB CD:[id number] <=100 pg/mL 67(LOINC) Normal BNP. 81 Result Comment: Notice: Effective 12/17/2016 the methodology for BNP testing has changed. BNP values less than or equal to 100 pg/mL is considered normal for patients without CHF.The decision threshold was determined by the 95% confidence limit of BNP concentration in the non-CHF population age 55 and older.It is recommended that a new baseline value be established using the new method if monitoring patient's BNP level. Performed By: #### [id number] #### ROGELIO [facility] [place] [address] TROPONIN-I Collected: 12/12/2017 Status: F Source: [place] 10:31 PM [facility] REPOSITORY TYPE CODE TESTS RESULT OUT OF RANGE REFERENCE UNITS LAB [id number](LO .00-.03 ng/mL INC) Abnormal Alert .06 Troponin-I Result Comment: Critical Result Topponin I: Called to: TRESA FRIAS at: 23:02:37 by:THERESE Read back by:TRESA FRIAS Performed By: #### [id number] #### ROGELIO [facility] [place] [address] XR CHEST AP PORTABLE Observed: 12/12/2017 Status: F Source: [place] 10:23 PM [facility] REPOSITORY Exam Date/Time: 12/12/2017 22:29 EDT Reason for Exam: Chest pain Report STUDY: XR Chest AP Portable; 12/12/2017 10:29 pm INDICATION: Chest pain. COMPARISON: 07/29/2017 ACCESSION NUMBER(S): [id number] ORDERING CLINICIAN: Maribeth Long FINDINGS: There is magnification of the cardiac silhouette secondary to AP technique. No focal airspace consolidation or pleural effusion. No pneumothorax. IMPRESSION: No airspace consolidation or pleural effusion. FINAL REPORT Dictated: 12/12/2017 11:27 pm Zack Hogan MD Signed (Electronic Signature): 12/12/2017 11:27 pm Signed by: Zack Hogan MD Technologist: HLL XR CHEST 1 VIEW Observed: 12/09/2017 Status: F Source: [facility] 5:50 PM [facility] [place] REPOSITORY ORIGINAL XR CHEST 1 VIEW PORTABLE AP TIME: 5:47 PM CLINICAL STATEMENT: chest pain. COMPARISON: None FINDINGS: The cardiomediastinal contours are within normal limits for portable technique. There is no consolidation, vascular congestion, pleural effusion, or pneumothorax. No displaced fractures are identified. IMPRESSION: No acute radiographic findings. I have personally reviewed the images of this examination and agree with the resident's findings and interpretation. Interpreted By: Lul Worley MD Preliminary Report By: Jackie Pompa MD Electronically Signed By: Lul Worley MD Dictated Date: 12/09/2017 5:59:22 PM Prelim Date: 12/09/2017 6:00:26 PM Sign Date: 12/09/2017 6:06:[address] HEAD OR BRAIN W/O Observed: 12/09/2017 Status: F Source: [facility] CONTRAST 5:49 PM [facility] [place] REPOSITORY ORIGINAL CT HEAD OR BRAIN W/O CONTRAST Clinical Statement: Headache, nausea/vomiting; elevated BP TECHNIQUE: Axial CT images from skull base to vertex without IV contrast. This exam was performed according to our departmental dose optimization program, and includes the following measures where appli cable: automated exposure control, adjustment of the mAs and/or kVp according to patient size and/or exam, and an iterative reconstruction algorithm. COMPARISON: None. FINDINGS: There is no intracranial hemorrhage, mass, mass effect or abnormal extra-axial fluid collection. No CT evidence for acute infarction. The density in the larger dural venous sinuses is grossly normal. The ventricles are normal. The skull base and calvarium demonstrate no abnormality. The included paranasal sinuses and mastoid air cells are clear. IMPRESSION: No acute intracranial abnormalities. I have personally reviewed the images of this examination and agree with the resident's findings and interpretation. Interpreted By: Lul Worley MD Preliminary Report By: Jackie Pompa MD Electronically Signed By: Lul Worley MD Dictated Date: 12/09/2017 5:54:57 PM Prelim Date: 12/09/2017 5:56:32 PM Sign Date: 12/09/2017 6:01:01 PM TROP Collected: 12/09/2017 Status: F Source: [facility] 4:59 PM [facility] [place] REPOSITORY TYPE CODE TESTS RESULT OUT OF REFERENCE UNITS RANGE LAB TROP(LOINC) 0.00-0.30 ng/mL Troponin <0.30 Result Comment: Below measuring range >=0.30 Consistent with cardiac damage, increased clinical risk and possibility of myocardial infarction. Serial measurements, clinical history, appropriate symptoms and/or ECG changes may help assess possibility of CA. *Other non-acute coronary syndrome conditions such as CHF, myocarditis, pulmonary emboli, sepsis and cardiac surgery could result in myocardial damage and increased troponin levels. Performed By: #### TROP, CBC, ADIFF, ANEU, GFR, BMP #### Natalie [address] [address] CBC Collected: 12/09/2017 Status: F Source: [facility] 4:59 [facility] REPOSITORY TYPE CODE TESTS RESULT OUT OF REFERENCE UNITS RANGE LAB WBC(LOINC) 4.60-10.80 10 3/mcL WBC 10.80 LAB RBCCT(LOINC 4.04-6.13 10 6/mcL ) RBC 6.07 LAB HGB(LOINC) 14.0-18.0 G/dL Hgb 17.4 LAB HCT(LOINC) 42.0-52.0 % Hct 50.4 LAB MCV(LOINC) 80.0-94.0 fL MCV 83.1 LAB MCH(LOINC) 27.0-31.2 pg MCH 28.7 LAB MCHC(LOINC) 31.8-35.4 G/dL MCHC 34.5 LAB RDW(LOINC) 11.5-14.5 % High RDW 14.8 LAB PLT(LOINC) 130-400 10 3/mcL Platelet 258 LAB MPV(LOINC) 7.4-10.4 fL MPV 8.6 Performed By: #### TROP, CBC, ADIFF, ANEU, GFR, BMP #### [address] [address] .AUTO DIFF Collected: 12/09/2017 Status: F Source: [facility] 4:59 PM [facility] [place] REPOSITORY TYPE CODE TESTS RESULT OUT OF REFERENCE UNITS RANGE LAB HANNA(LOINC) 37.0-80.0 % Neutrophil % 69.2 LAB LYM(LOINC) 10.0-50.0 % Lymphocyte % 23.1 LAB MON(LOINC) 1.7-13.0 % Monocyte % 6.1 LAB EO(LOINC) 0.0-7.0 % Eosinophil % 1.2 LAB BAS(LOINC) 0.0-2.5 % Basophil % 0.4 LAB ABLYM(LOIN 0.77-3.85 10 3/mcL C) Lymphocyte, 2.50 Absolute LAB LAUREN(LOINC 0.15-1.00 10 3/mcL ) Monocyte, 0.70 Absolute LAB AEOS(LOINC 0.00-0.40 10 3/mcL ) Eosinophil, 0.10 Absolute LAB ABAS(LOINC 0.00-0.19 10 3/mcL ) Basophil, 0.00 Absolute Performed By: #### TROP, CBC, ADIFF, ANEU, GFR, BMP #### [address] [address] .NEUABS Collected: 12/09/2017 Status: F Source: [facility] 4:59 [facility] REPOSITORY TYPE CODE TESTS RESULT OUT OF REFERENCE UNITS RANGE LAB ANEU(LOINC) 2.85-6.16 10 3/mcL High Neutrophil, 7.50 Absolute Performed By: #### TROP, CBC, ADIFF, ANEU, GFR, BMP #### [address] [address] .GFR Collected: 12/09/2017 Status: F Source: [facility] 4:59 [facility] REPOSITORY TYPE CODE TESTS RESULT OUT OF REFERENCE UNITS RANGE LAB GFRAA(LOINC ml/min/1.73 ) sqm GFR 112 [place] Result Comment: GFR Population mean for , Non- Americans Ages 20-29 = 116 mL/min/1.73 sq.m. Ages 30-39 = 107 mL/min/1.73 sq.m. Ages 40-49 = 99 mL/min/1.73 sq.m. Ages 50-59 = 93 mL/min/1.73 sq.m. Ages 60-69 = 85 mL/min/1.73 sq.m. Ages 70+ = 75 mL/min/1.73 sq.m. Chronic Kidney Disease: Less than 60 mL/min/1.73 square meters End Stage Renal Disease: Less than 15 mL/min/1.73 square meters LAB GFRNO(LOINC) ml/min/1.73sqm GFR Non- >60 Result Comment: GFR Population mean for , Non- Americans Ages 20-29 = 116 mL/min/1.73 sq.m. Ages 30-39 = 107 mL/min/1.73 sq.m. Ages 40-49 = 99 mL/min/1.73 sq.m. Ages 50-59 = 93 mL/min/1.73 sq.m. Ages 60-69 = 85 mL/min/1.73 sq.m. Ages 70+ = 75 mL/min/1.73 sq.m. Chronic Kidney Disease: Less than 60 mL/min/1.73 square meters End Stage Renal Disease: Less than 15 mL/min/1.73 square meters Performed By: #### TROP, CBC, ADIFF, ANEU, GFR, BMP #### [address] [address] BMP Collected: 12/09/2017 Status: F Source: [facility] 4:59 [facility] TYPE CODE TESTS RESULT OUT OF REFERENCE UNITS RANGE LAB GLU(LOINC) 70-105 mg/dL Glucose High Level 222 LAB NA(LOINC) 136-146 mEq/L Sodium Level 141 LAB K(LOINC) 3.5-5.1 mEq/L Potassium Level 3.8 LAB CL(LOINC) 98-107 mEq/L Chloride 102 LAB CO2(LOINC) 22-29 mEq/L CO2 High 30 LAB EBAL(LOINC mEq/L ) Electrolyte Balance 9.0 LAB BUN(LOINC) 7.0-18.0 mg/dL BUN 12.7 LAB CRE(LOINC) 0.6-1.2 mg/dL Creatinine Lvl (s) 1.0 LAB BC(LOINC) 7-27 ratio BUN/Creatinine 13 Ratio LAB CA(LOINC) 8.4-10.2 mg/dL Calcium Lvl 10.0 Performed By: #### TROP, CBC, ADIFF, ANEU, GFR, BMP #### [address] [place], [place] [address] PROGRESS Observed: 12/02/2017 Status: COMPLETED Source: [place] 2:40 PM [facility] REPOSITORY HNO ID: [id number] Author: Raya Busch) Juan Pablo Service: (none) Author Type: Physician Dry Talc Racker Type: Progress Notes Filed: 12/02/2017 4:22 PM Note Text: Subjective HPI Pt presents with congestion x 3 weeks. He was seen 11/11/17 and written for doxycycline, prednisone and flonase. He states the pharmacy only gave him flonase and wasn't given the other two medications. Flonase did help for a few days but it never cleared completely. No sore throat or cough. He doesn't generally have problems with sinus infections. He states his blood pressure today is actually good for him. He has been working with his doctor to bring that down, generally he is in the 200s systolic he states. Review of Systems HENT: Positive for congestion and sinus pain. Eyes: Negative. All other systems reviewed and are negative. No past medical history on file. Current Outpatient Prescriptions: fluticasone (FLONASE) 50 mcg/actuation nasal spray Use 2 Sprays in each nostril once daily. Rinse mouth after use. Disp: 1 Bottle Rfl: 1 FLUoxetine HCl (PROZAC) 40 mg capsule Take 1 capsule by mouth once daily. Disp: 30 capsule Rfl: 2 carvedilol (COREG) 25 mg tablet Take 2 tablets by mouth twice daily. Disp: 360 tablet Rfl: 3 lisinopril (ZESTRIL, PRINIVIL) 40 mg tablet Take 1 tablet by mouth once daily. Disp: 90 tablet Rfl: 3 doxycycline (VIBRA-TABS) 100 mg tablet Take 1 tablet by mouth twice daily for 10 days. Disp: 20 tablet Rfl: 0 cetirizine (ZYRTEC) 10 mg tablet Take 1 tablet by mouth once daily for 14 days. Disp: 14 tablet Rfl: 0 dicyclomine (BENTYL) 20 mg tablet Take 1 tablet by mouth every 6 hours. (Patient not taking: Reported on 11/11/2017 ) Disp: 120 tablet Rfl: 2 ondansetron (ZOFRAN) 4 mg tablet Take 1 tablet by mouth every 8 hours as needed. (Patient not taking: Reported on 12/02/2017 ) Disp: 30 tablet Rfl: 1 No current facility-administered medications for this visit. PAST SURGICAL HISTORY Procedure Laterality Date - APPENDECTOMY 2003 - HEART CATHETERIZATION 2014 FAMILY HISTORY Problem Relation Age of Onset - Diabetes Mother - Hypertension Mother - Diabetes Father - Hypertension Father - Heart Maternal Grandmother - Heart Maternal Grandfather - Heart Paternal Grandmother - Heart Paternal Grandfather - Diabetes Brother - Hypertension Brother - Diabetes Brother - Hypertension Brother Social History Substance Use Topics - Smoking status: Current Every Day Smoker Packs/day: 1.00 - Smokeless tobacco: Never Used Comment: 1 pack per day - Alcohol use No BP 172/112 Pulse 78 Temp 37.1 ?C (98.8 ?F) (Tympanic) Resp 16 Wt (!) 166.5 kg (367 lb) BMI 49.77 kg/m? Objective Physical Exam Constitutional: He is oriented to person, place, and time and well-developed, well-nourished, and in no distress. HENT: Head: Normocephalic and atraumatic. Right Ear: External ear and ear canal normal. A middle ear effusion is present. Left Ear: Tympanic membrane, external ear and ear canal normal. Nose: Mucosal edema and rhinorrhea present. Right sinus exhibits maxillary sinus tenderness and frontal sinus tenderness. Mouth/Throat: Uvula is midline, oropharynx is clear and moist and mucous membranes are normal. Neck: Normal range of motion. Neck supple. Cardiovascular: Normal rate, regular rhythm and normal heart sounds. Pulmonary/Chest: Effort normal and breath sounds normal. Neurological: He is alert and oriented to person, place, and time. Skin: Skin is warm and dry. No rash noted. Psychiatric: Affect and judgment normal. Nursing note and vitals reviewed. ASSESSMENT/PLAN: 1. Acute non-recurrent sinusitis, unspecified location - ICD9: 461.9, ICD10: J01.90 - Will begin treatment with Doxycycline ( pt states he never filled other script) and zyrtec. Discussed with patient concerning symptoms to go to the emergency department or follow up here. Pt agreeable with this plan. - Supportive care with plenty of fluids, rest, and analgesia prn. MANSOOR Huntley Observed: 12/02/2017 Status: COMPLETED Source: [place] 2:15 PM [facility] REPOSITORY Office Visit (WSTR) ABHI GILLESPIE ([id number]) 1990 M Date Time Provider Department 12/02/17 2:15 PM RAYA MORILLO) [facility] During your visit today, we recorded the following information about you: Temperature Pulse Respiration Blood pressure 98.8 degrees 78/minute 16/minute 172/112 Weight 166.5 kg Raya Morillo PA-C 12/02/2017 4:22 PM Signed Subjective HPI Pt presents with congestion x 3 weeks. He was seen 11/11/17 and written for doxycycline, prednisone and flonase. He states the pharmacy only gave him flonase and wasn't given the other two medications. Flonase did help for a few days but it never cleared completely. No sore throat or cough. He doesn't generally have problems with sinus infections. He states his blood pressure today is actually good for him. He has been working with his doctor to bring that down, generally he is in the 200s systolic he states. Review of Systems HENT: Positive for congestion and sinus pain. Eyes: Negative. All other systems reviewed and are negative. No past medical history on file. Current Outpatient Prescriptions: fluticasone (FLONASE) 50 mcg/actuation nasal spray Use 2 Sprays in each nostril once daily. Rinse mouth after use. Disp: 1 Bottle Rfl: 1 FLUoxetine HCl (PROZAC) 40 mg capsule Take 1 capsule by mouth once daily. Disp: 30 capsule Rfl: 2 carvedilol (COREG) 25 mg tablet Take 2 tablets by mouth twice daily. Disp: 360 tablet Rfl: 3 lisinopril (ZESTRIL, PRINIVIL) 40 mg tablet Take 1 tablet by mouth once daily. Disp: 90 tablet Rfl: 3 doxycycline (VIBRA-TABS) 100 mg tablet Take 1 tablet by mouth twice daily for 10 days. Disp: 20 tablet Rfl: 0 cetirizine (ZYRTEC) 10 mg tablet Take 1 tablet by mouth once daily for 14 days. Disp: 14 tablet Rfl: 0 dicyclomine (BENTYL) 20 mg tablet Take 1 tablet by mouth every 6 hours. (Patient not taking: Reported on 11/11/2017 ) Disp: 120 tablet Rfl: 2 ondansetron (ZOFRAN) 4 mg tablet Take 1 tablet by mouth every 8 hours as needed. (Patient not taking: Reported on 12/02/2017 ) Disp: 30 tablet Rfl: 1 No current facility-administered medications for this visit. PAST SURGICAL HISTORY Procedure Laterality Date - APPENDECTOMY 2003 - HEART CATHETERIZATION 2014 FAMILY HISTORY Problem Relation Age of Onset - Diabetes Mother - Hypertension Mother - Diabetes Father - Hypertension Father - Heart Maternal Grandmother - Heart Maternal Grandfather - Heart Paternal Grandmother - Heart Paternal Grandfather - Diabetes Brother - Hypertension Brother - Diabetes Brother - Hypertension Brother Social History Substance Use Topics - Smoking status: Current Every Day Smoker Packs/day: 1.00 - Smokeless tobacco: Never Used Comment: 1 pack per day - Alcohol use No BP 172/112 Pulse 78 Temp 37.1 ?C (98.8 ?F) (Tympanic) Resp 16 Wt (!) 166.5 kg (367 lb) BMI 49.77 kg/m? Objective Physical Exam Constitutional: He is oriented to person, place, and time and well-developed, well-nourished, and in no distress. HENT: Head: Normocephalic and atraumatic. Right Ear: External ear and ear canal normal. A middle ear effusion is present. Left Ear: Tympanic membrane, external ear and ear canal normal. Nose: Mucosal edema and rhinorrhea present. Right sinus exhibits maxillary sinus tenderness and frontal sinus tenderness. Mouth/Throat: Uvula is midline, oropharynx is clear and moist and mucous membranes are normal. Neck: Normal range of motion. Neck supple. Cardiovascular: Normal rate, regular rhythm and normal heart sounds. Pulmonary/Chest: Effort normal and breath sounds normal. Neurological: He is alert and oriented to person, place, and time. Skin: Skin is warm and dry. No rash noted. Psychiatric: Affect and judgment normal. Nursing note and vitals reviewed. ASSESSMENT/PLAN: 1. Acute non-recurrent sinusitis, unspecified location - ICD9: 461.9, ICD10: J01.90 - Will begin treatment with Doxycycline ( pt states he never filled other script) and zyrtec. Discussed with patient concerning symptoms to go to the emergency department or follow up here. Pt agreeable with this plan. - Supportive care with plenty of fluids, rest, and analgesia prn. Raya Morillo PA-C Referring Provider: SELF [200] Allergies As of Date: 12/02/2017 Noted Allergy Reaction PENICILLINS 06/22/2015 16 - Unknown SULFA (SULFONAMIDE ANTIBIOTICS) 06/22/2015 16 - Unknown Date Reviewed: 12/02/2017 Reviewed by: Siria Jordan Ma - Fully Assessed Reason for Visit: Sinus Problem [99] Cmt: sinus drainage, headache, right side pain behind eye x 3 days, flonase helped for a few days Primary Visit Diagnosis:Acute non-recurrent sinusitis, unspecified location [J01.90] Order(s):doxycycline (VIBRA-TABS) 100 mg tabletTake 1 tablet by mouth twice daily for 10 days.Disp: 20 tabletRfl: 0 cetirizine (ZYRTEC) 10 mg tabletTake 1 tablet by mouth once daily for 14 days.Disp: 14 tabletRfl: 0 Prescriptions as of 12/02/2017 Sig: FLUTICASONE 50 MCG/ACTUATION * Use 2 Sprays in each nostril * FLUOXETINE 40 MG CAPSULE Take 1 capsule by mouth once * CARVEDILOL 25 MG TABLET Take 2 tablets by mouth twice* LISINOPRIL 40 MG TABLET Take 1 tablet by mouth once d* DOXYCYCLINE HYCLATE 100 MG TA* Take 1 tablet by mouth twice * CETIRIZINE 10 MG TABLET Take 1 tablet by mouth once d* DICYCLOMINE 20 MG TABLET Take 1 tablet by mouth every * Patient not taking: Reported on 11/11/2017 ONDANSETRON HCL 4 MG TABLET Take 1 tablet by mouth every * Patient not taking: Reported on 12/02/2017 Problem List As Of Date 12/02/2017 Noted Resolved Essential hypertension [I10] INVALID FOR* ST elevation myocardial infarction involving le*INVALID FOR* Morbid obesity due to excess calories (HCC) [E6*INVALID FOR* Tobacco dependency [F17.200] INVALID FOR* KAREN (obstructive sleep apnea) AHI 127 [G47.33] INVALID FOR* Prescriptions ordered this encounter Disp Refills Start End DOXYCYCLINE HYCLATE 100 MG TABLET 20 t* 0 12/02/2017 12/12/2017 Route: ORAL Sig: Take 1 tablet by mouth twice daily for 10 days. CETIRIZINE 10 MG TABLET 14 t* 0 12/02/2017 12/16/2017 Route: ORAL Sig: Take 1 tablet by mouth once daily for 14 days. Letter Text [facility] CLOVIS Hsu [address] [place], [place] [address] 12/02/2017 TO WHOM IT MAY CONCERN: This is to confirm that Abhi Gillespie had an appointment and was seen at the [facility] in the Department of Urgent Care by CLOVIS Hsu on 12/02/2017. Sincerely yours, CLOVIS Hsu Encounter Status:Closed by RAYA MORILLO PA-C on 12/02/17 EMERGENCY DEPARTMENT Observed: 11/18/2017 Status: F Source: [place] SUMMARY 9:30 PM [facility] REPOSITORY [facility] Medical Records Department [address] [place] [address] Emergency Department Summary 11/18/17 2105 MR#: [id number] Acct: [id number] Name: ABHI GILLESPIE Rep #: [id number] : 1990 27 From: Alfredito Rodriguez MD PCP: OUT OF TOWN DOCTOR Status: REG ER - ER Visit Summary Date of Service: 11/18/17 Chief Complaint: Left ankle pain History of Present Illness: The patient is a 27 M twisted his left ankle at work tonight. No other injuries. Physical Examination: Mild tenderness left ankle lateral malleolus. Skin intact. No foot tenderness. Test Results: Left ankle x-ray negative for acute fracture based on my independent interpretation. No foot tenderness. Emergency Department Course and Treatment: placed in aircast stirrup and followup if not better. Treatment Plan: Followup if not improving. Disposition: Home stable condition Impression: Initial encounter left ankle sprain This note was generated with Nearlyweds dictation software. It may contain incorrect words, spelling, and punctuation that were not noted in review of the chart prior to signing ED Disposition - Plan for ED Patient: Chief Complaint: Lower Extremity Injury Instructions: ED Sprain Ankle W X Ray Referrals: [facility] [GROUP OF PHYSICIANS] - 3-5 Days if not improving What to do if you have Problems For any increased pain, shortness of breath, bleeding, nausea or vomiting, chest pain, or any unexpected problems, contact your Primary Care Provider. Call [facility] ([phone]) or report to the closest Emergency Room. Call 911 if necessary. 11/18/17 2130 <Electronically signed by Alfredito Rodriguez MD> Date Alfredito Rodriguez MD Cosigner Signature (If Indicated): Date CC: OUT OF TOWN DOCTOR ANKLE MIN 3 VIEWS Observed: 11/18/2017 Status: F Source: [place] 9:05 PM [facility] REPOSITORY [facility] Imaging Services [address] [facility] [address] [place] [address] Ankle min 3 Views MR#: [id number] Acct: [id number] Name: ABHI GILLESPIE Rep #: [id number] : 1990 [facility] From: Refugio Harrington MD PCP: OUT OF TOWN DOCTOR Status: REG ER Study: Ankle min 3 Views Date of Exam: 11/18/17 Exam# [id number] Ordering Dr: Alfredito Rodriguez MD STUDY: X-RAY - LEFT ANKLE REASON FOR EXAM: Male, 27 years old. Clipping and injured left ankle TECHNIQUE: 3 view(s) of the ankle. COMPARISON: April 30, 2017 FINDINGS: Normal visualized distal tibia and fibula. Normal medial and lateral malleoli. Normal tibiotalar articulation and ankle mortise. Normal visualized talus and calcaneus. The visualized subtalar, talonavicular, calcaneocuboid and tarsal articulations are normal. The soft tissue structures are unremarkable. RAD/Ankle min 3 Views IMPRESSION: Normal x-ray examination of the ankle. Electronically Signed: Refugio Harrington MD at 21:40 EDT , Service support , CC: Daniel Rodriguez MD; OUT OF TOWN DOCTOR Data Power Consultant: Signed EMERGENCY DEPARTMENT Observed: 11/13/2017 Status: F Source: [place] SUMMARY 11:50 PM [facility] REPOSITORY [facility] Medical Records Department [address] [place] [address] Emergency Department Summary 11/13/17 1615 MR#: [id number] Acct: [id number] Name: ABHI GILLESPIE Rep #: [id number] : 1990 27 From: Astrid Gong DO PCP: OUT OF TOWN DOCTOR Status: DEP ER - ER Visit Summary Date of Service: 11/13/17 Chief Complaint: [] Abdominal pain History of Present Illness: The patient is a 27 M [] complaining of left lower quadrant abdominal pain beginning yesterday. Patient reports nausea vomiting and diarrhea. Reports he has been unable to keep his oral blood pressure medication down and he presents today with a blood pressure in the 200s systolic. He reports a history of colitis however he has not been diagnosed with Crohn's or ulcerative colitis. Reports he has no GI doctor and has never had EGD or colonoscopy. Denies hematemesis or blood in stool. Physical Examination: [] Systolic blood pressure 219/112. Remainder of vitals are unremarkable. Very morbidly obese 27-year-old male in no acute distress. Cardiovascular exam is regular rate and rhythm. Lungs were auscultation. Abdomen is obese, soft, tender in the left lower quadrant with mild voluntary guarding. No rebound tenderness. Test Results: [] Labs: CT, BMP, LFTs, lipase, lactic acid all within normal limits. CT abdomen/pelvis without contrast: Negative. Emergency Department Course and Treatment: [] Patient given intravenous fluid bolus, Phenergan, Dilaudid for symptom relief. On serial exam patient had improvement of symptoms. Patient had a negative workup including labs and CT scan I do not feel any further evaluation was warranted. Patient was amenable to discharge and follow-up with PCP. Treatment Plan: [] Follow-up with PCP. Disposition: [] Discharge, stable. Impression: [] Abdominal pain, unknown etiology This note was generated with iMotor.comation software. It may contain incorrect words, spelling, and punctuation that were not noted in review of the chart prior to signing ED Disposition - Plan for ED Patient: Chief Complaint: Abd Pain Referrals: Yefri Doctor,Out of [Primary Care Provider] - What to do if you have Problems For any increased pain, shortness of breath, bleeding, nausea or vomiting, chest pain, or any unexpected problems, contact your Primary Care Provider. Call [facility] ([phone]) or report to the closest Emergency Room. Call 911 if necessary. 11/13/17 2350 <Electronically signed by Astrid Gong DO> Date Astrid Gong DO Cosigner Signature (If Indicated): Date CC: OUT OF TOWN DOCTOR DISCHARGE INSTRUCTION Observed: 11/13/2017 Status: F Source: [place] 6:27 PM [facility] REPOSITORY [facility] Medical Records Department [address] [place] [address] Discharge Instruction 11/13/171826 MR#: [id number] Acct: [id number] Name: ABHI GILLESPIE Eduardo Rep #: [id number] : 1990 27 From: Astrid Gong DO PCP: OUT OF [facility] DOCTOR Status: REG ER ED Disposition - Plan for ED Patient: Disposition: Home or Assisted Living Chief Complaint: Abd Pain Instructions: ED Abdominal Pain Unkn Cause Referrals: Yefri Retana,Out of [Primary Care Provider] - What to do if you have Problems For any increased pain, shortness of breath, bleeding, nausea or vomiting, chest pain, or any unexpected problems, contact your Primary Care Provider. Call [facility] ([phone]) or report to the closest Emergency Room. Call 911 if necessary. 11/13/171826 <Electronically signed by Astrid Gong DO> Date Astrid Guy Signature (If Indicated): Date CC: OUT OF TOWN DOCTOR COMPREHENSIVE METABOLIC Collected: 11/13/2017 Status: F Source: [place] 4:30 PM [facility] REPOSITORY TYPE CODE TESTS RESULT OUT OF RANGE REFERENCE UNITS LAB L501.0100 74-106 mg/dL High GLU 151 Result Comment: Fasting Glucose result greater than or equal to 126 mg/dL suggests DIABETES MELLITUS per A.D.A. criteria. Please note revised GLUCOSE reference range effective 2017. LAB L501.1000 7-18 mg/dL Normal BUN 9 LAB L501.1100 0.70-1.30 mg/dL Normal CREAT,SERUM 0.96 Result Comment: The validity of the calculated GFR AND GFRAA in patients over 70 years has not been determined. Clinical correlation is essential. LAB L501.1110 >60 mL/min Normal EST GFR 99 Result Comment: Non- GFR Calc LAB L501.1115 >60 mL/min Normal EST GFR - AA 120 Result Comment: GFR Calc LAB L501.1255 ml/min Normal Estimated CRCL 126.86 LAB L501.1300 10-20 RATIO Low BUN/CRE 9.3 LAB L501.1500 6.4-8. g/dL 2 T PROT Normal 7.3 LAB L501.1800 3.2-5. g/dL 0 ALB Normal 3.3 LAB L501.1950 2.2-4. g/dL 2 GLOB Normal 4.0 LAB L501.2000 0.9-2. RATIO Low 4 A/G 0.8 LAB L501.2200 8.5-10 mg/dL Low .1 CA 8.4 LAB L501.4100 15-37 U/L AST Normal 21 LAB L501.4305 45-117 U/L ALK P Normal 51 LAB L501.4405 16-61 U/L ALT Normal 49 LAB L501.4600 0.20-1 mg/dL .00 T BILI Normal 0.30 LAB L501.5300 136-14 mmol/L 5 NA Normal 141 LAB L501.5600 3.5-5. mmol/L Low 1 K 3.4 LAB L501.5900 98-107 mmol/L CL Normal 104 LAB L501.6100 21.0-3 mmol/L 2.0 CO2 Normal 32.0 LAB L501.6200 5-15 GAP Normal 5 Performed By: #### L500.4050, L501.2450 #### [facility] [address] [place], [address] LIPASE Collected: 11/13/2017 Status: F Source: [place] 4:30 PM [facility] REPOSITORY TYPE CODE TESTS RESULT OUT OF RANGE REFERENCE UNITS LAB L501.2450 73-393 U/L Normal LIPASE 88 Performed By: #### L500.4050, L501.2450 #### [facility] [address] [place], [address] CBC W/DIFF, AUTOMATED Collected: 11/13/2017 Status: F Source: [place] 4:30 PM [facility] REPOSITORY TYPE CODE TESTS RESULT OUT OF RANGE REFERENCE UNITS LAB L100.1000 4.4-11.0 K/mm3 Normal WBC 9.2 LAB L100.1200 4.6-6.2 M/mm3 Normal RBC 5.47 LAB L100.1300 13.0-16.5 g/dl Normal HGB 15.7 LAB L100.1400 40-54 % Normal HCT 46.4 LAB L100.1500 80-94 fL Normal MCV 84.8 LAB L100.1600 27.0-32.0 pg Normal MCH 28.7 LAB L100.1700 32-36 g/gl Normal MCHC 33.8 LAB L100.1810 11.6-14.6 % Normal RDW CV 13.3 LAB L100.1820 35.1-43.9 fl Normal RDW SD 40.7 LAB L100.1900 150-450 K/mm3 Normal PLT 199 LAB L100.2000 6.2-12.0 fl Normal MPV 10.5 LAB L100.2100 47-70 % Normal NEUT% 64.0 LAB L100.2200 19-41 % Normal LY% 29.1 LAB L100.2300 0-10 % Normal MONO% 5.6 LAB L100.2400 0-5 % Normal EO% 1.0 LAB L100.2500 0-1 % Normal BASO% 0.1 LAB L100.2550 0.0-0.9 % Normal IM GRAN % 0.200 Result Comment: IG% - Immature Granulocytes (promyelocytes, myelocytes and metamyelocytes) > 1% indicates that a LEFT SHIFT is Present. LAB L100.2620 2.0-7.7 X10 3/uL Normal Absolute Neut 5.9 LAB L100.2720 0.83-4.51 X10 3/ul Normal Absolute Lymph 2.69 Performed By: #### L100.0100 #### [facility] [address] [place], [address] LACTIC ACID Collected: 11/13/2017 Status: F Source: [place] 4:30 PM [facility] REPOSITORY Order Comment: Yes/No query for Sepsis Lactate Rule Y TYPE CODE TESTS RESULT OUT OF RANGE REFERENCE UNITS LAB L503.6005 0.4-2.0 mmol/L Normal LACTIC ACID 1.7 Performed By: #### L503.6005 #### [facility] [address] [place], [address] ABDOMEN/PELVIS WITHOUT Observed: 11/13/2017 Status: F Source: [place] CONT 4:14 PM [facility] REPOSITORY [facility] Imaging Services [address] [place] [address] Abdomen/Pelvis without Cont MR#: [id number] Acct: [id number] Name: ABHI GILLESPIE Eduardo Rep #: [id number] : 1990 M 27 From: Timmy Moreira MD PCP: OUT OF TOWN DOCTOR Status: REG ER Study: Abdomen/Pelvis without Cont Date of Exam: 11/13/17 Exam# [id number] Ordering Dr: Astrid Gong DO STUDY: CT ABDOMEN AND PELVIS WITHOUT CONTRAST REASON FOR EXAM: Male, 27 years old. Left lower quadrant pain, nausea/vomiting/diarrhea. History of colitis, Crohn's, GERD RADIATION DOSAGE (If Supplied By Facility): CTDIvol = ( 34.45 ) mGy, DLP = ( 1954.03 ) mGycm TECHNIQUE: Transaxial images were obtained from the dome of the diaphragm to the symphysis pubis without oral contrast, and without intravenous contrast. Sagittal and coronal images were reconstructed. Individualized dose optimization techniques were used for this CT. COMPARISON: None. FINDINGS: Mild elevation of right diaphragm. There is a well-defined 6 mm noncalcified nodule posteromedial periphery of the right lung base on the first image of series 2. The visualized portions of the heart are within normal limits. There is decreased attenuation of the liver consistent with steatosis. There is hepatomegaly, the right lobe measuring over 23 cm in height. The portal vein diameter is 2 cm. Normal gallbladder and extrahepatic biliary system. There is mild splenomegaly. Normal pancreas. Normal bilateral adrenal glands. Normal right kidney. Normal left kidney. No hydronephrosis. Normal visualized stomach. Normal small intestine. Normal colon. There is a 2-3 mm calcification at the stump of the appendix. There are occasional benign-appearing lymph nodes in the mesentery. Normal abdominal aorta. Normal inferior vena cava. There are a few benign-appearing lymph nodes in the periaortic retroperitoneum. Normal urinary bladder. Normal visualized prostate gland. Normal abdominal wall. There are multilevel degenerative changes of the visualized spine, and a slight S-shaped thoracolumbar scoliosis. There is slight left lateral wedging of the T11 and T12 vertebrae, as well as slight right lateral wedging of the L2 and L3 vertebrae. CT/Abdomen/Pelvis without Cont IMPRESSION: 1. The bowel is unremarkable without sign of obstruction or suspicious mural thickening. Focal calcification at the stump of the appendix suggests prior appendectomy. 2. Hepatic steatosis. There is also hepatosplenomegaly. 3. 6 mm noncalcified nodule at the posterior medial periphery of the right lower lobe is unchanged from CTA chest/thorax May 04, 2017, and was also mentioned in report of CT chest/thorax September 07, 2011. No specific radiographic follow-up is needed. 4. Degenerative changes of the spine. There is slight left lateral wedging of the T11-T12 vertebra and slight right lateral wedging of the L2-L3 vertebra, with a resulting slight S-shaped thoracolumbar scoliosis. 5. No hydronephrosis. Electronically Signed: Chino Moreira MD at 17:23 EDT , Service support , CC: OUT OF TOWN DOCTOR; Astrid Gong DO Data Power Consultant: Signed PROGRESS Observed: 11/11/2017 Status: COMPLETED Source: [place] 2:29 PM [facility] REPOSITORY HNO ID: [id number] Author: Lexie Baker (Reports Analyst) Service: (none) Author Type: Nurse Practitioner Type: Progress Notes Filed: 11/11/2017 3:04 PM Note Text: Subjective HPI HPI Abhi Gillespie is a 27 year old male who presents today for CC of cough, nasal congestion. This started 3 weeks. Has tried nothing. Symptoms are worsened by nothing. Risk factors everyday smoker. .Patient presents with: Cough: clear phlegm x 1 week, worse with lying down No past medical history on file. PAST SURGICAL HISTORY Procedure Laterality Date - APPENDECTOMY 2003 - HEART CATHETERIZATION 2014 ALLERGIES Penicillins; Sulfa (Sulfonamide Antibiotics) MEDICATIONS FLUoxetine HCl (PROZAC) 40 mg capsule Take 1 capsule by mouth once daily. carvedilol (COREG) 25 mg tablet Take 2 tablets by mouth twice daily. lisinopril (ZESTRIL, PRINIVIL) 40 mg tablet Take 1 tablet by mouth once daily. dicyclomine (BENTYL) 20 mg tablet Take 1 tablet by mouth every 6 hours. ondansetron (ZOFRAN) 4 mg tablet Take 1 tablet by mouth every 8 hours as needed. FAMILY HISTORY Problem Relation Age of Onset - Diabetes Mother - Hypertension Mother - Diabetes Father - Hypertension Father - Heart Maternal Grandmother - Heart Maternal Grandfather - Heart Paternal Grandmother - Heart Paternal Grandfather - Diabetes Brother - Hypertension Brother - Diabetes Brother - Hypertension Brother Social History Substance Use Topics - Smoking status: Current Every Day Smoker Packs/day: 1.00 - Smokeless tobacco: Never Used Comment: 1 pack per day - Alcohol use No Review of Systems Constitutional: Negative for chills, fever and weight loss. HENT: Positive for congestion and sinus pain. Negative for ear pain, nosebleeds and sore throat. Respiratory: Positive for cough. Negative for shortness of breath and wheezing. Cardiovascular: Negative for chest pain. Musculoskeletal: Negative for neck pain. Skin: Negative for rash. Objective Blood pressure (!) 210/126, pulse 94, temperature 37.2 ?C (99 ?F), temperature source Tympanic, resp. rate 18, weight (!) 169.6 kg (374 lb), SpO2 96 %. Physical Exam Constitutional: He is oriented to person, place, and time and well-developed, well-nourished, and in no distress. Non-toxic appearance. He does not have a sickly appearance. No distress. HENT: Head: Normocephalic and atraumatic. Right Ear: Hearing, tympanic membrane, external ear and ear canal normal. Left Ear: Hearing, tympanic membrane, external ear and ear canal normal. Nose: Nose normal. Mouth/Throat: Uvula is midline, oropharynx is clear and moist and mucous membranes are normal. Eyes: Conjunctivae and lids are normal. Pupils are equal, round, and reactive to light. Right eye exhibits no discharge. Left eye exhibits no discharge. No scleral icterus. Neck: Trachea normal and normal range of motion. Neck supple. Cardiovascular: Normal rate, regular rhythm and normal heart sounds. Pulmonary/Chest: Effort normal and breath sounds normal. Loose cough during exam Lymphadenopathy: He has no cervical adenopathy. Neurological: He is alert and oriented to person, place, and time. Skin: No rash noted. He is not diaphoretic. ASSESSMENT/PLAN: 1. Sinobronchitis - ICD9: 473.9, 490, ICD10: J32.9, J40 - Will begin treatment with Doxycline - Supportive care with plenty of fluids, rest, and analgesia prn. - Follow up in 3-5 days if symptoms persist or worsen. -If you experience chest pain/shortness of breath go to ER - DOXYCYCLINE MONOHYDRATE 100 MG TABLET - PREDNISONE 20 MG TABLET - FLUTICASONE 50 MCG/ACTUATION NASAL SPRAY,SUSPENSION Discussed smoking cessation bp significantly elevated today, patient states this blood pressure is good for him, is working with pcp. Check bp at home and report to pcp. Prescription instructions reviewed with patient as applicable. Patient advised if symptoms do not improve or if symptoms worsen sooner, to contact the office for further evaluation by their primary care physician. Potential red flag symptoms discussed with the patient. Reviewed appropriate action plan to take if red flag symptoms occur. Patient agreeable to treatment plan. Lexie Baker APRN.PUBLIC POLICY MEDIATOR CNOV Observed: 11/11/2017 Status: COMPLETED Source: [place] 2:15 PM [facility] REPOSITORY Office Visit ([facility]) JOSE MIGUELABHI ([id number]) 1990 M Date Time Provider Department 11/11/17 2:15 PM LEXIE BAKER (STEVE) [facility] During your visit today, we recorded the following information about you: Temperature Pulse Respiration Blood pressure 99 degrees 94/minute 18/minute 210/126 Weight 169.6 kg Lexie Baker (Steve) 11/11/2017 3:04 PM Signed Subjective HPI HPI Abhi Gillespie is a 27 year old male who presents today for CC of cough, nasal congestion. This started 3 weeks. Has tried nothing. Symptoms are worsened by nothing. Risk factors everyday smoker. .Patient presents with: Cough: clear phlegm x 1 week, worse with lying down No past medical history on file. PAST SURGICAL HISTORY Procedure Laterality Date - APPENDECTOMY 2003 - HEART CATHETERIZATION 2014 ALLERGIES Penicillins; Sulfa (Sulfonamide Antibiotics) MEDICATIONS FLUoxetine HCl (PROZAC) 40 mg capsule Take 1 capsule by mouth once daily. carvedilol (COREG) 25 mg tablet Take 2 tablets by mouth twice daily. lisinopril (ZESTRIL, PRINIVIL) 40 mg tablet Take 1 tablet by mouth once daily. dicyclomine (BENTYL) 20 mg tablet Take 1 tablet by mouth every 6 hours. ondansetron (ZOFRAN) 4 mg tablet Take 1 tablet by mouth every 8 hours as needed. FAMILY HISTORY Problem Relation Age of Onset - Diabetes Mother - Hypertension Mother - Diabetes Father - Hypertension Father - Heart Maternal Grandmother - Heart Maternal Grandfather - Heart Paternal Grandmother - Heart Paternal Grandfather - Diabetes Brother - Hypertension Brother - Diabetes Brother - Hypertension Brother Social History Substance Use Topics - Smoking status: Current Every Day Smoker Packs/day: 1.00 - Smokeless tobacco: Never Used Comment: 1 pack per day - Alcohol use No Review of Systems Constitutional: Negative for chills, fever and weight loss. HENT: Positive for congestion and sinus pain. Negative for ear pain, nosebleeds and sore throat. Respiratory: Positive for cough. Negative for shortness of breath and wheezing. Cardiovascular: Negative for chest pain. Musculoskeletal: Negative for neck pain. Skin: Negative for rash. Objective Blood pressure (!) 210/126, pulse 94, temperature 37.2 ?C (99 ?F), temperature source Tympanic, resp. rate 18, weight (!) 169.6 kg (374 lb), SpO2 96 %. Physical Exam Constitutional: He is oriented to person, place, and time and well-developed, well-nourished, and in no distress. Non-toxic appearance. He does not have a sickly appearance. No distress. HENT: Head: Normocephalic and atraumatic. Right Ear: Hearing, tympanic membrane, external ear and ear canal normal. Left Ear: Hearing, tympanic membrane, external ear and ear canal normal. Nose: Nose normal. Mouth/Throat: Uvula is midline, oropharynx is clear and moist and mucous membranes are normal. Eyes: Conjunctivae and lids are normal. Pupils are equal, round, and reactive to light. Right eye exhibits no discharge. Left eye exhibits no discharge. No scleral icterus. Neck: Trachea normal and normal range of motion. Neck supple. Cardiovascular: Normal rate, regular rhythm and normal heart sounds. Pulmonary/Chest: Effort normal and breath sounds normal. Loose cough during exam Lymphadenopathy: He has no cervical adenopathy. Neurological: He is alert and oriented to person, place, and time. Skin: No rash noted. He is not diaphoretic. ASSESSMENT/PLAN: 1. Sinobronchitis - ICD9: 473.9, 490, ICD10: J32.9, J40 - Will begin treatment with Doxycline - Supportive care with plenty of fluids, rest, and analgesia prn. - Follow up in 3-5 days if symptoms persist or worsen. -If you experience chest pain/shortness of breath go to ER - DOXYCYCLINE MONOHYDRATE 100 MG TABLET - PREDNISONE 20 MG TABLET - FLUTICASONE 50 MCG/ACTUATION NASAL SPRAY,SUSPENSION Discussed smoking cessation bp significantly elevated today, patient states this blood pressure is good for him, is working with pcp. Check bp at home and report to pcp. Prescription instructions reviewed with patient as applicable. Patient advised if symptoms do not improve or if symptoms worsen sooner, to contact the office for further evaluation by their primary care physician. Potential red flag symptoms discussed with the patient. Reviewed appropriate action plan to take if red flag symptoms occur. Patient agreeable to treatment plan. Lexie Baker APRN.Lexie Dixon ([facility]) 11/11/2017 2:39 PM Signed ASSESSMENT/PLAN: 1. Sinobronchitis - ICD9: 473.9, 490, ICD10: J32.9, J40 - Will begin treatment with Doxycline - Supportive care with plenty of fluids, rest, and analgesia prn. - Follow up in 3-5 days if symptoms persist or worsen. - DOXYCYCLINE MONOHYDRATE 100 MG TABLET - PREDNISONE 20 MG TABLET - FLUTICASONE 50 MCG/ACTUATION NASAL SPRAY,SUSPENSION Referring Provider: SELF [200] Allergies As of Date: 11/11/2017 Noted Allergy Reaction PENICILLINS 06/22/2015 16 - Unknown SULFA (SULFONAMIDE ANTIBIOTICS) 06/22/2015 16 - Unknown Date Reviewed: 11/11/2017 Reviewed by: Lexie Baker ([facility]) - Fully Assessed Reason for Visit: Cough [28] Cmt: clear phlegm x 1 week, worse with lying down Primary Visit Diagnosis:Sinobronchitis [J32.9, J40] Order(s):doxycycline monohydrate 100 mg tabletTake 1 tablet by mouth twice daily for 10 days.Disp: 20 tabletRfl: 0 predniSONE (DELTASONE) 20 mg tabletTake 2 tablets by mouth once daily for 5 days.Disp: 10 tabletRfl: 0 fluticasone (FLONASE) 50 mcg/actuation nasal sprayUse 2 Sprays in each nostril once daily. Rinse mouth after use.Disp: 1 BottleRfl: 1 Prescriptions as of 11/11/2017 Sig: FLUOXETINE 40 MG CAPSULE Take 1 capsule by mouth once * CARVEDILOL 25 MG TABLET Take 2 tablets by mouth twice* LISINOPRIL 40 MG TABLET Take 1 tablet by mouth once d* DOXYCYCLINE MONOHYDRATE 100 M* Take 1 tablet by mouth twice * PREDNISONE 20 MG TABLET Take 2 tablets by mouth once * FLUTICASONE 50 MCG/ACTUATION * Use 2 Sprays in each nostril * DICYCLOMINE 20 MG TABLET Take 1 tablet by mouth every * Patient not taking: Reported on 11/11/2017 ONDANSETRON HCL 4 MG TABLET Take 1 tablet by mouth every * Problem List As Of Date 11/11/2017 Noted Resolved Essential hypertension [I10] INVALID FOR* ST elevation myocardial infarction involving le*INVALID FOR* Morbid obesity due to excess calories (HCC) [E6*INVALID FOR* Tobacco dependency [F17.200] INVALID FOR* KAREN (obstructive sleep apnea) AHI 127 [G47.33] INVALID FOR* Other instructions from your clinician: ASSESSMENT/PLAN: 1. Sinobronchitis - ICD9: 473.9, 490, ICD10: J32.9, J40 - Will begin treatment with Doxycline - Supportive care with plenty of fluids, rest, and analgesia prn. - Follow up in 3-5 days if symptoms persist or worsen. - DOXYCYCLINE MONOHYDRATE 100 MG TABLET - PREDNISONE 20 MG TABLET - FLUTICASONE 50 MCG/ACTUATION NASAL SPRAY,SUSPENSION Prescriptions ordered this encounter Disp Refills Start End DOXYCYCLINE MONOHYDRATE 100 MG TABLET 20 t* 0 11/11/2017 11/21/2017 Cmt: May transfer to [facility] if less expensive. Route: ORAL Sig: Take 1 tablet by mouth twice daily for 10 days. PREDNISONE 20 MG TABLET 10 t* 0 11/11/2017 11/16/2017 Route: ORAL Sig: Take 2 tablets by mouth once daily for 5 days. FLUTICASONE 50 MCG/ACTUATION NASAL S* 1 Zheng* 1 11/11/2017 Route: EACH NOSTRIL Sig: Use 2 Sprays in each nostril once daily. Rinse mouth after use. Letter Text [facility] Lexie Baker CNP [address], [place] [address] 11/11/2017 Abhi Gillespie [facility]# [id number] [address] [facility] [address] TO WHOM IT MAY CONCERN: This is to confirm that Abhi Gillespie had an appointment and was seen at the [facility] in the Department of Urgent Care by Lexie Baker CNP on 11/11/2017. Sincerely yours, Lexie Baker CNP Encounter Status:Closed by LEXIE BAKER CNP on 11/11/17 URGENT CARE VISIT Observed: 11/09/2017 Status: F Source: NATE REPORT 4:34 PM [facility] REPOSITORY [facility] [address] [place] [address] [address] [place] [address] OFFICE VISIT Date of Service: 11/09/17 MR#: [id number] Acct: [id number] Name: ABHI GILLESPIE Rep #: [id number] : 1990 Provider: Malikc BRANNON Age/Sex: 27/M Location: [facility] Status: Signed Intake Vital Signs11/09/17 Height 6 ft Intake Visit Reasons: HEADACHES, ONGOING COUGH Is patient in pain?: Yes (headache) Allergies amoxicillin [Amoxicillin] Allergy (Verified 11/09/17 15:43) Swelling Penicillins Allergy (Verified 11/09/17 15:43) Swelling Sulfa (Sulfonamide Antibiotics) Allergy (Verified 11/09/17 15:43) Unknown Medications Carvedilol [Coreg] 25 mg PO DAILY 03/10/15 [History Confirmed 11/09/17] Fluoxetine HCl [Prozac] 40 mg PO DAILY 10/31/16 [History Confirmed 11/09/17] Lisinopril [Zestril] 40 mg PO DAILY #30 tab 03/13/17 [Rx Confirmed 11/09/17] hydrochlorothiazide 25 mg tablet PO 30 Days #30 11/09/17 [History Confirmed 11/09/17] PFSH Medical History Diabetes (Acute) Knee pain (Acute) Severe headache (Acute) HTN (hypertension) (Chronic) Surgical History History of appendectomy (Acute) Social History Smoking Status: Current every day smoker alcohol intake: never HPI HPI Details: ABHI GILLESPIE, is a 27 M who presents to the office today for intermittent headaches for the past 3 days. Patient states that the headaches seem to behind his eyes. He also reports that he has not been taking his blood pressure medication for the past 2 days. He denies photophobia, aura or change in mental status. No vision change or loss. He has had no syncopal or near syncopal episodes. No other associated symptoms or alleviating/aggravating factors. ROS Const Constitutional: Positive for headache(s); no chills, fever(s), fatigue or abnormal sleep pattern ENT ENT: Positive for headache(s) Resp Respiratory: No shortness of breath or chest congestion Cardio Cardiology: No chest pain at rest, chest pain with exertion or shortness of breath Skin Skin: No wounds or lesions Neuro Neurology: Positive for headache(s); no behavioral changes or confusion Psych Psychiatric: No behavioral changes, No confusion, No abnormal sleep pattern Endo Endocrine: No fatigue Exam Const General: cooperative, healthy appearing Nutritional Appearance: obese morbidly obese [facility] Head: normocephalic, atraumatic, normal to inspection Ears: hearing grossly normal bilaterally Nose: external nose normal Face and sinus: face symmetric, normal facial exam Eyes General: appearance normal, both eyes and all related structures Alignment and Position: alignment normal Pupils: PERRL Resp Effort AND Inspection: normal respiratory effort Auscultation: Bilateral: Clear to Auscultation Cardio Palpation: normal PMI Rate: regular rate Rhythm: regular rhythm Skin General: no rashes or lesions noted Neuro General: alert, CN's II-XI intact bilaterally Psych Appearance: grossly normal Mental Status: mental status grossly normal Assessment AND Plan Problems 1. Hypertension, unspecified type I10 2. Acute nonintractable headache, unspecified headache type R51 Status Acute Plan Due to elevated blood pressure of 172/112 as well as previous 3 readings being extremely elevated in patients poor compliance with his medications he has been advised to report to the ED for further evaluation and treatment. Patient agrees to this plan states that he will report to the ED immediately. Patient advised of potential consequences to poor adherence to his medications and verbalized understanding of all the above. Coding Level of Care Code Off vis,est,level 4 Diagnoses Hypertension, unspecified type I10 Hypertension type: unspecified Acute nonintractable headache, unspecified headache type R51 Headache type: unspecified Headache chronicity pattern: acute headache Intractability: not intractable 11/09/17 0004 <Electronically signed by Malick BRANNON> Date Malick Morfin Signature: Date (if applicable) CC: 12 LEAD ELECTROCARDIOGRAM Observed: 09/21/2017 Status: F Source: NATE 1:47 PM [facility] REPOSITORY [facility] Cardiovascular Services [address] [place] [address] 12 Lead EKG 09/17/17 1401 MR#: [id number] Acct: [id number] Name: ABHI GILLESPIE Rep #: [id number] : 1990 27 From: Galileo Ragland MD Attending Dr: Status: DEP ER Ordering Dr: Brain Nino DO Date: 09/17/17 Location: ED Sex: M C Admitted: Test Reason : CP/SOB Blood Pressure : / mmHG Vent. Rate : 090 BPM Atrial Rate : 090 BPM P-R Int : 186 ms QRS Dur : 086 ms QT Int : 384 ms P-R-T Axes : 052 062 220 degrees QTc Int : 469 ms Normal sinus rhythm ST AND T wave abnormality, consider inferolateral ischemia Prolonged QT Abnormal ECG Confirmed by GALILEO RAGLAND ([id number]), state editor NICK CALERO ([id number]) on 09/21/2017 1:46:43 PM Referred By: KHADRA Confirmed By:GALILEO RAGLAND 09/21/17 1346 Date Galileo Ragland MD CC: OUT OF TOWN DOCTOR; Brain Nino DO Signed DISCHARGE INSTRUCTION Observed: 09/17/2017 Status: F Source: NATE 4:14 PM [facility] REPOSITORY [facility] Medical Records Department [address] [place] [address] Discharge Instruction 09/17/17 1612 MR#: [id number] Acct: [id number] Name: ABHI GILLESPIE Rep #: [id number] : 1990 27 From: Brain Nino DO PCP: OUT OF TOWN DOCTOR Status: REG ER ED Disposition - Plan for ED Patient: Chief Complaint: Chest Pain Instructions: ED Chest Pain Atypical Unkn Cause, ED HTN Established Referrals: [facility] Doctor,Out of [Primary Care Provider] - 3-5 Days What to do if you have Problems For any increased pain, shortness of breath, bleeding, nausea or vomiting, chest pain, or any unexpected problems, contact your Primary Care Provider. Call [facility] ([phone]) or report to the closest Emergency Room. Call 911 if necessary. 09/17/17 1614 <Electronically signed by Brain Nino DO> Date Brain Nino DO Cosigner Signature (If Indicated): Date CC: OUT OF TOWN DOCTOR EMERGENCY DEPARTMENT Observed: 09/17/2017 Status: F Source: [place] SUMMARY 4:12 PM [facility] REPOSITORY [facility] Medical Records Department [address] [place] [address] Emergency Department Summary 09/17/17 1608 MR#: [id number] Acct: [id number] Name: ABHI GILLESPIE Rep #: [id number] : 1990 27 From: Brain Nino DO PCP: OUT OF TOWN DOCTOR Status: REG ER - ER Visit Summary Date of Service: 09/17/17 Chief Complaint: [Chest pain] History of Present Illness: The patient is a 27 M [presents to the emergency department chest discomfort that started yesterday evening. Patient describes a tightness in the left side of his chest off and on. Patient states that his pain is currently resolved. Patient did feel systems shortness of breath associated with it. Patient had some discomfort in his right arm and he noticed some swelling initially in the right hand is now mostly resolved. Patient tells me he had a heart catheterization in 2014 that did not show any blockages. Patient denies recent travel or surgery. Patient states there is a family history of heart disease his father had an CA in his early 50s. Patient is diabetic and has a history of hypertension. Patient is a smoker.] Physical Examination: [HEENT-PERRLA, EOMI. Cranial nerves II through XII grossly intact. TMs clear. Mucous membranes moist. No adenopathy. Cardiovascular-regular rate and rhythm without murmur or ectopy Lungs-clear to auscultation, chest wall stable without crepitus or subcu emphysema Abdomen-normoactive bowel sounds, soft, nontender, no rebound or rigidity, no peritoneal signs. Extremities-intact 4, normal range of motion, normal pulses, atraumatic] Test Results: [EKG obtained showed a sinus rhythm with ventricular rate of [address] changes and a prolonged QT. When compared with prior EKG from May 04, 2017 there are no new changes noted. CBC with differential was normal. Chemistries unremarkable. Troponin was 0.03. Chest x-ray showed no evidence of pneumonia had some cardiomegaly and subsequent segmental atelectasis but otherwise nothing acute. Mediastinum appeared normal.] Emergency Department Course and Treatment: [Patient had taken aspirin at home therefore none was given here. Patient remained pain-free in the emergency department.] Treatment Plan: [Given the pain has been ongoing for close to 24 hours now patient has an unchanged EKG and normal troponin I do not feel his chest pain is cardiac. Patient had a CTA of the chest in April 2017 that was negative for PE and really does not have PE risk factors.] Disposition: [Discharged to home in stable condition] Impression: [Chest [id number]-[id number] uncertain] This note was generated with [employer] dictation software. It may contain incorrect words, spelling, and punctuation that were not noted in review of the chart prior to signing ED Disposition - Plan for ED Patient: Chief Complaint: Chest Pain Referrals: [facility] Doctor,Out of [Primary Care Provider] - What to do if you have Problems For any increased pain, shortness of breath, bleeding, nausea or vomiting, chest pain, or any unexpected problems, contact your Primary Care Provider. Call [facility] ([phone]) or report to the closest Emergency Room. Call 911 if necessary. 09/17/17 4942 <Electronically signed by Brain Nino DO> Date Brain Nino DO Cosigner Signature (If Indicated): Date CC: OUT OF TOWN DOCTOR CHEST 1 VIEW Observed: 09/17/2017 Status: F Source: NATE (PORTABLE) 2:25 PM [facility] REPOSITORY [facility] Imaging Services [address] [place] [address] Chest 1 View (Portable) MR#: [id number] Acct: [id number] Name: ABHI GILLESPIE Rep #: [id number] : 1990 27 From: Brendan Mix MD PCP: OUT OF TOWN DOCTOR Status: PRE ER Study: Chest 1 View (Portable) Date of Exam: 09/17/17 Exam# [id number] Ordering Dr: Brain Nino DO STUDY: X-RAY CHEST REASON FOR EXAM: Male, 27 years old. Chest pain. Shortness of breath. TECHNIQUE: AP upright portable view. COMPARISON: 05/04/2017. FINDINGS: No confluent infiltrates. Subsegmental atelectases in the right lower lobe. There is no demonstrated pleural abnormality. Cardiac size cannot be accurately evaluated. Normal mediastinum and deny. Normal visualized pulmonary arteries. Normal visualized aortic arch and descending thoracic aorta. Normal visualized thoracic spine. Normal visualized ribs, clavicles, and shoulders. There is no demonstrated abnormality of the visualized soft tissue structures of the upper abdomen. RAD/Chest 1 View (Portable) IMPRESSION: 1. Minimal subsegmental atelectasis in the right lung base. 2. No obvious pneumonia or acute cardiopulmonary pathology. Electronically Signed: Brendan Mix MD at 15:17 EDT , Service support , CC: OUT OF TOWN DOCTOR; Brain Nnio DO Data Power Consultant: Signed CBC W/DIFF, AUTOMATED Collected: 09/17/2017 Status: F Source: NATE 2:06 PM [facility] REPOSITORY TYPE CODE TESTS RESULT OUT OF RANGE REFERENCE UNITS LAB L100.1000 4.4-11.0 K/mm3 Normal WBC 6.5 LAB L100.1200 4.6-6.2 M/mm3 Normal RBC 4.99 LAB L100.1300 13.0-16.5 g/dl Normal HGB 14.4 LAB L100.1400 40-54 % Normal HCT 44.3 LAB L100.1500 80-94 fL Normal MCV 88.8 LAB L100.1600 27.0-32.0 pg Normal MCH 28.9 LAB L100.1700 32-36 g/gl Normal MCHC 32.5 LAB L100.1810 11.6-14.6 % Normal RDW CV 13.8 LAB L100.1820 35.1-43.9 fl High RDW SD 44.4 LAB L100.1900 150-450 K/mm3 Normal PLT 222 LAB L100.2000 6.2-12.0 fl Normal MPV 10.4 LAB L100.2100 47-70 % Normal NEUT% 63.4 LAB L100.2200 19-41 % Normal LY% 30.2 LAB L100.2300 0-10 % Normal MONO% 4.5 LAB L100.2400 0-5 % Normal EO% 1.5 LAB L100.2500 0-1 % Normal BASO% 0.2 LAB L100.2550 0.0-0.9 % Normal IM GRAN % 0.200 Result Comment: IG% - Immature Granulocytes (promyelocytes, myelocytes and metamyelocytes) > 1% indicates that a LEFT SHIFT is Present. LAB L100.2620 2.0-7.7 X10 3/uL Normal Absolute Neut 4.1 LAB L100.2720 0.83-4.51 X10 3/ul Normal Absolute Lymph 1.96 Performed By: #### L100.0100 #### [facility] [place], [address] BASIC METABOLIC Collected: 09/17/2017 Status: F Source: NATE PROFILE (BMP) 2:06 PM [facility] REPOSITORY Order Comment: 'TROP' Serial specimen #1, #2, #3, or #4: 1 TYPE CODE TESTS RESULT OUT OF RANGE REFERENCE UNITS LAB L501.0100 74-106 mg/dL High GLU 188 Result Comment: Fasting Glucose result greater than or equal to 126 mg/dL suggests DIABETES MELLITUS per A.D.A. criteria. Please note revised GLUCOSE reference range effective 2017. LAB L501.1000 7-18 mg/dL Normal BUN 9 LAB L501.1100 0.70-1.30 mg/dL Normal CREAT,SERUM 0.98 Result Comment: The validity of the calculated GFR AND GFRAA in patients over 70 years has not been determined. Clinical correlation is essential. LAB L501.1110 >60 mL/min Normal EST GFR 98 Result Comment: Non- GFR Calc LAB L501.1115 >60 mL/min Normal EST GFR - AA 118 Result Comment: GFR Calc LAB L501.1255 ml/min Normal Estimated CRCL 124.27 LAB L501.1300 10-20 RATIO Low BUN/CRE 9.2 LAB L501.2200 8.5-10 mg/dL .1 CA Normal 8.5 LAB L501.5300 136-14 mmol/L 5 NA Normal 143 LAB L501.5600 3.5-5. mmol/L Low 1 K 3.4 LAB L501.5900 98-107 mmol/L CL Normal 106 LAB L501.6100 21.0-3 mmol/L 2.0 CO2 Normal 31.0 LAB L501.6200 5-15 GAP Normal 6 Performed By: #### L500.2500, L501.4010 #### [facility] [address] [place], [place], [address] TROPONIN-I Collected: 09/17/2017 Status: F Source: NATE 2:06 PM [facility] REPOSITORY Order Comment: 'TROP' Serial specimen #1, #2, #3, or #4: 1 TYPE CODE TESTS RESULT OUT OF RANGE REFERENCE UNITS LAB L501.4010 <0.06 ng/mL Normal 0.03 TROPONIN-I Result Comment: TROPONIN-I EXPECTED VALUES <0.05 NEGATIVE 0.06 - 0.59 AT RISK OF CA > OR = 0.60 SUGGEST CA Performed By: #### L500.2500, L501.4010 #### [facility] [address] [place], [place], [address] PROGRESS Observed: 09/03/2017 Status: COMPLETED Source: [place] 1:31 PM [facility] REPOSIT[facility] HNO ID: [id number] Author: Maria D Bui Service: (none) Author Type: Nurse Practitioner Type: Progress Notes Filed: 09/03/2017 1:36 PM Note Text: Subjective The history is provided by the patient. No automated access systems technician was used. HPI Abhi Gillespie is a 27 year old male who presents today for CC of nausea, and vomiting x 1. This started 36 hours ago. He was seen yesterday for the same, problem, however needs a note today for work. Symptoms are not worse, they have just not gone away. He has tried no treatment or medication Risk factors co workers ill PMH no abdominal surgeries. Denies fever. BP 162/98 Pulse 64 Temp 37.1 ?C (98.7 ?F) (Tympanic) Resp 20 Wt (!) 170.4 kg (375 lb 9.6 oz) BMI 50.94 kg/m2 ALLERGIES Allergen Reactions - Penicillins Unknown - Sulfa (Sulfonamide * Unknown ACTIVE PROBLEM LIST Essential Hypertension St Elevation Myocardial Infarction Involving Left Anterior Descending (Lad) Coronary Artery (Hcc) Morbid Obesity Due to Excess Calories (Hcc) Tobacco Dependency KAREN (obstructive sleep apnea) AHI 127 Family History Problem Relation Age of Onset - Diabetes Mother - Hypertension Mother - Diabetes Father - Hypertension Father - Heart Maternal Grandmother - Heart Maternal Grandfather - Heart Paternal Grandmother - Heart Paternal Grandfather - Diabetes Brother - Hypertension Brother - Diabetes Brother - Hypertension Brother Social History Marital status: Spouse name: Years of education: Number of children: 2 Social History Main Topics Smoking status: Current Every Day Smoker Packs/day: 1.00 Years: 0.00 Smokeless status: Never Used Comment: 1 pack per day Alcohol use: No Drug use: No Sexual activity: Yes Partners with: Female Review of Systems Constitutional: Negative for chills, fever, malaise/fatigue and weight loss. HENT: Negative for congestion, ear discharge, ear pain and sore throat. Eyes: Negative for discharge. Respiratory: Negative for cough. Gastrointestinal: Positive for nausea and vomiting. Negative for abdominal pain and diarrhea. Musculoskeletal: Negative for myalgias. Neurological: Negative for headaches. Objective Physical Exam Constitutional: He is oriented to person, place, and time and well-developed, well-nourished, and in no distress. HENT: Head: Normocephalic and atraumatic. Eyes: Conjunctivae and EOM are normal. Pupils are equal, round, and reactive to light. Neck: Normal range of motion. Neck supple. Pulmonary/Chest: Effort normal and breath sounds normal. He has no decreased breath sounds. He has no wheezes. He has no rhonchi. He has no rales. Abdominal: Soft. Bowel sounds are normal. There is no hepatosplenomegaly. There is no tenderness. There is no rigidity, no rebound, no guarding, no CVA tenderness, no tenderness at McBurney's point and negative Potts's sign. Neurological: He is alert and oriented to person, place, and time. Skin: Skin is warm. Psychiatric: Affect normal. Nursing note and vitals reviewed. ASSESSMENT/PLAN: 1. Non-intractable vomiting with nausea, unspecified vomiting type - ICD9: 787.01, ICD10: R11.2 Drink small sips of clear fluids to begin with. Advance to other liquids as tolerated. If tolerating liquids for several hours without vomiting, then you can try bland foods such as toast, crackers, etc. Advance to full diet when nausea/vomiting has completely resolved but avoid greasy, fatty, spicy foods for next several days. To ER for worsening symptoms, increased pain, fevers, vomiting, decreased urine output, blood in her urine blood in her stools or dark tarry stools. Diagnosis and treatment plan were discussed and questions were answered to the patient's satisfaction. Pt acknowledged understanding of concepts and follow up plan. Specific signs and symptoms that would indicate the need for higher level of care were discussed in detail warranting prompt ER evaluation. Maria D Bui CNP CNOV Observed: 09/03/2017 Status: COMPLETED Source: [place] 1:15 PM [facility] REPOSITORY Office Visit ([facility]) ABHI GILLESPIE ([id number]) 1990 M Date Time Provider Department 09/03/17 1:15 PM MARIA D BUI (STEVE) [facility] During your visit today, we recorded the following information about you: Temperature Pulse Respiration Blood pressure 98.7 degrees 64/minute 20/minute 162/98 Weight 170.4 kg Maria D Bui CNP 09/03/2017 1:36 PM Signed Subjective The history is provided by the patient. No automated access systems technician was used. HPI Abhi Gillespie is a 27 year old male who presents today for CC of nausea, and vomiting x 1. This started 36 hours ago. He was seen yesterday for the same, problem, however needs a note today for work. Symptoms are not worse, they have just not gone away. He has tried no treatment or medication Risk factors co workers ill PMH no abdominal surgeries. Denies fever. BP 162/98 Pulse 64 Temp 37.1 ?C (98.7 ?F) (Tympanic) Resp 20 Wt (!) 170.4 kg (375 lb 9.6 oz) BMI 50.94 kg/m2 ALLERGIES Allergen Reactions - Penicillins Unknown - Sulfa (Sulfonamide * Unknown ACTIVE PROBLEM LIST Essential Hypertension St Elevation Myocardial Infarction Involving Left Anterior Descending (Lad) Coronary Artery (Hcc) Morbid Obesity Due to Excess Calories (Hcc) Tobacco Dependency KAREN (obstructive sleep apnea) AHI 127 Family History Problem Relation Age of Onset - Diabetes Mother - Hypertension Mother - Diabetes Father - Hypertension Father - Heart Maternal Grandmother - Heart Maternal Grandfather - Heart Paternal Grandmother - Heart Paternal Grandfather - Diabetes Brother - Hypertension Brother - Diabetes Brother - Hypertension Brother Social History Marital status: Spouse name: Years of education: Number of children: 2 Social History Main Topics Smoking status: Current Every Day Smoker Packs/day: 1.00 Years: 0.00 Smokeless status: Never Used Comment: 1 pack per day Alcohol use: No Drug use: No Sexual activity: Yes Partners with: Female Review of Systems Constitutional: Negative for chills, fever, malaise/fatigue and weight loss. HENT: Negative for congestion, ear discharge, ear pain and sore throat. Eyes: Negative for discharge. Respiratory: Negative for cough. Gastrointestinal: Positive for nausea and vomiting. Negative for abdominal pain and diarrhea. Musculoskeletal: Negative for myalgias. Neurological: Negative for headaches. Objective Physical Exam Constitutional: He is oriented to person, place, and time and well-developed, well-nourished, and in no distress. HENT: Head: Normocephalic and atraumatic. Eyes: Conjunctivae and EOM are normal. Pupils are equal, round, and reactive to light. Neck: Normal range of motion. Neck supple. Pulmonary/Chest: Effort normal and breath sounds normal. He has no decreased breath sounds. He has no wheezes. He has no rhonchi. He has no rales. Abdominal: Soft. Bowel sounds are normal. There is no hepatosplenomegaly. There is no tenderness. There is no rigidity, no rebound, no guarding, no CVA tenderness, no tenderness at McBurney's point and negative Potts's sign. Neurological: He is alert and oriented to person, place, and time. Skin: Skin is warm. Psychiatric: Affect normal. Nursing note and vitals reviewed. ASSESSMENT/PLAN: 1. Non-intractable vomiting with nausea, unspecified vomiting type - ICD9: 787.01, ICD10: R11.2 Drink small sips of clear fluids to begin with. Advance to other liquids as tolerated. If tolerating liquids for several hours without vomiting, then you can try bland foods such as toast, crackers, etc. Advance to full diet when nausea/vomiting has completely resolved but avoid greasy, fatty, spicy foods for next several days. To ER for worsening symptoms, increased pain, fevers, vomiting, decreased urine output, blood in her urine blood in her stools or dark tarry stools. Diagnosis and treatment plan were discussed and questions were answered to the patient's satisfaction. Pt acknowledged understanding of concepts and follow up plan. Specific signs and symptoms that would indicate the need for higher level of care were discussed in detail warranting prompt ER evaluation. STEVE Casarez CNP 09/03/2017 1:32 PM Signed ASSESSMENT/PLAN: 1. Non-intractable vomiting with nausea, unspecified vomiting type - ICD9: 787.01, ICD10: R11.2 Drink small sips of clear fluids to begin with. Advance to other liquids as tolerated. If tolerating liquids for several hours without vomiting, then you can try bland foods such as toast, crackers, etc. Advance to full diet when nausea/vomiting has completely resolved but avoid greasy, fatty, spicy foods for next several days. To ER for worsening symptoms, increased pain, fevers, vomiting, decreased urine output, blood in her urine blood in her stools or dark tarry stools. Referring Provider: SELF [200] Allergies As of Date: 09/03/2017 Noted Allergy Reaction PENICILLINS 06/22/2015 16 - Unknown SULFA (SULFONAMIDE ANTIBIOTICS) 06/22/2015 16 - Unknown Date Reviewed: 09/03/2017 Reviewed by: Mary Clark LPN - Fully Assessed Reason for Visit: vomiting, nausea, [place] and fever [Other] Cmt: x 1 day-seems to be getting worse Primary Visit Diagnosis:Non-intractable vomiting with nausea, unspecified vomiting type [R11.2] Order(s):ondansetron orally disintegrating (ZOFRAN ODT) 4 mg disintegrating tabletTake 2 tablets by mouth every 12 hours as needed for Nausea/Vomiting for up to 2 days.Disp: 4 tabletRfl: 0 Prescriptions as of 09/03/2017 Sig: DICYCLOMINE 20 MG TABLET Take 1 tablet by mouth every * FLUOXETINE 40 MG CAPSULE Take 1 capsule by mouth once * CARVEDILOL 25 MG TABLET Take 2 tablets by mouth twice* LISINOPRIL 40 MG TABLET Take 1 tablet by mouth once d* ONDANSETRON 4 MG DISINTEGRATI* Take 2 tablets by mouth every* ONDANSETRON HCL 4 MG TABLET Take 1 tablet by mouth every * Problem List As Of Date 09/03/2017 Noted Resolved Essential hypertension [I10] INVALID FOR* ST elevation myocardial infarction involving le*INVALID FOR* Morbid obesity due to excess calories (HCC) [E6*INVALID FOR* Tobacco dependency [F17.200] INVALID FOR* KAREN (obstructive sleep apnea) AHI 127 [G47.33] INVALID FOR* Other instructions from your clinician: ASSESSMENT/PLAN: 1. Non-intractable vomiting with nausea, unspecified vomiting type - ICD9: 787.01, ICD10: R11.2 Drink small sips of clear fluids to begin with. Advance to other liquids as tolerated. If tolerating liquids for several hours without vomiting, then you can try bland foods such as toast, crackers, etc. Advance to full diet when nausea/vomiting has completely resolved but avoid greasy, fatty, spicy foods for next several days. To ER for worsening symptoms, increased pain, fevers, vomiting, decreased urine output, blood in her urine blood in her stools or dark tarry stools. Prescriptions ordered this encounter Disp Refills Start End ONDANSETRON 4 MG DISINTEGRATING TABL* 4 ta* 0 09/03/2017 09/05/2017 Route: ORAL Sig: Take 2 tablets by mouth every 12 hours as needed for Nausea/Vomiting for up to 2 days. Letter Text Maria D Bui CNP Urgent Care [address] [facility] [address] Dept: [phone] 09/03/2017 Abhi Gillespie [address] [facility] [address] To Whom it May Concern: This is to certify that Abhi Gillespie was seen at our office for medical care. Abhi may return to work on 09.04.2017. If you have any questions please feel free to call. Sincerely: Maria D Bui CNP Encounter Status:Closed by MARIA D BUI CNP on 09/03/17 PROGRESS Observed: 09/02/2017 Status: COMPLETED Source: [place] 4:30 PM [facility] [place] REPOSITORY O ID: [id number] Author: Mary Callahan Service: (none) Author Type: Nurse Practitioner Type: Progress Notes Filed: 09/02/2017 4:44 PM Note Text: SUBJECTIVE: Abhi Gillespie is a 27 year old male. Who presents today with nausea and fatigue. Has has a decreased appetite today. This all started this am. He has several coworkers that are sick as well. His temp at home was 99 he has no fever here today. No abd pain , v, cp or sob today. HPI No past medical history on file. FAMILY HISTORY Problem Relation Age of Onset - Diabetes Mother - Hypertension Mother - Diabetes Father - Hypertension Father - Heart Maternal Grandmother - Heart Maternal Grandfather - Heart Paternal Grandmother - Heart Paternal Grandfather - Diabetes Brother - Hypertension Brother - Diabetes Brother - Hypertension Brother Social History Substance Use Topics - Smoking status: Current Every Day Smoker Packs/day: 1.00 - Smokeless tobacco: Never Used Comment: 1 pack per day - Alcohol use No ALLERGIES Allergen Reactions - Penicillins Unknown - Sulfa (Sulfonamide * Unknown Current Outpatient Prescriptions: dicyclomine (BENTYL) 20 mg tablet Take 1 tablet by mouth every 6 hours. Disp: 120 tablet Rfl: 2 FLUoxetine HCl (PROZAC) 40 mg capsule Take 1 capsule by mouth once daily. Disp: 30 capsule Rfl: 2 carvedilol (COREG) 25 mg tablet Take 2 tablets by mouth twice daily. Disp: 360 tablet Rfl: 3 lisinopril (ZESTRIL, PRINIVIL) 40 mg tablet Take 1 tablet by mouth once daily. Disp: 90 tablet Rfl: 3 ondansetron (ZOFRAN) 4 mg tablet Take 1 tablet by mouth every 8 hours as needed. Disp: 30 tablet Rfl: 1 No current facility-administered medications for this visit. OBJECTIVE: BP 138/96 Pulse 78 Temp 37.1 ?C (98.8 ?F) (Tympanic) Resp 16 Wt (!) 172.8 kg (381 lb) BMI 51.67 kg/m2 ROS all other systems reviewed and are negative Physical Exam Constitutional: Well developed, well nourished, NAD, alert and oriented to person , place and time, in no apparent distress. ENT: Head is atraumatic, airway patent, mucosal membranes moist. Eyes: EOMI, PERRL, conjunctiva pink, no drainage, vision unchanged Neck: supple with no palpable lymph nodes, no midline tenderness Cardiac: Normal rate and rhythm. Heart sounds S1, S2. No murmurs, rubs or gallops. Chest: nontender Respiratory: No retractions or use of accessory muscles. Breath sounds clear and equal bilaterally. GI: Abdomen soft and non-distended, without tenderness, rebound or guarding. Bowel sounds normal. : no CVA tenderness MS: no swelling tenderness or deformity in upper or lower extremities, no midline tenderness in thoracic or lumbar spine. Neuro: strength sensation and coordination intact. CN II-XII grossly intact, Skin: warm and dry with out rash, lesion or ecchymosis Psych: alert appropriate, speech clear It was a pleasure to take care of Abhi Gillespie today. I have encouraged him to take motrin or tylenol for body aches. He will increase his fluids and rest. A work note was given as requested. Patient will follow up with family physician. They may return to the Urgent Care or go to the ER for worsening symptoms or concerns. Patient verbalized understanding of plan of care and is in agreement. ASSESSMENT/PLAN: 1. Viral illness - ICD9: 079.99, ICD10: B34.9 Mary Callahan CNP CNOV Observed: 09/02/2017 Status: COMPLETED Source: [place] 4:15 PM [facility] REPOSITORY Office Visit (WSTR) ABHI GILLESPIE ([id number]) 1990 M Date Time Provider Department 09/02/17 4:15 PM MARY CALLAHAN (STEVE) WSTR During your visit today, we recorded the following information about you: Temperature Pulse Respiration Blood pressure 98.8 degrees 78/minute 16/minute 138/96 Weight 172.8 kg Mary Callahan CNP 09/02/2017 4:44 PM Signed SUBJECTIVE: Abhi Gillespie is a 27 year old male. Who presents today with nausea and fatigue. Has has a decreased appetite today. This all started this am. He has several coworkers that are sick as well. His temp at home was 99 he has no fever here today. No abd pain , v, cp or sob today. HPI No past medical history on file. FAMILY HISTORY Problem Relation Age of Onset - Diabetes Mother - Hypertension Mother - Diabetes Father - Hypertension Father - Heart Maternal Grandmother - Heart Maternal Grandfather - Heart Paternal Grandmother - Heart Paternal Grandfather - Diabetes Brother - Hypertension Brother - Diabetes Brother - Hypertension Brother Social History Substance Use Topics - Smoking status: Current Every Day Smoker Packs/day: 1.00 - Smokeless tobacco: Never Used Comment: 1 pack per day - Alcohol use No ALLERGIES Allergen Reactions - Penicillins Unknown - Sulfa (Sulfonamide * Unknown Current Outpatient Prescriptions: dicyclomine (BENTYL) 20 mg tablet Take 1 tablet by mouth every 6 hours. Disp: 120 tablet Rfl: 2 FLUoxetine HCl (PROZAC) 40 mg capsule Take 1 capsule by mouth once daily. Disp: 30 capsule Rfl: 2 carvedilol (COREG) 25 mg tablet Take 2 tablets by mouth twice daily. Disp: 360 tablet Rfl: 3 lisinopril (ZESTRIL, PRINIVIL) 40 mg tablet Take 1 tablet by mouth once daily. Disp: 90 tablet Rfl: 3 ondansetron (ZOFRAN) 4 mg tablet Take 1 tablet by mouth every 8 hours as needed. Disp: 30 tablet Rfl: 1 No current facility-administered medications for this visit. OBJECTIVE: BP 138/96 Pulse 78 Temp 37.1 ?C (98.8 ?F) (Tympanic) Resp 16 Wt (!) 172.8 kg (381 lb) BMI 51.67 kg/m2 ROS all other systems reviewed and are negative Physical Exam Constitutional: Well developed, well nourished, NAD, alert and oriented to person , place and time, in no apparent distress. ENT: Head is atraumatic, airway patent, mucosal membranes moist. Eyes: EOMI, PERRL, conjunctiva pink, no drainage, vision unchanged Neck: supple with no palpable lymph nodes, no midline tenderness Cardiac: Normal rate and rhythm. Heart sounds S1, S2. No murmurs, rubs or gallops. Chest: nontender Respiratory: No retractions or use of accessory muscles. Breath sounds clear and equal bilaterally. GI: Abdomen soft and non-distended, without tenderness, rebound or guarding. Bowel sounds normal. : no CVA tenderness MS: no swelling tenderness or deformity in upper or lower extremities, no midline tenderness in thoracic or lumbar spine. Neuro: strength sensation and coordination intact. CN II-XII grossly intact, Skin: warm and dry with out rash, lesion or ecchymosis Psych: alert appropriate, speech clear It was a pleasure to take care of Abhi Gillespie today. I have encouraged him to take motrin or tylenol for body aches. He will increase his fluids and rest. A work note was given as requested. Patient will follow up with family physician. They may return to the Urgent Care or go to the ER for worsening symptoms or concerns. Patient verbalized understanding of plan of care and is in agreement. ASSESSMENT/PLAN: 1. Viral illness - ICD9: 079.99, ICD10: B34.9 Mary Callahan CNP Referring Provider: SELF [200] Allergies As of Date: 09/02/2017 Noted Allergy Reaction PENICILLINS 06/22/2015 16 - Unknown SULFA (SULFONAMIDE ANTIBIOTICS) 06/22/2015 16 - Unknown Date Reviewed: 09/02/2017 Reviewed by: Siria Jordan Ma - Fully Assessed Reason for Visit: Nausea [70] Cmt: chills, fatigue x this am Primary Visit Diagnosis:Viral illness [B34.9] Prescriptions as of 09/02/2017 Sig: DICYCLOMINE 20 MG TABLET Take 1 tablet by mouth every * FLUOXETINE 40 MG CAPSULE Take 1 capsule by mouth once * CARVEDILOL 25 MG TABLET Take 2 tablets by mouth twice* LISINOPRIL 40 MG TABLET Take 1 tablet by mouth once d* ONDANSETRON HCL 4 MG TABLET Take 1 tablet by mouth every * Medication notes this encounter ONDANSETRON HCL 4 MG TABLET >> Siria Jordan Ma 09/02/2017 4:19 PM >> SIRIA JORDAN MA Sep 02, 2017 4:19 PM done Problem List As Of Date 09/02/2017 Noted Resolved Essential hypertension [I10] INVALID FOR* ST elevation myocardial infarction involving le*INVALID FOR* Morbid obesity due to excess calories (HCC) [E6*INVALID FOR* Tobacco dependency [F17.200] INVALID FOR* KAREN (obstructive sleep apnea) AHI 127 [G47.33] INVALID FOR* Letter Text [facility] [place], [place] [address] 09/02/2017 TO WHOM IT MAY CONCERN: This is to confirm that Abhi Gillespie had an appointment and was seen at the [facility] in the Department of Urgent Care on 09/02/2017. Sincerely yours, Jordan Callahan APRN, CNP Encounter Status:Closed by MARY CALLAHAN CNP on 09/02/17 TROPONIN-I Collected: 07/29/2017 Status: F Source: [place] 3:56 PM [facility] REPOSITORY TYPE CODE TESTS RESULT OUT OF RANGE REFERENCE UNITS LAB [id number](LO .00-.03 ng/mL INC) Normal .03 Troponin-I Performed By: #### [id number] #### [facility] [address] [place] [address] XR CHEST AP PORTABLE Observed: 07/29/2017 Status: F Source: [place] 1:54 PM [facility] REPOSITORY Exam Date/Time: 07/29/2017 14:03 EST Reason for Exam: Chest pain Report Chest AP portable upright HISTORY: Chest pain COMPARISON: 07/26/2017 FINDINGS: The cardiac size is normal. No hilar or mediastinal enlargement is seen. The lungs are clear. The pulmonary vascularity is normal. No pleural effusion is seen. IMPRESSION: No acute disease. No change from 07/26/2012. FINAL REPORT Dictated: 07/29/2017 2:15 pm Gianfranco Estevez MD Signed (Electronic Signature): 07/29/2017 2:15 pm Signed by: Gianfranco Estevez MD Technologist: ERIN TRAYLOR Collected: 07/29/2017 Status: F Source: [place] 1:47 PM [facility] REPOSITORY TYPE CODE TESTS RESULT OUT OF RANGE REFERENCE UNITS LAB [id number](L 70-99 mg/dL OINC) High Glucose Lvl 206 LAB 03661059(L 8.4-10.2 mg/dL OINC) Calcium Normal Lvl 9.3 LAB 72530914(L 136-145 mEq/L OINC) Sodium Normal Lvl 138 LAB 85212876(L 3.5-5.1 mEq/L OINC) Normal Potassium Lvl 3.6 LAB 68942087(L 98-107 mEq/L OINC) Chloride Normal 98 LAB 89749359(L 24.0-30.0 mEq/L OINC) High CO2 31.1 LAB 15702704(L 7-18 mg/dL OINC) BUN Normal 11 LAB 1181339(LO 0.6-1.3 mg/dL INC) Normal Creatinine 0.9 LAB 77855924(L 5.4-30.0 ratio OINC) Normal BUN/Creat Ratio 12.2 Performed By: #### [id number] #### [facility] [address] [place] [address] PT Collected: 07/29/2017 Status: F Source: [place] 1:47 PM [facility] REPOSITORY TYPE CODE TESTS RESULT OUT OF RANGE REFERENCE UNITS LAB [id number](LO 1.0-1.2 INC) Normal INR 1.0 Result Comment: INR Recommended Therapeuptic Ranges: Prophylaxis/treatment of DVT and PE?2.0-3.0 Prevention of systemic embolism?.2.0-3.0 Mechanical prosthetic values?2.5-3.5 CRITICAL VALUES?.>4.0 LAB 35626563(LOINC) 11.6-14.6 second(s) Normal 13.0 PT Performed By: #### [id number] #### ROGELIO [facility] [employer] [address] [place] [address] PTT Collected: 07/29/2017 Status: F Source: [place] 1:47 PM [facility] REPOSITORY TYPE CODE TESTS RESULT OUT OF RANGE REFERENCE UNITS LAB [id number](LO 23.2-36.4 second(s) INC) Normal PTT 25.3 Performed By: #### [id number] #### ROGELIO [facility] [employer] [address] [place] [address] PTT CONTROL RATIO Collected: 07/29/2017 Status: F Source: [place] 1:47 PM [facility] REPOSITORY Order Comment: Order added by Discern Expert. TYPE CODE TESTS RESULT OUT OF RANGE REFERENCE UNITS LAB 24219520(LO 0.8-1.2 ratio INC) Normal PTT Ratio 0.8 Performed By: #### [id number] #### ROG[facility]IO [facility] [address] [place] [address] TROPONIN-I Collected: 07/29/2017 Status: F Source: [place] 1:47 PM [facility] REPOSITORY TYPE CODE TESTS RESULT OUT OF RANGE REFERENCE UNITS LAB [id number](LO .00-.03 ng/mL INC) Normal .03 Troponin-I Performed By: #### [id number] #### ROGELIO [facility] [address] [place] [address] CK Collected: 07/29/2017 Status: F Source: [place] 1:47 PM [facility] REPOSITORY TYPE CODE TESTS RESULT OUT OF RANGE REFERENCE UNITS LAB [id number](LO 26-140 Int._Unit/L INC) Normal Total CK 126 Performed By: #### [id number] #### [place] [address] EGFR Collected: 07/29/2017 Status: F Source: [place] 1:47 PM [facility] REPOSITORY Order Comment: Order added by Discern Expert. TYPE CODE TESTS RESULT OUT OF RANGE REFERENCE UNITS LAB 63400810(LO mL/min/1.73 INC) m2 Normal eGFR >60 LAB 66587760(LO mL/min/1.73 INC) m2 Normal eGFR AA >60 Performed By: #### [id number] #### [place] [address] MAGNESIUM Collected: 07/29/2017 Status: F Source: [place] 1:47 PM [facility] REPOSITORY TYPE CODE TESTS RESULT OUT OF REFERENCE UNITS RANGE LAB [id number](L 1.7-2.8 mg/dL OINC) Low Magnesium 1.6 Performed By: #### [id number] #### [place] [address] CKMB Collected: 07/29/2017 Status: F Source: [place] 1:47 [facility] REPOSITORY TYPE CODE TESTS RESULT OUT OF RANGE REFERENCE UNITS LAB [id number](LO 0.0-5.0 ng/mL INC) Normal CK MB 2.2 Performed By: #### [id number] #### [place] [address] CBC W/ AUTO DIFF Collected: 07/29/2017 Status: F Source: [place] 1:47 [facility] REPOSITORY TYPE CODE TESTS RESULT OUT OF RANGE REFERENCE UNITS LAB [id number](L 3.6-11.0 E3/mcL OINC) Normal WBC 8.4 LAB 00649303(L 3.90-6.10 E6/mcL OINC) Normal RBC 5.76 LAB 89029147(L 13.5-18.0 G/DL OINC) Normal Hgb 16.4 LAB 69269292(L 42.0-52.0 % OINC) Normal Hct 48.0 LAB 86946544(L 11.5-14.5 % OINC) High RDW 15.0 LAB 29043123(L 27.0-31.0 pg OINC) Normal MCH 28.4 LAB 81367582(L 33.0-37.0 G/DL OINC) Normal MCHC 34.1 LAB 19386089(L 78.0-100.0 fL OINC) Normal MCV 83.4 LAB 00016482(L 7.4-11.0 fL OINC) Normal MPV 9.0 LAB 70302459(L 130-400 E3/mcL OINC) Normal Platelet 216 Performed By: #### [id number] #### ROGELIO [facility] [address] [id number] MORPH Collected: 07/29/2017 Status: F Source: [place] 1:47 [facility] REPOSITORY Order Comment: Order Added by Discern Expert. TYPE CODE TESTS RESULT OUT OF RANGE REFERENCE UNITS LAB 67439851(LO INC) Normal RBC Morph NORMAL Performed By: #### [id number] #### [facility] [address] [place] [address] ZZPLT MORPH Collected: 07/29/2017 Status: F Source: [place] 1:47 [facility] REPOSITORY TYPE CODE TESTS RESULT OUT OF RANGE REFERENCE UNITS LAB 17697622(L OINC) Normal Platelet NORMAL Estimate LAB 70527469(L OINC) Normal Platelet Morph NORMAL Performed By: #### [id number] #### [facility] [address] [place] [address] AUTO DIFF Collected: 07/29/2017 Status: F Source: [place] 1:47 [facility] REPOSITORY Order Comment: Order Added by Discern Expert. TYPE CODE TESTS RESULT OUT OF RANGE REFERENCE UNITS LAB 95675460(L 37.0-75.0 % OINC) Normal Neutro Auto 66.9 LAB 20488554(L 20.0-55.0 % OINC) Normal Lymph Auto 26.3 LAB 99490754(L 0.0-10.0 % OINC) Normal Loíza Auto 4.9 LAB 26421749(L 0.0-11.0 % OINC) Normal Eos Auto 1.5 LAB 40379026(L 0.0-2.0 % OINC) Normal Basophil Auto 0.4 LAB 79109053(L 1.4-6.5 E3/mcL OINC) Normal Neutro 5.6 Absolute LAB 81334929(L 1.2-3.4 E3/mcL OINC) Normal Lymph Absolute 2.2 LAB 14863925(L 0.0-0.7 E3/mcL OINC) Normal Loíza Absolute 0.4 LAB 50096587(L 0.0-0.7 E3/mcL OINC) Normal Eos Absolute 0.1 LAB 32113366(L 0.0-0.2 E3/mcL OINC) Normal Basophil 0.0 Absolute Performed By: #### [id number] #### ROG[facility]IO [facility] [address] [place] [address] ALLERGIES ALLERGIES DATE TYPE / NAME / CODE REACTION SEVERITY SOURCE CODE 07/07/2018 Drug Penicillins/[id number] Swelling Unknown [facility] Allergy/41 6(RXNORM) Community 0808717([facility]) Repository 07/07/2018 Drug Sulfa (Sulfonamide Unknown Unknown [facility] Allergy/41 Antibiotics)/[id number] Community 6332089([facility](RXNORM) [facility]) Repository 07/07/2018 Drug amoxicillin/[id number] Swelling Unknown [facility] Allergy/41 5(RXNORM) Community 5225622([facility]) Repository 07/07/2018 Drug metoclopramide/M44628 Other Unknown [place] Allergy/41 4778(RXNORM) Community 5314583([facility]) Repository 07/07/2018 Drug diphenhydramine/F0060 Other Unknown [place] Allergy/41 21322(RXNORM) Community 8185534([facility]) Repository 12/28/2017 DRUG DIPHENHYDRAMINE OTHER: SEE C [facility]/[address] 0459319( Repository OMED CT) 05/02/2017 [facility]UG [facility] 5378349( Repository OMED CT) 06/22/2015 Drug PENICILLINS UNKNOWN [facility] Class/[address] [address]([facility] Repository ED CT) 06/22/2015 Drug SULFA (SULFONAMIDE UNKNOWN [facility] Class/4195 ANTIBIOTICS) [address] [place] [address]([facility] Repository ED CT) Drug/39064 penicillin 762992 Severe [place] 1003([facility]) System Repository Drug/18826 Benadryl sob Severe [place] 1003([facility]) System Repository Drug/95550 amoxicillin Unknown [place] 1003([facility]) System Repository Drug/41945 Reglan UNK [place] 1003([facility]) System Repository Drug/40846 Benadryl sob [place] 1003([facility]) System Repository Drug/83855 penicillin 557624 [place] 1003([facility]) System Repository Drug/72016 sulfa drugs [place] 1003([facility]) System Repository ENCOUNTERS ENCOUNTERS ADMIT/DISCHARGE ACCOUNT NUMBER ADMITTING ENCOUNTER LOCATION SOURCE CLASS 07/13/2018/07/13/19 [id number] Emergency [facility] ding:ED Repository 07/07/2018/07/07/19 [id number] Emergency [facility] ding:ED Repository 06/30/2018/06/30/20 [id number] Emergency [address] ding:ED Repository 06/22/2018/06/23/20 [id number] Ambulatory [address] Repository 06/15/2018/06/15/20 [id number] Emergency [facility] ding:ED Repository 05/25/2018/05/25/20 [id number] Emergency [address] ding:ED Repository 05/03/2018/05/03/20 [id number] Emergency [address] ding:ED Repository 03/22/2018/03/22/20 [id number] Emergency [facility] ding:ED Repository 03/17/2018/03/18/20 [id number] Ambulatory [address] Repository 03/15/2018/03/15/20 [id number] Khanh Guerra Emergency [place] 18 [facility] ding:[facility] EDRoom: WR Repository 03/15/2018 [id number] Ambulatory [address] [place] [address] Repository 03/10/2018/03/10/20 [id number] Tel[place] Emergency [place] 18 [facility] ding:[facility] EDRoom: WR Repository 03/10/2018 [id number] Ambulatory [address] [facility] Repository 03/07/2018/03/07/20 [id number] Emergency [facility] ding:ED Repository 02/03/2018 [id number] Ambulatory [address] [place] [address] Repository 02/03/2018/02/04/20 [id number] [place] Emergency [address] ding:[facility] EDRoom: WR Repository 01/25/2018/01/27/20 [id number] Emergency [facility] ding:ED Repository 12/28/2017/12/30/19 [id number] Emergency [facility] ding:ED Repository 12/14/2017/12/15/[id number] Jimy Ambulatory [place] [address] Jeff Armendariz lding:[address] CareRoom: [address] Repository 3045Bed: [facility] [id number] 12/13/2017/12/15/19 [id number] [place], Emergency [address] ding:[facility] EDRoom: WR Repository 12/13/2017 [id number] Ambulatory [address] [place] [address] Repository 12/12/2017/12/14/19 [id number] [place], Emergency [address] ding:[facility] EDRoom: WR Repository 12/12/2017 [id number] Ambulatory [address] [place] [address] Repository 12/09/2017/12/10/19 [id number] Emergency BBuilding:REJI Estrada [address] [place] [address] Repository 12/02/2017/12/04/19 [id number] Ambulatory [address] Repository 11/18/2017/11/19/19 [id number] Emergency [facility] ding:ED Repository 11/13/2017/11/14/19 [id number] Emergency [facility] ding:ED Repository 11/11/2017/11/13/19 [id number] Ambulatory [address] Repository 11/09/2017/11/10/19 [id number] Ambulatory BMSBuilding: [facility] 18 BMS.NOW [facility] Repository 09/17/2017/09/18/19 [id number] Emergency [facility] 18 [facility] ding:ED Repository 09/06/2017 [id number] Ambulatory [facility] Repository 09/04/2017 [id number] Ambulatory Building:[facility] Repository 09/03/2017/09/05/19 [id number] Ambulatory [address] [place] Repository 09/02/2017/09/04/19 [id number] Ambulatory [address] Repository 08/09/2017/08/09/19 [id number] Ambulatory BMSBuilding: [facility] 18 BMS.[facility] Repository 07/29/2017/07/29/19 [id number] [place], Emergency [address] ding:[facility] EDRoom: WR Repository PAYERS PAYERS ENCOUNTER GUARANTOR PAYER SUBSCRIBER SOURCE 07/13/2018 ABHI TOURE Primary ABHI [place] [id number] [place] Insurance:CARESOURCEP EDGELLDOB: [facility] Number: [id number] Hospital [address]Afk: 330 [id number] Repository [phone] () Date:2018-07-13 [address]ATTN: [place] [address]DE: 07/13/2018 Secondary NOT GIVENUNK Nate Insurance:SELF PAY [facility] Number: Effective Repository Date:2018-07-13 07/07/2018 ABHI TOURE Primary ABHI [place] [id number] [place] Insurance:CARESOURCEP EDGEDOB: [facility] Number: [id number] Hospital [address]Kjs: 330 [id number] Repository [phone] () Date:2018-07-07 [address]ATTN: [place] [address]TL: 07/07/2018 Secondary NOT GIVENUNK [facility] Insurance:SELF PAY [facility] Number: Effective Repository Date:2018-07-07 06/30/2018 ABHI TOURE Primary ABHI [place] [id number] [place] Insurance:CARESOURCEP EDGELLDOB: [facility] [place] Number: [id number] [facility] 13358Zcd: [phone]) [id number] Repository [phone] () Date:2018-06-30[address]ATTN[place] [address]PP: 06/30/2018 Secondary NOT GIVENUNK [place] Insurance:SELF PAY [facility] Number: Effective Repository Date:2018-06-30 06/15/2018 ABHI TOURE Primary ABHI Sullivan [id number] [place] Insurance:CARESOURCEP EDGELLDOB: [facility] [place] Number: [id number] Hospital 927[address]Xet: [phone]) [id number] Repository [phone] () Date:2018-06-15[address]ATTN: [place] [address]RE: 06/15/2018 Secondary NOT GIVENUNK [place] Insurance:SELF PAY [facility] Number: Effective Repository Date:2018-06-15 05/25/2018 ABHI J Primary ABHI Clark Nate [id number] [place] Insurance:CARESOURCEP EDGELLDOB: [facility] [place] Number: [id number] Hospital 12900Zzm: [phone]) [id number] Repository [phone] () Date:2018-05-25[address]ATTN: [place] [address]AX: 05/25/2018 Secondary NOT GIVENUNK [place] Insurance:SELF PAY [facility] Number: Effective Repository Date:2018-05-25 05/03/2018 ABHI J Primary ABHI Clark Nate [id number] [place] Insurance:CARESOURCEP EDGELLDOB: [facility] [place] Number: [id number] Hospital [address]Gnd: [phone]) [id number] Repository [phone] () Date:2018-05-03[address]ATTN: [place] [address]VY: 05/03/2018 Secondary NOT GIVENUNK [place] Insurance:SELF PAY [facility] Number: Effective Repository Date:2018-05-03 03/22/2018 ABHI J Primary ABHI Clark [facility]851 [place] [facility] Number: [id number] Hospital [address]43Lkj: [phone]) [id number] Repository [phone] () Date:2018-03-22[address]ATTN: [place] [address]KH: 03/22/2018 Secondary NOT GIVENUNK Nate Insurance:SELF PAY [facility] Number: Effective Repository Date:2018-03-22 03/15/2018 ABHI J Primary ABHI Clark [facility]: Insurance:[facility]: [facility] CENTERIDPolicy Number: [id number] System [facility] KAREN, Effective [facility], [place]ository [place] Date:2018-03-15 [place] [address]Ruz: [id number] [address]Gzu: Name:CD:[id number] () [address] [place] [address] ()Tel: [phone]: (wp) [phone] 03/15/2018 ABHI MINERB: Primary ABHI MINER: [place] Insurance:[facility] [id number] [facility] catracho REED Number: [place] KAREN, Repository [place] [id number]: [id number] [place] [id number]: Date:Plan () Name:HealthP O Box () [address] [place] [address] [phone]: 03/10/2018 ABHI J Primary ABHIXIOMARA MINERB: Insurance:[facility] HOSPITALB: [facility] MCAIDPolicy Number: [id number] System [place] [address], [place], [place]ository [place] Date:2018-03-10 - [place] [address]Sfr: [id number] [address]Jzx: Name:CD:[id number] (HP) [address] [place] [address] ()Tel: [phone]) [phone]: () [phone] 03/10/2018 ABHI MINERB: Primary ABHI BOSTONB: [place] Insurance:CaresourceP [id number] [facility] Number: [address] Repository [address] [id number] [address] [facility], Date:Plan [place] [phone]: Name:HealthP O Box [place] [id number]: [address] [place] [address] () [id number]: [phone] (HP) [phone] 03/07/2018 ABHI J Primary ABHI Sullivan [id number] [place] Insurance:CARESOURCEP EDGEDOB: [facility] Number: [id number] Hospital [address]Cjh: (508) [id number] Repository [phone] () Date:2018-03-07 [address]ATTN: [place] [address]HS: 03/07/2018 Secondary NOT GIVENUNK [place] Insurance:SELF PAY [facility] Number: Effective Repository Date:2018-03-07 02/03/2018 ABHI MINERB: Primary ABHI MINERB: [place] Insurance:CaresourceP [id number] [place] [address] olicy Number: [address] Repository [address] [id number] [address] [facility], Date:Plan [place] [phone]: Name:Health [address] [place] [id number]: [address], [place] (HP) [phone]: [phone] (HP) [phone] 02/03/2018 ABHI Clark Primary ABHI MINERB: Insurance:CARESOURCE EDGEDOB: [facility] MCAIDPolunitypoint [facility] Number: [id number] System [facility] Effective [facility] [address] [address] Repository [address] UN[address] Date:2018-02-031399 UNIT [facility] 9464-74-10[place], [place] Name::[id number] [place] [address]Kav: [address] [address]Pja: [phone]: [phone]) (HP) [phone] (HP) () 01/25/2018 ABHI Clark Primary ABHI Sullivan [id number] [place] Insurance:CARESOURCEP EDGELLDOB: [facility] Number: [id number] Hospital 65[address]Rya: (221) [id number] Repository [phone] (HP) Date:2018-01-25[address]ATTN: [place] [address]YE: 01/25/2018 Secondary NOT GIVENUNK [place] Insurance:SELF PAY [facility] Number: Effective Repository Date:2018-01-25 12/28/2017 ABHI Clark Primary ABHI [id number] [place] Insurance:CARESOURCEP EDGELLDOB: [place] Number: [id number] Hospital [address]Rxp: [phone]) [id number] Repository [phone] (HP) Date:2017-12-28[address]ATTN: [place] [address]ZJ: 12/28/2017 Secondary NOT GIVENUNK [place] Insurance:SELF PAY [facility] Number: Effective Repository Date:2017-12-28 12/14/2017 Primary ABHI EDGELLDOB: [facility] Insurance:CareSourceP [id number] [facility] Number: [facility] [id number] 1400APT Repository Date:[facility], Name:Health Box [place] [id number]: [address] [place] [address]KD: [phone] () [phone] 12/13/2017 ABHI Clark Primary ABHI Clark Rastafaricarlos BOSTONDOB: Insurance:CARESOURCE EDGEDOB: [facility] MCAIDPolicy Number: [id number] Effective [facility] [address] Repository [address] UN[address] Date:2017-12-131399 UNIT [facility] 8439-05-98Urad [place], [place] Name:CD:[id number] [place] [address]Svz: [address] [address]Cxx: [phone]: [phone] (HP) [phone] () () 12/13/2017 ABHI J Primary ABHI Clark [place] EDGELLDOB: Insurance:CaresourceP EDGELLDOB: [facility] olicy Number: [id number] [address]ository [address] [id number] [address] Date:Plan [address] [facility], Name:Health O Box [place] [id number]: 8730[facility] [phone]: [phone]: [phone]) (HP) [phone] (HP) 12/12/2017 ABHI J Primary ABHI Clark [facility]: Insurance:CARESOURCE EDGEDOB: [facility] MCAIDPolicy Number: [id number] [address] Effective [address] Repository [address] Date:2017-12-12 [address] [facility], 9680-37-61Fehw [place], [place] Name:CD:[id number] [place] [address]Qny: [address], [place] [address]Jdr: [phone]: [phone] (HP) [phone] (HP) (WP) 12/12/2017 ABHI Clark Primary ABHI [facility]: Insurance:[facility]ourcAnMed Health Medical CenterB: [facility] o[place]y Number: [id number] [address]ository [address] [id number] [address] Date:Plan [address] [facility], Name:HealthP O Box [place] [phone]: 8730[facility] [phone]: [phone]: [phone] (HP) [phone] (HP) 12/09/2017 ABHI Clark Primary AHBI Clark [facility]: Insurance:CARESOURCE [facility]GEWAL[facility]CHIAT[facility]IC HOSPITALB: [facility] [id number] MEDICAIDPolicy [id number] Repository [place] LEIVADAYNEREJI, Number: [place] [address]Lae: [id number] [place] [address]Kbo: Date:2017-12-09 - (HP) [id number] (HP)Tel: [phone]) Name:[phone] (WP) 87[address], [place] [address]EV: 11/18/2017 ABHI Eduardo Primary AHBI Sullivan [id number] [place] Insurance:[facility] EDGELLDOB: [facility] [id number] Hospital [address]Tth: ([phone]) Number: Repository [phone] () [id number] Date: [address] [address]AG: 11/18/2017 Secondary NOT GIVENUNK [place] Insurance:SELF PAY [facility] Number: Effective Repository Date:2017-11-18 11/13/2017 Abhi J Primary Abhi Sullivan [id number] [place] Insurance:CARESOURC EdgellDOB: [facility] Number: [id number] Hospital [address]Yth: (063) [id number] Repository [phone] () Date:2017-11-13 [address]ATTN: [place] [address]PP: 11/13/2017 Secondary NOT GIVENUNK [place] Insurance:SELF PAY [facility] Number: Effective Repository Date:2017-11-13 11/09/2017 Abhi Eduardo Primary Abhi Sullivan [id number] [place] Insurance:CARESOURCEP EdgellDOB: [facility] Number: [id number] Hospital [address]Ghn: (343) [id number] Repository [phone] () Date:2017-11-09 [address]ATTN: [place] [address]PU: 11/09/2017 Secondary NOT GIVENUNK [place] Insurance:SELF PAY [facility] Number: Effective Repository Date:2017-11-09 09/17/2017 Abhi J Primary Abhi Clark [place] [id number] [place] Insurance:CARESOURCEP EdgellDOB: [facility] Number: [id number] Hospital [address]Fsp: (163) [id number] Repository [phone] (HP) Date:2017-09-17P [address]ATTN: [place] [address]LO: 09/17/2017 Secondary NOT GIVENUNK [place] Insurance:SELF PAY [facility] Number: Effective Repository Date:2017-09-17 09/06/2017 Abhi EdgellDOB: Primary Abhi EdgellDOB: [facility] Insurance:CareSourceP [id number] System [facility] Miguel AngelXiaodaynerejidavid Number: [place]ository [place] [address]Ntw: Effective Date: () 09/04/2017 ABHI JOSE MIGUELDOB: Primary ABHI EDGEMARCIALDOB: [facility] Insurance:CARESOURCE [id number] [address] MEDICAIDPolicy [place] , [place] [address]Xre: Number: , [place] [address]Efg: [id number] () Date:1948-30-50[address] () [address], [place] [address]ON: 08/09/2017 Abhi J Primary Abhi J [place] [id number] [facility] Insurance:CARESOURCEP EdsonDOB: [facility] Number: [id number] Hospital [address]Njr: 330 [id number] Repository [phone] () Date:2017-08-09P [address]ATTN: [place] [address]MZ: 08/09/2017 Secondary NOT GIVENUNK [place] Insurance:SELF PAY [facility] Number: Effective Repository Date:2017-08-09 07/29/2017 ABHI J Primary ABHI J Greg MINERB: Insurance:CARESOURCE EDGELLDOB: [facility] MCAIDPolicy Number: [id number] [address] Effective [address] Repository [address]:2017-07-[address] [place], [place] [id number] [address] [place] [address]Crp: Name:CD:[id number] [place] [id number]: [address] [place] [address] () [phone]: [phone] () [phone] (WP)
== END 2018-06-15 16:46 | disposition home or self-care (01) ==
LOC: ED 16:26
PROVIDERS: Emergency Provider Emergency Medicine
DX: M54.5 Low back pain (principal); Z72.0 Tobacco use
CPT/HCPCS: 99285

== ENCOUNTER 2018-06-30 15:17 | Emergency (ER) | payer MEDICAID, SELFPAY ==
[2018-06-30] VITALS (11 sets, daily range): BP systolic 162–220; BP diastolic 102–130; PULSE 63–89; RESP 14–18; TEMP 36.9; O2SAT 94–100; BMI 48.8
--- NOTE | 2018-06-30 15:39 | EKG12_ITS ---
Test Reason : CP Blood Pressure : / mmHG Vent. Rate : 093 BPM Atrial Rate : 093 BPM P-R Int : 156 ms QRS Dur : 084 ms QT Int : 392 ms P-R-T Axes : 048 063 187 degrees QTc Int : 487 ms Normal sinus rhythm Right atrial enlargement Poor R wave progression ST & T wave abnormality, consider inferolateral ischemia Abnormal ECG Confirmed by KECIA ARCHULETA, CORDELIA ([id number]), map editor NICK CALERO ([id number]) on 07/05/2018 1:05:19 PM Referred By: GERRY Confirmed By:CORDELIA MCDONNELL MD
--- NOTE | 2018-06-30 15:42 | RAD_ITS ---
STUDY: X-RAY CHEST REASON FOR EXAM: Male, 27 years old. TECHNIQUE: 2 Views COMPARISON: September 17, 2017 FINDINGS: The lungs are clear and expanded. There is no demonstrated pleural abnormality. Normal size heart. Normal mediastinum and deny. Normal visualized pulmonary arteries. Normal visualized aortic arch and descending thoracic aorta. Normal visualized thoracic spine. Normal visualized ribs, clavicles, and shoulders. There is no demonstrated abnormality of the visualized soft tissue structures of the upper abdomen. RAD/Chest 1 View (Portable) IMPRESSION: Normal x-ray examination of the chest unchanged since September 17, 2017. Electronically Signed: Kari Canales, at 16:08 EST Tel , Service support ,
[2018-06-30] MEDS: Acetaminophen 500 MG Tablet 1000 MG PO (15:56)
[2018-06-30 16:02] LABS: Absolute Lymphocyte Count 1.53 X10^3/ul (0.83-4.51); Absolute Neutrophil Count 5.8 X10^3/uL (2.0-7.7); Basophil# 0.01 X10^3/uL; Basophil% 0.1 % (0-1); Eosinophil# 0.08 X10^3/uL; Hemoglobin 16.6 g/dl (13.0-16.5); Lymphocyte # 1.53 X10^3/ul (4.0); Lymphocyte % 19.7 % (19-41); Mean Corp Hgb Conc 33.9 g/gl (32-36); Mean Corpuscular Hgb 28.3 pg (27.0-32.0); Mean Corpuscular Volume 83.6 fL (80-94); Mean Platelet Vol. 10.5 fl (6.2-12.0); Monocyte# 0.33 X10^3/uL; Monocyte% 4.3 % (0-10); Neutrophil # 5.79 X10^3/uL (2.7-7.7); Neutrophil % 74.8 % (47-70); Platelet Count 225 K/mm3 (150-450); RBC Distribution Width SD 38.6 fl (35.1-43.9); Red Blood Count 5.86 M/mm3 (4.6-6.2); White Blood Count 7.8 K/mm3 (4.4-11.0)
[2018-06-30 16:10] LABS: AST(SGOT) 20 U/L (15-37); Alanine Aminotransfer ALT/SGPT 36 U/L (16-61); Albumin, Serum 3.6 g/dL (3.2-5.0); Alkaline Phosphatase 43 U/L (45-117); Bilirubin, Direct 0.13 mg/dL (0.00-0.30); Globulin 3.9 g/dL (2.2-4.2); POSITIVE COUNT NO; POSITIVE DIFFERENTIAL NO; POSITIVE MORPHOLOGY NO; Protein, Total 7.5 g/dL (6.4-8.2)
[2018-06-30 16:16] LABS: Anion Gap 7 (5-15); BUN 7 mg/dL (7-18); BUN/Creat Ratio 8.5 RATIO (10-20); Calcium,Total 8.7 mg/dL (8.5-10.1); Chloride 106 mmol/L (98-107); Creatinine, Serum 0.82 mg/dL (0.70-1.30); EST Glomerular Filtration Rate 118 mL/min (>60); Est Glom Filt Rate - Afr Amer 143 mL/min (>60); Estimated Creatinine Clearance 148.52 ml/min; Glucose 115 mg/dL (74-106); Lipase 88 U/L (73-393); Potassium 3.4 mmol/L (3.5-5.1); Sodium Level 141 mmol/L (136-145)
[2018-06-30] MEDS: Morphine 4 MG/ML Syringe IV (18:46)
[2018-06-30] MEDS: Ondansetron 4 MG/2 ML Vial IV (18:46)
--- NOTE | 2018-06-30 20:25 | ED.VISSUMM ---
- ER Visit Summary Date of Service: 06/30/18 Chief Complaint: Chest pain History of Present Illness: The patient is a 27 M history of noncemented diabetes, hypertension and depression. Patient reportedly had a negative nuclear stress test done here at [facility] 2 years ago and a negative cardiac cath done at [facility] in 2016. Patient states that yesterday around 930 morning he started having lower sternal epigastric chest pain. Mild shortness of breath and lightheadedness. Also has a headache. Had nausea and vomiting yesterday x2 that has since resolved. No hematemesis. No melena. No fever. Currently is abdomen he denies having any pain. He is never had a DVT or PE. No recent travel, surgery or recent immobilization. No hemoptysis. No calf pain. No calf swelling. Physical Examination: Vital signs initial blood pressure 08/26/1929. Pulse exam percent room air no signs of hypoxia. HEENT exam unremarkable. Neck nontender no JVD no lymphadenopathy. Lungs clear to auscultation bilaterally. Heart regular rate and rhythm no murmur rate about 8 abdomen soft. Nondistended normal bowel sounds no peritoneal signs. He is obese. Extremities moves all 4. Calves nontender without edema or cords. Neurologically is awake alert with no focal motor deficits. Test Results: CBC normal. White count 7. Hemoglobin 16. Electrolytes unremarkable normal creatinine and gap. Liver enzymes normal. Lipase normal. Troponin normal. Chest x-ray normal cardiac silhouette mediastinum 1 view portable read by myself and the radiologist. EKG sinus rhythm rate of 93 he does have inverted T waves in V5 and V6 this is similar to her prior EKG from September of this year. Emergency Department Course and Treatment: Repeat exam patient is doing well at 2023. He is feeling better. He was given Tylenol for his headache. I will be given 1 [place] for his pain. Treatment Plan: Discharge home follow-up with his primary care physician. Continue his current medications. They will recheck his blood pressure prior to discharge. Disposition: Discharge Impression: Acute chest pain uncertain etiology Acute on chronic hypertension History of diabetes. This note was generated with [email or web address] dictation software. It may contain incorrect words, spelling, and punctuation that were not noted in review of the chart prior to signing ED Disposition - Plan for ED Patient: Chief Complaint: Chest Pain Referrals: Care Physician,No Primary [Primary Care Provider] -
--- NOTE | 2018-06-30 20:28 | ED.DCSUM_ITS ---
- ER Visit Summary Date of Service: 06/30/18 Chief Complaint: Chest pain History of Present Illness: The patient is a 27 M history of noncemented diabetes, hypertension and depression. Patient reportedly had a negative nuclear stress test done here at [facility] 2 years ago and a negative cardiac cath done at [facility] in 2016. Patient states that yesterday around 930 morning he started having lower sternal epigastric chest pain. Mild shortness of breath and lightheadedness. Also has a headache. Had nausea and vomiting yesterday x2 that has since resolved. No hematemesis. No melena. No fever. Currently is abdomen he denies having any pain. He is never had a DVT or PE. No recent travel, surgery or recent immobilization. No hemoptysis. No calf pain. No calf swelling. Physical Examination: Vital signs initial blood pressure 08/26/1929. Pulse exam percent room air no signs of hypoxia. HEENT exam unremarkable. Neck nontender no JVD no lymphadenopathy. Lungs clear to auscultation bilaterally. Heart regular rate and rhythm no murmur rate about 8 abdomen soft. Nondistended normal bowel sounds no peritoneal signs. He is obese. Extremities moves all 4. Calves nontender without edema or cords. Neurologically is awake alert with no focal motor deficits. Test Results: CBC normal. White count 7. Hemoglobin 16. Electrolytes unremarkable normal creatinine and gap. Liver enzymes normal. Lipase normal. Troponin normal. Chest x-ray normal cardiac silhouette mediastinum 1 view portable read by myself and the radiologist. EKG sinus rhythm rate of 93 he does have inverted T waves in V5 and V6 this is similar to her prior EKG from September of this year. Emergency Department Course and Treatment: Repeat exam patient is doing well at 2023. He is feeling better. He was given Tylenol for his headache. I will be given 1 [place] for his pain. Treatment Plan: Discharge home follow-up with his primary care physician. Continue his current medications. They will recheck his blood pressure prior to discharge. Disposition: Discharge Impression: Acute chest pain uncertain etiology Acute on chronic hypertension History of diabetes. This note was generated with [employer] dictation software. It may contain incorrect words, spelling, and punctuation that were not noted in review of the chart prior to signing ED Disposition - Plan for ED Patient: Chief Complaint: Chest Pain Referrals: Care Physician,No Primary [Primary Care Provider] -
--- NOTE | 2018-06-30 20:28 | ED.DEP ---
ED Disposition - Plan for ED Patient: Disposition: Home or Assisted Living Chief Complaint: Chest Pain Instructions: ED Chest Pain Atypical Unkn Cause Referrals: Care Physician,No Primary [Primary Care Provider] - 3-5 Days if not improving Additional Instructions: Follow-up with your primary care doctor. Continue your blood pressure medications. Off work today.
[2018-06-30] MEDS: Metoprolol Tartrate 5 MG/5 ML Vial IV (20:45)
[2018-06-30] MEDS: HYDROcodone Bitartrate/Apap 5/325 Tablet PO (20:46)
--- NOTE | 2018-06-30 21:20 | ED.RN ---
PT GIVEN WRITTEN AND VERBAL DISCHARGE INSTRUCTIONS. PT EDUCATED NOT TO DRIVE FOR AT LEAST SIX HOURS AFTER HAVING NORCO AND MORPHINE. PT EDUCATED NOT TO SKIP HIS HOME BP MEDICATION BUT TO TAKE IT PRESCRIBED BY HIS DR. PT VERBALIZES UNDERSTANDING, REPORTS THAT HIS IS COMING TO GET HIM AND SHE IS IN THE PARKING LOT TO PICK HIM UP. IV D/C WITH ANGIO INTACT AND SITE COVERED WITH 2X2 GAUZE AND PAPER TAPE. PT DRESSES SELF AND AMBULATES OUT OF DEPT BY SELF.
== END 2018-06-30 21:23 | disposition home or self-care (01) ==
PROVIDERS: Emergency Provider Emergency Medicine
DX: R07.9 Chest pain, unspecified (principal); I10 Essential (primary) hypertension; E11.9 Type 2 diabetes mellitus without complications; E66.9 Obesity, unspecified; F32.9 Major depressive disorder, single episode, unspecified; Z72.0 Tobacco use; Z79.899 Other long term (current) drug therapy
CPT/HCPCS: 71045; 80048; 80076; 83690; 84484; 85025; 93005; 96374; 96375; 99285; A4216; J2405

== ENCOUNTER 2018-07-07 16:58 | Emergency (ER) | payer MEDICAID, SELFPAY ==
[2018-06-30 15:18] VITALS: BMI 48.8
[2018-07-07 16:59] VITALS: BP 200/118; PULSE 81; RESP 16; TEMP 36.6; O2SAT 100; BMI 50.8
--- NOTE | 2018-07-07 17:03 | EKG12_ITS ---
Test Reason : CP Blood Pressure : / mmHG Vent. Rate : 071 BPM Atrial Rate : 071 BPM P-R Int : 198 ms QRS Dur : 096 ms QT Int : 426 ms P-R-T Axes : 059 074 252 degrees QTc Int : 462 ms Normal sinus rhythm ST & T wave abnormality, consider inferolateral ischemia Prolonged QT Abnormal ECG Confirmed by KECIA ARCHULETA, CORDELIA ([id number]), index editor NICK CALERO ([id number]) on 07/09/2018 2:28:08 PM Referred By: JANESSA Confirmed By:CORDELIA MCDONNELL MD
--- NOTE | 2018-07-07 17:05 | RAD_ITS ---
STUDY: X-RAY CHEST REASON FOR EXAM: Male, 28 years old. Chest pain TECHNIQUE: Single AP portable view of the chest. COMPARISON: 06/30/2018 FINDINGS: The lungs are clear and expanded. There is no demonstrated pleural abnormality. Normal size heart. Normal mediastinum and deny. Normal visualized pulmonary arteries. Normal visualized aortic arch and descending thoracic aorta. Normal visualized thoracic spine. Normal visualized ribs, clavicles, and shoulders. There is no demonstrated abnormality of the visualized soft tissue structures of the upper abdomen. RAD/Chest 1 View (Portable) IMPRESSION: Normal x-ray examination of the chest. Electronically Signed: Chino Goodson MD at 17:44 EST , Service support ,
[2018-07-07 18:09] LABS: Anion Gap 5 (5-15); BUN 7 mg/dL (7-18); BUN/Creat Ratio 6.8 RATIO (10-20); Chloride 103 mmol/L (98-107); Creatinine, Serum 1.03 mg/dL (0.70-1.30); EST Glomerular Filtration Rate 91 mL/min (>60); Est Glom Filt Rate - Afr Amer 111 mL/min (>60); Glucose 140 mg/dL (74-106); Potassium 3.3 mmol/L (3.5-5.1); Sodium Level 141 mmol/L (136-145)
[2018-07-07 18:59] LABS: Hematocrit 46.9 % (40-54); Hemoglobin 15.9 g/dl (13.0-16.5); Mean Corpuscular Volume 84.8 fL (80-94); Red Blood Count 5.53 M/mm3 (4.6-6.2); White Blood Count 7.5 K/mm3 (4.4-11.0)
[2018-07-07 19:00] LABS: Absolute Lymphocyte Count 1.48 X10^3/ul (0.83-4.51); Absolute Neutrophil Count 5.6 X10^3/uL (2.0-7.7); Basophil# 0.02 X10^3/uL; Basophil% 0.3 % (0-1); Eosinophil# 0.06 X10^3/uL; Eosinophils% 0.8 % (0-5); Lymphocyte # 1.48 X10^3/ul (4.0); Lymphocyte % 19.7 % (19-41); Mean Corp Hgb Conc 33.9 g/gl (32-36); Mean Corpuscular Hgb 28.8 pg (27.0-32.0); Mean Platelet Vol. 10.7 fl (6.2-12.0); Monocyte# 0.39 X10^3/uL; Monocyte% 5.2 % (0-10); Neutrophil # 5.55 X10^3/uL (2.7-7.7); Neutrophil % 73.9 % (47-70); POSITIVE COUNT NO; POSITIVE DIFFERENTIAL NO; POSITIVE MORPHOLOGY NO; Platelet Count 232 K/mm3 (150-450); RBC Distribution Width CV 13.1 % (11.6-14.6); RBC Distribution Width SD 40.3 fl (35.1-43.9)
--- NOTE | 2018-07-07 19:11 | ED.RN ---
Received report from Kevin.
[2018-07-07] MEDS: 0.9% Normal Saline 1,000 ML 15 ML IV (19:24)
[2018-07-07] MEDS: Morphine 4 MG/ML Syringe IV (19:24)
[2018-07-07] MEDS: Ondansetron 4 MG/2 ML Vial IV (19:24)
[2018-07-07 19:26] VITALS: BP 155/89; PULSE 74; RESP 12; O2SAT 96
--- NOTE | 2018-07-07 19:59 | CM.ED ---
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 SUPPORTS: PT STATES GOOD SUPPORT FROM FAMILY MENTAL HEALTH HX: PT ADMITS TO HX OF DEPRESSION AND IS PRESCRIBED PROZAC. PT STATES PROZAC WAS PRESCRIBED BY PREVIOUS PRIMARY CARE PHYSICIAN-DR. RICHEY. SUBSTANCE ABUSE HX: PT DENIES HX OF SUBSTANCE ABUSE. INTERVENTIONS: PT GIVEN INFORMATION ON PRIMARY CARE PHYSICIANS PT PROVIDED WITH INFORMATION ON COUNSELING AGENCIES IN THE AREA. ASSESSMENT: PT IS A 28 Y/O MALE WHO PRESENTS TO THE ED WITH CHEST PAIN. UPON ENTERING ROOM THIS WORKER EXPLAINED ROLE AND REASON FOR REFERRAL. 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 PT REPORTS LIVES HOME WITH AND 2 CHILDREN. PT ADMITS TO HX OF DEPRESSION AND STATES IS TREATED WITH MEDICATION (PROZAC) PRESCRIBED BY PREVIOUS PCP-DR. RICHEY. PT DENIES ANY HX OF SUBSTANCE ABUSE. PT REPORTS DOES NOT CURRENTLY HAVE A PRIMARY CARE DOCTOR. PT GIVEN INFORMATION ON PRIMARY CARE PHYSICIANS WITH CONTACT NUMBERS TO SCHEDULE NEW PT APPOINTMENT. PT OPEN TO INFORMATION ON COUNSELING SERVICES FOR STATED DEPRESSION, BUT DOES NOT WISH FOR THIS WORKER TO ASSIST WITH APPOINTMENT AT THIS TIME. EXPLAINED THIS WORKER WILL REMAIN AVAILABLE IF NEEDED. UPDATED NURSE AND PHYSICIAN ON THIS WORKER'S ASSESSMENT. PLAN: RETURN HOME WITH BEFORE.
[2018-07-07 20:20] LABS: AST(SGOT) 29 U/L (15-37); Alanine Aminotransfer ALT/SGPT 37 U/L (16-61); Albumin, Serum 3.5 g/dL (3.2-5.0); Alkaline Phosphatase 44 U/L (45-117); Bilirubin, Direct 0.14 mg/dL (0.00-0.30); Globulin 3.9 g/dL (2.2-4.2); Lipase 76 U/L (73-393); Protein, Total 7.4 g/dL (6.4-8.2)
[2018-07-07 20:38] VITALS: BP 156/85; PULSE 73; RESP 16; O2SAT 94
[2018-07-07 20:59] VITALS: BP 156/82; PULSE 72; RESP 12; O2SAT 92
--- NOTE | 2018-07-07 21:09 | ED.VISSUMM ---
- ER Visit Summary Date of Service: 07/07/18 Chief Complaint: Chest pain, dizzy, nausea History of Present Illness: The patient is a 28 M with chest pain, abdominal pain, nausea, vomiting, dizziness since 5 AM this morning. Patient has had recurrent similar episodes in the past with unremarkable workups. Patient's last heart cath was in 2015. Past history significant with diabetes, hypertension, colitis, ADHD, sleep apnea. Physical Examination: Vital signs on arrival include a blood pressure of 200/118. Other vitals are normal. Head neck examination is unremarkable. Heart is regular rate and rhythm. Lung sounds are clear. Abdomen is soft with tenderness in the epigastrium. No guarding or rebound. Active bowel sounds are noted. Test Results: EKG is sinus at 71 with lateral and inferior T inversions. This is unchanged when compared to prior EKG. Portable chest x-ray is unremarkable. CBC is normal. Chemistry studies significant for potassium 3.3 and a glucose of 140. LFTs and lipase are normal. Troponin is 0.021. Emergency Department Course and Treatment: Patient was given morphine and Zofran. Labetalol was ordered but held because his pressure had come down to 155/89. Upon completion of labs he was given potassium replacement orally. On repeat exam patient is sleeping comfortably. His oxygen saturations do drop when he is sleeping. He states that he does not currently have a CPAP machine. He will be referred to pulmonology for sleep study. Treatment Plan: [] Disposition: Discharge Impression: 1. Chronic chest pain 2. Hypertension 3. Hypokalemia 4. Obstructive sleep apnea This note was generated with [employer] dictation software. It may contain incorrect words, spelling, and punctuation that were not noted in review of the chart prior to signing ED Disposition - Plan for ED Patient: Disposition: Home or Assisted Living Chief Complaint: Chest Pain Instructions: ED Chest Pain Atypical Unkn Cause, ED Potassium Deficiency, ED Apnea Sleep Obstructive Prescriptions: Potassium Chloride [K-Dur] 20 meq PO BID #10 tablet Referrals: Mehdi Craig DO [STAFF PHYSICIAN] - As soon as possible Long Crawford DO [STAFF PHYSICIAN] - As soon as possible
--- NOTE | 2018-07-07 21:12 | DCINST.ED_ITS ---
ED Disposition - Plan for ED Patient: Disposition: Home or Assisted Living Chief Complaint: Chest Pain Instructions: ED Chest Pain Atypical Unkn Cause, ED Potassium Deficiency, ED Apnea Sleep Obstructive Prescriptions: Potassium Chloride [K-Dur] 20 meq PO BID #10 tablet Referrals: Long Crawford DO [STAFF PHYSICIAN] - As soon as possible Mehdi Craig DO [STAFF PHYSICIAN] - As soon as possible
[2018-07-07] MEDS: HYDROcodone Bitartrate/Apap 5/325 Tablet PO (21:26)
[2018-07-07 21:28] VITALS: BP 168/84; PULSE 78; RESP 16; O2SAT 98
== END 2018-07-07 21:38 | disposition home or self-care (01) ==
PROVIDERS: Emergency Provider Emergency Medicine
DX: R07.9 Chest pain, unspecified (principal); G89.29 Other chronic pain; I10 Essential (primary) hypertension; E87.6 Hypokalemia; G47.33 Obstructive sleep apnea (adult) (pediatric); E11.9 Type 2 diabetes mellitus without complications; F90.9 Attention-deficit hyperactivity disorder, unspecified type; Z72.0 Tobacco use; Z79.84 Long term (current) use of oral hypoglycemic drugs; Z79.899 Other long term (current) drug therapy
CPT/HCPCS: 71045; 80048; 80076; 83690; 84484; 85025; 93005; 96374; 96375; 99284; J7030; A4216; J2405

== ENCOUNTER 2018-07-13 13:04 | Emergency (ER) | payer MEDICAID, SELFPAY ==
[2018-07-13 13:05] VITALS: BP 244/106; PULSE 106; RESP 26; TEMP 36.8; O2SAT 98; BMI 50.1
--- NOTE | 2018-07-13 13:29 | CM.ED ---
Social Work Assessment Reason for Consult: Anxiety, frequent ED visits Informant: Self-Referral Information obtained from: Medical record and pt. Pt is alert and oriented x3 and accompanied by his . Introduced self and role at [facility]. Pt is lying in bed complaining of being cold, and tearful. [place] provided per request. Living Arrangements: Pt reports to live with his and two children (7 & 4). Education: Pt graduated high school. Denies difficulty with reading or writing. Transportation: Has access to transportation for work. Financial: Pt states that finances can be stressful and they do not feel like they are living comfortably. 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 State that they have Medicaid, but not additional services such as food stamps, evangelista assistance, etc. Provide with resources and encourage pt and to seek out additional services at [facility], [facility], and [facility]. Supports: Pt identifies his and children as his primary supports and protective factors. Social/Family Stressors: Pt reports that finances are a stress. Mental Health Hx: Pt reports anxiety and depression diagnoses. He is prescribed Prozac by a Dr. Mildred Ye, an design maker in [place]. He reports to go to counseling in [place] and last saw his counselor on Thursday. He sees her once per month and states that he does not feel that he needs to increase his appointments. Inquire if he would like to be established with someone that works locally and he reports yes. Provide with resources of local mental health agencies. Would like to review with his before determining which agency to seek assistance from. Pt denies SI or HI at this time. Made aware that this commercial lines underwriter is able to assist with establishing an initial intake appointment with a local agency if requested. Substance Use Hx: Pt declines. Assessment: Pt presents with labile affect as evidenced by quick transitions of emotions from crying to smiling to covering his face throughout duration of assessment. Pt identified finances as a stressor, and provided with local resources that may be of assistance with food, utilities, etc. Pt confirmed he has a PCP in [place] a Dr. Mildred Ye. Encourage the pt contact his physician or counselor before coming to the ED as he has had significant visits in 2018 and already 2 in the first two weeks of 2019. Pt is established with a counselor in [place] and expresses interest and linking himself with an agency locally. Provided with resources and offered to establish an initial intake appointment with the agency of his choosing. Pt declines at this time and states that he would like to review the services with his . Made aware that if they select an agency or two prior to discharge and want assistance establishing the initial appointment to notify staff and this commercial lines underwriter will assist in this process. Understanding expressed. Deny further needs at this time. Intervention(s) Will initiate an EDCP on pt due to high volumes of ED visits that this commercial lines underwriter speculates are related to anxiety. Community resources for low income provided to pt and . Community mental health resources provided as well as pt has expressed interest in linkage with a local counselor. PLAN: Home with support of spouse. Birdie Quintanilla, RECOVERER, ELVIE
--- NOTE | 2018-07-13 13:46 | ED.DCSUM_ITS ---
- ER Visit Summary Date of Service: 07/13/18 Chief Complaint: Anxiety History of Present Illness: The patient is a 28 M who presents with anxiety after taking a new medication 2 hours ago, Vivitrol. He felt like his nerves were shot. He is slowly improving. No chest pain or shortness of breath. He has no other systemic complaints. Physical Examination: Patient appears somewhat anxious, he is obese he has clear lungs and a regular rate and a normal exam otherwise. Emergency Department Course and Treatment: IM Ativan was given. Patient will be discharged in stable condition he will call his doctor for Suboxone Disposition: Discharge stable condition Impression: Panic attack Medication side effect This note was generated with [employer] dictation software. It may contain incorrect words, spelling, and punctuation that were not noted in review of the chart prior to signing ED Disposition - Plan for ED Patient: Disposition: Home or Assisted Living Chief Complaint: Anxiety Instructions: ED Panic Attack Referrals: Care Physician,No Primary [Primary Care Provider] - 3-5 Days
[2018-07-13] MEDS: LORazepam 2 MG/ML Syringe 1 MG IM (13:50)
[2018-07-13 14:04] VITALS: BP 108/77; PULSE 61; RESP 17; O2SAT 98
--- NOTE | 2018-07-22 11:50 | CM.ED ---
Social Work Note Placed call to pt to confirm that he was able to establish an appointment with a local primary care physician. States that he contacted Dr. Guzman/Dr. Craig's office ([facility]) and has an appointment on Thursday (07/23/18) morning to initiate care. Pt denies establishing care with a counselor at this time. States that right now he feels well, and if something changes he will seek this route. Encourage the pt to consider establishing care with a counselor and educate to mental health exacerbation and changes in symptoms. Understanding expressed, and pt acknowledges that this technical document writer is available if needs arise. Pt thanks this technical document writer for calling. EDCP developed and to be presented to physicians for recommendations and approval. Birdie Quintanilla, KIRA, ELVIE
== END 2018-07-13 14:06 | disposition home or self-care (01) ==
PROVIDERS: Emergency Provider Emergency Medicine
DX: F41.0 Panic disorder [episodic paroxysmal anxiety] (principal); F41.9 Anxiety disorder, unspecified; T50.995A Adverse effect of other drugs, medicaments and biological substances, initial encounter; E66.9 Obesity, unspecified
CPT/HCPCS: 96372; 99282

== ENCOUNTER 2018-10-05 13:09 | Emergency (ER) | payer MEDICAID, SELFPAY ==
[2018-09-28 17:44] VITALS: BMI 50.1
[2018-10-05 13:09] VITALS: BP 217/129; PULSE 86; RESP 20; TEMP 36.8; O2SAT 97; BMI 44.7
--- NOTE | 2018-10-05 13:34 | ED.VISSUMM ---
- ER Visit Summary Date of Service: 10/05/18 Chief Complaint: Left low back pain History of Present Illness: The patient is a 28 M who presents with pain in his left lower lumbar area that radiates to his left gluteal area. Patient states he was lifting a dresser yesterday and his pain became worse last night. Patient describes the pain as stabbing. Patient states the pain is worse with sitting and laying. Patient states nothing is helped the pain. Patient admits to some tingling in his left foot. Patient denies any weakness. Patient states he has a history of a pinched nerve in his back but has not had a problem with that for over a year. Patient denies any bowel or bladder changes. Patient denies any saddle anesthesia. Physical Examination: Vital signs are stable except for an elevated blood pressure of 217/129. Patient is afebrile. Patient is in no acute distress. Musculoskeletal exam reveals tenderness over the left lumbar paraspinal muscles. There is no midline tenderness. There is tenderness over the sciatic notch. This did reproduce the radiation of his pain to his left gluteal area. Strength is 5/5 bilaterally in the lower extremities. Patient ambulated without difficulty. There are no sensory deficits noted. Heart was regular rate and rhythm. Lungs are clear and equal bilaterally. Abdomen is soft and nontender. Emergency Department Course and Treatment: Patient was given an injection of Toradol here. Patient was given a dose of clonidine here. Patient felt better on reevaluation. Patient was instructed to continue his blood pressure medications as prescribed. Patient was given a prescription for Naprosyn. Patient was instructed to follow-up with his primary care physician in 5-7 days. Patient was instructed to use ice to the area. Patient understood and was agreeable with the plan. All questions were answered. Disposition: Discharge home Impression: 1. Sciatica 2. Lumbosacral strain 3. Hypertension This note was generated with [employer] dictation software. It may contain incorrect words, spelling, and punctuation that were not noted in review of the chart prior to signing ED Disposition - Plan for ED Patient: Disposition: Home or Assisted Living Diagnosis: Sciatica of left side, Lumbosacral strain, Hypertension Instructions: ED Sciatica Prescriptions: Naproxen [Naprosyn] 500 mg PO BID PRN #20 tab Referrals: Care Physician,No Primary [Primary Care Provider] - Additional Instructions: Continue your normal blood pressure medication tonight. Use ice to your low back. Follow-up with your doctor in 5-7 days.
--- NOTE | 2018-10-05 13:37 | ED.DCSUM_ITS ---
- ER Visit Summary Date of Service: 10/05/18 Chief Complaint: Left low back pain History of Present Illness: The patient is a 28 M who presents with pain in his left lower lumbar area that radiates to his left gluteal area. Patient states he was lifting a dresser yesterday and his pain became worse last night. Patient describes the pain as stabbing. Patient states the pain is worse with sitting and laying. Patient states nothing is helped the pain. Patient admits to some tingling in his left foot. Patient denies any weakness. Patient states he has a history of a pinched nerve in his back but has not had a problem with that for over a year. Patient denies any bowel or bladder changes. Patient denies any saddle anesthesia. Physical Examination: Vital signs are stable except for an elevated blood pressure of 217/129. Patient is afebrile. Patient is in no acute distress. Musculoskeletal exam reveals tenderness over the left lumbar paraspinal muscles. There is no midline tenderness. There is tenderness over the sciatic notch. This did reproduce the radiation of his pain to his left gluteal area. Strength is 5/5 bilaterally in the lower extremities. Patient ambulated without difficulty. There are no sensory deficits noted. Heart was regular rate and r hythm. Lungs are clear and equal bilaterally. Abdomen is soft and nontender. Emergency Department Course and Treatment: Patient was given an injection of T oradol here. Patient was given a dose of clonidine here. Patient felt better on reevaluation. Patient was instructed to continue his blood pressure medications as prescribed. Patient was given a prescription for Naprosyn. Patient was instructed to follow-up with his primary care physician in 5-7 days. Patient was instructed to use ice to the area. Patient understood and was agreeable with the plan. All questions were answered. Disposition: Discharge home Impression: 1. Sciatica 2. Lumbosacral strain 3. Hypertension This note was generated with [employer] dictation software. It may contain incorrect words, spelling, and punctuation that were not noted in review of the chart prior to signing ED Disposition - Plan for ED Patient: Disposition: Home or Assisted Living Diagnosis: Sciatica of left side, Lumbosacral strain, Hypertension Instructions: ED Sciatica Prescriptions: Naproxen [Naprosyn] 500 mg PO BID PRN #20 tab Referrals: Care Physician,No Primary [Primary Care Provider] - Additional Instructions: Continue your normal blood pressure medication tonight. Use ice to your low back. Follow-up with your doctor in 5-7 days.
--- NOTE | 2018-10-05 13:54 | ED.RN ---
PT REFUSES TORADOL INJECTION, STATES THE LAST TIME I GOT THAT, IT BURNED. WILL NOTIFY
[2018-10-05] MEDS: cloNIDine HCl 0.2 MG Tablet PO (13:56)
[2018-10-05] MEDS: Ibuprofen 600 MG Tablet PO (14:33)
[2018-10-05 14:35] VITALS: BP 158/98
[2018-10-05 15:18] VITALS: BP 152/87
== END 2018-10-05 15:18 | disposition home or self-care (01) ==
PROVIDERS: Emergency Provider Emergency Medicine
DX: M54.42 Lumbago with sciatica, left side (principal); S39.012A Strain of muscle, fascia and tendon of lower back, initial encounter; I10 Essential (primary) hypertension; E66.9 Obesity, unspecified; Z72.0 Tobacco use; Z79.899 Other long term (current) drug therapy; X50.9XXA Other and unspecified overexertion or strenuous movements or postures, initial encounter; Y93.89 Activity, other specified; Y92.89 Other specified places as the place of occurrence of the external cause; Y99.8 Other external cause status
CPT/HCPCS: 99283

== ENCOUNTER 2019-02-21 19:27 | Emergency (ER) | payer MEDICAID, SELFPAY ==
[2019-02-21 09:36] VITALS: BMI 44.7
[2019-02-21 19:29] VITALS: BP 203/123; PULSE 101; RESP 20; TEMP 36.4; O2SAT 98; BMI 43.6
--- NOTE | 2019-02-21 19:48 | ED.VIS.GEN ---
History of Present Illness Chief Complaint: Hypertension Informant: Patient Narrative: Patient has long-standing history of hypertension. He was most recently transferred to [facility] and was put on a new medication regimen. He has been out of his blood pressure medications for the last week. He follows with the internal medicine center there and when he called today was told his doctor had left and it would be a month or more until they could make another appointment for him. He is requesting a refill of his medications until he can see his doctor. Patient denies any symptoms. Past Medical History - Allergies and Home Meds Allergies/Adverse Reactions: Allergies amoxicillin [Amoxicillin] Allergy (Verified 02/21/19 19:28) Swelling Penicillins Allergy (Verified 02/21/19 19:28) Swelling Sulfa (Sulfonamide Antibiotics) Allergy (Verified 02/21/19 19:28) Unknown diphenhydramine [From Benadryl] Adverse Reaction (Verified 02/21/19 19:28) Other metoclopramide [From Reglan] Adverse Reaction (Verified 02/21/19 19:28) Other Doctors: [facility] internal medicine clinic Prior records reviewed: Yes Past Medical History: - - Reviewed Surgical History: appendectomy Lives: With Family Smoking Status: Current every day smoker - Family History Maternal Family History: Reports: Hypertension Paternal Family History: Reports: Hypertension Review of Systems General: Denies: Chills, Fever Eyes: Denies: Visual changes - bilaterally ENT: Denies: Bilateral ear pain Cardiovascular: Denies: Chest pain Respiratory: Denies: Dyspnea Gastrointestinal: Denies: Abdominal pain, Nausea, Vomiting Musculoskeletal: Denies: Extremity Pain Neurological: Denies: Headache Hematologic: Denies: Easy bruising Allergy: Denies: Uticaria Physical Exam Vital Signs/Narrative: Vital Signs Temp Pulse Resp BP Pulse Ox 02/21/19 19:29 97.6 F L 101 H 20 H 203/123 H 98 Inital Vital Signs reviewed: Yes General: Well nourished, Well developed ENT: Moist mucous membranes Neck: Supple Cardiovascular: Regular rate, Regular rhythm Respiratory: No distress, CTA bilaterally Abdomen: Soft, Nontender Extremities: Nontender Skin: Normal color Neurological: Alert, Oriented x3 Psychological: Normal affect Diagnostic/Tx/Re-eval - Medical Decision Making Patient be given a dose of his lisinopril hydrochlorothiazide and carvedilol here. He will be given prescriptions for the same along with a prescription for his Prozac. He is to follow-up with his internal medicine doctor as they are scheduling him an appointment. ED Disposition - Plan for ED Patient: Disposition: Home or Assisted Living Diagnosis: Hypertension Instructions: HYPERTENSION, Established Prescriptions: Carvedilol [Coreg] 25 mg PO BID #60 tablet Lisinopril/Hydrochlorothiazide [Lisinopril-Hctz 20-12.5 mg Tab] 1 each PO DAILY #30 tablet Fluoxetine HCl [Prozac] 40 mg PO DAILY #30 capsule Additional Instructions: Follow[facility]up with [facility] as scheduled.
[2019-02-21] MEDS: hydroCHLOROthiazide 12.5mg 12.5 MG PO (20:04)
[2019-02-21] MEDS: Lisinopril 20 MG Tablet PO (20:04)
[2019-02-21] MEDS: Carvedilol 25 MG Tablet PO (20:04)
[2019-02-21 20:06] VITALS: BP 229/144; PULSE 95; RESP 19; O2SAT 98
[2019-02-21 20:28] VITALS: BP 207/105; PULSE 92; RESP 18; O2SAT 99
== END 2019-02-21 20:29 | disposition home or self-care (01) ==
PROVIDERS: Emergency Provider Emergency Medicine
DX: I10 Essential (primary) hypertension (principal); F17.200 Nicotine dependence, unspecified, uncomplicated; Z79.899 Other long term (current) drug therapy
CPT/HCPCS: 99283

== ENCOUNTER 2019-08-22 15:41 | Observation (INO) | payer MEDICAID, SELFPAY ==
[2019-08-22] VITALS (7 sets, daily range): BP systolic 140–159; BP diastolic 82–101; PULSE 77–109; RESP 12–20; TEMP 36.9–37.8; O2SAT 84–95; BMI 43.4; BMI 44.7
--- NOTE | 2019-08-22 15:59 | ED.DCSUM_ITS ---
- ER Visit Summary Date of Service: 08/22/19 Chief Complaint: Fever and vomiting [] History of Present Illness: The patient is a 29 M [presents to the emergency department with symptoms that started yesterday. Patient tells me that his was recently diagnosed with influenza B. Patient has just occasional cough that is nonproductive. Patient states that every time he tries to drink anything he throws up. Denies any diarrhea. Denies abdominal pain. Patient is a diabetic and has not checked his blood sugar in over 4 months. Patient is supposed be taking metformin but does not regularly. Patient complains of a headache. Describes a mild shortness of breath since yesterday. Patient has been taken ibuprofen for his headache and not get much relief.] Physical Examination: [HEENT-PERRLA, EOMI. Cranial nerves II through XII grossly intact. TMs clear. Mucous membranes slightly dry. No adenopathy. Cardiovascular-regular rate and rhythm without murmur or ectopy Lungs-clear to auscultation, chest wall stable without crepitus or subcu emphysema Abdomen-normoactive bowel sounds, soft, nontender, no rebound or rigidity, no peritoneal signs. Extremities-intact ?4, normal range of motion, normal pulses, atraumatic] Test Results: [CBC with differential count 8.6, hemoglobin 15.6, hematocrit 47, platelet 76. Chemistries unremarkable. BUN was 27 exam 1.31. Influenza was positive for flu B. Chest x-ray showed nothing acute. Cultures ordered and pending.] Emergency Department Course and Treatment: [Patient was started on Tamiflu. Patient was placed on Flonase nasal cannula O2]. Patient given DuoNeb aerosol. Treatment Plan: [Admit] Disposition: [Admit] Impression: [Influenza Hypoxemia] This note was generated with [employer] dictation software. It may contain incorrect words, spelling, and punctuation that were not noted in review of the chart prior to signing ED Disposition - Plan for ED Patient: Referrals: Care Physician,No Primary [Primary Care Provider] -
[2019-08-22] MEDS: Acetaminophen 500 MG Tablet 1000 MG PO (16:31)
[2019-08-22] MEDS: 0.9% Normal Saline 1,000 ML 1000 ML IV (16:32)
--- NOTE | 2019-08-22 16:42 | RAD_ITS ---
STUDY: X-RAY CHEST REASON FOR EXAM: Male, 29 years old. Fever, cough, weakness TECHNIQUE: PA and lateral views of the chest. COMPARISON: 07/07/2018 FINDINGS: The lungs are clear and expanded. There is no demonstrated pleural abnormality. Normal size heart. Normal mediastinum and deny. Normal visualized pulmonary arteries. Normal visualized aortic arch and descending thoracic aorta. Normal visualized thoracic spine. Normal visualized ribs, clavicles, and shoulders. There is no demonstrated abnormality of the visualized soft tissue structures of the upper abdomen. RAD/Chest PA and Lateral IMPRESSION: No acute pulmonary process Electronically Signed: Chino Goodson MD at 17:16 EST , Service support ,
[2019-08-22] MEDS: Ipratropium/Albuterol Sulfate 3 ML AMPUL.NEB INHALATION ×2 (16:46→23:00)
[2019-08-22 16:47] LABS: Anion Gap 4 (5-15); BUN 27 mg/dL (7-18); BUN/Creat Ratio 20.6 RATIO (10-20); Calcium,Total 8.8 mg/dL (8.5-10.1); Chloride 100 mmol/L (98-107); Creatinine, Serum 1.31 mg/dL (0.70-1.30); EST Glomerular Filtration Rate 69 mL/min (>60); Est Glom Filt Rate - Afr Amer 83 mL/min (>60); Estimated Creatinine Clearance 91.32 ml/min; Glucose 125 mg/dL (74-106); Potassium 3.5 mmol/L (3.5-5.1); Sodium Level 137 mmol/L (136-145)
[2019-08-22 16:48] LABS: Absolute Lymphocyte Count 0.97 X10^3/uL (0.83-4.51); Absolute Neutrophil Count 6.9 X10^3/uL (2.0-7.7); Basophil# 0.02 X10^3/uL; Basophil% 0.2 % (0-1); Hematocrit 46.8 % (40-54); Hemoglobin 15.6 g/dL (13.0-16.5); Lymphocyte # 0.97 X10^3/ul (4.0); Lymphocyte % 11.2 % (19-41); Mean Corp Hgb Conc 33.3 g/dL (32-36); Mean Corpuscular Hgb 29.4 pg (27.0-32.0); Mean Corpuscular Volume 88.1 fL (80-94); Mean Platelet Vol. 10.4 fl (6.2-12.0); Monocyte# 0.62 X10^3/uL; Monocyte% 7.2 % (0-10); NRBC Flagged by Analyzer 0 % (0-5); Neutrophil # 6.93 X10^3/uL (2.7-7.7); Neutrophil % 80.2 % (47-70); Platelet Count 176 K/mm3 (150-450); RBC Distribution Width CV 12.6 % (11.6-14.6); RBC Distribution Width SD 40.8 fl (35.1-43.9); Red Blood Count 5.31 M/mm3 (4.6-6.2); White Blood Count 8.6 K/mm3 (4.4-11.0)
[2019-08-22 17:03] LABS: Lactic Acid 1.7 mmol/L (0.4-1.9)
--- NOTE | 2019-08-22 17:36 | NURSING ---
MED SURG AGUSTINA FLU B WITH HYPOXIA
[2019-08-22] MEDS: Oseltamivir Phosphate 75 MG Capsule PO ×2 (17:42→22:10)
--- NOTE | 2019-08-22 18:07 | PCM.HP.STD ---
History of Present Illness Date of Admission: 08/22/19 Chief Complaint: Shortness of breath myalgias The patient is a 29 year old M with a PMH as below who presents with shortness of breath and myalgias that started yesterday. He is also been feeling sick to stomach per his . She just tested positive for influenza B on Thursday and in the ER he tested positive for influenza B as well. He was started on Tamiflu in the ER given that symptoms started yesterday. However he was found to be hypoxic to 84 to 87% while on room air. He does not have a history of respiratory issues other than obstructive sleep apnea and he is noncompliant with his CPAP per his . Also he supposed to be on metformin but she says he does not take it. Past Medical History Past Medical History (Chronic Problems): Chronic Problems (Last Updated 02/28/19 @ 10:37 by Meli Carranza) Essential hypertension (Chronic) ADHD (attention deficit hyperactivity disorder) (Chronic) Morbid obesity, BMI unknown (Chronic) Obstructive sleep apnea (Chronic) Medical History: Medical History (Last Updated 02/28/19 @ 10:37 by Meli Carranza) Essential hypertension (Chronic) I10 Acute electrocardiogram changes (Resolved) R94.31 ADHD (attention deficit hyperactivity disorder) (Chronic) Morbid obesity, BMI unknown (Chronic) E66.01 Obstructive sleep apnea (Chronic) G47.33 Crohn's colitis K50.10 Diabetes E11.9 Severe left ventricular hypertrophy I51.7 borderline elevated troponin (Resolved) Gastroenteritis (Resolved) K52.9 Headache (Resolved) R51 Hypertensive emergency (Resolved) I16.1 Knee pain M25.569 Severe headache R51 Allergies bupropion Allergy (Severe, Verified 08/22/19 15:46) seizure amoxicillin [Amoxicillin] Allergy (Verified 08/22/19 15:46) Swelling Penicillins Allergy (Verified 08/22/19 15:46) Swelling Sulfa (Sulfonamide Antibiotics) Allergy (Verified 08/22/19 15:46) Unknown diphenhydramine [From Benadryl] Adverse Reaction (Verified 08/22/19 15:46) Other metoclopramide [From Reglan] Adverse Reaction (Verified 08/22/19 15:46) Other Home Medications: Ambulatory Orders Medication Instructions Recorded NK 08/22/19 Surgical History: Surgical History (Last Updated 02/28/19 @ 10:24 by Meli Carranza) History of appendectomy Z90.49 Surgical History: appendectomy Psychiatric History: Attn. deficit disorder Smoking Status: Current every day smoker Tobacco Use: Cigarettes Alcohol: None Drugs: None - *Family History Maternal Family History: Family History (Last Updated 02/28/19 @ 10:24 by Meli Carranza) Father Kidney disease History Items: Hypertension Paternal Family History: Family History (Last Updated 02/28/19 @ 10:24 by Meli Carranza) Father Kidney disease History Items: Hypertension Review of Systems Constitutional: Reports: Fever, Malaise, Fatigue. Denies: Chills, Weight Change HEENT: Denies: Head Aches, Sinus Congestion, Sinus Drainage Cardiovascular: Denies: Chest Pain, Palpitations Respiratory: Reports: Shortness of Breath. Denies: Cough, Shortness of breath at rest, Sputum production Gastrointestinal: Denies: Abdominal Pain, Nausea, Vomiting Genitourinary: Denies: Dysuria Musculoskeletal: Reports: Muscle pain. Denies: Joint Pain, Joint Tenderness Skin: Denies: Rash, Wounds Neurological: Denies: Numbness, Tingling, Focal weakness Psychiatric: Denies: Anxiety, Depression Hematologic/ Lymphatic: Denies: Easy Bruising, Easy Bleeding VTE Information - Inpt Only VTE Present on Admission: No - Physical Exam Vitals/I&O's: Vital Signs Temp Pulse Resp BP Pulse Ox 98.4 F 89 12 159/95 H 92 08/22/19 17:56 08/22/19 17:56 08/22/19 17:56 08/22/19 17:56 08/22/19 17:56 Oxygen Flow Rate (L/min) 4 Oxygen Delivery Method Nasal Cannula Weight: 320 lb Body Mass Index (BMI) 43.4 Intake and Output for Last 24 Hours 08/20/19 08/21/19 08/22/19 23:59 23:59 23:59 Intake Total 1000 / 1000 Balance 1000 / 1000 General: Alert, Oriented x3, Cooperative, No apparent distress HEENT: Atraumatic, PERRLA, EOMI, Normocephalic Oral: Dry Mucosa Neck: Supple, No JVD Lungs: Clear to auscultation, Normal air movement, No rhonchi, No wheeze, No rales, Diminished Cardiovascular: Regular rate, Regular Rhythm, Normal S1, Normal S2, No murmurs Abdomen: Soft, Non Tender, Non-Distended, No Hepato-splenomegaly Extremities: No edema, Capillary Refill Less than 3 Seconds Skin: No rashes, No breakdown Neurological: Neuro grossly intact, Sensory exam intact to light touch and pain Psych/Mental Status: Normal Affect, Appropriate Microbiology Past 72 Hours 08/22/19 16:10 Mucosa - Nose Influenza Types A,B Direct FA (RENETTA) - Final Influenzae B Laboratory Results 08/22/19 16:20: WBC 8.6, RBC 5.31, Hgb 15.6, Hct 46.8, MCV 88.1, MCH 29.4, MCHC 33.3, RDW Std Deviation 40.8, RDW Coeff of Barbara 12.6, Plt Count 176, MPV 10.4, Immature Gran % (Auto) 1.200 H, Neut % (Auto) 80.2 H, Lymph % (Auto) 11.2 L, Cameron % (Auto) 7.2, Eos % (Auto) 0.0, Baso % (Auto) 0.2, Absolute Neuts (auto) 6.9, Absolute Lymphs (auto) 0.97, Nucleated RBC % 0 08/22/19 16:20: Sodium 137, Potassium 3.5, Chloride 100, Carbon Dioxide 33.0 H, Anion Gap 4 L, BUN 27 H, Creatinine 1.31 H, Estim Creat Clear Calc 91.32, Est GFR (MDRD) Af Amer 83, Est GFR (MDRD) Non-Af 69, BUN/Creatinine Ratio 20.6 H, Glucose 125 H, Calcium 8.8 08/22/19 16:20: Lactic Acid 1.7 Assessment/Plan All Active Problems (Last Updated 02/28/19 @ 10:37 by Meli Carranza) Acute electrocardiogram changes (Resolved) borderline elevated troponin (Resolved) Gastroenteritis (Resolved) Headache (Resolved) Hypertensive emergency (Resolved) 1. Acute hypoxic respiratory insufficiency secondary to acute influenza B/KAREN -Continue with Tamiflu 75 mg p.o. twice daily -We will start him on prednisone as well, continue with duo nebs -will have his bring in his CPAP machine if they have 1 -Continue with oxygen at 4 L, he does not wear any home O2 2. DM 2/HTN/HLD/morbid obesity -He is noncompliant with any the medications that he is ever been prescribed for these issues, these medical problems will impact his care and affect his prognosis. DVT: Low risk Code Visit OBSV E&M: 12608 Initial observation care L2
--- NOTE | 2019-08-22 19:51 | NURSING ---
Pt's mother, Chely Fleming, called in and wanted us to know that she believes her son is on suboxone and maybe some other drugs and believes this may be one of the causes of his respiratory condition.
[2019-08-22] MEDS: predniSONE 20 MG Tablet 40 MG PO (19:56)
[2019-08-22] MEDS: 0.9% Saline Lock 10 ML Syringe IV (19:56)
[2019-08-22] MEDS: 0.9% Normal Saline 1,000 ML 100 ML IV (19:56)
[2019-08-22 22:21] LABS: Bedside Glucose 125 mg/dL (70-110)
[2019-08-23 02:00] VITALS: BP 158/78; PULSE 87; RESP 18; TEMP 37; O2SAT 95
[2019-08-23 05:31] LABS: Absolute Neutrophil Count 5.6 X10^3/uL (2.0-7.7); Basophil# 0.01 X10^3/uL; Basophil% 0.1 % (0-1); Hemoglobin 15.2 g/dL (13.0-16.5); Lymphocyte % 18.2 % (19-41); Mean Corpuscular Hgb 29.1 pg (27.0-32.0); Mean Platelet Vol. 10.8 fl (6.2-12.0); Monocyte# 0.23 X10^3/uL; Monocyte% 3.2 % (0-10); NRBC Flagged by Analyzer 0 % (0-5); Neutrophil # 5.55 X10^3/uL (2.7-7.7); Neutrophil % 77.9 % (47-70); Platelet Count 164 K/mm3 (150-450); RBC Distribution Width CV 12.7 % (11.6-14.6); RBC Distribution Width SD 40.8 fl (35.1-43.9); Red Blood Count 5.23 M/mm3 (4.6-6.2); White Blood Count 7.1 K/mm3 (4.4-11.0)
[2019-08-23 05:49] LABS: Anion Gap 3 (5-15); BUN 25 mg/dL (7-18); Calcium,Total 8.2 mg/dL (8.5-10.1); Chloride 101 mmol/L (98-107); Creatinine, Serum 1.04 mg/dL (0.70-1.30); EST Glomerular Filtration Rate 90 mL/min (>60); Est Glom Filt Rate - Afr Amer 109 mL/min (>60); Estimated Creatinine Clearance 115.03 ml/min; Glucose 138 mg/dL (74-106); Potassium 3.9 mmol/L (3.5-5.1); Sodium Level 138 mmol/L (136-145)
[2019-08-23] MEDS: 0.9% Normal Saline 1,000 ML 100 ML IV (06:39)
[2019-08-23 06:45] LABS: Bedside Glucose 127 mg/dL (70-110)
[2019-08-23] MEDS: Ipratropium/Albuterol Sulfate 3 ML AMPUL.NEB INHALATION (07:07)
[2019-08-23 07:20] VITALS: PULSE 91; RESP 18
[2019-08-23 08:00] VITALS: BP 160/79; PULSE 71; RESP 18; TEMP 36.8; O2SAT 94
[2019-08-23] MEDS: predniSONE 20 MG Tablet 40 MG PO (09:30)
[2019-08-23] MEDS: Oseltamivir Phosphate 75 MG Capsule PO (09:31)
[2019-08-23 09:35] VITALS: O2SAT 91
--- NOTE | 2019-08-23 09:36 | DCINST_ITS ---
You will use the following diet at home:: Calorie/Carbohydrate Controlled (specify 1200, 1400, etc) - 1800 calories/day. Stop drinking sugary beverages, drink diet versions instead. Your food should be the consistency of: Regular Your liquids should be the consistency of: Regular/Thin Discharge Activity: Return to Normal Activity Return to work on:: 08/25/19 Call your doctor if you observe: Fever of 101 or Higher, Shortness of breath Instructions: Diabetes: Understanding Carbohydrates, Eating Out When You Have Diabetes, Diabetes: Keeping Feet Healthy, Diabetes: Inspecting Your Feet, Long- Term Complications of Diabetes, Hyperglycemia (High Blood Sugar), Resources for People with Diabetes, What Is Type 2 Diabetes? Allergies/Adverse Reactions: Allergies bupropion Allergy (Severe, Verified 08/22/19 15:46) seizure amoxicillin [Amoxicillin] Allergy (Verified 08/22/19 15:46) Swelling Penicillins Allergy (Verified 08/22/19 15:46) Swelling Sulfa (Sulfonamide Antibiotics) Allergy (Verified 08/22/19 15:46) Unknown diphenhydramine [From Benadryl] Adverse Reaction (Verified 08/22/19 19:01) psychosis metoclopramide [From Reglan] Adverse Reaction (Verified 08/22/19 19:01) psychosis Medications to take at Discharge NK 08/22/19 Primary Care Physician: Care Physician,No Primary [Primary Care Provider] - Test Results: Test results from this visit will be discussed in further detail at your follow- up appointment, if applicable. Please Follow Up With: Rubio Guzman MD When: Or another primary care physician in 2-4 weeks Proposed Discharge Date: 08/23/19
--- NOTE | 2019-08-23 09:44 | PCM.DC.SUM ---
Discharge Date and Diagnosis Date of Admission: 08/22/19 Date of Discharge: 08/23/19 - Primary Discharge Diagnosis acute Influenza B acute hypoxic respiratory insufficiency acute bronchitis. - Secondary Discharge Diagnosis Chronic Problems (Last Updated 02/28/19 @ 10:37 by Meli Carranza) Essential hypertension (Chronic) ADHD (attention deficit hyperactivity disorder) (Chronic) Morbid obesity, BMI unknown (Chronic) Obstructive sleep apnea (Chronic) DM2 Hospital Course and Treatment Imaging Results: Clinical Impression(s) from Imaging Studies Chest X-Ray 08/22/19 16:42 IMPRESSION: No acute pulmonary process Electronically Signed: Chino Goodson MD at 17:16 EST , Service support , none Operations: None Procedures: None Summary of Care Provided: The patient is a 29 year old M who was in his normal state of health up until the where he started experiencing shortness of breath and myalgias. Patient said was recently diagnosed with influenza B and had received Tamiflu the day before his arrival. Patient was feeling ill and then presented to the emergency room. Patient was noted to be hypoxic of 84 to 87% on room air. Patient was placed on oxygen, he was tested positive for influenza B and started on oseltamivir. Overnight, the patient did improve and is currently on room air though he did take himself off that involuntarily. Patient is otherwise doing well. Patient will be discharged to complete his course of oseltamivir as well as prednisone burst. Patient be given a work excuse for the days that he was sick from the through the . Patient has a sleep apnea which she is not using a BiPAP. Patient was actually visualized to have apneic episodes when I arrived in his room. Patient states that he does not have a CPAP and was supposed to get one but then he reports that he did have 1 to others so is unclear but it apparently is not using it if he has it. Advised patient to follow-up with primary care physician and then to get reestablished with getting a sleep study again. [] - Physical Exam Vitals/I&O's: Vital Signs Temp Pulse Resp BP Pulse Ox 36.8 C 71 18 160/79 H 94 08/23/19 08:00 08/23/19 08:00 08/23/19 08:00 08/23/19 08:00 08/23/19 08:00 Oxygen Flow Rate (L/min) 3 Oxygen Delivery Method Room Air Weight: 149.64 kg Body Mass Index (BMI) 44.7 Intake and Output for Last 24 Hours 08/21/19 08/22/19 08/23/19 23:59 23:59 23:59 Intake Total 1000 / 1000 1000 / 1000 Balance 1000 / 1000 1000 / 1000 General: Alert, No apparent distress, - - Patient was sleeping when I first arrived and did have some short apneic episodes while I was present in the room. Patient awoke very easily and was in no respiratory distress no conversational dyspnea on room air. HEENT: Atraumatic, Normocephalic Neck: No Nodes, Thyroid Normal Size and Texture Lungs: Clear to auscultation, Normal air movement, No rhonchi, No wheeze, No rales Cardiovascular: Regular rate, Regular Rhythm, Normal S1, Normal S2, No murmurs Abdomen: Bowel Sounds Present, Soft, Non Tender, Non-Distended Extremities: No edema, No Calf Tenderness Psych/Mental Status: Normal Affect, Appropriate Microbiology Past 72 Hours 08/22/19 16:10 Mucosa - Nose Influenza Types A,B Direct FA (RENETTA) - Final Influenzae B Laboratory Results 08/22/19 16:20: WBC 8.6, RBC 5.31, Hgb 15.6, Hct 46.8, MCV 88.1, MCH 29.4, MCHC 33.3, RDW Std Deviation 40.8, RDW Coeff of Barbara 12.6, Plt Count 176, MPV 10.4, Immature Gran % (Auto) 1.200 H, Neut % (Auto) 80.2 H, Lymph % (Auto) 11.2 L, Terry % (Auto) 7.2, Eos % (Auto) 0.0, Baso % (Auto) 0.2, Absolute Neuts (auto) 6.9, Absolute Lymphs (auto) 0.97, Nucleated RBC % 0 08/22/19 16:20: Sodium 137, Potassium 3.5, Chloride 100, Carbon Dioxide 33.0 H, Anion Gap 4 L, BUN 27 H, Creatinine 1.31 H, Estim Creat Clear Calc 91.32, Est GFR (MDRD) Af Amer 83, Est GFR (MDRD) Non-Af 69, BUN/Creatinine Ratio 20.6 H, Glucose 125 H, Calcium 8.8 08/22/19 16:20: Lactic Acid 1.7 08/22/19 22:11: POC Glucose 125 H 08/23/19 05:15: WBC 7.1, RBC 5.23, Hgb 15.2, Hct 46.0, MCV 88.0, MCH 29.1, MCHC 33.0, RDW Std Deviation 40.8, RDW Coeff of Barbara 12.7, Plt Count 164, MPV 10.8, Immature Gran % (Auto) 0.600, Neut % (Auto) 77.9 H, Lymph % (Auto) 18.2 L, Terry % (Auto) 3.2, Eos % (Auto) 0.0, Baso % (Auto) 0.1, Absolute Neuts (auto) 5.6, Absolute Lymphs (auto) 1.30, Nucleated RBC % 0 08/23/19 05:15: Sodium 138, Potassium 3.9, Chloride 101, Carbon Dioxide 34.0 H, Anion Gap 3 L, BUN 25 H, Creatinine 1.04, Estim Creat Clear Calc 115.03, Est GFR (MDRD) Af Amer 109, Est GFR (MDRD) Non-Af 90, BUN/Creatinine Ratio 24.0 H, Glucose 138 H, Calcium 8.2 L 08/23/19 06:39: POC Glucose 127 H Current Medications Acetaminophen (Tylenol) 650 mg PO Q6H PRN PRN PRN Reason: Pain Score 1-10/Temp > 100.7 F Albuterol/Ipratropium (Duoneb) 3 ml INHALATION Q4HWA.RT [facility] Last Admin: 08/23/19 07:07 Dose: 3 ml Documented by: Dextrose (D50w Syringe) 0 gm IV X1 PRN; Protocol PRN Reason: Hypoglycemia Glucagon () 1 mg IM .X1 PRN PRN Reason: Hypoglycemia Sodium Chloride () 1,000 mls @ 100 mls/hr IV .Q10H [facility] Last Admin: 08/23/19 06:39 Dose: 100 mls/hr Documented by: Influenza Virus Vaccine Quadrival (Flucelvax /Fluzone ) 0.5 ml IM .ONCE ONE Stop: 08/23/19 09:42 Insulin Human Lispro (Humalog Kwikpen (Bkc)) 0 unit SC ACHS [facility]; Protocol Last Admin: 08/23/19 06:40 Dose: Not Given Documented by: Melatonin (Melatonin) 3 mg PO QHS PRN PRN PRN Reason: INSOMNIA Ondansetron HCl (Zofran) 4 mg IV Q8H PRN PRN PRN Reason: NAUSEA/VOMITING Oseltamivir Phosphate (Tamiflu) 75 mg PO BID [facility] Stop: 08/27/19 10:01 Last Admin: 08/23/19 09:31 Dose: 75 mg Documented by: Prednisone () 40 mg PO DAILY@0800 [facility] Last Admin: 08/23/19 09:30 Dose: 40 mg Documented by: Sodium Chloride () 10 - 40 ml IV UD PRN PRN Reason: SALINE FLUSH Last Admin: 08/22/19 19:56 Dose: 10 ml Documented by: Discharge Diet: 1800 Calorie Control Diet Discharge Activity: Return to Normal Activity Return to work on:: 08/25/19 Call your doctor if you observe: Fever of 101 or Higher, Shortness of breath Home Medications: Medications to take at Discharge Oseltamivir Phosphate [Tamiflu] 75 mg PO BID #7 cap 08/23/19 Prednisone 2 tab PO DAILY #8 tab 08/23/19 Following Prescrptions Were Given to Patient: Prednisone 2 tab PO DAILY #8 tab Transmission Status: Pending to [facility] [place] [facility] Oseltamivir Phosphate [Tamiflu] 75 mg PO BID #7 cap Transmission Status: Sent to [facility] [place] [facility] Primary Care Physician: Care Physician,No Primary [Primary Care Provider] - Please Follow Up With: Rubio Guzman MD When: Or another primary care physician in 2-4 weeks Patient Instructions: Long-Term Complications of Diabetes, Hyperglycemia (High Blood Sugar), Resources for People with Diabetes, What Is Type 2 Diabetes?, Diabetes: Understanding Carbohydrates, Eating Out When You Have Diabetes, Diabetes: Keeping Feet Healthy, Diabetes: Inspecting Your Feet Disposition: Home Minutes spent on discharge:: 32 Patient Condition:: Good Medical Necessity - Tobacco Use Smoking Status: Current every day smoker Tobacco Use: Cigarettes Meaningful Use Info Meaningful Use Diagnoses (Choose all that apply): None applicable Code Visit OBSV E&M: 31825 Observation care discharge
[2019-08-23 09:49] VITALS: O2SAT 91; O2SAT 95
--- NOTE | 2019-08-23 09:51 | PCM.WORK.EX ---
Work/School Excuse Work/School Excuse for:: Patient Please excuse this person from:: Work From: 08/21/19 through: 08/24/19 - ok to return to work on the , if no fever.
[2019-08-23 11:30] LABS: Bedside Glucose 137 mg/dL (70-110)
[2019-08-23 13:00] VITALS: BP 159/79; PULSE 84; RESP 16; TEMP 36.9; O2SAT 95
== END 2019-08-23 13:00 | disposition home or self-care (01) ==
LOC: ED 15:56 → MS3 17:44
PROVIDERS: Admitting Provider Family Medicine; Emergency Provider Emergency Medicine
DX: J10.1 Influenza due to other identified influenza virus with other respiratory manifestations (principal); Z23 Encounter for immunization; G47.33 Obstructive sleep apnea (adult) (pediatric); E66.01 Morbid (severe) obesity due to excess calories; I10 Essential (primary) hypertension; E11.9 Type 2 diabetes mellitus without complications; K50.10 Crohn's disease of large intestine without complications; F17.210 Nicotine dependence, cigarettes, uncomplicated; Z91.19 Patient's noncompliance with other medical treatment and regimen; Z68.41 Body mass index [BMI] 40.0-44.9, adult; Z71.3 Dietary counseling and surveillance; E78.5 Hyperlipidemia, unspecified
CPT/HCPCS: 36415; 71046; 80048; 82962; 83605; 85025; 87040; 87804; 94640; 96360; 96361; 99218; 99285; 99406; J7030; 90686; A4216; G0378

== ENCOUNTER → 2019-10-12 | Outpatient (CLI) | payer MEDICAID, SELFPAY ==
[2019-08-22 18:58] VITALS: BMI 44.7
[2019-10-12 15:21] LABS: Absolute Lymphocyte Count 2.49 X10^3/uL (0.83-4.51); Absolute Neutrophil Count 4.7 X10^3/uL (2.0-7.7); Basophil# 0.04 X10^3/uL; Basophil% 0.5 % (0-1); Eosinophil# 0.22 X10^3/uL; Eosinophils% 2.8 % (0-5); Hematocrit 46.4 % (40-54); Hemoglobin 15.7 g/dL (13.0-16.5); Lymphocyte # 2.49 X10^3/ul (4.0); Lymphocyte % 31.3 % (19-41); Mean Corp Hgb Conc 33.8 g/dL (32-36); Mean Corpuscular Hgb 28.5 pg (27.0-32.0); Mean Corpuscular Volume 84.4 fL (80-94); Mean Platelet Vol. 10.2 fl (6.2-12.0); Monocyte# 0.45 X10^3/uL; Monocyte% 5.7 % (0-10); NRBC Flagged by Analyzer 0 % (0-5); Neutrophil # 4.73 X10^3/uL (2.7-7.7); Neutrophil % 59.4 % (47-70); Platelet Count 228 K/mm3 (150-450); RBC Distribution Width CV 12.8 % (11.6-14.6); RBC Distribution Width SD 38.8 fl (35.1-43.9)
[2019-10-12 15:53] LABS: AST(SGOT) 25 U/L (15-37); Alanine Aminotransfer ALT/SGPT 45 U/L (16-61); Albumin, Serum 3.6 g/dL (3.2-5.0); Alkaline Phosphatase 48 U/L (45-117); Anion Gap 3 (5-15); BUN 13 mg/dL (7-18); BUN/Creat Ratio 15.5 RATIO (10-20); Bilirubin, Direct 0.12 mg/dL (0.00-0.30); Calcium,Total 8.9 mg/dL (8.5-10.1); Chloride 109 mmol/L (98-107); Creatinine, Serum 0.84 mg/dL (0.70-1.30); EST Glomerular Filtration Rate 115 mL/min (>60); Est Glom Filt Rate - Afr Amer 139 mL/min (>60); Glucose 132 mg/dL (74-106); Potassium 3.5 mmol/L (3.5-5.1); Protein, Total 7.6 g/dL (6.4-8.2); Sodium Level 142 mmol/L (136-145); Thyroid Stim Hormone (TSH) 2.31 uIU/mL (0.358-3.74)
[2019-10-12 16:10] LABS: HIV - WCH Non-Reactive (Nonreactive)
[2019-10-13 01:56] LABS: Rapid Plasmin Reagin (RPR) NONREACTIVE (NONREACTIVE)
[2019-10-15 03:06] LABS: HEPATITIS B SURFACE AG Negative (Negative); Hepatitis A IgM Antibody Negative (Negative); Hepatitis B Core AB IgM Negative (Negative); QNTFERON TB Mitogen Value > 10.00 IU/mL (.); QNTFERON TB Nil Value 0.09 IU/mL (.); QNTFERON TB1+ Ag Value 0.13 IU/mL (.); QNTFERON TB2+ Ag Value 0.16 IU/mL (.)
[2019-10-15 05:51] LABS: Hep C Antibodies <0.1 s/co ratio (0.0-0.9); QNTIFERON TB Positive Criteria Negative (Negative)
== END | disposition home or self-care (01) ==
LOC: LAB 14:38
DX: F11.20 Opioid dependence, uncomplicated (principal); F19.10 Other psychoactive substance abuse, uncomplicated; R53.83 Other fatigue
CPT/HCPCS: 36415; 80048; 80074; 80076; 84443; 85025; 86480; 86592; 86703

== ENCOUNTER → 2020-05-10 22:11 | Outpatient (CLI) | payer MEDICAID, SELFPAY ==
[2020-01-03 16:39] VITALS: BMI 44.7
== END ==
PROVIDERS: PCP Nurse Practitioner Family; Referring Provider Nurse Practitioner Family; Visit Provider Nurse Practitioner Family
DX: G47.33 Obstructive sleep apnea (adult) (pediatric) (principal)
CPT/HCPCS: 95810

== ENCOUNTER → 2020-07-17 13:52 | Outpatient (CLI) | payer MEDICAID, SELFPAY ==
[2020-07-17 13:10] VITALS: BMI 47.9
[2020-07-17 15:39] LABS: Absolute Lymphocyte Count 2.41 X10^3/uL (0.83-4.51); Basophil# 0.04 X10^3/uL; Basophil% 0.6 % (0-1); Eosinophil# 0.19 X10^3/uL; Eosinophils% 2.7 % (0-5); Hematocrit 49.4 % (40-54); Hemoglobin 16.8 g/dL (13.0-16.5); Lymphocyte # 2.41 X10^3/ul (4.0); Lymphocyte % 33.8 % (19-41); Mean Corpuscular Hgb 29.6 pg (27.0-32.0); Mean Platelet Vol. 10.6 fl (6.2-12.0); Monocyte# 0.44 X10^3/uL; Monocyte% 6.2 % (0-10); NRBC Flagged by Analyzer 0 % (0-5); Neutrophil # 4.01 X10^3/uL (2.7-7.7); Neutrophil % 56.3 % (47-70); Platelet Count 264 K/mm3 (150-450); RBC Distribution Width CV 12.7 % (11.6-14.6); RBC Distribution Width SD 40.2 fl (35.1-43.9); Red Blood Count 5.68 M/mm3 (4.6-6.2); White Blood Count 7.1 K/mm3 (4.4-11.0)
[2020-07-17 16:41] LABS: Hemoglobin A1c 5.8 % (3.8-5.6)
[2020-07-17 17:11] LABS: ALB/GLOB Ratio 0.9 RATIO (0.9-2.4); AST(SGOT) 18 U/L (15-37); Alanine Aminotransfer ALT/SGPT 41 U/L (16-61); Albumin, Serum 3.5 g/dL (3.2-5.0); Alkaline Phosphatase 50 U/L (45-117); Anion Gap 6 (5-15); BUN 9 mg/dL (7-18); BUN/Creat Ratio 10.1 RATIO (10-20); Calcium,Total 8.5 mg/dL (8.5-10.1); Chloride 102 mmol/L (98-107); Cholesterol 145 mg/dL (200); Creatinine, Serum 0.89 mg/dL (0.70-1.30); EST Glomerular Filtration Rate 107 mL/min (>60); Est Glom Filt Rate - Afr Amer 129 mL/min (>60); Glucose 104 mg/dL (74-106); High Density Lipoprotein 39 mg/dL; Protein, Total 7.5 g/dL (6.4-8.2); Sodium Level 141 mmol/L (136-145); Thyroid Stim Hormone (TSH) 2.97 uIU/mL (0.358-3.74); Triglycerides 121 mg/dL; Very Low Density Lipoprotein 24 mg/dL (5-40)
[2020-07-18 12:14] LABS: Bacteria 0 SEEN /hpf (None Seen); Mucous, Urine 0 SEEN /hpf (<or=2+); Red Blood Cells-Urine 0 SEEN /hpf (0-5); Squamous Epithelial Cells - UA 0 SEEN /hpf (0-5); White Blood Cells 0 SEEN /hpf (0-5)
[2020-07-18 12:38] LABS: Color, Urine Yellow (Yellow); Glucose, Dipstick Normal (Normal); Ketone-Dipstick Negative (Negative); Leukocyte Esterase-Dipstick Negative /ul (Negative); Nitrite-Dipstick Negative (Negative); Occult Blood-Urine Negative /ul (Negative); Protein-Dipstick 100 mg/dl (Negative); Specific Gravity, Urine 1.015 (1.002-1.030); Urine Bilirubin Dipstick Negative (Negative); Urine Clarity Clear (Clear); Urine Urobilinogen Normal (Normal); Urine pH 6.5 (5.0 - 8.0)
[2020-07-27 20:05] LABS: Aldosterone, Serum 10.4 ng/dL (0.0-30.0); Renin, Plasma 0.433 ng/mL/hr (0.167-5.380)
== END ==
PROVIDERS: PCP Internal Medicine; Referring Provider Nurse Practitioner Family; Visit Provider Nurse Practitioner Family
DX: E66.01 Morbid (severe) obesity due to excess calories (principal); G47.33 Obstructive sleep apnea (adult) (pediatric); I10 Essential (primary) hypertension
CPT/HCPCS: 36415; 80053; 80061; 81001; 82043; 82088; 82570; 83036; 84244; 84443; 85025

== ENCOUNTER → 2020-07-31 14:19 | Outpatient (CLI) | payer MEDICAID, SELFPAY ==
[2020-07-31 13:48] VITALS: BMI 46.0
[2020-07-31 16:13] LABS: Anion Gap 5 (5-15); BUN 14 mg/dL (7-18); BUN/Creat Ratio 14.5 RATIO (10-20); Calcium,Total 9.3 mg/dL (8.5-10.1); Chloride 102 mmol/L (98-107); Creatinine, Serum 0.96 mg/dL (0.70-1.30); EST Glomerular Filtration Rate 97 mL/min (>60); Est Glom Filt Rate - Afr Amer 118 mL/min (>60); Glucose 107 mg/dL (74-106); Potassium 3.4 mmol/L (3.5-5.1); Sodium Level 140 mmol/L (136-145)
== END ==
PROVIDERS: PCP Internal Medicine; Referring Provider Internal Medicine; Visit Provider Internal Medicine
DX: I10 Essential (primary) hypertension (principal)
CPT/HCPCS: 36415; 80048

== ENCOUNTER → 2020-12-12 09:47 | Outpatient (CLI) | payer MEDICAID, SELFPAY ==
[2020-12-12 09:22] VITALS: BMI 50.5
[2020-12-12 12:25] LABS: ALB/GLOB Ratio 0.8 RATIO (0.9-2.4); AST(SGOT) 24 U/L (15-37); Alanine Aminotransfer ALT/SGPT 53 U/L (16-61); Albumin, Serum 3.3 g/dL (3.2-5.0); Alkaline Phosphatase 55 U/L (45-117); Anion Gap 6 (5-15); BUN 15 mg/dL (7-18); BUN/Creat Ratio 16.7 RATIO (10-20); Calcium,Total 9.4 mg/dL (8.5-10.1); Chloride 101 mmol/L (98-107); EST Glomerular Filtration Rate 105 mL/min (>60); Est Glom Filt Rate - Afr Amer 127 mL/min (>60); Globulin 4.2 g/dL (2.2-4.2); Glucose 156 mg/dL (74-106); Potassium 3.3 mmol/L (3.5-5.1); Protein, Total 7.5 g/dL (6.4-8.2); Sodium Level 140 mmol/L (136-145)
[2020-12-12 12:52] LABS: BNP,B-Type NATRIURETIC PEPTIDE 26.9 pg/mL (0-100)
[2020-12-12 15:34] LABS: Hemoglobin A1c 6.2 % (3.8-5.6)
== END ==
PROVIDERS: PCP Internal Medicine; Referring Provider Internal Medicine; Visit Provider Internal Medicine
DX: I10 Essential (primary) hypertension (principal); R06.02 Shortness of breath; R60.0 Localized edema; R73.9 Hyperglycemia, unspecified
CPT/HCPCS: 36415; 80053; 83036; 83880

== ENCOUNTER → 2021-02-13 08:18 | Outpatient (CLI) | payer MEDICAID, SELFPAY ==
[2020-07-17 13:10] VITALS: BMI 47.9
[2020-12-19 09:33] VITALS: BMI 50.5
--- NOTE | 2021-02-13 08:21 | ECHOCS_ITS ---
Reason For Study: HTN Procedure This was a 2D Doppler, Color Flow transthoracic echocardiogram. The study was technically difficult. Contrast injection was performed. Exam performed in department. Left Ventricle Normal LV size. Severe concentric left ventricular hypertrophy. Left ventricular systolic function is normal. The estimated ejection fraction is 60 %. No evidence for diastolic dysfunction. No regional wall motion abnormalities noted. Right Ventricle Normal RV size. Normal systolic function. Atria The left atrium is mildly enlarged. Normal right atrium. No doppler evidence for ASD. Mitral Valve There is no mitral annular calcification. Normal mitral valve. Tricuspid Valve Normal tricuspid valve. Trivial tricuspid valve insufficiency. Unable to estimate RV systolic pressure/pulmonary artery pressure due to technically difficult study. Aortic Valve Trisinus/trileaflet aortic valve. Normal aortic valve. Pulmonic Valve The pulmonic valve is not well visualized. Great Vessels Normal sized aortic root. Pericardium/Pleural No pericardial effusion. Medication Diluted definity 2ml given slow IV push to enhance endocardial definition. MMode/2D Measurements & Calculations LVIDd: 5.5 cm IVSd: 2.2 cm Ao root diam: 2.7 cm LVIDs: 3.5 cm LVPWd: 2.0 cm RVDd: 3.6 cm FS: 35.6 % LAV(MOD-bp): 70.6 ml LVAd ap4: 37.4 cm2 SV(MOD-sp4): 78.0 ml LAV(MOD-bp) Indexed: 25.7 ml/m2 LVLd ap4: 8.5 cm LAV(MOD-sp2): 65.3 ml EDV(MOD-sp4): 137.1 ml LAV(MOD-sp4): 63.1 ml EDV(sp4-el): 139.2 ml LVAs ap4: 23.2 cm2 LVLs ap4: 7.6 cm ESV(MOD-sp4): 59.1 ml ESV(sp4-el): 59.9 ml EF(MOD-sp4): 56.9 % EF(sp4-el): 56.9 % SV(sp4-el): 79.3 ml LA A4 area: 20.7 cm2 LA dimension(2D): 5.2 cm RA A4 area: 17.6 cm2 Doppler Measurements & Calculations MV E max tyler: 124.4 cm/sec Lat Peak E' Tyler: 9.4 cm/sec Med Peak E' Tyler: 10.0 cm/sec MV A max tyler: 63.9 cm/sec E/E' lat: 13.3 E/E' med: 12.4 MV E/A: 1.9 Ao V2 max: 192.8 cm/sec LV V1 max: 146.1 cm/sec PA V2 max: 104.2 cm/sec Ao max P.9 mmHg LV V1 max P.5 mmHg Ao V2 mean: 132.8 cm/sec Ao mean P.8 mmHg Ao V2 VTI: 32.7 cm ECHO/Echo Complete W/ Contrast Interpretation Summary The study was technically difficult. Contrast injection was performed. Left ventricular systolic function is normal. The estimated ejection fraction is 60 %. Severe concentric left ventricular hypertrophy. The left atrium is mildly enlarged. Trivial tricuspid valve insufficiency. Unable to estimate RV systolic pressure/pulmonary artery pressure due to techni rasta difficult study. No evidence for diastolic dysfunction. Ordering Physician: Long Mayers Referring Physician: Rubio Guzman Performed By: Cheryl Shaikh, STEFANY, RVT
--- NOTE | 2021-02-13 09:03 | EKG12_ITS ---
Test Reason : BP/CP Blood Pressure : / mmHG Vent. Rate : 088 BPM Atrial Rate : 088 BPM P-R Int : 194 ms QRS Dur : 094 ms QT Int : 376 ms P-R-T Axes : 045 045 214 degrees QTc Int : 454 ms Normal sinus rhythm T wave abnormality, consider inferolateral ischemia Abnormal ECG Confirmed by KECIA ARCHULETA, CORDELIA ([id number]), videotape editor JUNO AMAYA ([id number]) on 02/14/2021 10:41:49 AM Referred By: Long Mayers Confirmed By:CORDELIA MCDONNELL MD
== END ==
PROVIDERS: PCP Internal Medicine; Referring Provider Nurse Practitioner Family; Visit Provider Nurse Practitioner Family
DX: I10 Essential (primary) hypertension (principal); E66.01 Morbid (severe) obesity due to excess calories; G47.33 Obstructive sleep apnea (adult) (pediatric)
CPT/HCPCS: 93005; 93306; Q9957; A4216; C8929; J3490

== ENCOUNTER → 2021-02-15 10:17 | Outpatient (CLI) | payer MEDICAID, SELFPAY ==
[2021-02-15 09:54] VITALS: BMI 50.5
[2021-02-15 12:30] LABS: Absolute Neutrophil Count 2.4 X10^3/uL (2.0-7.7); Basophil# 0.02 X10^3/uL; Basophil% 0.4 % (0-1); Eosinophil# 0.08 X10^3/uL; Eosinophils% 1.7 % (0-5); Hematocrit 43.5 % (40-54); Hemoglobin 14.8 g/dL (13.0-16.5); Lymphocyte % 36.2 % (19-41); Mean Corpuscular Volume 88.2 fL (80-94); Mean Platelet Vol. 10.5 fl (6.2-12.0); Monocyte% 10.6 % (0-10); NRBC Flagged by Analyzer 0 % (0-5); Neutrophil # 2.38 X10^3/uL (2.7-7.7); Neutrophil % 50.7 % (47-70); Platelet Count 207 K/mm3 (150-450); RBC Distribution Width SD 41.5 fl (35.1-43.9); Red Blood Count 4.93 M/mm3 (4.6-6.2); White Blood Count 4.7 K/mm3 (4.4-11.0)
[2021-02-15 12:52] LABS: Anion Gap 4 (5-15); BUN 11 mg/dL (7-18); BUN/Creat Ratio 11.4 RATIO (10-20); Chloride 98 mmol/L (98-107); Cholesterol 137 mg/dL (200); Creatinine, Serum 0.97 mg/dL (0.70-1.30); EST Glomerular Filtration Rate 96 mL/min (>60); Est Glom Filt Rate - Afr Amer 117 mL/min (>60); Glucose 300 mg/dL (74-106); High Density Lipoprotein 30 mg/dL; Potassium 3.6 mmol/L (3.5-5.1); Sodium Level 135 mmol/L (136-145); Thyroid Stim Hormone (TSH) 3.74 uIU/mL (0.358-3.74); Triglycerides 188 mg/dL; Very Low Density Lipoprotein 38 mg/dL (5-40)
[2021-02-15 14:21] LABS: Hemoglobin A1c 8.5 % (3.8-5.6)
== END ==
PROVIDERS: PCP Internal Medicine; Referring Provider Nurse Practitioner Family; Visit Provider Nurse Practitioner Family
DX: I10 Essential (primary) hypertension (principal); R94.31 Abnormal electrocardiogram [ECG] [EKG]; R73.09 Other abnormal glucose
CPT/HCPCS: 36415; 80048; 80061; 83036; 84443; 85025

== ENCOUNTER → 2021-03-13 12:06 | Outpatient (CLI) | payer MEDICAID, SELFPAY ==
[2021-02-15 09:54] VITALS: BMI 50.5
--- NOTE | 2021-03-13 13:13 | STRESSREP ---
Stress Test Report Date: 03-13-2021 Procedure: Exercise tolerance test Indications: Chest pain; abnormal ECG Consent: Per the patient Procedure: The patient exercised on a Scottie protocol for 6 minutes completing Stage II achieving a peak heart rate of 151 bpm (79% predicted maximal heart rate) with a peak blood pressure 210/98 mmHg and a peak MET capacity of approximately 7 MET's. The baseline ECG demonstrated sinus rhythm; nonspecific ST/T wave abnormality. The peak exercise ECG demonstrated somatic/motion artifact with no obvious ECG changes at the heart rate achieved. There was an isolated PVC during recovery. The functional capacity was considered average. The patient had no complaint of chest discomfort during exercise or recovery. The examination was discontinued secondary to dyspnea. Impression: 1. Technically inadequate (percent predicted maximal heart rate less than 85%) exercise tolerance test 2. Peak exercise ECG with somatic/motion artifact with no obvious ECG changes at the heart rate achieved 3. There was an isolated PVC during recovery This note was generated with [employer] software. It may contain incorrect words, spelling, and punctuation that were not noted in checking the note before signing.
== END ==
PROVIDERS: PCP Internal Medicine; Referring Provider Nurse Practitioner Family; Visit Provider Nurse Practitioner Family
DX: R94.31 Abnormal electrocardiogram [ECG] [EKG] (principal)
CPT/HCPCS: 93017

== ENCOUNTER 2021-04-28 19:23 | Emergency (ER) | payer MEDICAID, SELFPAY ==
[2021-04-28 19:23] VITALS: BP 187/113; PULSE 120; RESP 28; TEMP 37.2; O2SAT 97; BMI 46.7
[2021-04-28 19:41] LABS: Bedside Glucose 137 mg/dL (70-110)
--- NOTE | 2021-04-28 19:49 | ED.VIS.CHEST ---
HPI History of Present Illness Chief Complaint: Chest Pain Informant: patient and EMS Narrative Narrative: 30-year-old male presents the emergency room following a syncopal episode. Patient states that prior to arrival he was standing doing dishes when he developed a sharp pain in the left central aspect of his chest. States that he started to get very hot so he went out onto the deck in the rain to cool off and he states that he believes he passed out. He notes that this morning he had a slight headache but states that now his headache is much worse than it is frontal in nature. States he still has a sharp pain in his chest. Patient recently told nursing that he stopped all of his medications a week ago. He continues to smoke. [facility] Medical History borderline elevated troponin Abnormal EKG Acute electrocardiogram changes ADHD (attention deficit hyperactivity disorder) Bilateral hip pain Cellulitis and abscess of left leg Crohn's colitis Diabetes Essential hypertension Gastroenteritis Headache Heart disease History of arthritis History of drug abuse History of emotional problems History of left heart catheterization History of pneumonia Hypertension Hypertensive emergency Knee pain Lower extremity edema Morbid obesity, BMI unknown Neck abscess Obstructive sleep apnea KAREN (obstructive sleep apnea) Pneumonia Severe headache Severe left ventricular hypertrophy Shortness of breath Home Medications buprenorphine 8 mg-naloxone 2 mg sublingual film 2 film SUBLINGUAL DAILY 01/03/20 [History Last Taken Unknown] potassium chloride 20 mEq tablet,extended release 20 meq PO DAILY #90 tab 07/18/20 [Rx Last Taken Unknown] fluoxetine 40 mg capsule 40 mg PO DAILY #90 cap 09/11/20 [Rx Last Taken Unknown] amlodipine 10 mg tablet 10 mg PO DAILY #60 tab 02/15/21 [Rx Last Taken Unknown] doxazosin 2 mg tablet 2 mg PO QHS #90 tab 02/15/21 [Rx Last Taken Unknown] empagliflozin 10 mg tablet 10 mg PO QAM #90 tab 02/15/21 [Rx Last Taken Unknown] hydrochlorothiazide 25 mg tablet 25 mg PO DAILY #60 tab 02/15/21 [Rx Last Taken Unknown] lisinopril 40 mg tablet 40 mg PO DAILY #60 tab 02/15/21 [Rx Last Taken Unknown] metformin 500 mg tablet,extended release 24 hr 500 mg PO BID #180 tab 02/15/21 [Rx Last Taken Unknown] spironolactone 50 mg tablet See Rx Instructions .ROUTE .COMPLEX #60 tab 02/15/21 [Rx Last Taken Unknown] Allergy/AdvReac Type Severity Reaction Status Date / Time bupropion Allergy Severe seizure Verified 04/28/21 19:30 amoxicillin [Amoxicillin] Allergy Swelling Verified 04/28/21 19:30 Penicillins Allergy Swelling Verified 04/28/21 19:30 Sulfa (Sulfonamide Allergy Unknown Verified 04/28/21 19:30 Antibiotics) diphenhydramine AdvReac psychosis Verified 04/28/21 19:30 [From Benadryl] metoclopramide [From Reglan] AdvReac psychosis Verified 04/28/21 19:30 Family History (Updated 04/28/21 @ 22:[address] Romana Bray MD) Father Kidney disease High blood cholesterol Hypertension Respiratory disease Myocardial infarction Diabetes Mother High blood cholesterol Hypertension Kidney disease Respiratory disease Myocardial infarction Diabetes Other Alcoholism Anxiety Arthritis Asthma Heart disease Surgical History History of appendectomy Social History (Updated 04/28/21 @ 22:[address] Romana Bray MD) household members: other details: Family, currently impending divorce. Smoking Status: Current every day smoker tobacco type: cigarettes Smoking packs per day: 1 Smoking cigarettes per day: 20.0 Years smoked: 12 Smoking pack-years: 12.00 alcohol intake: never substance use type: former substance user ROS ROS ED Constitutional Constitutional ED: Denies chills or weight loss Eyes Eyes: Denies change in vision or diplopia ENT ENT ED: Denies ear pain, rhinorrhea or sore throat Cardiovascular Cardiovascular: Reports chest pain and other Details: Syncope ; Denies orthopnea, palpitations or racing heartbeat Respiratory/Chest Respiratory/Chest: Denies cough, dyspnea or orthopnea Gastrointestinal Gastrointestinal: Denies abdominal pain, diarrhea, nausea or vomiting Genitourinary Genitourinary ED: Denies dysuria, hematuria or urinary frequency Musculoskeletal Musculoskeletal: Denies arthralgias or myalgias Integumentary Denies abscess or rash Neurologic Neurologic: Reports headache(s); Denies weakness Psychiatric Psychiatric: Denies anxiety, depression, suicidal ideation or suicidal thoughts Endocrine Endocrinology: Denies polydipsia, polyphagia or polyuria Allergic/Immunologic Allergic/Immunologic ED: Denies mouth swelling, tongue swelling or urticaria EXAM Physical Exam Const Vital Signs: 04/28/21 19:23 04/28/21 19:32 04/28/21 20:38 Temperature 98.9 F Temperature Source Oral Pulse Rate 120 H 114 H Respiratory Rate 28 H 20 H Respiratory Pattern Tachypnea Blood Pressure 187/113 H 165/100 H Blood Pressure Mean 137 121 Pulse Ox 97 98 Oxygen Delivery Method Nasal Cannula Room Air Oxygen Flow Rate (L/min) 2 04/28/21 21:08 Temperature Temperature Source Pulse Rate 118 H Respiratory Rate 18 Respiratory Pattern Blood Pressure 233/133 H Blood Pressure Mean 166 Pulse Ox 96 Oxygen Delivery Method Room Air Oxygen Flow Rate (L/min) Positive well nourished, well developed and obese General Appearance ED: well developed Nutritional Appearance: obese HEENT Reports normocephalic, head/scalp atraumatic, TM's clear and moist mucous membranes normocephalic and atraumatic Tympanic Membrane ED: Yes TM's clear Eyes PERRL and EOMs intact bilaterally Neck no lymphadenopathy, supple and no JVD Resp normal respiratory effort and clear to auscultation bilaterally Cardio regular rate and no murmurs Rate: tachycardic GI normal to inspection, nondistended, normoactive bowel sounds and non-tender Palpation: soft Back/Spine no CVA tenderness and normal ROM Extremity normal to inspection General Extremety ED: Negative for edema General Extremity: Negative for edema Neuro oriented x3 and CN's II-XII intact bilaterally Sensorium / Orientation: alert Motor Exam: strength 5/5 throughout Psych Mood & Affect: tearful; Negative for depressed Skin no rashes or lesions noted and no wounds MDM MDM MDM Narrative Medical decision making narrative: Patient's blood work is significant for a potassium of 2.2 and a magnesium of 1.2 troponin is 30 D-dimer 0.45. Patient has gone off of his medications for the past week per him. He is significantly hypertensive. I administered amlodipine lisinopril labetalol potassium and magnesium. I change his blood pressure cuff to a large cuff on the upper arm instead of a regular cuff on his forearm. Blood pressures down to 187/114. Patient is reluctant to be in the hospital. He states that he is going through divorce. He is on the phone texting with his considerably which is causing him great anxiety and mental issues. I gave him Ativan to help him relax. If his blood pressures not improving we may need to place him on a Cardene drip. Our hospitalist has evaluated him and we are admitting him to PCU. The patient was advised that he is not allowed to go outside and smoke because he is receiving potassium magnesium infusions and he is hypertensive urgency. Patient states that he does not care he wants to leave AMA. Patient appears to have the capacity to make this decision Lab Data Attestation: I reviewed the patient's lab results. Labs: Laboratory Results - last 24 hr 04/28/21 04/28/21 04/28/21 19:25 19:25 19:25 WBC 9.9 RBC 5.63 Hgb 16.8 H Hct 48.9 MCV 86.9 MCH 29.8 MCHC 34.4 RDW Std Deviation 39.8 RDW Coeff of Barbara 12.7 Plt Count 257 MPV 10.8 Immature Gran % (Auto) 0.300 Neut % (Auto) 76.1 H Lymph % (Auto) 18.[address] [place] % (Auto) 4.6 Eos % (Auto) 0.2 Baso % (Auto) 0.3 Absolute Neuts (auto) 7.5 Absolute Lymphs (auto) 1.83 Nucleated RBC % 0 D-Dimer Quant (PE/DVT) Cancelled Sodium 146 H Potassium 2.2 L* Chloride 114 H Carbon Dioxide 24.0 Anion Gap 8 BUN 9 Creatinine 0.77 Estim Creat Clear Calc 153.97 Est GFR (MDRD) Af Amer 152 Est GFR (MDRD) Non-Af 126 BUN/Creatinine Ratio 11.7 Glucose 117 H Calcium 6.8 L Magnesium Troponin I High Sens 30 POC Glucose 04/28/21 04/28/21 04/28/21 19:25 19:34 20:36 WBC RBC Hgb Hct MCV MCH MCHC RDW Std Deviation RDW Coeff of Barbara Plt Count MPV Immature Gran % (Auto) Neut % (Auto) Lymph % (Auto) [place] % (Auto) Eos % (Auto) Baso % (Auto) Absolute Neuts (auto) Absolute Lymphs (auto) Nucleated RBC % D-Dimer Quant (PE/DVT) 0.45 Sodium Potassium Chloride Carbon Dioxide Anion Gap BUN Creatinine Estim Creat Clear Calc Est GFR (MDRD) Af Amer Est GFR (MDRD) Non-Af BUN/Creatinine Ratio Glucose Calcium Magnesium 1.2 L Troponin I High Sens POC Glucose 137 H Radiography Diagnostic Testing: Clinical Impression(s) from Imaging Studies Brain CT 04/28/21 19:53 IMPRESSION: 1. No acute abnormality. 2. 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 Electronically Signed: Sully Aguirre MD at 20:21 EDT Tel , Service support , Chest X-Ray 04/28/21 19:59 IMPRESSION: Mild bibasilar infiltrates or atelectasis. Electronically Signed: Casimiro Matthew MD at 20:35 EDT Tel , Service support , EKG Initial EKG: Attestation: I personally reviewed and interpreted this EKG as follows: Comments: Sinus tachycardia with a ventricular rate of 121 bpm Follow-up EKG: Attestation: I personally reviewed and interpreted this EKG as follows: Comments: Sinus tachycardia with a ventricular rate of 120 bpm Discharge Plan Triage Chief Complaint: Chest Pain ED Provider: Galileo Mckinney Dx/Rx/DC Orders Clinical Impression: Chest pain, Syncope and collapse, Acute hypokalemia, Chest pain in adult, Hypomagnesemia, Hypertensive urgency Instructions: ED Chest Pain, Uncertain Cause, ED Hypokalemia, ED Fainting, Vagal Reaction Prescriptions: No Action buprenorphine-naloxone [Suboxone] 8-2 mg film 2 film SUBLINGUAL DAILY RF: 0 doxazosin 2 mg tablet 2 mg PO QHS Qty: 90 RF: 1 potassium chloride 20 mEq tablet extended release 20 meq PO DAILY Qty: 90 RF: 1 Hold Instructions: Home Medication placed on hold at Doctor's office fluoxetine 40 mg capsule 40 mg PO DAILY Qty: 90 RF: 1 amlodipine 10 mg tablet 10 mg PO DAILY Qty: 60 RF: 0 hydrochlorothiazide 25 mg tablet 25 mg PO DAILY Qty: 60 RF: 0 lisinopril 40 mg tablet 40 mg PO DAILY Qty: 60 RF: 0 spironolactone 50 mg tablet See Rx Instructions .ROUTE .COMPLEX Qty: 60 RF: 0 metformin 500 mg tablet extended release 24 hr 500 mg PO BID Qty: 180 RF: 1 Jardiance 10 mg tablet 10 mg PO QAM Qty: 90 RF: 1 Primary Care Provider: Rubio Guzman Referrals: Rubio Guzman MD [Primary Care Provider] - As soon as possible Disposition Disposition: Against Medical Advice Capacity Capacity Assessment Tool Can the patient make a choice & communicate that choice?: Yes Can the patient understand benefits, risks and alternatives?: Yes Can the patient make a logical, rational choice?: Yes Is the choice the patient makes consistent w/ their values?: Yes Is there an impending, emergent risk to the patient?: Yes Does the patient have an Advance Directive?: No Is there a Surrogate Available?: No i.e. HCPOA: No i.e. close relative (spouse, child, parent, sibling)?: No
--- NOTE | 2021-04-28 19:53 | EKG12_ITS ---
Test Reason : CP Blood Pressure : / mmHG Vent. Rate : 121 BPM Atrial Rate : 121 BPM P-R Int : 180 ms QRS Dur : 092 ms QT Int : 302 ms P-R-T Axes : 043 036 142 degrees QTc Int : 428 ms Sinus tachycardia T wave abnormality, consider inferolateral ischemia Abnormal ECG Confirmed by ROXIE ARCHULETA, COLLEEN ([id number]), story editor JUNO AMAYA ([id number]) on 04/30/2021 11:00:02 AM Referred By: Confirmed By:COLLEEN FAUSTIN MD
--- NOTE | 2021-04-28 19:53 | CT_ITS ---
STUDY: CT BRAIN WITHOUT CONTRAST REASON FOR EXAM: Male, 30 years old. Headache injury RADIATION DOSAGE (If Supplied By Facility): CTDIvol = ( 44.99 ) mGy, DLP = ( 829.85 ) mGycm TECHNIQUE: Transaxial CT imaging of the brain was performed without administration of intravenous contrast material. Individualized dose optimization techniques were used for this CT. COMPARISON: 25 May 2018 FINDINGS: There is stable remote infarct in the right mid osborne radiata periventricular white matter. There is no mass effect, acute intracranial hemorrhage, extra parenchymal fluid collections, hydrocephalus or herniation. The skull is intact. CT/Brain/Head without Contrast IMPRESSION: 1. No acute abnormality. 2. 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 Electronically Signed: Sully Aguirre MD at 20:21 EDT Tel , Service support ,
--- NOTE | 2021-04-28 19:59 | RAD_ITS ---
EXAM: XR Chest, 1 View CLINICAL INDICATION: 30 years old, Male; chest pain TECHNIQUE: Frontal view of the chest. This report was created using [employer] report generation technology. COMPARISON: Chest x-ray dated 08/22/2019 FINDINGS: Lungs and pleural spaces: Mild bibasilar infiltrates or atelectasis. No pneumothorax. No effusion. Heart: Unremarkable. Cardiac silhouette not enlarged. Mediastinum: Central airways and mediastinal contour are unremarkable. Bones/joints: Unremarkable. Soft tissues: Unremarkable. RAD/Chest 1 View (Portable) IMPRESSION: Mild bibasilar infiltrates or atelectasis. Electronically Signed: Casimiro Matthew MD at 20:35 EDT Tel , Service support ,
--- NOTE | 2021-04-28 20:20 | EKG12_ITS ---
Test Reason : REPEAT Blood Pressure : / mmHG Vent. Rate : 120 BPM Atrial Rate : 120 BPM P-R Int : 172 ms QRS Dur : 096 ms QT Int : 310 ms P-R-T Axes : 052 056 217 degrees QTc Int : 438 ms Sinus tachycardia T wave abnormality, consider inferolateral ischemia Abnormal ECG Confirmed by ROXIE ARCHULETA, COLLEEN ([id number]), industrial editor JUNO AMAYA ([id number]) on 04/30/2021 11:00:18 AM Referred By: Confirmed By:COLLEEN FAUSTIN MD
[2021-04-28 20:26] LABS: Absolute Lymphocyte Count 1.83 X10^3/uL (0.83-4.51); Absolute Neutrophil Count 7.5 X10^3/uL (2.0-7.7); Basophil# 0.03 X10^3/uL; Basophil% 0.3 % (0-1); Eosinophil# 0.02 X10^3/uL; Eosinophils% 0.2 % (0-5); Hematocrit 48.9 % (40-54); Hemoglobin 16.8 g/dL (13.0-16.5); Lymphocyte # 1.83 X10^3/ul (0.83-4.51); Lymphocyte % 18.5 % (19-41); Mean Corp Hgb Conc 34.4 g/dL (32-36); Mean Corpuscular Hgb 29.8 pg (27.0-32.0); Mean Corpuscular Volume 86.9 fL (80-94); Mean Platelet Vol. 10.8 fl (6.2-12.0); Monocyte# 0.45 X10^3/uL; Monocyte% 4.6 % (0-10); NRBC Flagged by Analyzer 0 % (0-5); Neutrophil # 7.51 X10^3/uL (2.7-7.7); Neutrophil % 76.1 % (47-70); Platelet Count 257 K/mm3 (150-450); RBC Distribution Width CV 12.7 % (11.6-14.6); RBC Distribution Width SD 39.8 fl (35.1-43.9); Red Blood Count 5.63 M/mm3 (4.6-6.2); White Blood Count 9.9 K/mm3 (4.4-11.0)
[2021-04-28 20:38] VITALS: BP 165/100; PULSE 114; RESP 20; O2SAT 98
[2021-04-28] MEDS: LORazepam 2 MG/ML Syringe 1 MG IV (20:43)
[2021-04-28] MEDS: Ondansetron 4 MG/2 ML Vial IV (20:44)
[2021-04-28 20:48] LABS: Anion Gap 8 (5-15); BUN 9 mg/dL (7-18); BUN/Creat Ratio 11.7 RATIO (10-20); Calcium,Total 6.8 mg/dL (8.5-10.1); Chloride 114 mmol/L (98-107); Creatinine, Serum 0.77 mg/dL (0.70-1.30); EST Glomerular Filtration Rate 126 mL/min (>60); Est Glom Filt Rate - Afr Amer 152 mL/min (>60); Estimated Creatinine Clearance 153.97 ml/min; Glucose 117 mg/dL (74-106); Potassium 2.2 mmol/L (3.5-5.1); Sodium Level 146 mmol/L (136-145); Troponin-I HS 30 pg/mL (3.0-78.0)
--- NOTE | 2021-04-28 20:48 | ED.RN ---
POTASSIUM OF 2.2 REPORTED TO
[2021-04-28 20:56] LABS: D-Dimer Quantitative (DVT/PE) 0.45 FEU/ug/m (0.27-0.49)
[2021-04-28 21:05] LABS: Magnesium 1.2 mg/dL (1.6-2.6)
[2021-04-28 21:08] VITALS: BP 233/133; PULSE 118; RESP 18; O2SAT 96
[2021-04-28] MEDS: Potassium Chloride Oral Tablet 20 MEQ 40 MEQ PO (21:11)
[2021-04-28] MEDS: Labetalol (Prefilled) 20 MG/4 ML IV (21:56)
[2021-04-28] MEDS: amLODIPine 10 MG Tablet PO (21:58)
[2021-04-28] MEDS: Lisinopril 40 MG Tablet PO (21:58)
[2021-04-28] MEDS: Potassium Chloride 10mEq/100mL 10 MEQ/100 ML IV.SOLN. 100 MEQ IV BOLUS (22:01)
--- NOTE | 2021-04-28 22:10 | HP.PCM.HOS_ITS ---
HPI - General General Date of Admission: 04/28/21 Date of Service: 04/28/21 Chief Complaint: Off meds x 1 week, Chest pain, Syncopal event. HPI Narrative The patient is a 30 y/o M w/ PMHx: Hx Substance abuse, Morbid Obesity, KAREN on CPAP q HS, HTN, HLD, ADHD/Anxiety and Depression, Tobacco use, Diabetes mellitus type II, Crohn's disease who presents to the [facility] ED on 04/28/21 with history of several psychosocial ongoing events including impending divorce and arguments with his spouse with underlying anxiety and depression going off of all of his home medications over the last week with on day of presentation to the ED onset of chest discomfort, midsternal, stabbing with diaphoresis and dyspnea prompting him to go outside for air and unfortunately suffering from a syncopal event with no specific trauma prompting transition to the ED for evaluation. Patient reported the chest discomfort as 5-7 out of 10 in severity. He denies any current chest pain at this time. He denies any specific dyspnea as well. He did report that he did have episode of emesis associated and does have ongoing mild throbbing generalized headache with no light or sound sensitivity. While in the ED the entire time his emotion has been labile and he has been furiously texting. Work-up in the ED included T 98.9, heart rate initially 120, BP up to 233/133, respiratory rate ranging 18-28, 96 to 98% on room air, CBC with WC 9.9, and 116.8, platelet 257 without marked shift, D-dimer 0.55, BMP with sodium 146, potassium 2.2, chloride 114, glucose 117, magnesium 1.2, high-sensitivity troponin 30, EKG with sinus tachycardia with no acute evidence of ischemia, chest x-ray with my bibasilar atelectasis, CT head with no acute intracranial findings with stable remote right osborne radiata white matter infarct. In the ED patient started potassium 40 mEq p.o. x1 and 20 mill equivalent potassium chloride IV as well as magnesium sulfate 2 g IV x1. Patient administered nicotine 14 mg patch, Zofran, Ativan and administered oral lisinopril 40 mg, Norvasc 10 mg and as well as labetalol 20 mg IV x1. Discussed plan of care with the ED physician and if BP unable to be appropriately controlled would require initiation of Cardene drip and transition to the ICU. If BPs do improve will plan admission to the PCU. [facility] [place] Medical History borderline elevated troponin Abnormal EKG Acute electrocardiogram changes ADHD (attention deficit hyperactivity disorder) Bilateral hip pain Cellulitis and abscess of left leg Crohn's colitis Diabetes Essential hypertension Gastroenteritis Headache Heart disease History of arthritis History of drug abuse History of emotional problems History of left heart catheterization History of pneumonia Hypertension Hypertensive emergency Knee pain Lower extremity edema Morbid obesity, BMI unknown Neck abscess Obstructive sleep apnea KAREN (obstructive sleep apnea) Pneumonia Severe headache Severe left ventricular hypertrophy Shortness of breath Home Medications buprenorphine 8 mg-naloxone 2 mg sublingual film 2 film SUBLINGUAL DAILY 01/03/20 [History Last Taken Unknown] potassium chloride 20 mEq tablet,extended release 20 meq PO DAILY #90 tab 07/18/20 [Rx Last Taken Unknown] fluoxetine 40 mg capsule 40 mg PO DAILY #90 cap 09/11/20 [Rx Last Taken Unknown] amlodipine 10 mg tablet 10 mg PO DAILY #60 tab 02/15/21 [Rx Last Taken Unknown] doxazosin 2 mg tablet 2 mg PO QHS #90 tab 02/15/21 [Rx Last Taken Unknown] empagliflozin 10 mg tablet 10 mg PO QAM #90 tab 02/15/21 [Rx Last Taken Unknown] hydrochlorothiazide 25 mg tablet 25 mg PO DAILY #60 tab 02/15/21 [Rx Last Taken Unknown] lisinopril 40 mg tablet 40 mg PO DAILY #60 tab 02/15/21 [Rx Last Taken Unknown] metformin 500 mg tablet,extended release 24 hr 500 mg PO BID #180 tab 02/15/21 [Rx Last Taken Unknown] spironolactone 50 mg tablet See Rx Instructions .ROUTE .COMPLEX #60 tab 02/15/21 [Rx Last Taken Unknown] Allergy/AdvReac Type Severity Reaction Status Date / Time bupropion Allergy Severe seizure Verified 04/28/21 19:30 amoxicillin [Amoxicillin] Allergy Swelling Verified 04/28/21 19:30 Penicillins Allergy Swelling Verified 04/28/21 19:30 Sulfa (Sulfonamide Allergy Unknown Verified 04/28/21 19:30 Antibiotics) diphenhydramine AdvReac psychosis Verified 04/28/21 19:30 [From Benadryl] metoclopramide [From Reglan] AdvReac psychosis Verified 04/28/21 19:30 Family History (Updated 04/28/21 @ 22:[address] Romana Bray MD) Father Kidney disease High blood cholesterol Hypertension Respiratory disease Myocardial infarction Diabetes Mother High blood cholesterol Hypertension Kidney disease Respiratory disease Myocardial infarction Diabetes Other Alcoholism Anxiety Arthritis Asthma Heart disease Surgical History History of appendectomy Social History (Updated 04/28/21 @ 22:[address] Romana Bray MD) household members: other details: Family, currently impending divorce. Smoking Status: Current every day smoker tobacco type: cigarettes Smoking packs per day: 1 Smoking cigarettes per day: 20.0 Years smoked: 12 Smoking pack-years: 12.00 alcohol intake: never substance use type: former substance user ROS ROS Narrative Admission Review of Systems: CONSTITUTIONAL: No weight loss, fever, chills, + weakness or fatigue. HEENT: + [place]. Eyes: No visual loss, blurred vision, double vision or yellow sclerae. Ears, Nose, Throat: No hearing loss, sneezing, congestion, runny nose or sore throat. SKIN: No rash or itching, lesions, wounds. CARDIOVASCULAR: + chest pain, chest pressure or chest discomfort, syncope, No pa lpitations, edema, orthopnea. RESPIRATORY: + shortness of breath, No cough or sputum, wheezing, hemoptysis. GASTROINTESTINAL: + anorexia, nausea, vomiting, No diarrhea, abdominal pain, melena, BRBPR. GENITOURINARY: No dysuria, frequency, urgency or retention. NEUROLOGICAL: + headache, dizziness, syncope, No paralysis, ataxia, numbness or tingling in the extremities, focal weakness, change in bowel or bladder control, seizure. MUSCULOSKELETAL: + muscle, back pain, joint pain or stiffness. HEMATOLOGIC: No anemia, bleeding or bruising. LYMPHATICS: No enlarged nodes. No history of splenectomy. PSYCHIATRIC: + history of depression or anxiety. ENDOCRINOLOGIC: No reports of sweating, cold or heat intolerance. No polyuria or polydipsia. ALLERGIES: No history of asthma, hives, eczema or rhinitis. Vital Signs Vital Signs Vital Signs: 04/28/21 19:23 04/28/21 19:32 04/28/21 20:38 Temperature 98.9 F Temperature Source Oral Pulse Rate 120 H 114 H Respiratory Rate 28 H 20 H Respiratory Pattern Tachypnea Blood Pressure 187/113 H 165/100 H Blood Pressure Mean 137 121 Pulse Ox 97 98 Oxygen Delivery Method Nasal Cannula Room Air Oxygen Flow Rate (L/min) 2 04/28/21 21:08 Temperature Temperature Source Pulse Rate 118 H Respiratory Rate 18 Respiratory Pattern Blood Pressure 233/133 H Blood Pressure Mean 166 Pulse Ox 96 Oxygen Delivery Method Room Air Oxygen Flow Rate (L/min) Weight Weight: 344 lb 5.793 oz Body Mass Index (BMI) 46.7 Physical Exam Narrative Physical Examination: General: Awake, alert, oriented x 3 and cooperative, seated upright in the ED bed, currently calm however throughout ED evaluations and with the ED physician patient has been extremely distressed, frequently crying, very upset regarding impending divorce. Skin: Normal color, normal turgor, no icterus, no cyanosis except noted chronic venous stasis skin changes bilateral lower extremities. HEENT: AT/NC, EOMI, PERRLA, mildly dry MM, no carotid bruits or JVD noted. Lungs: Diminished, greater bases, moderate effort no rales, ronchi or wheezing. Heart: Tachycardic with regular rhythm; no gallop, rub audible. Abdomen: Soft, morbidly obese, NTTP, difficult to assess distention given habitus, distant normal BS, no obvious evidence of HSM; however, habitus makes examination difficult. Extremities: No cyanosis, clubbing, or edema. Neurological: Patient awake, alert, oriented as noted, cognitive function intact; pupils equally reactive to light and accommodation, cranial nerves II- XII grossly normal, moving all 4 extremities, no focal deficits, strength preserved. Psychiatric: Affect appears extremely distressed, underlying depression, anxious, impending divorce. Results Lab / Micro Data Result Diagrams: 04/28/21 19:25 04/28/21 19:25 Labs: Laboratory Results - last 24 hr 04/28/21 19:25: WBC 9.9, RBC 5.63, Hgb 16.8 H, Hct 48.9, MCV 86.9, MCH 29.8, MCHC 34.4, RDW Std Deviation 39.8, RDW Coeff of Barbara 12.7, Plt Count 257, MPV 10.8, Immature Gran % (Auto) 0.300, Neut % (Auto) 76.1 H, Lymph % (Auto) 18.5 L, Rosebud % (Auto) 4.6, Eos % (Auto) 0.2, Baso % (Auto) 0.3, Absolute Neuts (auto) 7.5, Absolute Lymphs (auto) 1.83, Nucleated RBC % 0 04/28/21 19:25: Sodium 146 H, Potassium 2.2 L*, Chloride 114 H, Carbon Dioxide 24.0, Anion Gap 8, BUN 9, Creatinine 0.77, Estim Creat Clear Calc 153.97, Est GFR (MDRD) Af Amer 152, Est GFR (MDRD) Non-Af 126, BUN/Creatinine Ratio 11.7, Glucose 117 H, Calcium 6.8 L, Troponin I High Sens 30 04/28/21 19:25: D-Dimer Quant (PE/DVT) Cancelled 04/28/21 19:25: Magnesium 1.2 L 04/28/21 19:34: POC Glucose 137 H 04/28/21 20:36: D-Dimer Quant (PE/DVT) 0.[address] 04/28/21 19:53 IMPRESSION: 1. No acute abnormality. 2. 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 Electronically Signed: Sully Aguirre MD at 20:21 EDT Tel , Service support , Chest X-Ray 04/28/21 19:59 IMPRESSION: Mild bibasilar infiltrates or atelectasis. Electronically Signed: Casimiro Matthew MD at 20:35 EDT Tel , Service support , Assessment & Plan Assessment/Plan (1) Hypertensive urgency: (2) Syncope and collapse: (3) Chest pain: QUALIFIERS: Chest pain type: unspecified Qualified Code(s): R07.9 - Chest pain, unspecified PLAN: The patient is a 30 y/o M w/ PMHx: Hx substance abuse, Morbid Obesity, KAREN on CPAP q HS, HTN, HLD, ADHD/Anxiety and Depression, Tobacco use, Diabetes mellitus type II, Crohn's disease who presents to the [facility] ED on 04/28/21 with history of several psychosocial ongoing events including impending divorce and arguments with his spouse with underlying anxiety and depression going off of all of his home medications over the last week with on day of presentation to the ED onset of chest discomfort, midsternal, stabbing with diaphoresis and dyspnea prompting him to go outside for air and unfortunately suffering from a syncopal event with no specific trauma prompting transition to the ED for evaluation. 1. Hypertensive urgency with associated chest pain and syncopal event with collapse: EKG in ED sinus tachycardia with no acute evidence of ischemia, CXR w/ bibasilar atelectasis otherwise no acute cardiopulmonary findings, initial trop 30. Presentation also compounded by #2. Will admit to PCU if BP can become controlled in the ED with continuation of patient oral regimen with likely escalation although patient currently has been off these medications for nearly 1 week. If unable to appropriately controlled then will necessitate Cardene drip start with transition to the ICU instead, place on a monitored bed to assure no acute myocardial infarction with serial cardiac enzymes and EKGs. Patient does have significant electrolyte disturbances with hypokalemia and hypomagnesia both of which have been initiated on therapy in the ED and will plan repeat levels with further supplementation as needed. Of note had recent 03/13/2021 cardiac stress testing that was unremarkable. Suspect patient presentation likely secondary to being off his medications with significant hypertension and underlying anxiety with ongoing impending divorce. ASA, NG, morphine. 2. History of prior substance abuse on chronic Suboxone therapy with component of acute opiate withdrawal: Patient reports being off of also Suboxone therapy, likely contributing to his current presentation, will offer continuation versus Subutex taper, as needed tylenol, ibuprofen, bowel regimen, gabapentin, Bentyl, Vistaril, methocarbamol, clonidine, PRN nightly trazodone for insomnia. Would request case management consultation for substance abuse. 3. Anxiety and depression/ADHD: We will continue patient home fluoxetine silvino men, could benefit from additional regimen as well as therapy given current life stressors likely contributing to acute presentation as noted above. 4. Diabetes mellitus type II: Hold oral home regimen, continue home insulin regimen, ADA diet, accu checks w/ ISS. 5. Tobacco Abuse: Encouraged cessation, inpatient consultation per RT, NR if desired. 6. Morbid Obesity: Weight loss and lifestyle changes encouraged, nutrition consulted. 7. Hyperlipidemia: Not on regimen, FLP in AM. 8. KAREN: We will maintain on CPAP nightly. 9. DVT prophylaxis: SCDs, Lovenox. Charges/Coding Visit Charges Inpatient E&M: 46616 Init Hosp L3
[2021-04-28 22:36] VITALS: BP 178/119; PULSE 101; RESP 17; O2SAT 95
== END 2021-04-28 22:58 | disposition left against medical advice (07) ==
PROVIDERS: Emergency Provider Emergency Medicine; PCP Internal Medicine
DX: I16.1 Hypertensive emergency (principal); R07.89 Other chest pain; E87.6 Hypokalemia; E83.42 Hypomagnesemia; R55 Syncope and collapse; E11.9 Type 2 diabetes mellitus without complications; I10 Essential (primary) hypertension; F41.9 Anxiety disorder, unspecified; F32.9 Major depressive disorder, single episode, unspecified; F90.9 Attention-deficit hyperactivity disorder, unspecified type; E66.01 Morbid (severe) obesity due to excess calories; E78.5 Hyperlipidemia, unspecified; G47.33 Obstructive sleep apnea (adult) (pediatric); F17.210 Nicotine dependence, cigarettes, uncomplicated; Z79.84 Long term (current) use of oral hypoglycemic drugs; Z79.899 Other long term (current) drug therapy; Z68.42 Body mass index [BMI] 45.0-49.9, adult
CPT/HCPCS: 70450; 71045; 80048; 82962; 83735; 84484; 85025; 85379; 93005; 96365; 96368; 96375; 99285; J7040; A4216; J2405

== ENCOUNTER → 2021-05-03 12:02 | Outpatient (CLI) | payer MEDICAID, SELFPAY ==
[2021-05-03 15:03] LABS: Absolute Lymphocyte Count 2.11 X10^3/uL (0.83-4.51); Absolute Neutrophil Count 4.3 X10^3/uL (2.0-7.7); Basophil# 0.03 X10^3/uL; Basophil% 0.4 % (0-1); Eosinophil# 0.11 X10^3/uL; Eosinophils% 1.6 % (0-5); Hematocrit 48.7 % (40-54); Hemoglobin 16.4 g/dL (13.0-16.5); Lymphocyte # 2.11 X10^3/ul (0.83-4.51); Lymphocyte % 30.1 % (19-41); Mean Corp Hgb Conc 33.7 g/dL (32-36); Mean Corpuscular Hgb 29.8 pg (27.0-32.0); Mean Corpuscular Volume 88.4 fL (80-94); Mean Platelet Vol. 10.6 fl (6.2-12.0); Monocyte# 0.48 X10^3/uL; Monocyte% 6.8 % (0-10); NRBC Flagged by Analyzer 0 % (0-5); Neutrophil # 4.27 X10^3/uL (2.7-7.7); Neutrophil % 60.8 % (47-70); Platelet Count 242 K/mm3 (150-450); RBC Distribution Width CV 12.6 % (11.6-14.6); RBC Distribution Width SD 41.1 fl (35.1-43.9); Red Blood Count 5.51 M/mm3 (4.6-6.2)
[2021-05-03 15:33] LABS: Hemoglobin A1c 6.4 % (3.8-5.6)
[2021-05-03 15:41] LABS: ALB/GLOB Ratio 0.8 RATIO (0.9-2.4); AST(SGOT) 23 U/L (15-37); Alanine Aminotransfer ALT/SGPT 38 U/L (16-61); Albumin, Serum 3.4 g/dL (3.2-5.0); Alkaline Phosphatase 45 U/L (45-117); Anion Gap 5 (5-15); BUN 16 mg/dL (7-18); BUN/Creat Ratio 14.3 RATIO (10-20); Calcium,Total 9.3 mg/dL (8.5-10.1); Chloride 104 mmol/L (98-107); Creatinine, Serum 1.12 mg/dL (0.70-1.30); EST Glomerular Filtration Rate 81 mL/min (>60); Est Glom Filt Rate - Afr Amer 99 mL/min (>60); Globulin 4.2 g/dL (2.2-4.2); Glucose 145 mg/dL (74-106); Potassium 3.5 mmol/L (3.5-5.1); Protein, Total 7.6 g/dL (6.4-8.2); Sodium Level 141 mmol/L (136-145)
== END ==
PROVIDERS: PCP Internal Medicine; Referring Provider Nurse Practitioner Family; Visit Provider Nurse Practitioner Family
DX: E87.6 Hypokalemia (principal); I16.0 Hypertensive urgency; R07.9 Chest pain, unspecified; R55 Syncope and collapse
CPT/HCPCS: 36415; 80053; 83036; 85025

== ENCOUNTER 2021-05-19 17:19 | Emergency (ER) | payer MEDICAID, SELFPAY ==
[2021-05-19 17:20] VITALS: BP 157/108; PULSE 110; RESP 16; TEMP 36.4; O2SAT 97; BMI 44.5
[2021-05-19 17:28] VITALS: BP 167/118; PULSE 108; RESP 14; O2SAT 96
--- NOTE | 2021-05-19 17:42 | EKG12_ITS ---
Test Reason : CP Blood Pressure : / mmHG Vent. Rate : 101 BPM Atrial Rate : 101 BPM P-R Int : 216 ms QRS Dur : 090 ms QT Int : 350 ms P-R-T Axes : 065 048 154 degrees QTc Int : 453 ms Sinus tachycardia with 1st degree A-V block T wave abnormality, consider inferolateral ischemia Abnormal ECG Confirmed by ROXIE ARCHULETA, COLLEEN ([id number]), digital editor JUNO AMAYA ([id number]) on 05/20/2021 11:20:08 AM Referred By: TATI/JAXON Confirmed By:COLLEEN FAUSTIN MD
--- NOTE | 2021-05-19 17:54 | ED.VIS.CHEST ---
HPI History of Present Illness Chief Complaint: Chest Pain Informant: patient Onset/Context/Timing Onset: Weeks Activity at onset: gradual Timing: Intermittent Current Severity: Gone Maximum Severity: Mild Worsened By: Nothing Relieved By: Nothing Associated Symptoms: Negative for Nausea, Vomiting, Diaphoresis, Dyspnea, Cough, Fever, Lightheadedness, Acid Reflux and Palpitations Narrative Prior Similar Symptoms: Yes Recent Illness/Hospitalization: No CVD Risk Factors: Positive for Hypertension, Diabetes and Smoking PE Risk Factors: Negative for Recent Travel/Surgery, Recent Immobilization, Prior DVT or PE, Cancer and OCP + Smoking + >/=35 TAD Risk Factors: Positive for Hypertension; Negative for Marfan's Syndrome [facility] Medical History borderline elevated troponin Abnormal EKG Acute electrocardiogram changes ADHD (attention deficit hyperactivity disorder) Bilateral hip pain Cellulitis and abscess of left leg Crohn's colitis Diabetes Essential hypertension Gastroenteritis Headache Heart disease History of arthritis History of drug abuse History of emotional problems History of left heart catheterization History of pneumonia Hypertension Hypertensive emergency Knee pain Lower extremity edema Morbid obesity, BMI unknown Neck abscess Obstructive sleep apnea KAREN (obstructive sleep apnea) Pneumonia Severe headache Severe left ventricular hypertrophy Shortness of breath Home Medications buprenorphine 8 mg-naloxone 2 mg sublingual film 2 film SUBLINGUAL DAILY 01/03/20 [History Last Taken Unknown] potassium chloride 20 mEq tablet,extended release 20 meq PO DAILY #90 tab 07/18/20 [Rx Last Taken Unknown] fluoxetine 40 mg capsule 40 mg PO DAILY #90 cap 09/11/20 [Rx Last Taken Unknown] amlodipine 10 mg tablet 10 mg PO DAILY #60 tab 02/15/21 [Rx Last Taken Unknown] doxazosin 2 mg tablet 2 mg PO QHS #90 tab 02/15/21 [Rx Last Taken Unknown] empagliflozin 10 mg tablet 10 mg PO QAM #90 tab 02/15/21 [Rx Last Taken Unknown] hydrochlorothiazide 25 mg tablet 25 mg PO DAILY #60 tab 02/15/21 [Rx Last Taken Unknown] lisinopril 40 mg tablet 40 mg PO DAILY #60 tab 02/15/21 [Rx Last Taken Unknown] metformin 500 mg tablet,extended release 24 hr 500 mg PO BID #180 tab 02/15/21 [Rx Last Taken Unknown] spironolactone 50 mg tablet See Rx Instructions .ROUTE .COMPLEX #60 tab 02/15/21 [Rx Last Taken Unknown] Allergy/AdvReac Type Severity Reaction Status Date / Time bupropion Allergy Severe seizure Verified 05/19/21 17:22 amoxicillin [Amoxicillin] Allergy Swelling Verified 05/19/21 17:22 Penicillins Allergy Swelling Verified 05/19/21 17:22 Sulfa (Sulfonamide Allergy Unknown Verified 05/19/21 17:22 Antibiotics) diphenhydramine AdvReac psychosis Verified 05/19/21 17:22 [From Benadryl] metoclopramide [From Reglan] AdvReac psychosis Verified 05/19/21 17:22 Family History Father Kidney disease High blood cholesterol Hypertension Respiratory disease Myocardial infarction Diabetes Mother High blood cholesterol Hypertension Kidney disease Respiratory disease Myocardial infarction Diabetes Other Alcoholism Anxiety Arthritis Asthma Heart disease Surgical History History of appendectomy Social History household members: other details: Family, currently impending divorce. Smoking Status: Current every day smoker tobacco type: cigarettes alcohol intake: never substance use type: former substance user ROS ROS ED Review of Systems ROS Unobtainable: Denies due to encephalopathy Constitutional Constitutional ED: Denies fever(s) Eyes Eyes: Denies none ENT ENT ED: Denies ear pain Cardiovascular Cardiovascular: Reports as per HPI and chest pain Respiratory/Chest Respiratory/Chest: Denies cough or dyspnea Gastrointestinal Gastrointestinal: Denies abdominal pain, diarrhea, nausea or vomiting Genitourinary Genitourinary ED: Denies dysuria Musculoskeletal Musculoskeletal: Denies myalgias Integumentary Denies rash Neurologic Neurologic: Reports headache(s) Psychiatric Psychiatric: Denies depression Endocrine Endocrinology: Denies polyuria Hematologic/Lymphatic Hematologic/Lymphatic: Denies easy bruising Allergic/Immunologic Allergic/Immunologic ED: Denies urticaria EXAM Physical Exam Narrative Exam Narrative: 30-year-old male no acute distress vital signs stable with blood pressure is elevated 137/108. He does not look septic or toxic. HEENT exam unremarkable. Neck nontender. Lungs clear to auscultation bilaterally. Heart regular rhythm rate about 100 no murmur. Chest wall nontender. Abdomen soft nontender obese. No peritoneal signs. Moving all 4 extremities. Neurovascular intact. Calves nontender without edema or cords. Neurologically is awake and alert moving all 4 extremities. Const Vital Signs: 05/19/21 17:20 05/19/21 17:28 05/19/21 18:03 Temperature 97.5 F L Temperature Source Temporal Pulse Rate 110 H 108 H Respiratory Rate 16 14 Blood Pressure 157/108 H 167/118 H Blood Pressure Mean 124 134 Pulse Ox 97 96 95 Oxygen Delivery Method Room Air Room Air Room Air 05/19/21 20:14 Temperature Temperature Source Pulse Rate 96 Respiratory Rate 18 Blood Pressure 180/110 H Blood Pressure Mean 133 Pulse Ox 96 Oxygen Delivery Method Room Air Positive well nourished, well developed and obese; Negative for cachectic, contractures or unkempt General Appearance ED: well developed and NAD; Negative for unkempt, cachectic or contractures Nutritional Appearance: obese; Negative for cachectic HEENT Reports moist mucous membranes normocephalic Eyes PERRL and EOMs intact bilaterally Neck no lymphadenopathy, supple and no JVD General: Negative for tenderness Chest Wall inspection of chest normal and palpation of chest normal Resp normal respiratory effort and No clear to auscultation bilaterally Effort and Inspection: respiratory distress Auscultation: Negative for rales, rhonchi or wheezes Cardio regular rate, regular rhythm, S1 normal heart sound, S2 normal heart sound and no murmurs Rate: tachycardic GI normal to inspection, nondistended, normoactive bowel sounds, soft to palpation, non-tender and non-distended Back/Spine no CVA tenderness General Back: Negative for CVA tenderness Extremity normal to inspection General Extremety ED: Negative for edema or tenderness General Extremity: Negative for edema Neuro oriented x3, CN's II-XII intact bilaterally and No gait normal Sensorium / Orientation: awake, alert, oriented to person, oriented to place and oriented to time; Negative for lethargic or stuporous Motor Exam: strength 5/5 throughout Psych Appearance: Negative for unkempt Heart Score History: Slightly/Non-Suspicious ECG: Normal Age: </= 45 years Risk Factors: >/= 3 Risk Factors or History of CAD Troponin: </= Normal Limit Score: 2 MDM MDM MDM Narrative Medical decision making narrative: 30-year-old male hypertensive, diabetic, obese with 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 States he had a negative cardiac catheterization. He is taken care of by physician accounting assistant [employer] and they have been adjusting his blood pressure medications which he is currently on for. He is trying to get medical clearance to go back to work. Repeat exam at 8:26 PM patient is doing well. We had long conversation about weight loss, stop smoking and follow-up with legal entity controller about getting his blood pressure in line. Lab Data Attestation: I reviewed the patient's lab results. Lab results narrative: CBC White count 9 hemoglobin 16. Platelets 264 electrolytes potassium of 3.3 gap of 6 normal creatinine. Glucose 138 troponin 43. Chest x-ray unremarkable. Labs: Laboratory Results - last 24 hr 05/19/21 05/19/21 17:55 17:55 WBC 9.3 RBC 5.72 Hgb 16.8 H Hct 49.5 MCV 86.5 MCH 29.4 MCHC 33.9 RDW Std Deviation 38.6 RDW Coeff of Barbara 12.3 Plt Count 264 MPV 10.4 Immature Gran % (Auto) 0.300 Neut % (Auto) 81.9 H Lymph % (Auto) 13.4 L [place] % (Auto) 4.2 Eos % (Auto) 0.0 Baso % (Auto) 0.2 Absolute Neuts (auto) 7.7 Absolute Lymphs (auto) 1.25 Nucleated RBC % 0 Sodium 140 Potassium 3.3 L Chloride 105 Carbon Dioxide 29.0 Anion Gap 6 BUN 10 Creatinine 0.92 Estim Creat Clear Calc 128.86 Est GFR (MDRD) Af Amer 123 Est GFR (MDRD) Non-Af 102 BUN/Creatinine Ratio 10.8 Glucose 138 H Calcium 8.8 Troponin I High Sens 43 Radiography Chest X-Ray - ED: 1 View, Read by ED Physician, Read by Radiologist, Heart, Lungs, Mediastinum, Bony Structures, No Acute Disease and Chronic Changes Diagnostic Testing: Clinical Impression(s) from Imaging Studies Chest X-Ray 05/19/21 17:55 IMPRESSION: Low volumes, basal atelectasis. Electronically Signed: Sully Aguirre MD at 18:21 EST Tel , Service support , Chest x-ray portable, single view interpreted by myself the radiologist shows no acute abnormality. Normal cardiac silhouette and mediastinum. Rhythm Strip Rhythm Strip: Sinus Tach Rate: 101 Ectopy: None EKG Initial EKG: Attestation: I personally reviewed and interpreted this EKG as follows: Interpretation: Sinus Rhythm, No Acute Injury Pattern and Sinus Tachycardia Comments: Sinus tachycardia rate of 101 no acute signs of SC or ischemia. First-degree AV block with a AL interval of 216. Unchanged from prior EKG from April. Inverted T waves in leads V5 V6 which was seen on prior. Prior: Unchanged Discharge Plan Triage Chief Complaint: Chest Pain ED Provider: Lazarus Muñoz Dx/Rx/DC Orders Clinical Impression: Essential hypertension Instructions: ED High Blood Pressure Hypertension Prescriptions: No Action buprenorphine-naloxone [Suboxone] 8-2 mg film 2 film SUBLINGUAL DAILY RF: 0 doxazosin 2 mg tablet 2 mg PO QHS Qty: 90 RF: 1 potassium chloride 20 mEq tablet extended release 20 meq PO DAILY Qty: 90 RF: 1 Hold Instructions: Home Medication placed on hold at Doctor's office fluoxetine 40 mg capsule 40 mg PO DAILY Qty: 90 RF: 1 amlodipine 10 mg tablet 10 mg PO DAILY Qty: 60 RF: 0 hydrochlorothiazide 25 mg tablet 25 mg PO DAILY Qty: 60 RF: 0 lisinopril 40 mg tablet 40 mg PO DAILY Qty: 60 RF: 0 spironolactone 50 mg tablet See Rx Instructions .ROUTE .COMPLEX Qty: 60 RF: 0 metformin 500 mg tablet extended release 24 hr 500 mg PO BID Qty: 180 RF: 1 Jardiance 10 mg tablet 10 mg PO QAM Qty: 90 RF: 1 Primary Care Provider: Rubio Guzman Referrals: Rubio Guzman MD [Primary Care Provider] - As Needed Charis Savage MD [STAFF PHYSICIAN] - As soon as possible Activity Restrictions/Additional Instructions: Continue current medications. Absolute need to stop smoking. Begin an exercise program to help with weight loss. Call and follow-up with Dr. Wilfred Cohen a legal entity controller in [place] or someone in his office to be evaluated for hypertension and what medications could get your blood pressure better under control. They also have an office in [place] that she does not come to but one of his partners could also see you there. Disposition Disposition: Home, Self Care
--- NOTE | 2021-05-19 17:55 | RAD_ITS ---
STUDY: X-RAY CHEST REASON FOR EXAM: Male, 30 years old. chest pain Cardiac history TECHNIQUE: Frontal portable view of the chest COMPARISON: 28 April 2021 FINDINGS: Examination is technically suboptimal due to patient''s severely large body habitus. Pulmonary volumes are low with basal atelectasis. There is no pneumothorax, cardiac megaly or pleural effusions. Appearance is similar to prior. RAD/Chest 1 View (Portable) IMPRESSION: Low volumes, basal atelectasis. Electronically Signed: Sully Aguirre MD at 18:21 EST Tel , Service support ,
[2021-05-19 18:03] VITALS: O2SAT 95
[2021-05-19 18:15] LABS: Absolute Lymphocyte Count 1.25 X10^3/uL (0.83-4.51); Absolute Neutrophil Count 7.7 X10^3/uL (2.0-7.7); Basophil# 0.02 X10^3/uL; Basophil% 0.2 % (0-1); Hematocrit 49.5 % (40-54); Hemoglobin 16.8 g/dL (13.0-16.5); Lymphocyte # 1.25 X10^3/ul (0.83-4.51); Lymphocyte % 13.4 % (19-41); Mean Corp Hgb Conc 33.9 g/dL (32-36); Mean Corpuscular Hgb 29.4 pg (27.0-32.0); Mean Corpuscular Volume 86.5 fL (80-94); Mean Platelet Vol. 10.4 fl (6.2-12.0); Monocyte# 0.39 X10^3/uL; Monocyte% 4.2 % (0-10); NRBC Flagged by Analyzer 0 % (0-5); Neutrophil # 7.65 X10^3/uL (2.7-7.7); Neutrophil % 81.9 % (47-70); Platelet Count 264 K/mm3 (150-450); RBC Distribution Width CV 12.3 % (11.6-14.6); RBC Distribution Width SD 38.6 fl (35.1-43.9); Red Blood Count 5.72 M/mm3 (4.6-6.2); White Blood Count 9.3 K/mm3 (4.4-11.0)
[2021-05-19 18:21] LABS: Anion Gap 6 (5-15); BUN 10 mg/dL (7-18); BUN/Creat Ratio 10.8 RATIO (10-20); Calcium,Total 8.8 mg/dL (8.5-10.1); Chloride 105 mmol/L (98-107); Creatinine, Serum 0.92 mg/dL (0.70-1.30); EST Glomerular Filtration Rate 102 mL/min (>60); Est Glom Filt Rate - Afr Amer 123 mL/min (>60); Estimated Creatinine Clearance 128.86 ml/min; Glucose 138 mg/dL (74-106); Potassium 3.3 mmol/L (3.5-5.1); Sodium Level 140 mmol/L (136-145); Troponin-I HS 43 pg/mL (3.0-78.0)
[2021-05-19 20:14] VITALS: BP 180/110; PULSE 96; RESP 18; O2SAT 96
[2021-05-19 20:52] VITALS: BP 197/84; PULSE 97; RESP 24; O2SAT 97
--- NOTE | 2021-05-19 20:53 | ED.RN ---
THIS NURSE REVIEWED D/C INSTRUCTIONS WITH PT. PT VERBALIZED UNDERSTANDING OF INSTRUCTIONS. IV D/C. IV CATHETER INTACT. PT TOLERATED WELL. PT DENIES FURTHER NEEDS OR QUESTIONS AT THIS TIME. PT AMBULATES FROM ROOM ON OWN WITHOUT ASSISTANCE FROM STAFF
== END 2021-05-19 21:00 | disposition home or self-care (01) ==
PROVIDERS: Emergency Provider Emergency Medicine; PCP Internal Medicine
DX: I11.9 Hypertensive heart disease without heart failure (principal); E11.9 Type 2 diabetes mellitus without complications; F17.210 Nicotine dependence, cigarettes, uncomplicated; E66.9 Obesity, unspecified; Z79.84 Long term (current) use of oral hypoglycemic drugs; Z79.899 Other long term (current) drug therapy
CPT/HCPCS: 71045; 80048; 84484; 85025; 93005; 99285; A4216

== ENCOUNTER 2021-12-05 14:53 | Emergency (ER) | payer MEDICAID, SELFPAY ==
[2021-12-05 14:54] VITALS: BP 209/126; PULSE 84; RESP 18; TEMP 35.7; O2SAT 96; BMI 50.8
[2021-12-05 15:20] VITALS: BP 155/84; PULSE 80; RESP 18; O2SAT 96
--- NOTE | 2021-12-05 15:21 | EX.ED.DYSGE1 ---
HPI History of Present Illness Chief Complaint: Edema Informant: patient Onset/Context/Timing Onset: Weeks (1) Context: Gradual Onset Timing: Continuous Quality: Dull, sore Location: Bilateral lower legs Worsened by: Prolonged standing Relieved by: Nothing Narrative Narrative: Patient presents with lower extremity swelling that has been getting worse over the past week. Patient states he recently changed jobs and has been standing on his feet more with his new job. Patient states he has some mild pain in his lower legs. Patient describes it as a soreness and dull. Patient states it is worse with prolonged standing. Patient states nothing seems to help with it. Patient denies any chest pain or shortness of breath. Patient admits to a mild cough. Patient denies any nausea or vomiting. Patient states he has been taking hydrochlorothiazide, lisinopril, Norvasc, spironolactone as prescribed. [facility] Medical History Abnormal EKG ADHD (attention deficit hyperactivity disorder) Bilateral hip pain Cellulitis and abscess of left leg Crohn's colitis Diabetes Essential hypertension Gastroenteritis Headache History of arthritis History of CVA (cerebrovascular accident) History of drug abuse History of emotional problems History of non-ST elevation myocardial infarction (NSTEMI) (2018) History of pneumonia Hypertensive emergency Knee pain Lower extremity edema Morbid obesity, BMI unknown Neck abscess KAREN (obstructive sleep apnea) Pneumonia Severe headache Severe left ventricular hypertrophy Shortness of breath Tobacco abuse Home Medications buprenorphine 8 mg-naloxone 2 mg sublingual film 2 film SUBLINGUAL DAILY 01/03/20 [History Last Taken Unknown] fluoxetine 40 mg capsule 40 mg PO DAILY #90 cap 09/11/20 [Rx Last Taken Unknown] lisinopril 40 mg tablet 40 mg PO DAILY #60 tab 02/15/21 [Rx Last Taken Unknown] metoprolol succinate 50 mg tablet,extended release 24 hr 50 mg PO DAILY #90 tab 07/24/21 [Rx Last Taken Unknown] meloxicam 15 mg tablet 15 mg PO DAILY #30 tab 10/10/21 [Rx Last Taken Unknown] amlodipine 10 mg PO DAILY #60 tab 12/05/21 [Rx Last Taken Unknown] spironolactone 50 mg PO DAILY #30 tab 12/05/21 [Rx Last Taken Unknown] Allergy/AdvReac Type Severity Reaction Status Date / Time bupropion Allergy Severe seizure Verified 12/05/21 14:54 amoxicillin [Amoxicillin] Allergy Swelling Verified 12/05/21 14:54 Penicillins Allergy Swelling Verified 12/05/21 14:54 Sulfa (Sulfonamide Allergy Unknown Verified 12/05/21 14:54 Antibiotics) diphenhydramine AdvReac psychosis Verified 12/05/21 14:54 [From Benadryl] metoclopramide [From Reglan] AdvReac psychosis Verified 12/05/21 14:54 Family History Father Kidney disease High blood cholesterol Hypertension Respiratory disease Myocardial infarction Diabetes Mother High blood cholesterol Hypertension Kidney disease Respiratory disease Myocardial infarction Diabetes Other Alcoholism Anxiety Arthritis Asthma Heart disease Surgical History History of appendectomy History of left heart catheterization (02/26/15) Social History household members: other details: Family, currently impending divorce. Smoking Status: Current every day smoker tobacco type: cigarettes alcohol intake: never substance use type: former substance user ROS ROS ED Constitutional Constitutional ED: Denies chills or fever(s) Eyes Eyes: Denies blurry vision or change in vision ENT ENT ED: Denies rhinorrhea or sore throat Cardiovascular Cardiovascular: Denies chest pain or palpitations Respiratory/Chest Respiratory/Chest: Reports cough; Denies dyspnea Gastrointestinal Gastrointestinal: Denies nausea or vomiting Genitourinary Genitourinary ED: Denies dysuria or hematuria Musculoskeletal Musculoskeletal: Denies back pain or neck pain Integumentary Denies abscess or rash Neurologic Neurologic: Denies headache(s) or weakness Allergic/Immunologic Allergic/Immunologic ED: Denies mouth swelling or urticaria EXAM Physical Exam Const Vital Signs: 12/05/21 14:54 12/05/21 15:20 Temperature 96.3 F L Temperature Source Temporal Pulse Rate 84 80 Respiratory Rate 18 18 Respiratory Effort Short of Breath Respiratory Pattern Normal Blood Pressure 209/126 H 155/84 H Blood Pressure Mean 153 107 Pulse Ox 96 96 Oxygen Delivery Method Room Air Room Air Positive well nourished, well developed and obese General Appearance ED: well developed and NAD Nutritional Appearance: obese HEENT Reports moist mucous membranes Neck supple and no JVD Resp normal respiratory effort and clear to auscultation bilaterally Cardio regular rate and regular rhythm GI normal to inspection, nondistended, normoactive bowel sounds and non-tender Palpation: soft Extremity Extremity Narrative: There is 1+ pitting edema of the lower legs bilaterally. There is no tenderness. General Extremety ED: Yes edema General Extremity: edema Neuro oriented x3, CN's II-XII intact bilaterally and no sensory deficits noted Sensorium / Orientation: alert Motor Exam: strength 5/5 throughout Psych mental status grossly normal MDM MDM MDM Narrative Medical decision making narrative: EKG was obtained. On my interpretation, it showed a normal sinus rhythm with a rate of 81. GA interval, QRS interval, and QTc intervals were all normal. [place] was normal. There are nonspecific ST-T wave changes. This was unchanged compared to previous EKG dated 05/19/2021. PA and lateral chest x-ray was obtained. There are 2 views. On my interpretation, lung carrillo are clear. There is normal cardiac silhouette. Bony thorax is normal. There is no acute process noted. Radiologist also interpreted the x-ray and agrees. CBC was within normal limits. Comprehensive metabolic profile showed a mild hypokalemia of 3.3. High-sensitivity troponin was normal at 45. BNP was normal at 15.1. Glucose was elevated at 283. Patient was advised of this findings. Patient was given a dose of Lasix and potassium here. Patient was given refills for his amlodipine and spironolactone. Patient was instructed to follow-up with his primary care physician in 3 to 5 days for further evaluation and management of his medications. Patient understood and was agreeable with the plan. All questions were answered. Lab Data Attestation: I reviewed the patient's lab results. Labs: Laboratory Results - last 24 hr 12/05/21 12/05/21 12/05/21 15:35 15:35 15:35 WBC 6.9 RBC 5.02 Hgb 15.0 Hct 43.5 MCV 86.7 MCH 29.9 MCHC 34.5 RDW Std Deviation 38.5 RDW Coeff of Barbara 12.4 Plt Count 193 MPV 10.7 Immature Gran % (Auto) 0.400 Neut % (Auto) 58.2 Lymph % (Auto) 31.0 [place] % (Auto) 7.8 Eos % (Auto) 2.2 Baso % (Auto) 0.4 Absolute Neuts (auto) 4.0 Absolute Lymphs (auto) 2.14 Nucleated RBC % 0 Sodium 138 Potassium 3.3 L Chloride 98 Carbon Dioxide 34.0 H Anion Gap 6 BUN 14 Creatinine 1.05 Estim Creat Clear Calc 111.88 Est GFR (MDRD) Af Amer 106 Est GFR (MDRD) Non-Af 87 BUN/Creatinine Ratio 13.3 Glucose 283 H Calcium 9.0 Total Bilirubin 0.30 AST 27 ALT 51 Alkaline Phosphatase 47 Troponin I High Sens 45 B-Natriuretic Peptide 15.1 Total Protein 7.0 Albumin 3.0 L Globulin 4.0 Albumin/Globulin Ratio 0.8 L Radiography Chest X-Ray - ED: 2 View, Read by ED Physician, Read by Radiologist and No Acute Disease Diagnostic Testing: Clinical Impression(s) from Imaging Studies Chest X-Ray 12/05/21 15:43 IMPRESSION: There are no acute findings. Electronically Signed: Eusebio Martins MD at 17:07 EDT Reading Location ID and State: [facility] / [place] , Service support , Discharge Plan Triage Chief Complaint: Edema ED Provider: Azar Valentine Dx/Rx/DC Orders Clinical Impression: Peripheral edema, Diabetes, Essential hypertension, Morbid obesity, BMI unknown Instructions: ED Peripheral Edema, Bilateral Prescriptions: Continued amlodipine 10 mg tablet 10 mg PO DAILY Qty: 60 RF: 0 spironolactone 50 mg tablet 50 mg PO DAILY Qty: 30 RF: 0 No Action buprenorphine-naloxone [Suboxone] 8-2 mg film 2 film SUBLINGUAL DAILY RF: 0 metoprolol succinate [Toprol XL] 50 mg tablet extended release 24 hr 50 mg PO DAILY Qty: 90 RF: 3 meloxicam 15 mg tablet 15 mg PO DAILY Qty: 30 RF: 0 fluoxetine 40 mg capsule 40 mg PO DAILY Qty: 90 RF: 1 lisinopril 40 mg tablet 40 mg PO DAILY Qty: 60 RF: 0 Primary Care Provider: Rubio Guzman Referrals: Rubio Guzman MD [Primary Care Provider] - 3-5 Days Disposition Disposition: Home, Self Care
--- NOTE | 2021-12-05 15:26 | EKG12_ITS ---
Test Reason : SOB Blood Pressure : / mmHG Vent. Rate : 081 BPM Atrial Rate : 081 BPM P-R Int : 220 ms QRS Dur : 100 ms QT Int : 400 ms P-R-T Axes : 033 047 234 degrees QTc Int : 464 ms Sinus rhythm with 1st degree A-V block ST & T wave abnormality, consider inferolateral ischemia Prolonged QT Abnormal ECG Confirmed by ROXIE ARCHULETA, COLLEEN ([id number]), editor trade journal JUNO AMAYA ([id number]) on 12/09/2021 12:50:57 PM Referred By: ИРИНА Confirmed By:COLLEEN FAUSTIN MD
--- NOTE | 2021-12-05 15:43 | RAD_ITS ---
STUDY: X-RAY CHEST REASON FOR EXAM: Male, 31 years old. CHEST PAIN Technologist Notes PATIENT STATES HX OF HEART ATTACKS AND SWELLING IN BOTH LEGS. HAS BEEN SWOLLEN FOR A FEW DAYS. Edema TECHNIQUE: XR Chest 2 Views COMPARISON: 05/19/2021 FINDINGS: There is no demonstrated pleural abnormality. Normal size heart. Normal mediastinum and deny. Normal visualized pulmonary arteries. Normal visualized aortic arch and descending thoracic aorta. Normal visualized thoracic spine. Normal visualized ribs, clavicles, and shoulders. There is no demonstrated abnormality of the visualized soft tissue structures of the upper abdomen. RAD/Chest PA and Lateral IMPRESSION: There are no acute findings. Electronically Signed: Eusebio Martins MD at 17:07 EDT ,
[2021-12-05 15:47] LABS: Absolute Lymphocyte Count 2.14 X10^3/uL (0.83-4.51); Basophil# 0.03 X10^3/uL; Basophil% 0.4 % (0-1); Eosinophil# 0.15 X10^3/uL; Eosinophils% 2.2 % (0-5); Hematocrit 43.5 % (40-54); Lymphocyte # 2.14 X10^3/ul (0.83-4.51); Mean Corp Hgb Conc 34.5 g/dL (32-36); Mean Corpuscular Hgb 29.9 pg (27.0-32.0); Mean Corpuscular Volume 86.7 fL (80-94); Mean Platelet Vol. 10.7 fl (6.2-12.0); Monocyte# 0.54 X10^3/uL; Monocyte% 7.8 % (0-10); NRBC Flagged by Analyzer 0 % (0-5); Neutrophil # 4.01 X10^3/uL (2.7-7.7); Neutrophil % 58.2 % (47-70); Platelet Count 193 K/mm3 (150-450); RBC Distribution Width CV 12.4 % (11.6-14.6); RBC Distribution Width SD 38.5 fl (35.1-43.9); Red Blood Count 5.02 M/mm3 (4.6-6.2); White Blood Count 6.9 K/mm3 (4.4-11.0)
[2021-12-05 16:02] LABS: ALB/GLOB Ratio 0.8 RATIO (0.9-2.4); AST(SGOT) 27 U/L (15-37); Alanine Aminotransfer ALT/SGPT 51 U/L (16-61); Alkaline Phosphatase 47 U/L (45-117); Anion Gap 6 (5-15); BUN 14 mg/dL (7-18); BUN/Creat Ratio 13.3 RATIO (10-20); Chloride 98 mmol/L (98-107); Creatinine, Serum 1.05 mg/dL (0.70-1.30); EST Glomerular Filtration Rate 87 mL/min (>60); Est Glom Filt Rate - Afr Amer 106 mL/min (>60); Estimated Creatinine Clearance 111.88 ml/min; Glucose 283 mg/dL (74-106); Potassium 3.3 mmol/L (3.5-5.1); Sodium Level 138 mmol/L (136-145); Troponin-I HS 45 pg/mL (3.0-78.0)
[2021-12-05 16:31] LABS: BNP,B-Type NATRIURETIC PEPTIDE 15.1 pg/mL (0-100)
[2021-12-05 18:04] VITALS: BP 163/94; PULSE 74; RESP 18; O2SAT 96
[2021-12-05] MEDS: Potassium Chloride Oral Tablet 20 MEQ 40 MEQ PO (18:06)
[2021-12-05] MEDS: Furosemide 20 MG Tablet PO (18:06)
== END 2021-12-05 18:20 | disposition home or self-care (01) ==
PROVIDERS: Emergency Provider Emergency Medicine; PCP Internal Medicine; Visit Provider Emergency Medicine
DX: R60.0 Localized edema (principal); E66.01 Morbid (severe) obesity due to excess calories; Z68.43 Body mass index [BMI] 50.0-59.9, adult; E11.9 Type 2 diabetes mellitus without complications; F90.9 Attention-deficit hyperactivity disorder, unspecified type; Z87.19 Personal history of other diseases of the digestive system; Z86.73 Personal history of transient ischemic attack (TIA), and cerebral infarction without residual deficits; G47.33 Obstructive sleep apnea (adult) (pediatric); Z87.01 Personal history of pneumonia (recurrent); I25.2 Old myocardial infarction; Z79.899 Other long term (current) drug therapy; F17.210 Nicotine dependence, cigarettes, uncomplicated; R05.9 Cough, unspecified
CPT/HCPCS: 71046; 80053; 83880; 84484; 85025; 93005; 99283

== ENCOUNTER 2022-03-19 03:16 | Emergency (ER) | payer MEDICAID, SELFPAY ==
[2022-03-19 03:17] VITALS: BP 200/131; PULSE 83; RESP 18; TEMP 36.2; O2SAT 97; BMI 46.9
[2022-03-19 03:24] VITALS: BP 178/113
--- NOTE | 2022-03-19 03:34 | EDS_ITS ---
HPI History of Present Illness Chief Complaint: Hyperglycemia Informant: patient Onset/Context/Timing Onset: Weeks Narrative Narrative: Patient present secondary to high blood sugar. He states that he recently had some lab work drawn at his [facility]. He received a phone call that his blood sugar was over 600. He does admit to having been prescribed metformin in the past but never really took it. He states he found some yesterday and started taking it again. He does note increased thirst and urination over the past 3 weeks. [facility] Medical History Abnormal EKG ADHD (attention deficit hyperactivity disorder) Bilateral hip pain Cellulitis and abscess of left leg Crohn's colitis Diabetes Essential hypertension Gastroenteritis Headache History of arthritis History of CVA (cerebrovascular accident) History of drug abuse History of emotional problems History of non-ST elevation myocardial infarction (NSTEMI) (2018) History of pneumonia Hypertensive emergency Knee pain Lower extremity edema Morbid obesity, BMI unknown Neck abscess KAREN (obstructive sleep apnea) Pneumonia Prediabetes Severe headache Severe left ventricular hypertrophy Shortness of breath Tobacco abuse Home Medications fluoxetine 40 mg capsule 40 mg PO DAILY #90 caps 09/11/20 [Rx Last Taken Unknown] lisinopril 40 mg tablet 40 mg PO DAILY #60 tabs 02/15/21 [Rx Last Taken Unknown] metoprolol succinate 50 mg tablet,extended release 24 hr (Toprol XL) 50 mg PO DAILY #90 tabs 07/24/21 [Rx Last Taken Unknown] amlodipine 10 mg tablet 10 mg PO DAILY #60 tabs 12/05/21 [Rx Last Taken Unknown] spironolactone 50 mg tablet 50 mg PO DAILY #30 tabs 12/05/21 [Rx Last Taken Unknown] buprenorphine 8 mg-naloxone 2 mg sublingual tablet 1 tab sublingual DAILY 03/19/22 [History Last Taken Unknown] empagliflozin 10 mg tablet (Jardiance) 10 mg PO DAILY #30 tabs 03/19/22 [Rx Last Taken Unknown] ketoconazole 2 % topical cream 1 applic topical BID 4 weeks #60 grams 03/19/22 [Rx Last Taken Unknown] metformin 500 mg tablet 500 mg PO BID 03/19/22 [History Last Taken Unknown] metformin 500 mg tablet,extended release 24 hr 500 mg PO BID #60 tabs 03/19/22 [Rx Last Taken Unknown] Allergy/AdvReac Type Severity Reaction Status Date / Time bupropion Allergy Severe seizure Verified 03/19/22 03:17 amoxicillin [Amoxicillin] Allergy Swelling Verified 03/19/22 03:17 Penicillins Allergy Swelling Verified 03/19/22 03:17 Sulfa (Sulfonamide Allergy Unknown Verified 03/19/22 03:17 Antibiotics) diphenhydramine AdvReac psychosis Verified 03/19/22 03:17 [From Benadryl] metoclopramide [From Reglan] AdvReac psychosis Verified 03/19/22 03:17 Family History Father Kidney disease High blood cholesterol Hypertension Respiratory disease Myocardial infarction Diabetes Mother High blood cholesterol Hypertension Kidney disease Respiratory disease Myocardial infarction Diabetes Other Alcoholism Anxiety Arthritis Asthma Heart disease Surgical History History of appendectomy History of left heart catheterization (02/26/15) Social History household members: other details: Family, currently impending divorce. Smoking Status: Current every day smoker tobacco type: cigarettes alcohol intake: never substance use type: former substance user ROS ROS ED Constitutional Constitutional ED: Denies chills or fever(s) Eyes Eyes: Denies change in vision or discharge from eye(s) ENT ENT ED: Reports other Details: Dry mouth, increased thirst ; Denies discharge from eye(s), rhinorrhea or sore throat Cardiovascular Cardiovascular: Denies chest pain or palpitations Respiratory/Chest Respiratory/Chest: Denies cough or dyspnea Gastrointestinal Gastrointestinal: Denies abdominal pain, diarrhea, nausea or vomiting Genitourinary Genitourinary ED: Reports urinary frequency; Denies difficulty urinating or dysuria Musculoskeletal Musculoskeletal: Denies back pain or extremity pain Integumentary Denies Abrasions or rash Neurologic Neurologic: Denies headache(s) or weakness Psychiatric Psychiatric: Denies anxiety or depression Endocrine Endocrinology: Reports polydipsia and polyuria Allergic/Immunologic Allergic/Immunologic ED: Denies lip swelling or urticaria EXAM Physical Exam Const Vital Signs: 03/19/22 03:17 03/19/22 03:23 03/19/22 03:24 Temperature 97.1 F L Temperature Source Temporal Pulse Rate 83 Respiratory Rate 18 Respiratory Effort Normal Non-Labored Respiratory Pattern Normal Blood Pressure 200/131 H 178/113 H Blood Pressure Mean 154 134 Pulse Ox 97 Oxygen Delivery Method Room Air Positive obese Nutritional Appearance: obese HEENT Reports dry mucous membranes Mouth ED: Yes dry mucous membranes Mouth: dry mucous membranes Eyes PERRL and EOMs intact bilaterally Chest Wall inspection of chest normal and palpation of chest normal Resp normal respiratory effort and clear to auscultation bilaterally Cardio regular rate and regular rhythm GI normal to inspection, nondistended, normoactive bowel sounds and non-tender Extremity normal to inspection Neuro oriented x3 and no sensory deficits noted Sensorium / Orientation: alert Motor Exam: strength 5/5 throughout Psych mental status grossly normal Skin no rashes or lesions noted MDM MDM MDM Narrative Medical decision making narrative: Lab work obtained. Patient ordered 2 L of IV fluid. Lab Data Attestation: I reviewed the patient's lab results. Labs: Laboratory Results - last 24 hr 03/19/22 03/19/22 03/19/22 03:27 03:37 03:37 WBC 5.2 RBC 5.18 Hgb 16.4 Hct 45.6 MCV 88.0 MCH 31.7 MCHC 36.0 RDW Std Deviation 41.1 RDW Coeff of Barbara 12.7 Plt Count 203 MPV 11.0 Immature Gran % (Auto) 0.600 Neut % (Auto) 46.6 L Lymph % (Auto) 42.9 H Barron % (Auto) 7.2 Eos % (Auto) 2.3 Baso % (Auto) 0.4 Absolute Neuts (auto) 2.4 Absolute Lymphs (auto) 2.21 Nucleated RBC % 0 Sodium 130 L Potassium 3.8 Chloride 90 L Carbon Dioxide 28.0 Anion Gap 12 BUN 13 Creatinine 1.33 H Estim Creat Clear Calc 88.33 Est GFR (MDRD) Af Amer 80 Est GFR (MDRD) Non-Af 66 BUN/Creatinine Ratio 9.8 L Glucose 716 H* Calcium 8.7 Total Bilirubin 0.40 Direct Bilirubin 0.08 AST 32 ALT 51 Alkaline Phosphatase 82 Total Protein 6.8 Albumin 2.7 L Globulin 4.1 Urine Color Urine Clarity Urine pH Ur Specific Alexander Urine Protein Urine Glucose (UA) Urine Ketones Urine Occult Blood Urine Nitrite Urine Bilirubin Urine Urobilinogen Ur Leukocyte Esterase Urine RBC Urine WBC Ur Squamous Epith Cells Urine Bacteria Urine Mucus Acetone Level POC Glucose > 500 H* 03/19/22 03/19/22 03:37 04:09 WBC RBC Hgb Hct MCV MCH MCHC RDW Std Deviation RDW Coeff of Barbara Plt Count MPV Immature Gran % (Auto) Neut % (Auto) Lymph % (Auto) Barron % (Auto) Eos % (Auto) Baso % (Auto) Absolute Neuts (auto) Absolute Lymphs (auto) Nucleated RBC % Sodium Potassium Chloride Carbon Dioxide Anion Gap BUN Creatinine Estim Creat Clear Calc Est GFR (MDRD) Af Amer Est GFR (MDRD) Non-Af BUN/Creatinine Ratio Glucose Calcium Total Bilirubin Direct Bilirubin AST ALT Alkaline Phosphatase Total Protein Albumin Globulin Urine Color Yellow Urine Clarity Clear Urine pH 7.0 Ur Specific Alexander 1.010 Urine Protein 100 H Urine Glucose (UA) 1000 H Urine Ketones Negative Urine Occult Blood Negative Urine Nitrite Negative Urine Bilirubin Negative Urine Urobilinogen Normal Ur Leukocyte Esterase Negative Urine RBC 0 SEEN Urine WBC 0 SEEN Ur Squamous Epith Cells 0 SEEN Urine Bacteria RARE Urine Mucus 0 SEEN Acetone Level NEGATIVE POC Glucose Treatment and Re-Evaluation Narrative: CBC is unremarkable. Chemistry studies reveal a glucose of 716 with corresponding sodium of 130. Corrected sodium is 139. Creatinine is 1.33. Potassium level unremarkable. LFTs normal. Urinalysis shows glucose with no sign of infection. Serum acetone level is negative. Hemoglobin A1c was ordered and still pending at this time. After 2 L of IV fluid blood sugar is down to 519. He is given 12 units of insulin subcu. Patient had metformin ER as well as Jardiance filled in September of this year. He is quite certain he has both bottles at home in his medicine cabinet. He will start taking this regularly. We did discuss if he remains noncompliant he will start seeing more side effects of his untreated diabetes. I will go ahead and write him prescription for each of these medications in paper form. If he sees that he does not have the medication at home he can fill it. He also complains of a yeast infection to the right groin line. He will be written topical cream for treatment. Patient states that he cannot stay in the hospital regardless of what his blood sugar is at this time. He needs to go take his daughter to school. He will follow-up closely with [facility] as this is who he had seen most recently. Patient does state that he missed 2 appointments when he had called into work but did call to notify them. He was never given an official termination letter from the group. Discharge Plan Triage Chief Complaint: Hyperglycemia ED Provider: Ivone Monique Dx/Rx/DC Orders Clinical Impression: Hyperglycemia, Diabetes Instructions: ED Diabetic Hyperglycemia Prescriptions: New Jardiance 10 mg tablet 10 mg PO DAILY Qty: 30 0RF metformin 500 mg tablet extended release 24 hr 500 mg PO BID Qty: 60 0RF ketoconazole 2 % cream 1 applic topical BID 28 Days Qty: 60 1RF No Action metoprolol succinate [Toprol XL] 50 mg tablet extended release 24 hr 50 mg PO DAILY Qty: 90 3RF Rx Instructions: has not been taking amlodipine 10 mg tablet 10 mg PO DAILY Qty: 60 0RF Rx Instructions: has not been taking spironolactone 50 mg tablet 50 mg PO DAILY Qty: 30 0RF Rx Instructions: has not been taking metformin 500 mg Tablet 500 mg PO BID buprenorphine-naloxone 8-2 mg tablet, sublingual 1 tab SUBLINGUAL DAILY Label Comments: Take 24 mg under tongue once a day as directed fluoxetine 40 mg capsule 40 mg PO DAILY Qty: 90 1RF lisinopril 40 mg tablet 40 mg PO DAILY Qty: 60 0RF Rx Instructions: has not been taking Primary Care Provider: Rubio Guzman Referrals: Rubio Guzman MD [Primary Care Provider] - 1-2 Weeks Disposition Disposition: Home, Self Care
[2022-03-19] MEDS: 0.9% Normal Saline 1,000 ML 1000 ML IV (03:35)
[2022-03-19 03:45] LABS: Bedside Glucose > 500 mg/dL (74-106)
[2022-03-19 03:56] LABS: Absolute Lymphocyte Count 2.21 X10^3/uL (0.83-4.51); Absolute Neutrophil Count 2.4 X10^3/uL (2.0-7.7); Basophil# 0.02 X10^3/uL; Basophil% 0.4 % (0-1); Eosinophil# 0.12 X10^3/uL; Eosinophils% 2.3 % (0-5); Hematocrit 45.6 % (40-54); Hemoglobin 16.4 g/dL (13.0-16.5); Lymphocyte # 2.21 X10^3/ul (0.83-4.51); Lymphocyte % 42.9 % (19-41); Mean Corpuscular Hgb 31.7 pg (27.0-32.0); Monocyte# 0.37 X10^3/uL; Monocyte% 7.2 % (0-10); NRBC Flagged by Analyzer 0 % (0-5); Neutrophil % 46.6 % (47-70); Platelet Count 203 K/mm3 (150-450); RBC Distribution Width CV 12.7 % (11.6-14.6); RBC Distribution Width SD 41.1 fl (35.1-43.9); Red Blood Count 5.18 M/mm3 (4.6-6.2); White Blood Count 5.2 K/mm3 (4.4-11.0)
[2022-03-19 04:14] LABS: Mucous, Urine 0 SEEN /hpf (<or=2+); Red Blood Cells-Urine 0 SEEN /hpf (0-5); Squamous Epithelial Cells - UA 0 SEEN /hpf (0-5); White Blood Cells 0 SEEN /hpf (0-5)
[2022-03-19 04:27] LABS: AST(SGOT) 32 U/L (15-37); Alanine Aminotransfer ALT/SGPT 51 U/L (16-61); Albumin, Serum 2.7 g/dL (3.2-5.0); Alkaline Phosphatase 82 U/L (45-117); Anion Gap 12 (5-15); BUN 13 mg/dL (7-18); BUN/Creat Ratio 9.8 RATIO (10-20); Bilirubin, Direct 0.08 mg/dL (0.00-0.30); Calcium,Total 8.7 mg/dL (8.5-10.1); Chloride 90 mmol/L (98-107); Creatinine, Serum 1.33 mg/dL (0.70-1.30); EST Glomerular Filtration Rate 66 mL/min (>60); Est Glom Filt Rate - Afr Amer 80 mL/min (>60); Estimated Creatinine Clearance 88.33 ml/min; Globulin 4.1 g/dL (2.2-4.2); Glucose 716 mg/dL (74-106); Potassium 3.8 mmol/L (3.5-5.1); Protein, Total 6.8 g/dL (6.4-8.2); Sodium Level 130 mmol/L (136-145)
[2022-03-19 04:30] LABS: Color, Urine Yellow (Yellow); Glucose, Dipstick 1000 mg/dl (Normal); Ketone-Dipstick Negative (Negative); Leukocyte Esterase-Dipstick Negative /ul (Negative); Nitrite-Dipstick Negative (Negative); Occult Blood-Urine Negative /ul (Negative); Protein-Dipstick 100 mg/dl (Negative); Urine Bilirubin Dipstick Negative (Negative); Urine Clarity Clear (Clear); Urine Urobilinogen Normal (Normal)
[2022-03-19 04:36] LABS: Bacteria RARE /hpf (None Seen)
[2022-03-19] MEDS: 0.9% Normal Saline 1,000 ML 999 ML IV (06:39)
[2022-03-19] MEDS: Insulin Lispro 100 UNIT/ML INSULN.PEN 12 UNIT SC (06:41)
[2022-03-19 06:55] LABS: Bedside Glucose > 500 mg/dL (74-106)
[2022-03-19 07:25] VITALS: BP 154/82; PULSE 84; RESP 17; O2SAT 96
[2022-03-19 07:33] LABS: Hemoglobin A1c 12.5 % (3.8-5.6)
[2022-03-19 07:35] LABS: Bedside Glucose > 500 mg/dL (74-106)
== END 2022-03-19 07:26 | disposition home or self-care (01) ==
PROVIDERS: Emergency Provider Emergency Medicine; PCP Internal Medicine; Visit Provider Emergency Medicine
DX: E11.65 Type 2 diabetes mellitus with hyperglycemia (principal); I10 Essential (primary) hypertension; Z79.899 Other long term (current) drug therapy; Z79.84 Long term (current) use of oral hypoglycemic drugs
CPT/HCPCS: 80048; 80076; 81001; 82009; 82962; 83036; 85025; 96360; 96361; 99284; J7030

== ENCOUNTER 2022-03-27 23:09 | Emergency (ER) | payer MEDICAID, SELFPAY ==
[2022-03-27 23:10] VITALS: BP 205/131; PULSE 106; RESP 18; TEMP 36.6; O2SAT 98; BMI 43.4
--- NOTE | 2022-03-27 23:25 | EDS_ITS ---
HPI History of Present Illness Chief Complaint: Hyperglycemia Informant: patient Narrative Narrative: Patient sent in by PCP secondary to elevated blood sugar. Patient is diabetic with poor control of his diabetes recently. He was seen in the office today and had fingerstick blood sugars reading over 500. Labs were sent. Blood sugar reportedly came back at 1999 and patient was called and advised to come to the emergency room. Patient was started on insulin today and received a shot in the office. He does admit to poor compliance with diet recently. [facility] Medical History Abnormal EKG ADHD (attention deficit hyperactivity disorder) Asymptomatic hypertensive urgency Bilateral hip pain Cellulitis and abscess of left leg Crohn's colitis Diabetes Essential hypertension Gastroenteritis Headache History of arthritis History of CVA (cerebrovascular accident) History of drug abuse History of emotional problems History of non-ST elevation myocardial infarction (NSTEMI) (2018) History of pneumonia Hypertensive emergency Knee pain Lower extremity edema Morbid obesity, BMI unknown Neck abscess KAREN (obstructive sleep apnea) Pneumonia Prediabetes Severe headache Severe left ventricular hypertrophy Shortness of breath Tobacco abuse Uncontrolled type 2 diabetes mellitus Home Medications fluoxetine 40 mg capsule 40 mg PO DAILY #90 caps 09/11/20 [Rx Last Taken Unknown] lisinopril 40 mg tablet 40 mg PO DAILY #60 tabs 02/15/21 [Rx Last Taken Unknown] metoprolol succinate 50 mg tablet,extended release 24 hr (Toprol XL) 50 mg PO DAILY #90 tabs 07/24/21 [Rx Last Taken Unknown] spironolactone 50 mg tablet 50 mg PO DAILY #30 tabs 12/05/21 [Rx Last Taken Unknown] ketoconazole 2 % topical cream 1 applic topical BID 4 weeks #60 grams 03/19/22 [Rx Last Taken Unknown] metformin 500 mg tablet,extended release 24 hr 500 mg PO BID #60 tabs 03/19/22 [Rx Last Taken Unknown] amlodipine 10 mg tablet 10 mg PO BID #90 tabs 03/27/22 [Rx Last Taken Unknown] blood pressure monitor (Blood Pressure Kit) #1 ea 03/27/22 [Rx Last Taken Unknown] blood sugar diagnostic (OneTouch Ultra Test strips) #100 ea 03/27/22 [Rx Last Taken Unknown] blood-glucose meter (OneTouch Ultra2 Meter kit) #1 ea 03/27/22 [Rx Last Taken Unknown] buprenorphine 2 mg-naloxone 0.5 mg sublingual tablet 1 tab sublingual DAILY 03/27/22 [History Last Taken Unknown] doxazosin 4 mg tablet 4 mg PO QHS #90 tabs 03/27/22 [Rx Last Taken Unknown] glimepiride 4 mg tablet 4 mg PO QAM #90 tabs 03/27/22 [Rx Last Taken Unknown] hydrochlorothiazide 50 mg tablet 50 mg PO DAILY 03/27/22 [History Last Taken Unknown] insulin glargine 100 unit/mL (3 mL) subcutaneous pen (Lantus Solostar U-100 Insulin) 40 unit (0.4 mL) subcut QPM 90 days #36 mL 03/27/22 [Rx Last Taken Unknown] lancets (WazokuTouch UltraSoft Lancets) #200 ea 03/27/22 [Rx Last Taken Unknown] pen needle, diabetic 31 gauge x 1/4 (Comfort EZ Pen [place]) #100 ea 03/27/22 [Rx Last Taken Unknown] Allergy/AdvReac Type Severity Reaction Status Date / Time bupropion Allergy Severe seizure Verified 03/28/22 00:05 amoxicillin [Amoxicillin] Allergy Swelling Verified 03/28/22 00:05 Penicillins Allergy Swelling Verified 03/28/22 00:05 Sulfa (Sulfonamide Allergy Unknown Verified 03/28/22 00:05 Antibiotics) diphenhydramine AdvReac psychosis Verified 03/28/22 00:05 [From Benadryl] metoclopramide [From Reglan] AdvReac psychosis Verified 03/28/22 00:05 Family History Father Kidney disease High blood cholesterol Hypertension Respiratory disease Myocardial infarction Diabetes Mother High blood cholesterol Hypertension Kidney disease Respiratory disease Myocardial infarction Diabetes Other Alcoholism Anxiety Arthritis Asthma Heart disease Surgical History History of appendectomy History of left heart catheterization (02/26/15) Social History household members: family and other housing: apartment current occupational status: unemployed sexually active: Yes Smoking Status: Current every day smoker tobacco type: cigarettes alcohol intake: current alcohol intake frequency: holidays/special occasions only substance use type: former substance user what type of physical activity do you participate in: none seatbelt use: never do you feel safe at home: Yes additional social history: Marleny- MARY ROS ED Constitutional Constitutional ED: Denies chills or fever(s) Eyes Eyes: Denies change in vision or discharge from eye(s) ENT ENT ED: Denies discharge from eye(s), rhinorrhea or sore throat Cardiovascular Cardiovascular: Denies chest pain or palpitations Respiratory/Chest Respiratory/Chest: Denies cough or dyspnea Gastrointestinal Gastrointestinal: Reports nausea; Denies abdominal pain, diarrhea or vomiting Genitourinary Genitourinary ED: Reports urinary frequency; Denies dysuria Musculoskeletal Musculoskeletal: Denies back pain or extremity pain Integumentary Denies Abrasions or rash Neurologic Neurologic: Denies headache(s) or weakness Psychiatric Psychiatric: Reports anxiety; Denies depression Endocrine Endocrinology: Reports polydipsia and polyuria Allergic/Immunologic Allergic/Immunologic ED: Denies lip swelling or urticaria EXAM Physical Exam Const Vital Signs: 03/27/22 23:10 03/27/22 23:50 03/28/22 01:21 Temperature 97.9 F Temperature Source Temporal Pulse Rate 106 H 99 83 Respiratory Rate 18 18 13 Blood Pressure 205/131 H 206/114 H 165/95 H Blood Pressure Mean 155 144 118 Pulse Ox 98 94 91 Oxygen Delivery Method Room Air Room Air Room Air Positive well nourished and well developed General Appearance ED: well developed HEENT Reports normocephalic and head/scalp atraumatic Eyes PERRL and EOMs intact bilaterally Neck supple Chest Wall inspection of chest normal and palpation of chest normal Resp normal respiratory effort and clear to auscultation bilaterally Cardio regular rate and regular rhythm GI non-tender Auscultation: hypoactive bowel sounds Palpation: soft Back/Spine no CVA tenderness Extremity normal to inspection Neuro oriented x3 and no sensory deficits noted Sensorium / Orientation: alert Motor Exam: strength 5/5 throughout Psych mental status grossly normal Skin no rashes or lesions noted MDM MDM MDM Narrative Medical decision making narrative: IV fluids ordered. Lab work obtained. Fingerstick blood sugar on arrival is reading high. Lab Data Attestation: I reviewed the patient's lab results. Labs: Laboratory Results - last 24 hr 03/27/22 03/27/22 03/27/22 23:21 23:37 23:37 WBC 7.9 RBC 5.43 Hgb 17.0 H Hct 47.8 MCV 88.0 MCH 31.3 MCHC 35.6 RDW Std Deviation 41.2 RDW Coeff of Barbara 12.9 Plt Count 212 MPV 11.7 Immature Gran % (Auto) 1.000 H Neut % (Auto) 60.2 Lymph % (Auto) 30.9 [place] % (Auto) 6.9 Eos % (Auto) 0.6 Baso % (Auto) 0.4 Absolute Neuts (auto) 4.8 Absolute Lymphs (auto) 2.45 Nucleated RBC % 0 Sodium 131 L Potassium 3.6 Chloride 91 L Carbon Dioxide 27.0 Anion Gap 13 BUN 10 Creatinine 1.22 Estim Creat Clear Calc 96.29 Est GFR (MDRD) Af Amer 89 Est GFR (MDRD) Non-Af 73 BUN/Creatinine Ratio 8.2 L Glucose 693 H* Calcium 8.8 Total Bilirubin 0.60 Direct Bilirubin 0.12 AST 30 ALT TNP Alkaline Phosphatase 76 Total Protein 7.3 Albumin 3.0 L Globulin 4.3 H Acetone Level POC Glucose > 500 H* 03/27/22 03/28/22 23:37 00:42 WBC RBC Hgb Hct MCV MCH MCHC RDW Std Deviation RDW Coeff of Barbara Plt Count MPV Immature Gran % (Auto) Neut % (Auto) Lymph % (Auto) [place] % (Auto) Eos % (Auto) Baso % (Auto) Absolute Neuts (auto) Absolute Lymphs (auto) Nucleated RBC % Sodium Potassium Chloride Carbon Dioxide Anion Gap BUN Creatinine Estim Creat Clear Calc Est GFR (MDRD) Af Amer Est GFR (MDRD) Non-Af BUN/Creatinine Ratio Glucose Calcium Total Bilirubin Direct Bilirubin AST ALT Alkaline Phosphatase Total Protein Albumin Globulin Acetone Level NEGATIVE POC Glucose > 500 H* Treatment and Re-Evaluation Narrative: CBC significant for hemoglobin concentrated at 17.0. Chemistry studies reveal a glucose of 693. Sodium is 131. Renal function is normal. Serum acetone is negative. Patient is given 15 units of subcutaneous insulin. 1 hour later blood sugars reading 518. At this time patient is requesting discharge to home. He is already advised me that he will not be admitted to the hospital. He does not want additional IV fluids. 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 Discharge Plan Triage Chief Complaint: Hyperglycemia ED Provider: Ivone Monique Dx/Rx/DC Orders Clinical Impression: Hyperglycemia Instructions: ED Diabetic Hyperglycemia Prescriptions: No Action metoprolol succinate [Toprol XL] 50 mg tablet extended release 24 hr 50 mg PO DAILY Qty: 90 3RF Rx Instructions: has not been taking buprenorphine-naloxone 2-0.5 mg tablet, sublingual 1 tab sublingual DAILY hydrochlorothiazide 50 mg tablet 50 mg PO DAILY glimepiride 4 mg tablet 4 mg PO QAM Qty: 90 2RF Rx Instructions: administer with breakfast insulin glargine [Lantus Solostar U-100 Insulin] 100 unit/mL (3 mL) insulin pen 40 unit subcut QPM 90 Days Qty: 36 3RF (DME) blood-glucose meter [OneTouch Ultra2 Meter] Kit See Rx Instructions .ROUTE .MEDSUPPLY Qty: 1 0RF Rx Instructions: Check blood glucose daily for type 2 diabetes mellitus (DME) OneTouch Ultra Test Strip See Rx Instructions .ROUTE .MEDSUPPLY Qty: 100 3RF Rx Instructions: check glucose 3-5 times per day (DME) lancets [OneTouch UltraSoft Lancets] Misc See Rx Instructions .ROUTE .MEDSUPPLY Qty: 200 11RF Rx Instructions: Check blood glucose daily for type 2 diabetes mellitus (DME) pen needle, diabetic [Comfort EZ Pen [place]] 31 gauge x 1/4 needle See Rx Instructions .Route Qty: 100 2RF Rx Instructions: ONCE DAILY (DME) blood pressure monitor [Blood Pressure Kit] Kit See Rx Instructions .ROUTE .MEDSUPPLY Qty: 1 0RF Rx Instructions: Check blood pressure daily for hypertension I10 amlodipine 10 mg tablet 10 mg PO BID Qty: 90 1RF doxazosin 4 mg tablet 4 mg PO QHS Qty: 90 1RF spironolactone 50 mg tablet 50 mg PO DAILY Qty: 30 0RF Rx Instructions: has not been taking metformin 500 mg tablet extended release 24 hr 500 mg PO BID Qty: 60 0RF ketoconazole 2 % cream 1 applic topical BID 28 Days Qty: 60 1RF fluoxetine 40 mg capsule 40 mg PO DAILY Qty: 90 1RF lisinopril 40 mg tablet 40 mg PO DAILY Qty: 60 0RF Rx Instructions: has not been taking Primary Care Provider: Rubio Guzman Referrals: Rubio Guzman MD [Primary Care Provider] - 1-2 Weeks Disposition Disposition: Home, Self Care
[2022-03-27 23:40] LABS: Bedside Glucose > 500 mg/dL (74-106)
[2022-03-27 23:46] LABS: Absolute Lymphocyte Count 2.45 X10^3/uL (0.83-4.51); Absolute Neutrophil Count 4.8 X10^3/uL (2.0-7.7); Basophil# 0.03 X10^3/uL; Basophil% 0.4 % (0-1); Eosinophil# 0.05 X10^3/uL; Eosinophils% 0.6 % (0-5); Hematocrit 47.8 % (40-54); Lymphocyte # 2.45 X10^3/ul (0.83-4.51); Lymphocyte % 30.9 % (19-41); Mean Corp Hgb Conc 35.6 g/dL (32-36); Mean Corpuscular Hgb 31.3 pg (27.0-32.0); Mean Platelet Vol. 11.7 fl (6.2-12.0); Monocyte# 0.55 X10^3/uL; Monocyte% 6.9 % (0-10); NRBC Flagged by Analyzer 0 % (0-5); Neutrophil # 4.77 X10^3/uL (2.7-7.7); Neutrophil % 60.2 % (47-70); Platelet Count 212 K/mm3 (150-450); RBC Distribution Width CV 12.9 % (11.6-14.6); RBC Distribution Width SD 41.2 fl (35.1-43.9); Red Blood Count 5.43 M/mm3 (4.6-6.2); White Blood Count 7.9 K/mm3 (4.4-11.0)
[2022-03-27 23:50] VITALS: BP 206/114; PULSE 99; RESP 18; O2SAT 94
[2022-03-27] MEDS: 0.9% Normal Saline 1,000 ML 1000 ML IV (23:54)
[2022-03-27] MEDS: Labetalol (Prefilled) 20 MG/4 ML IV (23:55)
[2022-03-28 00:35] LABS: AST(SGOT) 30 U/L (15-37); Alkaline Phosphatase 76 U/L (45-117); Anion Gap 13 (5-15); BUN 10 mg/dL (7-18); BUN/Creat Ratio 8.2 RATIO (10-20); Bilirubin, Direct 0.12 mg/dL (0.00-0.30); Calcium,Total 8.8 mg/dL (8.5-10.1); Chloride 91 mmol/L (98-107); Creatinine, Serum 1.22 mg/dL (0.70-1.30); EST Glomerular Filtration Rate 73 mL/min (>60); Est Glom Filt Rate - Afr Amer 89 mL/min (>60); Estimated Creatinine Clearance 96.29 ml/min; Globulin 4.3 g/dL (2.2-4.2); Glucose 693 mg/dL (74-106); Potassium 3.6 mmol/L (3.5-5.1); Protein, Total 7.3 g/dL (6.4-8.2); Sodium Level 131 mmol/L (136-145)
[2022-03-28] MEDS: Insulin Lispro 100 UNIT/ML INSULN.PEN 15 UNIT SC (00:43)
[2022-03-28] MEDS: Acetaminophen 500 MG Tablet 1000 MG PO (00:52)
[2022-03-28 01:05] LABS: Bedside Glucose > 500 mg/dL (74-106)
[2022-03-28 01:21] VITALS: BP 165/95; PULSE 83; RESP 13; O2SAT 91
[2022-03-28 02:10] VITALS: BP 175/100; PULSE 77; RESP 13; O2SAT 98
[2022-03-28 02:11] LABS: Bedside Glucose > 500 mg/dL (74-106)
== END 2022-03-28 02:16 | disposition home or self-care (01) ==
PROVIDERS: Emergency Provider Emergency Medicine; PCP Internal Medicine; Visit Provider Emergency Medicine
DX: E11.65 Type 2 diabetes mellitus with hyperglycemia (principal); Z79.4 Long term (current) use of insulin; I10 Essential (primary) hypertension; I16.0 Hypertensive urgency; R35.0 Frequency of micturition; R63.1 Polydipsia; R35.89 Other polyuria; Z79.84 Long term (current) use of oral hypoglycemic drugs; Z79.899 Other long term (current) drug therapy
CPT/HCPCS: 36415; 80048; 80053; 80061; 80076; 82009; 82043; 82150; 82570; 82962; 83690; 84443; 85025; 96361; 96374; 99284; J7030; A4216

== ENCOUNTER → 2022-03-27 | Outpatient (CLI) | payer MEDICAID, SELFPAY ==
[2022-03-27 15:07] LABS: Absolute Lymphocyte Count 1.95 X10^3/uL (0.83-4.51); Absolute Neutrophil Count 3.7 X10^3/uL (2.0-7.7); Basophil# 0.03 X10^3/uL; Basophil% 0.5 % (0-1); Eosinophil# 0.05 X10^3/uL; Eosinophils% 0.8 % (0-5); Hematocrit 48.3 % (40-54); Lymphocyte # 1.95 X10^3/ul (0.83-4.51); Lymphocyte % 31.5 % (19-41); Mean Corp Hgb Conc 35.2 g/dL (32-36); Mean Corpuscular Hgb 30.7 pg (27.0-32.0); Mean Corpuscular Volume 87.3 fL (80-94); Mean Platelet Vol. 11.7 fl (6.2-12.0); Monocyte# 0.42 X10^3/uL; Monocyte% 6.8 % (0-10); NRBC Flagged by Analyzer 0 % (0-5); Neutrophil % 59.6 % (47-70); Platelet Count 229 K/mm3 (150-450); RBC Distribution Width CV 12.8 % (11.6-14.6); RBC Distribution Width SD 39.9 fl (35.1-43.9); Red Blood Count 5.53 M/mm3 (4.6-6.2); White Blood Count 6.2 K/mm3 (4.4-11.0)
[2022-03-27 16:02] LABS: Microalbumin:Creatinine Ratio 5608.7 mg/g CRE (<30 mg/g CRE)
[2022-03-27 20:00] LABS: ALB/GLOB Ratio 0.7 RATIO (0.9-2.4); AST(SGOT) 25 U/L (15-37); Alanine Aminotransfer ALT/SGPT 48 U/L (16-61); Alkaline Phosphatase 79 U/L (45-117); Anion Gap 13 (5-15); BUN 12 mg/dL (7-18); BUN/Creat Ratio 12.4 RATIO (10-20); Chloride 92 mmol/L (98-107); Cholesterol 265 mg/dL (200); Creatinine, Serum 0.97 mg/dL (0.70-1.30); EST Glomerular Filtration Rate 95 mL/min (>60); Est Glom Filt Rate - Afr Amer 115 mL/min (>60); Globulin 4.6 g/dL (2.2-4.2); High Density Lipoprotein 31 mg/dL; Lipase 154 U/L (73-393); Potassium 3.4 mmol/L (3.5-5.1); Protein, Total 7.6 g/dL (6.4-8.2); Sodium Level 128 mmol/L (136-145)
[2022-03-28 11:09] LABS: Triglycerides 2451 mg/dL; Very Low Density Lipoprotein 490 mg/dL (5-40)
[2022-03-28 11:11] LABS: Amylase 20 U/L (25-115)
[2022-03-28 11:12] LABS: Thyroid Stim Hormone (TSH) 2.79 uIU/mL (0.358-3.74)
[2022-03-28 11:14] LABS: Glucose 532 mg/dL (74-106)
== END | disposition home or self-care (01) ==
LOC: BIMLAB 14:32
PROVIDERS: PCP Internal Medicine; Referring Provider Nurse Practitioner Family; Visit Provider Nurse Practitioner Family
DX: I10 Essential (primary) hypertension (principal); I16.0 Hypertensive urgency
CPT/HCPCS: 36415; 80053; 80061; 82043; 82150; 82570; 83690; 84443; 85025

== ENCOUNTER → 2022-04-03 | Outpatient (CLI) | payer MEDICAID, SELFPAY ==
[2022-04-03 17:01] LABS: Anion Gap 8 (5-15); BUN 12 mg/dL (7-18); BUN/Creat Ratio 12.8 RATIO (10-20); Calcium,Total 9.4 mg/dL (8.5-10.1); Chloride 98 mmol/L (98-107); Creatinine, Serum 0.94 mg/dL (0.70-1.30); EST Glomerular Filtration Rate 99 mL/min (>60); Est Glom Filt Rate - Afr Amer 120 mL/min (>60); Glucose 328 mg/dL (74-106); Potassium 3.6 mmol/L (3.5-5.1); Sodium Level 138 mmol/L (136-145)
== END | disposition home or self-care (01) ==
LOC: BIMLAB 15:39
PROVIDERS: PCP Internal Medicine; Referring Provider Internal Medicine; Visit Provider Internal Medicine
DX: I10 Essential (primary) hypertension (principal)
CPT/HCPCS: 36415; 80048

== ENCOUNTER → 2022-04-14 | Outpatient (CLI) | payer MEDICAID, SELFPAY ==
[2022-04-14 16:48] LABS: Anion Gap 4 (5-15); BUN 13 mg/dL (7-18); BUN/Creat Ratio 8.8 RATIO (10-20); Calcium,Total 9.2 mg/dL (8.5-10.1); Chloride 102 mmol/L (98-107); Creatinine, Serum 1.47 mg/dL (0.70-1.30); EST Glomerular Filtration Rate 59 mL/min (>60); Est Glom Filt Rate - Afr Amer 72 mL/min (>60); Glucose 194 mg/dL (74-106); Potassium 3.9 mmol/L (3.5-5.1); Sodium Level 140 mmol/L (136-145)
== END | disposition home or self-care (01) ==
LOC: BIMLAB 14:19
PROVIDERS: PCP Internal Medicine; Referring Provider Internal Medicine; Visit Provider Internal Medicine
DX: E11.9 Type 2 diabetes mellitus without complications (principal)
CPT/HCPCS: 36415; 80048

== ENCOUNTER 2022-09-08 17:55 | Observation (INO) | payer MEDICAID, SELFPAY ==
[2022-09-08] VITALS (8 sets, daily range): BP systolic 163–240; BP diastolic 87–150; PULSE 84–99; RESP 12–24; TEMP 36.4–37; O2SAT 93–95; BMI 50.1; BMI 46.3
--- NOTE | 2022-09-08 18:03 | EKG12_ITS ---
Test Reason : Blood Pressure : / mmHG Vent. Rate : 090 BPM Atrial Rate : 090 BPM P-R Int : 220 ms QRS Dur : 092 ms QT Int : 380 ms P-R-T Axes : 061 049 230 degrees QTc Int : 464 ms Sinus rhythm with 1st degree A-V block T wave abnormality, consider inferolateral ischemia Prolonged QT Abnormal ECG Confirmed by KECIA ARCHULETA, CORDELIA ([id number]), avid editor JUNO MAAYA ([id number]) on 09/10/2022 10:07:31 AM Referred By: RUDDY Confirmed By:CORDELIA MCDONNELL MD
--- NOTE | 2022-09-08 18:28 | CT_ITS ---
STUDY: CT BRAIN WITHOUT CONTRAST REASON FOR EXAM: Male, 32 years old. Headache. Elevated blood pressure. RADIATION DOSAGE (If Supplied By Facility): CTDIvol = ( 44.99 ) mGy, DLP = ( 846.73 ) mGycm TECHNIQUE: Transaxial CT imaging of the brain was performed without administration of intravenous contrast material. Individualized dose optimization techniques were used for this CT. COMPARISON: April 28, 2021. FINDINGS: Normal soft tissue structures. Normal calvarium. Normal size ventricles and extra-axial spaces for the patient''s age. Small hypodensity in the right mid osborne radiata thought to represent a remote white matter infarct. Otherwise normal white matter tracts of the cerebral hemispheres. Normal basal ganglia and thalami. Normal brainstem. Normal cerebellum. There is no intracranial hemorrhage. There are no findings of an acute ischemic infarction. Normal visualized paranasal sinuses. CT/Brain/Head without Contrast IMPRESSION: No acute intracranial or calvarial abnormality. No major interval change. Electronically Signed: Aris Perales DO at 19:49 EST ,
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
[2022-09-08 19:10] LABS: Absolute Lymphocyte Count 3.26 X10^3/uL (0.83-4.51); Absolute Neutrophil Count 6.8 X10^3/uL (2.0-7.7); Basophil# 0.05 X10^3/uL; Basophil% 0.5 % (0-1); Eosinophil# 0.06 X10^3/uL; Eosinophils% 0.5 % (0-5); Hematocrit 49.8 % (40-54); Hemoglobin 17.1 g/dL (13.0-16.5); Lymphocyte # 3.26 X10^3/ul (0.83-4.51); Lymphocyte % 29.9 % (19-41); Mean Corp Hgb Conc 34.3 g/dL (32-36); Mean Corpuscular Hgb 29.4 pg (27.0-32.0); Mean Corpuscular Volume 85.6 fL (80-94); Mean Platelet Vol. 10.4 fl (6.2-12.0); Monocyte# 0.69 X10^3/uL; Monocyte% 6.3 % (0-10); NRBC Flagged by Analyzer 0 % (0-5); Neutrophil # 6.82 X10^3/uL (2.7-7.7); Neutrophil % 62.5 % (47-70); Platelet Count 250 K/mm3 (150-450); RBC Distribution Width CV 12.5 % (11.6-14.6); RBC Distribution Width SD 38.3 fl (35.1-43.9); Red Blood Count 5.82 M/mm3 (4.6-6.2); White Blood Count 10.9 K/mm3 (4.4-11.0)
[2022-09-08] MEDS: Labetalol (Prefilled) 20 MG/4 ML 10 MG IV (19:13)
[2022-09-08] MEDS: 0.9% Normal Saline 1,000 ML 150 ML IV (19:15)
[2022-09-08] MEDS: Ondansetron 4 MG/2 ML Vial IV (19:15)
[2022-09-08 19:21] LABS: International Normalized Ratio 1.1; Prothrombin Time (Protime)PT. 13.7 SECONDS (11.7-14.9)
[2022-09-08 19:22] LABS: Partial Thromboplast Time 27.2 Seconds (24.1-36.2)
[2022-09-08 19:23] LABS: Anion Gap 5 (5-15); BUN 9 mg/dL (7-18); Calcium,Total 8.8 mg/dL (8.5-10.1); Chloride 103 mmol/L (98-107); EST Glomerular Filtration Rate 92 mL/min (>60); Est Glom Filt Rate - Afr Amer 111 mL/min (>60); Glucose 106 mg/dL (74-106); Potassium 3.1 mmol/L (3.5-5.1); Sodium Level 141 mmol/L (136-145)
[2022-09-08 19:25] LABS: Bedside Glucose 116 mg/dL (74-106)
--- NOTE | 2022-09-08 19:33 | ED.RN ---
This RN walked in to pt room and noticed pt was fluttering eyes and slow to respond to questions. Family in room stated this activity just started. Pt is A&Ox2. Dr. Reddy notified. Walked back into pt room with pt returned to baseline. No new orders at this time. Pt medicated and sent to CT.
[2022-09-08] MEDS: Potassium Chloride Oral Tablet 20 MEQ 40 MEQ PO (20:24)
--- NOTE | 2022-09-08 21:24 | HP.PCM_ITS ---
HPI - General General Date of Admission: 09/08/22 Date of Service: 09/08/22 Chief Complaint: ? Seizure, uncontrolled HTN, headache. HPI Narrative The patient is a 32 y/o M w/ PMHx: Hx Substance abuse, Morbid Obesity, KAREN on CPAP q HS, HTN, HLD, ADHD/Anxiety and Depression, Tobacco use, Diabetes mellitus type II, Crohn's disease who presents to the [facility] ED on 09/08/22 with history of 2 to 3-day history of ongoing persistent frontal headache also behind the eyes with some light sensitivity but no sound sensitivity with nausea and emesis x2 rating his discomfort initially 4-5 out of 10 in severity however it is worsened and upon ED arrival complains of 9 out of 10 discomfort with no specific vision changes or any other focal neurological changes reporting that he has been out of some of his blood pressure medications including lisinopril for at least the last 3 days with elevated blood pressures in addition to history of evaluation [facility] ED approximately 2 weeks prior secondary to concerns for seizure-like activity with ED evaluation with CT scan with no acute findings and unfortunately patient signed out AMA with a noted upcoming doctor's appointment however while in the emergency room patient had a recurrent event witnessed also by nursing staff. In the ED nursing staff noted that patient had stiffened upper extremities with description consistent with posturing with his eyes rolling upwards and nystagmus present with no tongue biting or any loss of bowel or bladder lasting seconds to minute with some mild confusion following however reported more quick improvement to his baseline than expected. Work-up in the ED included T97.6, heart rate 99, BP initially 240/150 with most recent BP upon evaluation 180/108, respiratory rate 14, 95% on room air, CBC with WBC 10.9, hemoglobin 17.1, platelet 250 that marked shift, unremarkable coags, BMP with potassium 3.1, carbon dioxide 33 otherwise unremarkable, CT of the brain with no acute intracranial finding, EKG with sinus rhythm with first-degree AV block with nonspecific ST changes and mildly prolonged QT similar to previous. In the ED patient ministered labetalol 10 mg IV x1 as well as Zofran 4 mg IV x1 and potassium chloride 40 mill equivalent p.o. x1. [facility] Medical History (Updated 09/09/22 @ 02:[address] Romana Bray MD) ADHD (attention deficit hyperactivity disorder) Bipolar depression Crohn's colitis Diabetes Essential hypertension History of arthritis History of CVA (cerebrovascular accident) History of drug abuse History of non-ST elevation myocardial infarction (NSTEMI) (2018) Morbid obesity, BMI unknown Opioid use disorder KAREN (obstructive sleep apnea) Severe left ventricular hypertrophy Tobacco abuse Type 2 diabetes mellitus Home Medications lisinopril 40 mg tablet 40 mg PO DAILY #60 tabs 02/15/21 [Rx Last Taken Unknown] ketoconazole 2 % topical cream 1 applic topical BID 4 weeks #60 grams 03/19/22 [Rx Last Taken Unknown] blood sugar diagnostic (OneTouch Ultra Test strips) #100 ea 03/27/22 [Rx Last Taken Unknown] blood-glucose meter (OneTouch Ultra2 Meter kit) #1 ea 03/27/22 [Rx Last Taken Unknown] lancets (OneTouch UltraSoft Lancets) #200 ea 03/27/22 [Rx Last Taken Unknown] pen needle, diabetic 31 gauge x 1/4 (Comfort EZ Pen [place]) #100 ea 03/27/22 [Rx Last Taken Unknown] blood sugar diagnostic (FreeStyle Test strips) #50 ea 04/01/22 [Rx Last Taken Unknown] blood-glucose meter (FreeStyle System Kit) #1 ea 04/01/22 [Rx Last Taken Unknown] doxazosin 4 mg tablet 4 mg PO BID 3 months #180 tabs 04/03/22 [Rx Last Taken Unknown] empagliflozin 25 mg tablet 25 mg PO DAILY #90 tabs 04/03/22 [Rx Last Taken Unknown] glimepiride 4 mg tablet 4 mg PO BID #90 tabs 04/03/22 [Rx Last Taken Unknown] hydrochlorothiazide 25 mg tablet 25 mg PO DAILY 04/03/22 [History Last Taken Unknown] metoprolol succinate 100 mg tablet,extended release 24 hr 100 mg PO DAILY #90 tabs 04/03/22 [Rx Last Taken Unknown] pantoprazole 40 mg tablet,delayed release (Protonix) 40 mg PO DAILY #90 tabs 04/03/22 [Rx Last Taken Unknown] buprenorphine 2 mg-naloxone 0.5 mg sublingual tablet 3 tab sublingual DAILY 04/14/22 [History Last Taken Unknown] insulin glargine 100 unit/mL (3 mL) subcutaneous pen (Lantus Solostar U-100 Insulin) 55 unit (0.55 mL) subcut QPM 90 days #49.5 mL 04/14/22 [Rx Last Taken Unknown] metformin 500 mg tablet,extended release 24 hr 1,000 mg PO BID 3 months #360 tabs 04/14/22 [Rx Last Taken Unknown] spironolactone 100 mg tablet 100 mg PO DAILY 3 months #90 tabs 04/14/22 [Rx Last Taken Unknown] flash glucose scanning reader (FreeStyle [place] 2 [place]) #1 ea 04/17/22 [Rx Last Taken Unknown] flash glucose sensor (FreeStyle Reuben 14 Day Sensor kit) #1 ea 04/17/22 [Rx Last Taken Unknown] blood pressure monitor (Blood Pressure Kit) #1 ea 04/30/22 [Rx Last Taken Unknown] amlodipine 10 mg tablet 10 mg PO BID #90 tabs 05/06/22 [Rx Last Taken Unknown] ondansetron 4 mg disintegrating tablet 4 mg PO Q8H PRN nausea and vomiting #60 tabs 05/06/22 [Rx Last Taken Unknown] aripiprazole 5 mg tablet (Abilify) 5 mg PO QHS #30 tabs 05/07/22 [Rx Last Taken Unknown] fluoxetine 40 mg capsule 40 mg PO DAILY #90 caps 05/07/22 [Rx Last Taken Unknown] flash glucose sensor (FreeStyle Reuben 2 Sensor kit) #2 KITS 08/15/22 [Rx Last Ta wilberto Unknown] Allergy/AdvReac Type Severity Reaction Status Date / Time bupropion Allergy Severe seizure Verified 09/08/22 17:59 amoxicillin [Amoxicillin] Allergy Swelling Verified 09/08/22 17:59 Penicillins Allergy Swelling Verified 09/08/22 17:59 Sulfa (Sulfonamide Allergy Unknown Verified 09/08/22 17:59 Antibiotics) diphenhydramine AdvReac psychosis Verified 09/08/22 17:59 [From Benadryl] metoclopramide [From Reglan] AdvReac psychosis Verified 09/08/22 17:59 Family History Father Kidney disease High blood cholesterol Hypertension Respiratory disease Myocardial infarction Diabetes Mother High blood cholesterol Hypertension Kidney disease Respiratory disease Myocardial infarction Diabetes Other Alcoholism Anxiety Arthritis Asthma Heart disease Surgical History History of appendectomy History of left heart catheterization (02/26/15) Social History (Updated 09/09/22 @ 02:[address] Romana Bray MD) household members: family housing: apartment current occupational status: unemployed sexually active: Yes Smoking Status: Current every day smoker tobacco type: cigarettes Smoking packs per day: 1.5 Smoking cigarettes per day: 30.0 alcohol intake: current alcohol intake frequency: holidays/special occasions only substance use type: former substance user what type of physical activity do you participate in: none seatbelt use: never do you feel safe at home: Yes additional social history: Marleny- MARY Flores Admission Review of Systems: CONSTITUTIONAL: No weight loss, fever, chills, + weakness or fatigue. HEENT: + [place], occasional blurred vision but no loss. Eyes: No visual loss, double vision or yellow sclerae. Ears, Nose, Throat: No hearing loss, sneezing, congestion, runny nose or sore throat. SKIN: No rash or itching, lesions, wounds. CARDIOVASCULAR: + Chronic chest pain (reproducible MS pain on evaluation), chronic edema, No syncope, palpitations, orthopnea. RESPIRATORY: + Chronic shortness of breath, No cough or sputum, wheezing, hemoptysis. GASTROINTESTINAL: No anorexia, nausea, vomiting, diarrhea, abdominal pain, melena, BRBPR. GENITOURINARY: No dysuria, frequency, urgency or retention. NEUROLOGICAL: + headache, possible seizure, No dizziness, syncope, No paralysis, ataxia, numbness or tingling in the extremities, focal weakness, change in bowel or bladder control. MUSCULOSKELETAL: + muscle, back pain, joint pain or stiffness. HEMATOLOGIC: No anemia, bleeding or bruising. LYMPHATICS: No enlarged nodes. No history of splenectomy. PSYCHIATRIC:?+?history of depression or anxiety. ENDOCRINOLOGIC: No reports of sweating, cold or heat intolerance. No polyuria or polydipsia. ALLERGIES: No history of asthma, hives, eczema or rhinitis. Vital Signs Vital Signs Vital Signs: 09/08/22 17:56 09/08/22 18:34 09/08/22 19:38 Temperature 97.6 F L Temperature Source Temporal Pulse Rate 99 98 Respiratory Rate 14 24 H Blood Pressure 240/150 H 204/127 H 204/124 H Blood Pressure Mean 180 152 150 Pulse Ox 95 95 Oxygen Delivery Method Room Air Room Air 09/08/22 20:00 09/08/22 21:00 Temperature Temperature Source Pulse Rate 88 87 Respiratory Rate 12 15 Blood Pressure 190/104 H 180/108 H Blood Pressure Mean 132 132 Pulse Ox 94 94 Oxygen Delivery Method Room Air Room Air Weight Weight: 370 lb Body Mass Index (BMI) 50.1 Physical Exam Narrative Physical Examination: General: Awake, alert, oriented x 3 and cooperative, seated upright in the ED bed, mental status at baseline per family present. Skin: Normal color, normal turgor, no icterus, no cyanosis except noted chronic venous stasis skin changes bilateral lower extremities, occasional picked region s, abrasions. HEENT: AT/NC, EOMI, PERRLA, mildly dry MM, no carotid bruits or JVD noted. Lungs: Diminished, greater bases, moderate effort no rales, ronchi or wheezing. Heart: Currently regular rate and regular rhythm; no gallop, rub audible. Abdomen: Soft, morbidly obese, NTTP, difficult to assess distention given habitus, distant normal BS, no obvious evidence of HSM; however, habitus makes examination difficult. Extremities: No cyanosis, no clubbing, chronic mild BL LE edema, no markedly pitting. Neurological: Patient awake, alert, oriented as noted, cognitive function improved, currently appears returned to baseline intact; pupils equally reactive to light and accommodation, cranial nerves II-XII grossly normal, moving all 4 extremities, no focal deficits, strength preserved, no current visualized recurrent seizure-like activity. Psychiatric: Affect appears fatigued, no obvious acutely noted anxiety or depression but does have significant underlying history. Results Lab / Micro Data Result Diagrams: 09/08/22 17:00 09/08/22 17:00 Labs: Laboratory Results - last 24 hr 09/08/22 17:00: WBC 10.9, RBC 5.82, Hgb 17.1 H, Hct 49.8, MCV 85.6, MCH 29.4, MCHC 34.3, RDW Std Deviation 38.3, RDW Coeff of Barbara 12.5, Plt Count 250, MPV 10.4, Immature Gran % (Auto) 0.300, Neut % (Auto) 62.5, Lymph % (Auto) 29.9, [place] % (Auto) 6.3, Eos % (Auto) 0.5, Baso % (Auto) 0.5, Absolute Neuts (auto) 6.8, Absolute Lymphs (auto) 3.26, Nucleated RBC % 0 09/08/22 17:00: PT 13.7, INR 1.1, APTT 27.2 09/08/22 17:00: Sodium 141, Potassium 3.1 L, Chloride 103, Carbon Dioxide 33.0 H , Anion Gap 5, BUN 9, Creatinine 1.00, Estim Creat Clear Calc 116.40, Est GFR (MDRD) Af Amer 111, Est GFR (MDRD) Non-Af 92, BUN/Creatinine Ratio 9.0 L, Glucose 106, Calcium 8.8 09/08/22 19:03: POC Glucose 116 H Radiology Impression Brain CT 09/08/22 18:28 IMPRESSION: No acute intracranial or calvarial abnormality. No major interval change. Electronically Signed: Aris Perales DO at 19:49 EST Reading Location ID and State: [facility] / [place] Tel [phone], Service support , Assessment & Plan Assessment/Plan (1) Seizure: PLAN: Plan The patient is a 32 y/o M w/ PMHx: Hx Substance abuse, Morbid Obesity, KAREN on CPAP q HS, HTN, HLD, ADHD/Anxiety and Depression, Tobacco use, Diabetes mellitus type II, Crohn's disease who presents to the [facility] ED on 09/08/22 with history of 2 to 3-day history of ongoing persistent frontal headache also behind the eyes with some light sensitivity but no sound sensitivity with nausea and emesis x2 rating his discomfort initially 4-5 out of 10 in severity however it is worsened and upon ED arrival complains of 9 out of 10 discomfort with no specific vision changes or any other focal neurological changes reporting that he has been out of some of his blood pressure medications including lisinopril for at least the last 3 days with elevated blood pressures in addition to history of evaluation in [place] ED approximately 2 weeks prior secondary to concerns for seizure-like activity with ED evaluation with CT scan with no acute findings and unfortunately patient signed out AMA with a noted upcoming doctor's appointment however while in the emergency room patient had a recurrent event witnessed also by nursing staff. #1. Concern new-onset seizure: Seizure witnessed per staff with noted eyes rolling upward, nystagmus with upper extremity posturing per description with very short postictal state with no bowel or bladder loss and no tongue biting noted. Improved mental status in the emergency room. CT head without acute intracranial pathology. Will admit to PCU, maintain on telemetry in PCU on seizure precautions, obtain EEG, obtain brain MRI, obtain TSH, Mag and UDS. PRN ativan IV for seizure activity. Pending these findings low threshold to consult Neurology. #2. Hypertensive Urgency: CT head without acute findings, headache mildly improved with BP improvement with IV lopressor regimen in the ED, will resume patient home medications as he does note that he has been out of some of his medications including lisinopril for at least the last 2 to 3 days. Will have as needed agents. Discussed at length with patient that he cannot miss his medications as he does have significant blood pressure history on several medications. #3. Hypokalemia: Admission K+ 3.1, magnesium level requested, supplementation given, repeat level in AM. #4. History of substance abuse, opiate abuse: We will continue patient home Suboxone regimen, encourage continued follow-up with his substance abuse physician. UDS requested. #5. Diabetes mellitus type II: Hold oral home regimen, continue home insulin regimen, ADA diet, accu checks w/ ISS. #6. Anxiety and depression/ADHD: We will continue patient home fluoxetine and aripiprazole home regimen, following with psychiatrist Dr. Jones with most recent visit noted 05/07/2022, encourage continued outpatient follow-up. #7. Tobacco Abuse: Encouraged cessation, inpatient consultation per RT, NR if desired. #8. KAREN: Patient is supposed to be using CPAP nightly but is noncompliant. #9. Morbid Obesity: Weight loss and lifestyle changes encouraged, nutrition consulted. #10. GERD: We will continue patient home PPI. #11. DVT prophylaxis: Lovenox. #12. CODE STATUS: Full code. Admission Evaluation Time spent evaluating chart, patient history, patient evaluation, care planning and discussion with specialists: 75 minutes. Charges/Coding Visit Charges Inpatient E&M: 06911 Init Hosp L3 Procedures Hospitalists Procedures: 99990 Advncd Care Plan 30 Min
--- NOTE | 2022-09-08 21:48 | ED.RN ---
Pt is unaware of medications taken daily. called to check on meds and to give update, no answer. Pt aware.
[2022-09-08 22:32] LABS: Magnesium 1.6 mg/dL (1.6-2.6)
[2022-09-08] MEDS: 0.9% Normal Saline 1,000 ML 100 ML IV (23:50)
[2022-09-09] MEDS: MELATONIN 3 MG TABLET PO (00:03)
[2022-09-09 00:04] VITALS: BP 189/111; PULSE 85
[2022-09-09] MEDS: hydrALAZINE 20 MG/ML Vial 10 MG IV (00:04)
[2022-09-09] MEDS: 0.9% Saline Lock 10 ML Syringe IV (00:05)
--- NOTE | 2022-09-09 04:47 | NURSING ---
Patient is requesting no information be given on his health status and any calls that come to redirect to him
[2022-09-09 05:00] VITALS: BP 158/92; PULSE 80; RESP 16; TEMP 36.6; O2SAT 96
[2022-09-09 05:59] LABS: Absolute Lymphocyte Count 3.01 X10^3/uL (0.83-4.51); Absolute Neutrophil Count 4.7 X10^3/uL (2.0-7.7); Basophil# 0.03 X10^3/uL; Basophil% 0.4 % (0-1); Eosinophil# 0.13 X10^3/uL; Eosinophils% 1.5 % (0-5); Hematocrit 46.9 % (40-54); Hemoglobin 15.7 g/dL (13.0-16.5); Lymphocyte # 3.01 X10^3/ul (0.83-4.51); Lymphocyte % 35.7 % (19-41); Mean Corp Hgb Conc 33.5 g/dL (32-36); Mean Corpuscular Volume 86.5 fL (80-94); Mean Platelet Vol. 10.5 fl (6.2-12.0); Monocyte# 0.58 X10^3/uL; Monocyte% 6.9 % (0-10); NRBC Flagged by Analyzer 0 % (0-5); Neutrophil # 4.66 X10^3/uL (2.7-7.7); Neutrophil % 55.4 % (47-70); Platelet Count 238 K/mm3 (150-450); RBC Distribution Width CV 12.6 % (11.6-14.6); RBC Distribution Width SD 39.4 fl (35.1-43.9); Red Blood Count 5.42 M/mm3 (4.6-6.2); White Blood Count 8.4 K/mm3 (4.4-11.0)
[2022-09-09 06:00] VITALS: BMI 46.2
[2022-09-09] MEDS: Nystatin Powder 15gm Bottle 1 APPLIC TOPICAL (06:45)
[2022-09-09] MEDS: Pantoprazole Sodium 40 MG Tablet PO (06:46)
[2022-09-09] MEDS: Lisinopril 40 MG Tablet PO (06:46)
[2022-09-09 07:00] LABS: ALB/GLOB Ratio 0.8 RATIO (0.9-2.4); AST(SGOT) 13 U/L (15-37); Alanine Aminotransfer ALT/SGPT 31 U/L (16-61); Albumin, Serum 2.7 g/dL (3.2-5.0); Alkaline Phosphatase 47 U/L (45-117); Anion Gap 5 (5-15); BUN 10 mg/dL (7-18); BUN/Creat Ratio 10.5 RATIO (10-20); Calcium,Total 8.4 mg/dL (8.5-10.1); Chloride 104 mmol/L (98-107); Creatinine, Serum 0.95 mg/dL (0.70-1.30); EST Glomerular Filtration Rate 97 mL/min (>60); Est Glom Filt Rate - Afr Amer 118 mL/min (>60); Estimated Creatinine Clearance 122.53 ml/min; Globulin 3.6 g/dL (2.2-4.2); Glucose 177 mg/dL (74-106); Potassium 3.1 mmol/L (3.5-5.1); Protein, Total 6.3 g/dL (6.4-8.2); Sodium Level 142 mmol/L (136-145); Thyroid Stim Hormone (TSH) 4.17 uIU/mL (0.358-3.74)
[2022-09-09 07:15] LABS: Bedside Glucose 164 mg/dL (74-106)
--- NOTE | 2022-09-09 07:40 | TELEMED_ITS ---
[facility] has confirmed receipt of a request for visit. This document confirms receipt of the order initiating the consult. To find the results of the consultation, please view the patient's reports for the scanned Telemed Consult.
--- NOTE | 2022-09-09 07:57 | PN.HOSP_ITS ---
Reason for Visit Reason for Visit: Follow-up for recurrent seizure, 3 seizures in the last 2 weeks. Diagnoses Unspecified convulsions (09/08/22) Subjective Subjective Patient denies current excessive use of alcohol smoking, substance use. Had history of opioid use in the past and is on Suboxone. Objective Data Objective Data Vital Signs: Vital Signs Temp Pulse Resp BP Pulse Ox O2 Del Method 98 F 80 16 158/92 H 96 Room Air 09/09/22 05:00 09/09/22 05:00 09/09/22 05:00 09/09/22 05:00 09/09/22 05:00 09/09/22 05:00 Oxygen Delivery Method Room Air Weight: 340 lb 13.354 oz Body Mass Index (BMI) 46.2 Intake & Output: Intake and Output for Last 24 Hours 09/07/22 09/08/22 09/09/22 23:59 23:59 23:59 Intake Total 432.5 / 432.5 781.66 / 781.66 Balance 432.5 / 432.5 781.66 / 781.66 Lab / Micro Data Result Diagrams: 09/09/22 05:20 09/09/22 05:20 Labs: Laboratory Results - last 24 hr 09/08/22 17:00: WBC 10.9, RBC 5.82, Hgb 17.1 H, Hct 49.8, MCV 85.6, MCH 29.4, MCHC 34.3, RDW Std Deviation 38.3, RDW Coeff of Barbara 12.5, Plt Count 250, MPV 10.4, Immature Gran % (Auto) 0.300, Neut % (Auto) 62.5, Lymph % (Auto) 29.9, [place] % (Auto) 6.3, Eos % (Auto) 0.5, Baso % (Auto) 0.5, Absolute Neuts (auto) 6.8, Absolute Lymphs (auto) 3.26, Nucleated RBC % 0 09/08/22 17:00: PT 13.7, INR 1.1, APTT 27.2 09/08/22 17:00: Sodium 141, Potassium 3.1 L, Chloride 103, Carbon Dioxide 33.0 H , Anion Gap 5, BUN 9, Creatinine 1.00, Estim Creat Clear Calc 116.40, Est GFR (MDRD) Af Amer 111, Est GFR (MDRD) Non-Af 92, BUN/Creatinine Ratio 9.0 L, Glucose 106, Calcium 8.8 09/08/22 17:00: Magnesium 1.6 09/08/22 19:03: POC Glucose 116 H 09/09/22 05:20: WBC 8.4, RBC 5.42, Hgb 15.7, Hct 46.9, MCV 86.5, MCH 29.0, MCHC 33.5, RDW Std Deviation 39.4, RDW Coeff of Barbara 12.6, Plt Count 238, MPV 10.5, Immature Gran % (Auto) 0.100, Neut % (Auto) 55.4, Lymph % (Auto) 35.7, [place] % (Auto) 6.9, Eos % (Auto) 1.5, Baso % (Auto) 0.4, Absolute Neuts (auto) 4.7, Absolute Lymphs (auto) 3.01, Nucleated RBC % 0 09/09/22 05:20: Sodium 142, Potassium 3.1 L, Chloride 104, Carbon Dioxide 33.0 H , Anion Gap 5, BUN 10, Creatinine 0.95, Estim Creat Clear Calc 122.53, Est GFR (MDRD) Af Amer 118, Est GFR (MDRD) Non-Af 97, BUN/Creatinine Ratio 10.5, Glucose 177 H, Calcium 8.4 L, Total Bilirubin 0.40, AST 13 L, ALT 31, Alkaline Phosphatase 47, Total Protein 6.3 L, Albumin 2.7 L, Globulin 3.6, Albumin/Globulin Ratio 0.8 L, TSH 4.17 H 09/09/22 06:50: POC Glucose 164 H Radiography Diagnostic Testing: Radiology Impression Brain CT 09/08/22 18:28 IMPRESSION: No acute intracranial or calvarial abnormality. No major interval change. Electronically Signed: Aris Perales DO at 19:49 EST Reading Location ID and State: [address] [place] [address] Tel [phone], Service support , Physical Exam Narrative Physical exam General: Alert, Oriented x3, Cooperative, morbid obese BMI 46.2 kg/m? HEENT: Atraumatic, PERRLA, EOMI, Normocephalic Oral: Deep oropharyngeal structures could not be visualized. No oral ulcer. Neck: Supple, No JVD, Negative Carotid Bruits Chest wall/lungs: Air entry diminished in bilateral lung bases. No crepitation/rhonchi. No chest wall tenderness. Cardiovascular: Regular rate, Regular Rhythm, Normal S1, Normal S2, No murmurs Abdomen: Bowel Sounds Present, Soft, Non Tender, Non-Distended : No renal angle tenderness. No suprapubic tenderness. Extremities: No edema, Capillary Refill Less than 3 Seconds Skin: No rashes, No breakdown Musculoskeletal: No Tenderness to Palpation of Joints or Extremities. ROM full. Neurological: Cranial nerves II-XII grossly intact, DTR 2+/4 and Symmetrical, Neuro grossly intact Psych/Mental Status: Flat affect. Assessment & Plan Assessment/Plan (1) Seizure: PLAN: Plan The patient is a 32 y/o M was admitted for evaluation and management of worsening headache, hypertensive urgency with triage SBP 250 mmHg usually runs around 200s. Patient also had nausea vomiting x2 and recent seizure about 2 weeks ago for which patient was in [facility] from where he signed AMA. #1. Recurrent new-onset seizure: Patient had seizure witnessed by staff with ey es rolling upward, nystagmus, body hard and stiff like board and then seizure. Short postictal with no bladder or bowel incontinence or no tongue biting. Monitor patient is alert oriented x3. Seizure witnessed per staff with noted eyes rolling upward, nystagmus with upper extremity posturing per description with very short postictal state with no bowel or bladder loss and no tongue biting noted. Improved mental status in the emergency room. CT head without acute intracranial pathology. Will admit to PCU, maintain on telemetry in PCU on seizure precautions, obtain EEG, obtain brain MRI, obtain TSH, Mag and UDS. PRN ativan IV for seizure activity. Pending these findings low threshold to consult Neurology. Patient has an appointment with Dr. Simmons. 09/09: In the morning today patient is alert oriented x3. Answers questions appropriately. TSH 4.17. Mild hypokalemia, K3.1. Serum magnesium 1.6. Potassium and magnesium getting replaced. We will try to keep potassium around 4 and magnesium around 2.0. Free T4 ordered. Patient also on a spironolactone 100 mg daily and lisinopril [address] brain does not show acute intracranial abnormality. MRI brain is ordered. EEG is done and reported acute focal EEG. There may be a focus of epileptogenicity at C3?P3. Started on Keppra 500 mg p.o. twice daily. Patient on lorazepam 2 mg IV as needed needed for seizure. SOC consult is ordered. Nurse just notified me that patient refused for MRI and has a lot of social issues therefore he signed AMA. Clinical Impression(s) from Imaging Studies Brain CT 09/08/22 18:28 IMPRESSION: No acute intracranial or calvarial abnormality. No major interval change. Electronically Signed: Aris Perales DO at 19:49 EST Reading Location ID and State: [address] [place] [address] Tel [phone], Service support , Laboratory Results 09/08/22 17:00: WBC 10.9, RBC 5.82, Hgb 17.1 H, Hct 49.8, MCV 85.6, MCH 29.4, MCHC 34.3, RDW Std Deviation 38.3, RDW Coeff of Barbara 12.5, Plt Count 250, MPV 10.4, Immature Gran % (Auto) 0.300, Neut % (Auto) 62.5, Lymph % (Auto) 29.9, [place] % (Auto) 6.3, Eos % (Auto) 0.5, Baso % (Auto) 0.5, Absolute Neuts (auto) 6.8, Absolute Lymphs (auto) 3.26, Nucleated RBC % 0 09/08/22 17:00: PT 13.7, INR 1.1, APTT 27.2 09/08/22 17:00: Sodium 141, Potassium 3.1 L, Chloride 103, Carbon Dioxide 33.0 H , Anion Gap 5, BUN 9, Creatinine 1.00, Estim Creat Clear Calc 116.40, Est GFR (MDRD) Af Amer 111, Est GFR (MDRD) Non-Af 92, BUN/Creatinine Ratio 9.0 L, Glucose 106, Calcium 8.8 09/08/22 17:00: Magnesium 1.6 09/08/22 19:03: POC Glucose 116 H 09/09/22 05:20: WBC 8.4, RBC 5.42, Hgb 15.7, Hct 46.9, MCV 86.5, MCH 29.0, MCHC 33.5, RDW Std Deviation 39.4, RDW Coeff of Barbara 12.6, Plt Count 238, MPV 10.5, Immature Gran % (Auto) 0.100, Neut % (Auto) 55.4, Lymph % (Auto) 35.7, [place] % (Auto) 6.9, Eos % (Auto) 1.5, Baso % (Auto) 0.4, Absolute Neuts (auto) 4.7, Absolute Lymphs (auto) 3.01, Nucleated RBC % 0 09/09/22 05:20: Sodium 142, Potassium 3.1 L, Chloride 104, Carbon Dioxide 33.0 H , Anion Gap 5, BUN 10, Creatinine 0.95, Estim Creat Clear Calc 122.53, Est GFR (MDRD) Af Amer 118, Est GFR (MDRD) Non-Af 97, BUN/Creatinine Ratio 10.5, Glucose 177 H, Calcium 8.4 L, Total Bilirubin 0.40, AST 13 L, ALT 31, Alkaline Phosphatase 47, Total Protein 6.3 L, Albumin 2.7 L, Globulin 3.6, Albumin/Globulin Ratio 0.8 L, TSH 4.17 H 09/09/22 05:20: Hemoglobin A1c 6.2 H 09/09/22 06:50: POC Glucose 164 H 09/09/22 11:30: POC Glucose 158 H #2. Hypertensive Urgency: CT head without acute findings, headache mildly improved with BP improvement with IV lopressor regimen in the ED, will resume patient home medications as he does note that he has been out of some of his medications including lisinopril for at least the last 2 to 3 days. Will have as needed agents. Discussed at length with patient that he cannot miss his medications as he does have significant blood pressure history on several medications. #3. Hypokalemia: Admission K+ 3.1, magnesium level requested, supplementation. #4. History of substance abuse, opiate abuse: We will continue patient home Suboxone regimen, encourage continued follow-up with his substance abuse physician. UDS requested. #5. Diabetes mellitus type II: Hold oral home regimen, continue home insulin regimen, ADA diet, accu checks w/ ISS. #6. Anxiety and depression/ADHD: We will continue patient home fluoxetine and aripiprazole home regimen, following with psychiatrist Dr. Jones with most recent visit noted 05/07/2022, encourage continued outpatient follow-up. #7. Tobacco Abuse: Encouraged cessation, inpatient consultation per RT, NR if desired. #8. KAREN: Patient is supposed to be using CPAP nightly but is noncompliant. #9. Morbid Obesity: Weight loss and lifestyle changes encouraged, nutrition consulted. #10. GERD: We will continue patient home PPI. #11. DVT prophylaxis: Lovenox. #12. CODE STATUS: Full code.
[2022-09-09 08:55] LABS: Hemoglobin A1c 6.2 % (3.8-5.6)
[2022-09-09 10:05] VITALS: BP 161/84; PULSE 75; RESP 16; TEMP 36.4; O2SAT 96
[2022-09-09 10:09] VITALS: BP 161/84; PULSE 75
[2022-09-09] MEDS: Metoprolol(XL)Succ 100 MG Tablet PO (10:09)
[2022-09-09] MEDS: amLODIPine 10 MG Tablet PO (10:10)
[2022-09-09] MEDS: Fluoxetine HCl 40 MG CAPSULE PO (10:10)
[2022-09-09] MEDS: Spironolactone 50 MG Tablet 100 MG PO (10:10)
[2022-09-09] MEDS: hydroCHLOROthiazide 25 MG Tablet PO (10:10)
[2022-09-09] MEDS: Acetaminophen 325 MG Tablet 650 MG PO (10:19)
[2022-09-09] MEDS: Buprenorphine HCl 2 MG TAB.SUBL 6 MG SL (10:23)
[2022-09-09 12:11] LABS: Bedside Glucose 158 mg/dL (74-106)
--- NOTE | 2022-09-09 13:27 | CASEMGMT ---
RN indicated patient's mom and cousin fell patient needs to be evaluated by mental health. Patient agreed to this as well. Patient's is leaving him and he has had some other stressors recently. SW was going to complete assessment with patient, but then he decided to leave [facility]. Per RN patient said he is active with a substance abuse program in [place] and he has an appointment tomorrow. Patient told RN he has been sober for 8 years and does not want to miss this appointment. Megha Olson NURSE AIDE EVALUATORMoreno BERMEO
--- NOTE | 2022-09-09 14:07 | PCM.DC.SUM ---
Providers Date of Admission: 09/08/22 Primary Care Physician: Dr. Rubio Guzman MD Reason For Visit: ? SEIZURE, UNCONTROLLED HTN Diagnosis Discharge Diagnosis (1) Seizure: Status: Acute Code(s): R56.9 - Unspecified convulsions Plan The patient is a 32 y/o M was admitted for evaluation and management of worsening headache, hypertensive urgency with triage SBP 250 mmHg usually runs around 200s. Patient also had nausea vomiting x2 and recent seizure about 2 weeks ago for which patient was in [facility] from where he signed AMA. #1. Recurrent new-onset seizure, grand mal seizure exact etiology and classification unclear: Patient had seizure witnessed by staff with eyes rolling upward, nystagmus, body hard and stiff like board and then seizure. Short postictal with no bladder or bowel incontinence or no tongue biting. Monitor patient is alert oriented x3. Seizure witnessed per staff with noted eyes rolling upward, nystagmus with upper extremity posturing per description with very short postictal state with no bowel or bladder loss and no tongue biting noted. Improved mental status in the emergency room. CT head without acute intracranial pathology. Will admit to PCU, maintain on telemetry in PCU on seizure precautions, obtain EEG, obtain brain MRI, obtain TSH, Mag and UDS. PRN ativan IV for seizure activity. Pending these findings low threshold to consult Neurology. Patient has an appointment with Dr. Simmons. 09/09: In the morning today patient is alert oriented x3. Answers questions appropriately. TSH 4.17. Mild hypokalemia, K3.1. Serum magnesium 1.6. Potassium and magnesium getting replaced. We will try to keep potassium around 4 and magnesium around 2.0. Free T4 ordered. Patient also on a spironolactone 100 mg daily and lisinopril [address] brain does not show acute intracranial abnormality. MRI brain is ordered but refused. EEG is done and reported as there may be a focus of epileptogenicity at C3?P3. Keppra 1 g IV ordered. Patient on lorazepam 2 mg IV as needed needed for seizure. SOC consult is ordered. Nurse just notified me that patient refused for MRI and has a lot of social issues therefore he signed AMA. I sent prescription for Keppra 1 g twice daily, potassium and magnesium replacement to retail pharmacy. Advised to follow-up with neurologist. #2. Hypertensive Urgency: CT head without acute findings, headache mildly improved with BP improvement with IV lopressor regimen in the ED, will resume patient home medications as he does note that he has been out of some of his medications including lisinopril for at least the last 2 to 3 days. Will have as needed agents. Discussed at length with patient that he cannot miss his medications as he does have significant blood pressure history on several medications. 09/09: Blood pressure profile is better. #3. Hypokalemia: Admission K+ 3.1, magnesium level requested, supplementation. 09/09 as mentioned above: #4. History of substance abuse, opiate abuse: We will continue patient home Suboxone regimen, encourage continued follow-up with his substance abuse physician. UDS requested. Patient is states he takes Suboxone 24 mg daily but after discussion with pharmacist it seems patient has not refilled Suboxone for 1 month. He was started on 8 mg buprenorphine. #5. Diabetes mellitus type II: Hold oral home regimen, continue home insulin regimen, ADA diet, accu checks w/ ISS. 09/09: Blood sugar profile is high. It seems patient is not adherent to his medications. #6. Anxiety and depression/ADHD: continue patient home fluoxetine and aripiprazole home regimen, following with psychiatrist Dr. Jones with most recent visit noted 05/07/2022, encourage continued outpatient follow-up. #7. Tobacco Abuse: Encouraged cessation, inpatient consultation per RT, NR if desired. #8. KAREN: Patient is supposed to be using CPAP nightly but is noncompliant. #9. Morbid Obesity: Weight loss and lifestyle changes encouraged, nutrition consulted. #10. GERD: continue patient home PPI. #11. DVT prophylaxis: Lovenox. #12. CODE STATUS: Full code. Patient signed AMA. Medications at Discharge Home Medications lisinopril 40 mg tablet 40 mg PO DAILY #60 tabs 02/15/21 ketoconazole 2 % topical cream 1 applic topical BID 4 weeks #60 grams 03/19/22 blood sugar diagnostic (OneTouch Ultra Test strips) #100 ea 03/27/22 blood-glucose meter (OneTouch Ultra2 Meter kit) #1 ea 03/27/22 lancets (OneTouch UltraSoft Lancets) #200 ea 03/27/22 pen needle, diabetic 31 gauge x 1/4 (Comfort EZ Pen [place]) #100 ea 03/27/22 blood sugar diagnostic (FreeStyle Test strips) #50 ea 04/01/22 blood-glucose meter (FreeStyle System Kit) #1 ea 04/01/22 doxazosin 4 mg tablet 4 mg PO BID 3 months #180 tabs 04/03/22 empagliflozin 25 mg tablet 25 mg PO DAILY #90 tabs 04/03/22 glimepiride 4 mg tablet 4 mg PO BID #90 tabs 04/03/22 hydrochlorothiazide 25 mg tablet 25 mg PO DAILY 04/03/22 metoprolol succinate 100 mg tablet,extended release 24 hr 100 mg PO DAILY #90 tabs 04/03/22 pantoprazole 40 mg tablet,delayed release (Protonix) 40 mg PO DAILY #90 tabs 04/03/22 buprenorphine 2 mg-naloxone 0.5 mg sublingual tablet 3 tab sublingual DAILY 04/14/22 insulin glargine 100 unit/mL (3 mL) subcutaneous pen (Lantus Solostar U-100 Insulin) 55 unit (0.55 mL) subcut QPM 90 days #49.5 mL 04/14/22 metformin 500 mg tablet,extended release 24 hr 1,000 mg PO BID 3 months #360 tabs 04/14/22 spironolactone 100 mg tablet 100 mg PO DAILY 3 months #90 tabs 04/14/22 flash glucose scanning reader (FreeStyle Reuben 2 [place]) #1 ea 04/17/22 flash glucose sensor (FreeStyle Reuben 14 Day Sensor kit) #1 ea 04/17/22 blood pressure monitor (Blood Pressure Kit) #1 ea 04/30/22 amlodipine 10 mg tablet 10 mg PO BID #90 tabs 05/06/22 ondansetron 4 mg disintegrating tablet 4 mg PO Q8H PRN nausea and vomiting #60 tabs 05/06/22 aripiprazole 5 mg tablet (Abilify) 5 mg PO QHS #30 tabs 05/07/22 fluoxetine 40 mg capsule 40 mg PO DAILY #90 caps 05/07/22 flash glucose sensor (FreeStyle Reuben 2 Sensor kit) #2 KITS 08/15/22 levetiracetam 1,000 mg tablet (Keppra) 1,000 mg PO BID #60 tabs 09/09/22 magnesium 250 mg tablet 250 mg PO BID 3 days #6 tabs 09/09/22 potassium chloride 20 mEq tablet,extended release(part/cryst) 20 meq PO BID 2 days #4 tabs 09/09/22 Physical Exam Narrative Patient was seen and examined in the morning. Patient had recurrent seizure, 3 seizures in the last 2 weeks. First 2 while patient was in home, 1 while walking kitchen and second in garage. Patient states he feels like his legs are walking fast but rest of his body is left behind. His description fits into a typical grand mal seizure. Physical exam General: Alert, Oriented x3, Cooperative, morbid obese BMI 46.2 kg/m? HEENT: Atraumatic, PERRLA, EOMI, Normocephalic Oral: Deep oropharyngeal structures could not be visualized.? No oral ulcer.? Neck: Supple, No JVD, Negative Carotid Bruits Chest wall/lungs:? Air entry diminished in bilateral lung bases.? No crepitation/rhonchi.? No chest wall tenderness. Cardiovascular: Regular rate, Regular Rhythm, Normal S1, Normal S2, No murmurs Abdomen: Bowel Sounds Present, Soft, Non Tender, Non-Distended : No renal angle tenderness.? No suprapubic tenderness. Extremities: No edema, Capillary Refill Less than 3 Seconds Skin: No rashes, No breakdown Musculoskeletal: No Tenderness to Palpation of Joints or Extremities.? ROM full. Neurological: Cranial nerves II-XII grossly intact, DTR? 2+/4 and Symmetrical, Neuro grossly intact Psych/Mental Status: Flat affect. Weight / BMI Weight Weight: 340 lb 13.354 oz Body Mass Index (BMI) 46.2 ABG / Lab / Microbiology Data Result Diagrams: 09/09/22 05:20 09/09/22 05:20 Laboratory: Laboratory Results - last 24 hr 09/08/22 17:00: WBC 10.9, RBC 5.82, Hgb 17.1 H, Hct 49.8, MCV 85.6, MCH 29.4, MCHC 34.3, RDW Std Deviation 38.3, RDW Coeff of Barbara 12.5, Plt Count 250, MPV 10.4, Immature Gran % (Auto) 0.300, Neut % (Auto) 62.5, Lymph % (Auto) 29.9, [place] % (Auto) 6.3, Eos % (Auto) 0.5, Baso % (Auto) 0.5, Absolute Neuts (auto) 6.8, Absolute Lymphs (auto) 3.26, Nucleated RBC % 0 09/08/22 17:00: PT 13.7, INR 1.1, APTT 27.2 09/08/22 17:00: Sodium 141, Potassium 3.1 L, Chloride 103, Carbon Dioxide 33.0 H, Anion Gap 5, BUN 9, Creatinine 1.00, Estim Creat Clear Calc 116.40, Est GFR (MDRD) Af Amer 111, Est GFR (MDRD) Non-Af 92, BUN/Creatinine Ratio 9.0 L, Glucose 106, Calcium 8.8 09/08/22 17:00: Magnesium 1.6 09/08/22 19:03: POC Glucose 116 H 09/09/22 05:20: WBC 8.4, RBC 5.42, Hgb 15.7, Hct 46.9, MCV 86.5, MCH 29.0, MCHC 33.5, RDW Std Deviation 39.4, RDW Coeff of Barbara 12.6, Plt Count 238, MPV 10.5, Immature Gran % (Auto) 0.100, Neut % (Auto) 55.4, Lymph % (Auto) 35.7, [place] % (Auto) 6.9, Eos % (Auto) 1.5, Baso % (Auto) 0.4, Absolute Neuts (auto) 4.7, Absolute Lymphs (auto) 3.01, Nucleated RBC % 0 09/09/22 05:20: Sodium 142, Potassium 3.1 L, Chloride 104, Carbon Dioxide 33.0 H, Anion Gap 5, BUN 10, Creatinine 0.95, Estim Creat Clear Calc 122.53, Est GFR (MDRD) Af Amer 118, Est GFR (MDRD) Non-Af 97, BUN/Creatinine Ratio 10.5, Glucose 177 H, Calcium 8.4 L, Total Bilirubin 0.40, AST 13 L, ALT 31, Alkaline Phosphatase 47, Total Protein 6.3 L, Albumin 2.7 L, Globulin 3.6, Albumin/Globulin Ratio 0.8 L, TSH 4.17 H 09/09/22 05:20: Hemoglobin A1c 6.2 H 09/09/22 06:50: POC Glucose 164 H 09/09/22 11:30: POC Glucose 158 H Radiography Diagnostic Testing: Radiology Impression Brain CT 09/08/22 18:28 IMPRESSION: No acute intracranial or calvarial abnormality. No major interval change. Electronically Signed: Aris Perales DO at 19:49 EST Reading Location ID and State: [address] [place] [address] Tel [phone], Service support , Meaningful Use Info Meaningful Use Diagnoses (Choose all that apply): None applicable Discharge Plan Admission Admit Date/Time: 09/08/22 21:24 Attending Provider: Tee Hyman Primary Care Provider: Rubio Guzman Consulting Providers: Romana Bray Discharge Orders/Prescriptions Prescriptions: New levetiracetam [Keppra] 1,000 mg tablet 1,000 mg PO BID Qty: 60 0RF magnesium 250 mg tablet 250 mg PO BID 3 Days Qty: 6 0RF potassium chloride 20 mEq tablet,ER particles/crystals 20 meq PO BID 2 Days Qty: 4 0RF No Action (DME) blood-glucose meter [OneTouch Ultra2 Meter] Kit See Rx Instructions .ROUTE .MEDSUPPLY Qty: 1 0RF Rx Instructions: Check blood glucose daily for type 2 diabetes mellitus (DME) OneTouch Ultra Test Strip See Rx Instructions .ROUTE .MEDSUPPLY Qty: 100 3RF Rx Instructions: check glucose 3-5 times per day (DME) lancets [OneTouch UltraSoft Lancets] Misc See Rx Instructions .ROUTE .MEDSUPPLY Qty: 200 11RF Rx Instructions: Check blood glucose daily for type 2 diabetes mellitus (DME) pen needle, diabetic [Comfort EZ Pen [place]] 31 gauge x 1/4 needle See Rx Instructions .Route Qty: 100 2RF Rx Instructions: ONCE DAILY buprenorphine-naloxone 2-0.5 mg tablet, sublingual 3 tab sublingual DAILY Label Comments: 24 mg once daily hydrochlorothiazide 25 mg tablet 25 mg PO DAILY doxazosin 4 mg tablet 4 mg PO BID 90 Days Qty: 180 0RF Jardiance 25 mg tablet 25 mg PO DAILY Qty: 90 3RF metoprolol succinate 100 mg tablet extended release 24 hr 100 mg PO DAILY Qty: 90 3RF Rx Instructions: has not been taking pantoprazole [Protonix] 40 mg tablet,delayed release (DR/EC) 40 mg PO DAILY Qty: 90 2RF Rx Instructions: Take 30 minutes before breakfast. glimepiride 4 mg tablet 4 mg PO BID Qty: 90 2RF metformin 500 mg tablet extended release 24 hr 1,000 mg PO BID 90 Days Qty: 360 1RF insulin glargine [Lantus Solostar U-100 Insulin] 100 unit/mL (3 mL) insulin pen 55 unit subcut QPM 90 Days Qty: 49.5 3RF spironolactone 100 mg tablet 100 mg PO DAILY 90 Days Qty: 90 1RF (DME) blood pressure monitor [Blood Pressure Kit] Kit See Rx Instructions .ROUTE .MEDSUPPLY Qty: 1 0RF Rx Instructions: Check blood pressure daily for hypertension I10 aripiprazole [Abilify] 5 mg tablet 5 mg PO QHS Qty: 30 1RF fluoxetine 40 mg capsule 40 mg PO DAILY Qty: 90 1RF ketoconazole 2 % cream 1 applic topical BID 28 Days Qty: 60 1RF lisinopril 40 mg tablet 40 mg PO DAILY Qty: 60 0RF Rx Instructions: has not been taking (DME) blood-glucose meter [FreeStyle System Kit] Kit See Rx Instructions .ROUTE .MEDSUPPLY Qty: 1 0RF Rx Instructions: check blood glucose daily for type 2 DM (DME) FreeStyle Test Strip See Rx Instructions .ROUTE .MEDSUPPLY Qty: 50 11RF Rx Instructions: check blood glucose daily (DME) FreeStyle Reuben 14 Day Sensor Kit See Rx Instructions .Route Qty: 1 2RF Rx Instructions: As directed (DME) FreeStyle Reuben 2 [place] [facility] See Rx Instructions .Route Qty: 1 0RF Rx Instructions: As directed amlodipine 10 mg tablet 10 mg PO BID Qty: 90 0RF ondansetron 4 mg tablet,disintegrating 4 mg PO Q8H PRN (Reason: nausea and vomiting) Qty: 60 1RF (DME) FreeStyle Reuben 2 Sensor Kit See Rx Instructions .ROUTE .COMPLEX Qty: 2 3RF Dose Instruction: As directed Rx Instructions: As directed Referrals / Follow Up: Rubio Guzman MD [Primary Care Provider] - Disposition Disposition (needs filled in before D/C Order can be placed): Against Medical Advice Charges/Coding Visit Charges Inpatient E&M: 50665 Disch Hosp >30min
--- NOTE | 2022-09-09 14:16 | NURSING ---
Pt insistent on leaving AMA, feeling pts family is trying to gain a power trip over him by telling him what to do by staying here this RN educated pt the importance of the MRI, and staying in the hospital. Pt vented a lot of feelings but feels too stressed in here without being able to smoke a cigarette and needed to leave, as has a lot going home with and family outside of his helath issues. AMA form provided and educated on. Pt signed.
== END 2022-09-09 14:37 | disposition left against medical advice (07) ==
LOC: ED 18:37 → PCU 21:32
PROVIDERS: Admitting Provider Family Medicine; Emergency Provider Emergency Medicine; PCP Internal Medicine; Visit Provider Internal Medicine
DX: R56.9 Unspecified convulsions (principal); F31.9 Bipolar disorder, unspecified; E66.01 Morbid (severe) obesity due to excess calories; Z68.42 Body mass index [BMI] 45.0-49.9, adult; E11.9 Type 2 diabetes mellitus without complications; Z79.4 Long term (current) use of insulin; F41.9 Anxiety disorder, unspecified; E78.5 Hyperlipidemia, unspecified; E87.6 Hypokalemia; Z79.891 Long term (current) use of opiate analgesic; F17.210 Nicotine dependence, cigarettes, uncomplicated; I10 Essential (primary) hypertension; I16.0 Hypertensive urgency; Z79.899 Other long term (current) drug therapy; Z79.84 Long term (current) use of oral hypoglycemic drugs; I25.2 Old myocardial infarction; Z86.73 Personal history of transient ischemic attack (TIA), and cerebral infarction without residual deficits; F90.9 Attention-deficit hyperactivity disorder, unspecified type; G47.33 Obstructive sleep apnea (adult) (pediatric); K21.9 Gastro-esophageal reflux disease without esophagitis
CPT/HCPCS: J7030; 70450; 80048; 80053; 82962; 83036; 83735; 84443; 85025; 85610; 85730; 93005; 95819; 96361; 96374; 96375; 97802; 99221; 99285; A4216; G0378; J2405

== ENCOUNTER → 2022-09-25 | Outpatient (CLI) | payer MEDICAID, SELFPAY ==
[2022-09-25 15:12] LABS: Absolute Lymphocyte Count 1.96 X10^3/uL (0.83-4.51); Absolute Neutrophil Count 4.7 X10^3/uL (2.0-7.7); Basophil# 0.03 X10^3/uL; Basophil% 0.4 % (0-1); Eosinophil# 0.09 X10^3/uL; Eosinophils% 1.2 % (0-5); Hematocrit 48.1 % (40-54); Hemoglobin 16.6 g/dL (13.0-16.5); Lymphocyte # 1.96 X10^3/ul (0.83-4.51); Lymphocyte % 27.1 % (19-41); Mean Corp Hgb Conc 34.5 g/dL (32-36); Mean Corpuscular Hgb 29.3 pg (27.0-32.0); Mean Corpuscular Volume 84.8 fL (80-94); Mean Platelet Vol. 10.4 fl (6.2-12.0); Monocyte# 0.42 X10^3/uL; Monocyte% 5.8 % (0-10); NRBC Flagged by Analyzer 0 % (0-5); Neutrophil # 4.72 X10^3/uL (2.7-7.7); Neutrophil % 65.4 % (47-70); Platelet Count 254 K/mm3 (150-450); RBC Distribution Width CV 12.5 % (11.6-14.6); Red Blood Count 5.67 M/mm3 (4.6-6.2); White Blood Count 7.2 K/mm3 (4.4-11.0)
[2022-09-25 15:17] LABS: Vista UDS pH Range 6
[2022-09-25 15:39] LABS: ALB/GLOB Ratio 0.7 RATIO (0.9-2.4); AST(SGOT) 18 U/L (15-37); Alanine Aminotransfer ALT/SGPT 29 U/L (16-61); Albumin, Serum 3.1 g/dL (3.2-5.0); Alkaline Phosphatase 51 U/L (45-117); Anion Gap 8 (5-15); BUN 11 mg/dL (7-18); BUN/Creat Ratio 11.2 RATIO (10-20); Chloride 105 mmol/L (98-107); Creatinine, Serum 0.98 mg/dL (0.70-1.30); EST Glomerular Filtration Rate 94 mL/min (>60); Est Glom Filt Rate - Afr Amer 114 mL/min (>60); Globulin 4.2 g/dL (2.2-4.2); Glucose 159 mg/dL (74-106); Magnesium 1.8 mg/dL (1.6-2.6); Potassium 3.3 mmol/L (3.5-5.1); Protein, Total 7.3 g/dL (6.4-8.2); Sodium Level 142 mmol/L (136-145); T4 Free Direct 1.03 ng/dL (0.76-1.46); Thyroid Stim Hormone (TSH) 1.72 uIU/mL (0.358-3.74)
[2022-09-25 15:47] LABS: Amphetamine Urine VISTA NEGATIVE (<1000 ng/mL); Barbiturate Urine VISTA NEGATIVE (< 200 ng/mL); Benzodiazepine Urine VISTA NEGATIVE (< 200 ng/mL); Cocaine Urine VISTA NEGATIVE (< 300 ng/mL); Ecstacy Urine VISTA NEGATIVE (< 500 ng/mL); Methadone Urine VISTA NEGATIVE (< 300 ng/mL); PCP Urine VISTA NEGATIVE (< 25 ng/mL); THC Urine VISTA NEGATIVE (< 50 ng/mL)
[2022-09-25 16:11] LABS: Microalbumin:Creatinine Ratio 3245.1 mg/g CRE (<30 mg/g CRE)
== END | disposition home or self-care (01) ==
LOC: BIMLAB 14:22
PROVIDERS: PCP Internal Medicine; Referring Provider Nurse Practitioner Family; Visit Provider Nurse Practitioner Family
DX: R56.9 Unspecified convulsions (principal); E11.9 Type 2 diabetes mellitus without complications; R41.3 Other amnesia; I16.0 Hypertensive urgency
CPT/HCPCS: 36415; 80053; 80307; 82043; 82570; 83036; 83735; 84439; 84443; 85025

== ENCOUNTER 2022-12-05 20:27 | Emergency (ER) | payer MEDICAID, SELFPAY ==
[2022-12-05 20:28] VITALS: BP 210/138; PULSE 92; RESP 18; TEMP 37.6; O2SAT 97; BMI 44.4
[2022-12-05 23:07] VITALS: BP 211/121; PULSE 86; RESP 18; TEMP 37.6; O2SAT 100
[2022-12-05 23:11] LABS: Absolute Lymphocyte Count 2.19 X10^3/uL (0.83-4.51); Absolute Neutrophil Count 6.5 X10^3/uL (2.0-7.7); Basophil# 0.02 X10^3/uL; Basophil% 0.2 % (0-1); Eosinophil# 0.02 X10^3/uL; Eosinophils% 0.2 % (0-5); Hematocrit 42.1 % (40-54); Hemoglobin 14.4 g/dL (13.0-16.5); Lymphocyte # 2.19 X10^3/ul (0.83-4.51); Lymphocyte % 22.9 % (19-41); Mean Corp Hgb Conc 34.2 g/dL (32-36); Mean Corpuscular Hgb 29.4 pg (27.0-32.0); Mean Corpuscular Volume 85.9 fL (80-94); Mean Platelet Vol. 10.6 fl (6.2-12.0); Monocyte# 0.85 X10^3/uL; Monocyte% 8.9 % (0-10); NRBC Flagged by Analyzer 0 % (0-5); Neutrophil # 6.46 X10^3/uL (2.7-7.7); Neutrophil % 67.6 % (47-70); Platelet Count 203 K/mm3 (150-450); RBC Distribution Width CV 12.3 % (11.6-14.6); RBC Distribution Width SD 38.5 fl (35.1-43.9); White Blood Count 9.6 K/mm3 (4.4-11.0)
[2022-12-05 23:32] LABS: Anion Gap 5 (5-15); BUN 19 mg/dL (7-18); BUN/Creat Ratio 18.3 RATIO (10-20); Calcium,Total 9.3 mg/dL (8.5-10.1); Chloride 101 mmol/L (98-107); Creatinine, Serum 1.04 mg/dL (0.70-1.30); EST Glomerular Filtration Rate 88 mL/min (>60); Est Glom Filt Rate - Afr Amer 106 mL/min (>60); Estimated Creatinine Clearance 111.92 ml/min; Glucose 93 mg/dL (74-106); Potassium 3.2 mmol/L (3.5-5.1); Sodium Level 139 mmol/L (136-145)
[2022-12-05 23:35] LABS: Lactic Acid 0.6 mmol/L (0.4-1.9)
[2022-12-05 23:42] LABS: Procalcitonin 0.25 ng/mL (0.00-0.09)
[2022-12-06 00:12] VITALS: BP 179/106; PULSE 82; RESP 18; O2SAT 92
--- NOTE | 2022-12-06 00:40 | EDS_ITS ---
HPI History of Present Illness Chief Complaint: Cellulitis Informant: patient Narrative Narrative: Patient is a 32-year-old male with past medical history of type II [id number] diabetes hypertension and morbid obesity. He states that 2 days ago he developed a fever up to 105 and had 1 day of nausea vomiting and loose stool. He states the next day he noticed some right leg pain and then today noticed that the leg was swollen and red in color. He has concern for an infection secondary to this and therefore comes in for evaluation. He denies any recent trauma he denies any recent surgery travel or history of DVT/PE. [facility] Medical History (Updated 12/06/22 @ 00:[address] Champ Coronel, DO) Accelerated hypertension ADHD (attention deficit hyperactivity disorder) Bipolar depression Crohn's colitis Diabetes Essential hypertension History of arthritis History of CVA (cerebrovascular accident) History of drug abuse History of non-ST elevation myocardial infarction (NSTEMI) (2018) Memory loss of unknown cause Morbid obesity, BMI unknown Observed seizure-like activity Opioid use disorder KAREN (obstructive sleep apnea) Seizure Severe left ventricular hypertrophy Tobacco abuse Type 2 diabetes mellitus Home Medications clindamycin HCl 300 mg capsule (Cleocin HCl) 300 mg PO 4X/DAY 10 days #40 CAPSULES 12/06/22 [Rx Last Taken Unknown] Allergy/AdvReac Type Severity Reaction Status Date / Time bupropion Allergy Severe seizure Verified 12/05/22 20:28 amoxicillin [Amoxicillin] Allergy Swelling Verified 12/05/22 20:28 Penicillins Allergy Swelling Verified 12/05/22 20:28 Sulfa (Sulfonamide Allergy Unknown Verified 12/05/22 20:28 Antibiotics) diphenhydramine AdvReac psychosis Verified 12/05/22 20:28 [From Benadryl] metoclopramide [From Reglan] AdvReac psychosis Verified 12/05/22 20:28 Family History Father Kidney disease High blood cholesterol Hypertension Respiratory disease Myocardial infarction Diabetes Mother High blood cholesterol Hypertension Kidney disease Respiratory disease Myocardial infarction Diabetes Other Alcoholism Anxiety Arthritis Asthma Heart disease Surgical History History of appendectomy History of left heart catheterization (02/26/15) Social History household members: family housing: apartment current occupational status: unemployed sexually active: Yes Smoking Status: Current every day smoker tobacco type: cigarettes alcohol intake: current alcohol intake frequency: holidays/special occasions only substance use type: former substance user what type of physical activity do you participate in: none seatbelt use: never do you feel safe at home: Yes additional social history: Marleny- ROS ROS ED Constitutional Constitutional ED: Reports chills, fever(s) and subjective ENT ENT ED: Denies sore throat Cardiovascular Cardiovascular: Denies chest pain Respiratory/Chest Respiratory/Chest: Denies cough or dyspnea Gastrointestinal Gastrointestinal: Reports abdominal pain, diarrhea, nausea and vomiting Genitourinary Genitourinary ED: Denies dysuria Musculoskeletal Musculoskeletal: Reports myalgias and other Details: Positive right leg pain Integumentary Reports other Details: Positive right leg redness ; Denies rash Neurologic Neurologic: Denies headache(s) Hematologic/Lymphatic Hematologic/Lymphatic: Denies easy bleeding or easy bruising EXAM Physical Exam Const Vital Signs: 12/05/22 20:28 12/05/22 23:07 12/06/22 00:12 Temperature 99.7 F H 99.7 F H Temperature Source Temporal Temporal Pulse Rate 92 86 82 Respiratory Rate 18 18 18 Blood Pressure 210/138 H 211/121 H 179/106 H Blood Pressure Mean 162 151 130 Pulse Ox 97 100 92 Oxygen Delivery Method Room Air Room Air Room Air Positive well nourished, well developed and obese General Appearance ED: well developed Nutritional Appearance: obese HEENT Reports moist mucous membranes Eyes PERRL and EOMs intact bilaterally Neck supple Neck Narrative: No nuchal rigidity or meningeal signs Resp normal respiratory effort and clear to auscultation bilaterally Cardio regular rate and regular rhythm GI normal to inspection, nondistended, normoactive bowel sounds, non-tender, non- distended and no masses GI Narrative: No voluntary guarding or rigidity no pulsatile mass or fluid wave Auscultation: normoactive bowel sounds Palpation: soft Extremity Extremity Narrative: Right lower extremity is neurovascularly intact. There is asymmetric erythema and warmth that extends from just above the right ankle to just below the right knee. The soft tissue changes are circumferential in nature. There is lymphangitic streaking along the right medial aspect of the leg that extends from just below the knee to the medial thigh. No crepitance palpated. No obvious abscess formation. Negative Homans' sign bilaterally. Neuro oriented x3 and CN's II-XII intact bilaterally Sensorium / Orientation: alert Psych mental status grossly normal Skin Skin Narrative: Soft tissue changes to the right lower leg as documented above MDM MDM MDM Narrative Medical decision making narrative: Patient presented to the ER hypertensive which is consistent with his baseline and technically afebrile. He has circumferential right lower leg redness and swelling which is most consistent with cellulitis. Other differential diagnoses include DVT versus abscess formation versus gangrene versus systemic infection and septicemia. Secondary to his immunosuppression from diabetes I did elect to perform basic laboratory studies along with blood culture. The patient's white count is normal there is no left shift or lactic acidosis going against systemic infection. He has no risk factors for DVT/PE he has no chest pain with inspiration and his pulse ox is in the high 90s on room air and therefore there is no need for an emergent ultrasound or CT. he was given vancomycin secondary to the infectious process. At this time as he is not hypotensive or having derangement to his mental status and he does not have leukocytosis or lactic acidosis or findings concerning for DKA he can be given a trial of outpatient antibiotic. Even though he is low risk for DVT a venous duplex can be performed in an outpatient basis to rule this out. Plan of care was discussed with the patient he is agreeable to it and therefore will be discharged at this time History & Record Review Discussion w/independent historian: Patient Lab Data Attestation: I reviewed the patient's lab results. Labs: Laboratory Results - last 24 hr 12/05/22 12/05/22 12/05/22 23:00 23:00 23:00 WBC 9.6 RBC 4.90 Hgb 14.4 Hct 42.1 MCV 85.9 MCH 29.4 MCHC 34.2 RDW Std Deviation 38.5 RDW Coeff of Barbara 12.3 Plt Count 203 MPV 10.6 Immature Gran % (Auto) 0.200 Neut % (Auto) 67.6 Lymph % (Auto) 22.9 Pratt % (Auto) 8.9 Eos % (Auto) 0.2 Baso % (Auto) 0.2 Absolute Neuts (auto) 6.5 Absolute Lymphs (auto) 2.19 Nucleated RBC % 0 Sodium 139 Potassium 3.2 L Chloride 101 Carbon Dioxide 33.0 H Anion Gap 5 BUN 19 H Creatinine 1.04 Estim Creat Clear Calc 111.92 Est GFR (MDRD) Af Amer 106 Est GFR (MDRD) Non-Af 88 BUN/Creatinine Ratio 18.3 Glucose 93 Lactic Acid Calcium 9.3 Procalcitonin 0.25 H 12/05/22 23:00 WBC RBC Hgb Hct MCV MCH MCHC RDW Std Deviation RDW Coeff of Barbara Plt Count MPV Immature Gran % (Auto) Neut % (Auto) Lymph % (Auto) Pratt % (Auto) Eos % (Auto) Baso % (Auto) Absolute Neuts (auto) Absolute Lymphs (auto) Nucleated RBC % Sodium Potassium Chloride Carbon Dioxide Anion Gap BUN Creatinine Estim Creat Clear Calc Est GFR (MDRD) Af Amer Est GFR (MDRD) Non-Af BUN/Creatinine Ratio Glucose Lactic Acid 0.6 Calcium Procalcitonin Discharge Plan Triage Chief Complaint: Cellulitis Other Complaint: Chest Pain Shortness of Breath ED Provider: Champ Coronel Dx/Rx/DC Orders Clinical Impression: Cellulitis of right lower extremity without foot, Essential hypertension, Diabetes, Morbid obesity, BMI unknown Instructions: Cellulitis Dc Prescriptions: New clindamycin HCl [Cleocin HCl] 300 mg capsule 300 mg PO 4X/DAY 10 Days Qty: 40 0RF Other Ambulatory Orders: Venous Duplex US, Unilateral (Stat) Facility: [facility] - Location: [facility] Ordered By: Dr. Champ Coronel Primary Care Provider: Rubio Guzman Referrals: Rubio Guzman MD [Primary Care Provider] - Activity Restrictions/Additional Instructions: Please take your antibiotic as directed to help resolve your infection. It would typically take 2 to 3 days for improvement. Also return for your outpatient venous duplex to ensure that the redness and pain is not secondary to a DVT. If you have worsening of symptoms or any further concerns please return to the ER for repeat evaluation Disposition Disposition: Home, Self Care
[2022-12-06 01:45] VITALS: BP 168/97; PULSE 81; RESP 18; O2SAT 92
== END 2022-12-06 01:47 | disposition home or self-care (01) ==
PROVIDERS: Emergency Provider Emergency Medicine; PCP Internal Medicine; Visit Provider Emergency Medicine
DX: L03.115 Cellulitis of right lower limb (principal); E66.01 Morbid (severe) obesity due to excess calories; R06.02 Shortness of breath; I10 Essential (primary) hypertension; F17.210 Nicotine dependence, cigarettes, uncomplicated; R07.9 Chest pain, unspecified
CPT/HCPCS: 36415; 80048; 83605; 84145; 85025; 87040; 96365; 96366; 99284; J7040; J7050; A4216

== ENCOUNTER 2023-01-02 23:07 | Emergency (ER) | payer MEDICAID, SELFPAY ==
[2023-01-02 23:09] VITALS: BP 244/113; PULSE 83; RESP 161; TEMP 35.6; O2SAT 98; BMI 45.3
--- NOTE | 2023-01-02 23:41 | EKG12_ITS ---
Test Reason : CP Blood Pressure : / mmHG Vent. Rate : 082 BPM Atrial Rate : 082 BPM P-R Int : 240 ms QRS Dur : 096 ms QT Int : 380 ms P-R-T Axes : 032 060 261 degrees QTc Int : 443 ms Sinus rhythm with 1st degree A-V block T wave abnormality, consider inferolateral ischemia Abnormal ECG Confirmed by ROXIE ARCHULETA, COLLEEN ([id number]), content editor JUNO AMAYA ([id number]) on 01/05/2023 12:48:25 PM Referred By: VAUGHN Confirmed By:COLLEEN FAUSTIN MD
[2023-01-02] MEDS: Aspirin 325 MG Tablet PO (23:46)
[2023-01-02] MEDS: Labetalol (Prefilled) 20 MG/4 ML IV (23:46)
[2023-01-02 23:52] LABS: Absolute Lymphocyte Count 3.51 X10^3/uL (0.83-4.51); Absolute Neutrophil Count 6.3 X10^3/uL (2.0-7.7); Basophil# 0.05 X10^3/uL; Basophil% 0.5 % (0-1); Eosinophil# 0.22 X10^3/uL; Eosinophils% 2.1 % (0-5); Hematocrit 47.4 % (40-54); Hemoglobin 15.5 g/dL (13.0-16.5); Lymphocyte # 3.51 X10^3/ul (0.83-4.51); Lymphocyte % 32.9 % (19-41); Mean Corp Hgb Conc 32.7 g/dL (32-36); Mean Corpuscular Hgb 28.5 pg (27.0-32.0); Mean Corpuscular Volume 87.1 fL (80-94); Mean Platelet Vol. 10.8 fl (6.2-12.0); Monocyte% 5.6 % (0-10); NRBC Flagged by Analyzer 0 % (0-5); Neutrophil # 6.28 X10^3/uL (2.7-7.7); Neutrophil % 58.7 % (47-70); Platelet Count 248 K/mm3 (150-450); RBC Distribution Width CV 12.9 % (11.6-14.6); RBC Distribution Width SD 40.5 fl (35.1-43.9); Red Blood Count 5.44 M/mm3 (4.6-6.2); White Blood Count 10.7 K/mm3 (4.4-11.0)
--- NOTE | 2023-01-02 23:55 | RAD_ITS ---
INDICATION: chest pain EXAMINATION/TECHNIQUE: X-RAY - XR Chest 2 Views: 3 image PA and lateral chest COMPARISON: December 05, 2021. FINDINGS: LINES/DEVICES: None. LUNGS: No consolidation, edema or effusion. No pneumothorax. MEDIASTINUM AND CARDIOVASCULAR STRUCTURES: Cardiac silhouette not enlarged. BONES AND SOFT TISSUES: Unremarkable. RAD/Chest PA and Lateral IMPRESSION: No radiographic evidence of acute cardiopulmonary disease. Electronically Signed: Devante Castano MD at 0:28 EDT ,
[2023-01-03 00:06] LABS: Anion Gap 6 (5-15); BUN 13 mg/dL (7-18); BUN/Creat Ratio 12.6 RATIO (10-20); Calcium,Total 8.7 mg/dL (8.5-10.1); Chloride 103 mmol/L (98-107); Creatinine, Serum 1.03 mg/dL (0.70-1.30); EST Glomerular Filtration Rate 89 mL/min (>60); Est Glom Filt Rate - Afr Amer 107 mL/min (>60); Estimated Creatinine Clearance 113.01 ml/min; Glucose 136 mg/dL (74-106); Magnesium 1.9 mg/dL (1.6-2.6); Potassium 3.3 mmol/L (3.5-5.1); Sodium Level 139 mmol/L (136-145); Troponin-I HS 62 pg/mL (3.0-78.0)
[2023-01-03 00:08] VITALS: BP 207/121; PULSE 78; RESP 14; O2SAT 94
[2023-01-03] MEDS: Metoprolol Tartrate 5 MG/5 ML Vial IV (00:31)
[2023-01-03 01:00] VITALS: BP 203/116
[2023-01-03 01:38] LABS: Troponin-I HS 56 pg/mL (3.0-78.0)
--- NOTE | 2023-01-03 01:48 | EDS_ITS ---
HPI History of Present Illness Chief Complaint: Chest Pain Informant: patient Narrative Narrative: Patient is a 32-year-old male with past medical history of type 2 diabetes and hypertension. He states he has been out of his hypertensive medications for approximately 3 weeks but reports that even while he is on them his blood pressure is typically high. He states that today he went to work and from work went to a boxing match and then after boxing noticed some pain in his right wrist as well as intermittent chest discomfort. He does report that he had a stress-induced heart attack in his 20s and with concern for this once again he presents for evaluation [facility] Medical History Accelerated hypertension ADHD (attention deficit hyperactivity disorder) Bipolar depression Crohn's colitis Diabetes Essential hypertension History of arthritis History of CVA (cerebrovascular accident) History of drug abuse History of non-ST elevation myocardial infarction (NSTEMI) (2018) Memory loss of unknown cause Morbid obesity, BMI unknown Observed seizure-like activity Opioid use disorder KAREN (obstructive sleep apnea) Seizure Severe left ventricular hypertrophy Tobacco abuse Type 2 diabetes mellitus Home Medications amlodipine 10 mg tablet (Norvasc) 10 mg PO DAILY #30 tabs 01/01/23 [Rx Last Taken Unknown] cariprazine 1.5 mg capsule (Vraylar) 1.5 mg PO DAILY #30 caps 01/01/23 [Rx Last Taken Unknown] hydrochlorothiazide 12.5 mg capsule 12.5 mg PO DAILY #30 caps 01/01/23 [Rx Last Taken Unknown] lisinopril 40 mg tablet 40 mg PO DAILY #30 tabs 01/01/23 [Rx Last Taken Unknown] Allergy/AdvReac Type Severity Reaction Status Date / Time bupropion Allergy Severe seizure Verified 01/02/23 23:09 amoxicillin [Amoxicillin] Allergy Swelling Verified 01/02/23 23:09 Penicillins Allergy Swelling Verified 01/02/23 23:09 Sulfa (Sulfonamide Allergy Unknown Verified 01/02/23 23:09 Antibiotics) diphenhydramine AdvReac psychosis Verified 01/02/23 23:09 [From Benadryl] metoclopramide [From Reglan] AdvReac psychosis Verified 01/02/23 23:09 Family History Father Kidney disease High blood cholesterol Hypertension Respiratory disease Myocardial infarction Diabetes Mother High blood cholesterol Hypertension Kidney disease Respiratory disease Myocardial infarction Diabetes Other Alcoholism Anxiety Arthritis Asthma Heart disease Surgical History History of appendectomy History of left heart catheterization (02/26/15) Social History household members: family housing: apartment current occupational status: unemployed sexually active: Yes Smoking Status: Current every day smoker tobacco type: cigarettes alcohol intake: current alcohol intake frequency: holidays/special occasions only substance use type: former substance user what type of physical activity do you participate in: none seatbelt use: never do you feel safe at home: Yes additional social history: Marleny- ROS ROS ED Constitutional Constitutional ED: Denies chills or fever(s) Eyes Eyes: Denies change in vision ENT ENT ED: Denies sore throat Cardiovascular Cardiovascular: Reports chest pain; Denies palpitations or racing heartbeat Respiratory/Chest Respiratory/Chest: Denies cough or dyspnea Gastrointestinal Gastrointestinal: Denies abdominal pain, diarrhea, nausea or vomiting Genitourinary Genitourinary ED: Denies dysuria Musculoskeletal Musculoskeletal: Reports other Details: Positive right wrist pain Integumentary Denies rash Neurologic Neurologic: Denies headache(s), paresthesias or weakness Hematologic/Lymphatic Hematologic/Lymphatic: Denies easy bleeding or easy bruising EXAM Physical Exam Const Vital Signs: 01/02/23 23:09 01/02/23 23:12 01/03/23 00:08 Temperature 96.0 F L Temperature Source Temporal Pulse Rate 83 78 Respiratory Rate 161 H 14 Respiratory Pattern Normal Blood Pressure 244/113 H 207/121 H Blood Pressure Mean 156 149 Pulse Ox 98 94 Oxygen Delivery Method Room Air Room Air 01/03/23 01:00 01/03/23 02:08 Temperature Temperature Source Pulse Rate 73 Respiratory Rate 13 Respiratory Pattern Blood Pressure 203/116 H 204/117 H Blood Pressure Mean 145 Pulse Ox 97 Oxygen Delivery Method Positive well nourished, well developed and obese General Appearance ED: well developed Nutritional Appearance: obese HEENT HEENT Narrative: Normocephalic atraumatic Eyes PERRL and EOMs intact bilaterally Neck supple and no JVD Resp normal respiratory effort and clear to auscultation bilaterally Cardio regular rate and regular rhythm Rate: other Other Details: Radial pulses are plus 2 out of 4 bilaterally are equal and symmetric Carotid pulses equal and symmetric as well GI normal to inspection, nondistended, normoactive bowel sounds, non-tender, non- distended and no masses GI Narrative: No voluntary guarding or rigidity no pulsatile mass or fluid wave Auscultation: normoactive bowel sounds Palpation: soft Extremity normal to inspection Extremity Narrative: No asymmetric edema no pitting edema negative Homans' sign bilaterally Right upper extremity is neurovascularly intact. No obvious bony deformity or joint effusion. No pain in the anatomical snuffbox. There is increased pain with flexion extension of the wrist joint. Neuro oriented x3 and CN's II-XII intact bilaterally Sensorium / Orientation: alert Psych mental status grossly normal Skin no rashes or lesions noted MDM MDM MDM Narrative Medical decision making narrative: Patient presented to the ER hypertensive but does have a past medical history of this and has not been on his medications for approximately 3 weeks. He reported resolution of his chest pain upon arrival. However because of his history of diabetes hypertension and obesity had elected to form a basic cardiac work-up. Initial troponin was slightly elevated from his baseline at 62. Chart review reveals previous troponins of approximately 40-45. I did feel this was related to his accelerated hypertension. He was given medication in the ER and was able to reduce the blood pressure to approximately 180 systolically. His delta troponin actually down trended some to 56 and on reevaluation he still denies any chest discomfort. Chest x-ray also revealed no widening of the mediastinum to suggest dissection and there is no acute lung pathology such as pneumonia or pneumothorax. Therefore at this time as patient does not have signs of endorgan damage such as hypertensive encephalopathy acute kidney injury or cardiac ischemia. We did discuss possible admission secondary to his persistent hypertension. However patient states that his blood pressure is typically right around this value despite taking his medications. Also he no longer has chest discomfort and there are no signs of active cardiac event or endorgan damage based on his work-up and therefore he does not want to be placed in the hospital. Patient states he has just recently picked up his medications and will start them in the morning and therefore at this time will be discharged home. History & Record Review Discussion w/independent historian: Patient Lab Data Attestation: I reviewed the patient's lab results. Labs: Laboratory Results - last 24 hr 01/02/23 01/03/23 23:10 01:10 WBC 10.7 RBC 5.44 Hgb 15.5 Hct 47.4 MCV 87.1 MCH 28.5 MCHC 32.7 RDW Std Deviation 40.5 RDW Coeff of Barbara 12.9 Plt Count 248 MPV 10.8 Immature Gran % (Auto) 0.200 Neut % (Auto) 58.7 Lymph % (Auto) 32.9 [place] % (Auto) 5.6 Eos % (Auto) 2.1 Baso % (Auto) 0.5 Absolute Neuts (auto) 6.3 Absolute Lymphs (auto) 3.51 Nucleated RBC % 0 Sodium 139 Potassium 3.3 L Chloride 103 Carbon Dioxide 30.0 Anion Gap 6 BUN 13 Creatinine 1.03 Estim Creat Clear Calc 113.01 Est GFR (MDRD) Af Amer 107 Est GFR (MDRD) Non-Af 89 BUN/Creatinine Ratio 12.6 Glucose 136 H Calcium 8.7 Magnesium 1.9 Troponin I High Sens 62 56 Radiography Diagnostic Testing: Clinical Impression(s) from Imaging Studies Chest X-Ray 01/02/23 23:55 IMPRESSION: No radiographic evidence of acute cardiopulmonary disease. Electronically Signed: Devante Castano MD at 0:28 EDT , 2 view chest x-ray as interpreted by the emergency medicine physician reveals no acute infiltrate pneumothorax or pleural effusion Discharge Plan Triage Chief Complaint: Chest Pain ED Provider: Champ Coronel Dx/Rx/DC Orders Clinical Impression: Accelerated hypertension, Morbid obesity, BMI unknown, Essential hypertension, Type 2 diabetes mellitus Instructions: ED Chest Pain, Uncertain Cause, ED Hypertension, Established Prescriptions: No Action Vraylar 1.5 mg capsule 1.5 mg PO DAILY Qty: 30 1RF amlodipine [Norvasc] 10 mg tablet 10 mg PO DAILY Qty: 30 0RF hydrochlorothiazide 12.5 mg capsule 12.5 mg PO DAILY Qty: 30 1RF lisinopril 40 mg tablet 40 mg PO DAILY Qty: 30 1RF Primary Care Provider: Rubio Guzman Referrals: Rubio Guzman MD [Primary Care Provider] - Activity Restrictions/Additional Instructions: Please continue all of your home medications as previously directed and return to the ER should you have any further concerns Disposition Disposition: Home, Self Care Discharge Date/Time: 01/03/23 02:09
[2023-01-03 02:08] VITALS: BP 204/117; PULSE 73; RESP 13; O2SAT 97
== END 2023-01-03 02:09 | disposition home or self-care (01) ==
PROVIDERS: Emergency Provider Emergency Medicine; PCP Internal Medicine; Visit Provider Emergency Medicine
DX: I10 Essential (primary) hypertension (principal); E11.9 Type 2 diabetes mellitus without complications; E66.9 Obesity, unspecified; Z79.899 Other long term (current) drug therapy; F17.210 Nicotine dependence, cigarettes, uncomplicated
CPT/HCPCS: 71046; 80048; 83735; 84484; 85025; 93005; 96374; 96375; 99285; A4216

== ENCOUNTER 2023-06-02 16:10 | Emergency (ER) | payer MEDICAID, SELFPAY ==
[2023-06-02 16:12] VITALS: BP 237/123; PULSE 95; RESP 17; TEMP 36.4; O2SAT 98; BMI 45.0
[2023-06-02 16:14] VITALS: BP 232/139
--- NOTE | 2023-06-02 17:13 | EKG12_ITS ---
Test Reason : NAUSEA Blood Pressure : / mmHG Vent. Rate : 082 BPM Atrial Rate : 082 BPM P-R Int : 226 ms QRS Dur : 096 ms QT Int : 390 ms P-R-T Axes : 063 060 249 degrees QTc Int : 455 ms Sinus rhythm with 1st degree A-V block T wave abnormality, consider inferior ischemia T wave abnormality, consider anterolateral ischemia Abnormal ECG Confirmed by ROXIE ARCHULETA, COLLEEN ([id number]), sound editor RC VALENTINO ([id number]) on 06/04/2023 9:20:59 AM Referred By: Confirmed By:COLLEEN FAUSTIN MD
--- NOTE | 2023-06-02 17:13 | EX.ED.DYSGE1 ---
HPI <CLOVIS De Los Santos - Last Filed: 06/02/23 18:50> History of Present Illness Chief Complaint: Nausea/Vomiting/Diarrhea Narrative Narrative: 32-year-old male with past medical history of HTN, DM2, CVA states he had a [employer]ipot[employer] burrito 2 nights ago and about an hour later developed N/V/D. This lasted about a day and a half and he feels much better now and today only had 1 episode of diarrhea. He has been tolerating p.o. intake and not water, Powerade, and 3 bananas. He has no abdominal pain. No chest pain or shortness of breath. He is very hypertensive here and states he is always over 200. He takes HCTZ in the morning and lisinopril and amlodipine at night. [facility] <CLOVIS De Los Santos - Last Filed: 06/02/23 18:50> [facility] Medical History Accelerated hypertension ADHD (attention deficit hyperactivity disorder) Bipolar depression Crohn's colitis Diabetes Essential hypertension History of arthritis History of CVA (cerebrovascular accident) History of drug abuse History of non-ST elevation myocardial infarction (NSTEMI) (2018) Memory loss of unknown cause Morbid obesity, BMI unknown Observed seizure-like activity Opioid use disorder KAREN (obstructive sleep apnea) Seizure Severe left ventricular hypertrophy Tobacco abuse Type 2 diabetes mellitus Home Medications amlodipine 10 mg tablet (Norvasc) 10 mg PO DAILY #30 tabs 01/01/23 [Rx Last Taken Unknown] hydrochlorothiazide 12.5 mg capsule 12.5 mg PO DAILY #30 caps 01/01/23 [Rx Last Taken Unknown] lisinopril 40 mg tablet 40 mg PO DAILY #30 tabs 01/01/23 [Rx Last Taken Unknown] olanzapine 5 mg tablet (Zyprexa) 5 mg PO QHS #30 tabs 01/07/23 [Rx Last Taken Unknown] Allergy/AdvReac Type Severity Reaction Status Date / Time bupropion Allergy Severe seizure Verified 06/02/23 16:12 amoxicillin [Amoxicillin] Allergy Swelling Verified 06/02/23 16:12 Penicillins Allergy Swelling Verified 06/02/23 16:12 Sulfa (Sulfonamide Allergy Unknown Verified 06/02/23 16:12 Antibiotics) diphenhydramine AdvReac psychosis Verified 06/02/23 16:12 [From Benadryl] metoclopramide [From Reglan] AdvReac psychosis Verified 06/02/23 16:12 Family History Father Kidney disease High blood cholesterol Hypertension Respiratory disease Myocardial infarction Diabetes Mother High blood cholesterol Hypertension Kidney disease Respiratory disease Myocardial infarction Diabetes Other Alcoholism Anxiety Arthritis Asthma Heart disease Surgical History History of appendectomy History of left heart catheterization (02/26/15) Social History household members: family housing: apartment current occupational status: unemployed sexually active: Yes Smoking Status: Current every day smoker tobacco type: cigarettes alcohol intake: current alcohol intake frequency: holidays/special occasions only substance use type: former substance user what type of physical activity do you participate in: none seatbelt use: never do you feel safe at home: Yes additional social history: Marleny- ROS <CLOVIS De Los Santos - Last Filed: 06/02/23 18:50> ROS ED ROS Narrative Constitutional: Negative for fever, chills, malaise. Eyes: Negative for visual change. CVS: Negative for palpitations, chest pain, syncope. Respiratory: Negative for shortness of breath. GI: Negative for abdominal pain, melena, hematochezia. : Negative for dysuria. Neuro: Negative for headache. EXAM <CLOVIS De Los Santos - Last Filed: 06/02/23 18:50> Physical Exam Narrative Exam Narrative: CONST: Patient sitting in no acute distress. EYES: Normal inspection. NECK: Normal inspection. RESP: No respiratory distress, CTAB. CVS: Regular rate and rhythm, no murmur, no gallop. ABD: Soft and nontender, no guarding or rebound, nondistended. SKIN: Color normal, no rash, warm, dry, intact. EXTREMITIES: Normal appearance, no pedal edema. NEURO: Oriented x4. PSYCH: Normal affect. Const Vital Signs: 06/02/23 16:12 06/02/23 16:14 06/02/23 18:48 Temperature 97.6 F L Temperature Source Temporal Pulse Rate 95 88 Respiratory Rate 17 18 Blood Pressure 237/123 H 232/139 H Blood Pressure Mean 161 170 Pulse Ox 98 Oxygen Delivery Method Room Air <Dr. Alon Hussein DO - Last Filed: 06/02/23 17:48> Physical Exam Const Vital Signs: 06/02/23 16:12 06/02/23 16:14 06/02/23 18:48 Temperature 97.6 F L Temperature Source Temporal Pulse Rate 95 88 Respiratory Rate 17 18 Blood Pressure 237/123 H 232/139 H Blood Pressure Mean 161 170 Pulse Ox 98 Oxygen Delivery Method Room Air MDM <CLOVIS De Los Santos - Last Filed: 06/02/23 18:50> [facility] MDM Narrative Medical decision making narrative: Patient recently had N/V/D after eating Chipotle. States his symptoms have resolved today and he needs a work note. He is asymptomatic hypertension at 237/123. He is on 3 BP medications and states his systolic is usually above 200 despite compliance. He is asymptomatic. However due to his recent illness and significantly high blood pressure blood work was obtained. CBC, BMP, and troponin show no evidence of endorgan damage. Potassium was slightly low at 3.2 so he was given oral replacement. EKG is sinus rhythm with anterior lateral and inferior T wave inversions but these are unchanged from previous. CXR shows no acute process. He was given IV labetalol 20 mg systolic BP is around 200 which is an improvement. Patient was discharged home and instructed to follow-up with his primary care doctor for his blood pressure. Lab Data Attestation: I reviewed the patient's lab results. Labs: Laboratory Results - last 24 hr 06/02/23 17:29 WBC 8.4 RBC 5.60 Hgb 15.8 Hct 48.2 MCV 86.1 MCH 28.2 MCHC 32.8 RDW Std Deviation 39.9 RDW Coeff of Barbara 13.1 Plt Count 256 MPV 10.6 Immature Gran % (Auto) 0.400 Neut % (Auto) 61.5 Lymph % (Auto) 28.6 [place] % (Auto) 7.1 Eos % (Auto) 1.9 Baso % (Auto) 0.5 Absolute Neuts (auto) 5.2 Absolute Lymphs (auto) 2.40 Nucleated RBC % 0 Sodium 143 Potassium 3.2 L Chloride 106 Carbon Dioxide 35.0 H Anion Gap 2 L BUN 13 Creatinine 1.06 Estim Creat Clear Calc 109.81 Est GFR (MDRD) Af Amer 104 Est GFR (MDRD) Non-Af 86 BUN/Creatinine Ratio 12.3 Glucose 104 Calcium 9.0 Troponin I High Sens 72 Radiography Diagnostic Testing: Clinical Impression(s) from Imaging Studies Chest X-Ray 06/02/23 18:04 IMPRESSION: No radiographic evidence of acute cardiopulmonary disease. Electronically Signed: Cj Alaniz MD at 18:47 EST Reading Location ID and State: [facility] / [place] Tel , Service support , ED attending interpretation of 1-view chest x-ray shows normal heart size, no acute infiltrate, edema, or effusion. EKG Initial EKG: Attestation: I personally reviewed and interpreted this EKG as follows: Interpretation: Sinus Rhythm and No Acute Injury Pattern Comments: Sinus rhythm with first-degree AV block at 82 bpm T wave inversions in inferior anterior lateral leads. Unchanged from EKG on 01/03/2020 Prior EKG tracings: available for review Prior: Unchanged <Dr. Alon Hussein, DO - Last Filed: 06/02/23 17:48> [facility] Lab Data Labs: Laboratory Results - last 24 hr 06/02/23 17:29 WBC 8.4 RBC 5.60 Hgb 15.8 Hct 48.2 MCV 86.1 MCH 28.2 MCHC 32.8 RDW Std Deviation 39.9 RDW Coeff of Barbara 13.1 Plt Count 256 MPV 10.6 Immature Gran % (Auto) 0.400 Neut % (Auto) 61.5 Lymph % (Auto) 28.6 [place] % (Auto) 7.1 Eos % (Auto) 1.9 Baso % (Auto) 0.5 Absolute Neuts (auto) 5.2 Absolute Lymphs (auto) 2.40 Nucleated RBC % 0 Sodium 143 Potassium 3.2 L Chloride 106 Carbon Dioxide 35.0 H Anion Gap 2 L BUN 13 Creatinine 1.06 Estim Creat Clear Calc 109.81 Est GFR (MDRD) Af Amer 104 Est GFR (MDRD) Non-Af 86 BUN/Creatinine Ratio 12.3 Glucose 104 Calcium 9.0 Troponin I High Sens 72 Radiography Diagnostic Testing: Clinical Impression(s) from Imaging Studies Chest X-Ray 06/02/23 18:04 IMPRESSION: No radiographic evidence of acute cardiopulmonary disease. Electronically Signed: Cj Alaniz MD at 18:47 EST , Treatment and Re-Evaluation :: ED attending note: I evaluated the patient in conjunction with the PAULO. I agree with his/her statements and above findings. I have personally performed a face to face assessment of the patient and have reviewed the PAULO Note. I performed a substantive portion of the visit including all aspects of the following. I personally saw the patient performed chart review, physical exam, reviewed labs, imaging (if obtained), and formulated a treatment and management plan. Brief history: 32-year-old male here with resolved nausea vomiting diarrhea. Exam: [] Nursing triage notes reviewed, Vital signs reviewed Constitutional: please see mdm HENT: MMM Eyes: Pupils equal round and reactive to light, Extraocular muscles intact Neck: No stridor, no JVD, full neck ROM Lungs: Clear to auscultation, No wheezing or rales. No increased work of breathing, no conversational dyspnea, no accessory muscle use, no nasal flaring. No respiratory distress noted Heart: Regular rate and rhythm, No murmurs, No rubs and No gallops, 2+ distal pulses (radial, femoral, posterior tibial) in all extremities Abdomen: Soft, there is no tenderness, rigidity, rebound or guarding, no obvious peritoneal signs, no palpable pulsatile abdominal masses, no auscultated abdominal bruit : No CVAT Extremities: No edema Neuro: No focal neurological deficits, cranial nerves II through XII intact, 5/5 strength in all extremities. Intact sensation to light touch in all extremities, 2+ reflexes bilateral patella dens. Normal gait. No ataxia. Skin: No rash or lesions noted MDM/plan: Chief Complaint: Nausea vomiting diarrhea External records reviewed: Typical blood pressure runs elevated in the high 100s Factors affecting care: Crohn's colitis, hypertension, CVA, obesity, KAREN, uncontrolled hypertension Social determinants of health: History obtained from others: Consults: MDM narrative: Patient was initially hypertensive otherwise hemodynamically stable afebrile and nontoxic-appearing. I considered the following differential diagnosis: Endorgan damage from hypertension, acute surgical pathology the abdomen The patient abdominal exam was benign. Neurologic exam was nonfocal. No indication for advanced imaging as patient had no discernible neurologic deficits to suggest ICH despite having elevated blood pressure. Patient be treated with labetalol. Will perform a basic lab evaluation to rule out endorgan damage of the kidneys heart signs of heart failure pulmonary edema. EKG with normal sinus rhythm, normal axis, normal intervals, ST depression T wave inversions noted inferior laterally. Similar to prior EKG on December 2022 Shared decision making: I will have a discussion with the patient and or visitors regarding risk/benefits of further testing or admission. They will be made aware of of the risk/benefits inherent in this decision they will be given the opportunity to voice understanding. Discharge Plan Triage Chief Complaint: Nausea/Vomiting/Diarrhea ED Midlevel Provider: Nannette Johnson ED Provider: Alon Hussein Dx/Rx/DC Orders Clinical Impression: Resistant hypertension, Acute hypokalemia Instructions: Controlling High Blood Pressure Prescriptions: No Action amlodipine [Norvasc] 10 mg tablet 10 mg PO DAILY Qty: 30 0RF hydrochlorothiazide 12.5 mg capsule 12.5 mg PO DAILY Qty: 30 1RF lisinopril 40 mg tablet 40 mg PO DAILY Qty: 30 1RF olanzapine [Zyprexa] 5 mg tablet 5 mg PO QHS Qty: 30 1RF Primary Care Provider: Rubio Guzman Referrals: Rubio Guzman MD [Primary Care Provider] - Activity Restrictions/Additional Instructions: Please see your primary care doctor this week to discuss your blood pressure Disposition Disposition: Home, Self Care Discharge Date/Time: 06/02/23 18:48
[2023-06-02] MEDS: Labetalol (Prefilled) 20 MG/4 ML IV (17:40)
[2023-06-02 17:51] LABS: Absolute Neutrophil Count 5.2 X10^3/uL (2.0-7.7); Basophil# 0.04 X10^3/uL; Basophil% 0.5 % (0-1); Eosinophil# 0.16 X10^3/uL; Eosinophils% 1.9 % (0-5); Hematocrit 48.2 % (40-54); Hemoglobin 15.8 g/dL (13.0-16.5); Lymphocyte % 28.6 % (19-41); Mean Corp Hgb Conc 32.8 g/dL (32-36); Mean Corpuscular Hgb 28.2 pg (27.0-32.0); Mean Corpuscular Volume 86.1 fL (80-94); Mean Platelet Vol. 10.6 fl (6.2-12.0); Monocyte% 7.1 % (0-10); NRBC Flagged by Analyzer 0 % (0-5); Neutrophil # 5.17 X10^3/uL (2.7-7.7); Neutrophil % 61.5 % (47-70); Platelet Count 256 K/mm3 (150-450); RBC Distribution Width CV 13.1 % (11.6-14.6); RBC Distribution Width SD 39.9 fl (35.1-43.9); White Blood Count 8.4 K/mm3 (4.4-11.0)
--- NOTE | 2023-06-02 18:04 | RAD_ITS ---
INDICATION: Hypertension EXAMINATION/TECHNIQUE: X-RAY - portable upright AP chest x-ray COMPARISON: 01/02/2023 FINDINGS: LINES/DEVICES: None. LUNGS: No consolidation, edema or effusion. No pneumothorax. MEDIASTINUM AND CARDIOVASCULAR STRUCTURES: Cardiac silhouette not enlarged. Central airways and mediastinal contour are unremarkable. BONES AND SOFT TISSUES: Unremarkable. RAD/Chest 1 View (Portable) IMPRESSION: No radiographic evidence of acute cardiopulmonary disease. Electronically Signed: Cj Alaniz MD at 18:47 EST ,
[2023-06-02 18:10] LABS: Anion Gap 2 (5-15); BUN 13 mg/dL (7-18); BUN/Creat Ratio 12.3 RATIO (10-20); Chloride 106 mmol/L (98-107); Creatinine, Serum 1.06 mg/dL (0.70-1.30); EST Glomerular Filtration Rate 86 mL/min (>60); Est Glom Filt Rate - Afr Amer 104 mL/min (>60); Estimated Creatinine Clearance 109.81 ml/min; Glucose 104 mg/dL (74-106); Potassium 3.2 mmol/L (3.5-5.1); Sodium Level 143 mmol/L (136-145); Troponin-I HS 72 pg/mL (3.0-78.0)
[2023-06-02] MEDS: Potassium Chloride Oral Tablet 20 MEQ 40 MEQ PO (18:18)
[2023-06-02 18:48] VITALS: PULSE 88; RESP 18
== END 2023-06-02 18:48 | disposition home or self-care (01) ==
PROVIDERS: Physician Assistant; Emergency Provider Emergency Medicine; PCP Internal Medicine; Visit Provider Emergency Medicine
DX: I1A.0 Resistant hypertension (principal); E66.01 Morbid (severe) obesity due to excess calories; E11.9 Type 2 diabetes mellitus without complications; R19.7 Diarrhea, unspecified; R11.2 Nausea with vomiting, unspecified; E87.6 Hypokalemia; Z79.899 Other long term (current) drug therapy; F17.210 Nicotine dependence, cigarettes, uncomplicated; I10 Essential (primary) hypertension
CPT/HCPCS: 71045; 80048; 84484; 85025; 93005; 96374; 99283; A4216